=== PATIENT | male | born 1955 | race African-American/Black ===

== ENCOUNTER 2018-08-30 06:27 | Inpatient (IN) ==
--- NOTE | 2018-08-30 11:06 | P.HPIM ---
History of Present Illness Primary Care Physician: UNKNOWN Chief Complaint: Chest pain History of Present Illness: The patient is a 63-year-old male with past medical history of CAD status post 3 stents who is presenting to the hospital with left-sided chest pain. He said he has always had chest pain ever since his second heart catheterization. He says his chest pain is located on the left side of his chest and it radiates down his left arm. He says it comes and goes. He says at its worst the pain is a 10 out of 10 in severity. It has become more frequent in nature recently. The pain gets worse with exertion but also occurs at rest frequently. 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 The patient said that he did a treadmill stress test about a month ago but he was unable to complete exercise. He then had a chemical stress test which was supposedly negative. The patient denies any history of kidney problems. He says he recently had dental extraction and is currently on antibiotics for that. He says that he has chronic clear sputum production. He denies a smoking history. Discussed with nursing. Inpatient Certification: I certify that the inpatient services were ordered in accordance with Medicare regulations governing the order. This includes certification that hospital inpatient services are reasonable and necessary and in the case of services not specified as inpatient-only under 42 CFR 419.22(n), that they are appropriately provided as inpatient services in accordance to with the 2-midnight benchmark under 43 CFR 412.3(e) Review of Systems All other systems reviewed negative except as stated in HPI PMFSH - History History Provided By: Patient - Medical History Medical History: Medical History (Last Updated 08/30/18 @ 11:10 by Khurram Saul DO) CAD (coronary artery disease) Diabetes Hyperlipidemia Hypertension Prostatitis, chronic - Surgical History Surgical History: Surgical History (Last Updated 08/30/18 @ 11:10 by Khurram Saul DO) H/O heart artery stent H/O vasectomy Hx of cholecystectomy - Family History Family History: Family History (Last Updated 08/30/18 @ 11:10 by Khurram Saul DO) Other CAD (coronary artery disease) Diabetes - Social History I have reviewed the patient's Social History: Yes - Tobacco History Second Hand Smoke Exposure: No Tobacco Use In Past 30 Days: No Smoking Status: Never smoker - Alcohol History How Often Do You Have a Drink Containing Alcohol: Monthly or less - Substance Use History Substance History: No History of Abuse - Immunization History Tetanus Immunization: Never Vaccinated Hx Influenza Vaccine This Season: Yes Medications and Allergies Allergies Allergy/AdvReac Type Severity Reaction Status Date / Time No Allergy Information Allergy Unverified 08/30/18 11:12 Available Home Medications Medication Instructions Recorded Confirmed Type amoxicillin 500 mg PO TID 08/30/18 08/30/18 History aspirin 325 mg PO DAILY 08/30/18 08/30/18 History carvedilol 3.125 mg PO BID 08/30/18 08/30/18 History glipizide 10 mg PO DAILY 08/30/18 08/30/18 History ibuprofen 800 mg PO TID PRN 08/30/18 08/30/18 History isosorbide mononitrate 60 mg PO QAM 08/30/18 08/30/18 History olmesartan 20 mg PO DAILY 08/30/18 08/30/18 History prasugrel 10 mg PO DAILY 08/30/18 08/30/18 History pravastatin 20 mg PO DAILY 08/30/18 08/30/18 History sitagliptin-metformin [Janumet XR] 1 tab PO QPM 08/30/18 08/30/18 History Exam Narrative: General: NAD HEENT: NC, AT Lungs: CTAB. No W/R/R Heart: RRR. No M/G/R Abdomen: Soft, nontender, nondistended Extremities: No edema Neuro: No gross deficits Caprini VTE Risk Assessment Caprini VTE Risk Assessment: Moderate/High Risk (score >= 2) Caprini Risk Assessment Model: Point Value = 1 Point Value = 2 Point Value = 3 Point Value = 5 Age 41-60 Minor surgery BMI > 25 kg/m2 Swollen legs Varicose veins or History of unexplained or recurrent spontaneous Oral contraceptives or hormone replacement Sepsis (< 1 month) Serious lung disease, including pneumonia (< 1 month) Abnormal pulmonary function Acute myocardial infarction Congestive heart failure (< 1 month) History of inflammatory bowel disease Medical patient at bed rest Age 61-74 Arthroscopic surgery Major open surgery (> 45 min) Laparoscopic surgery (> 45 min) Malignancy Confined to bed (> 72 hours) Immobilizing plaster cast Central venous access Age >= 75 History of VTE Family history of VTE Factor V Leiden Prothrombin [id number] Lupus anticoagulant Anticardiolipin antibodies Elevated serum homocysteine Heparin-induced thrombocytopenia Other congenital or acquired thrombophilia Stroke (< 1 month) Elective arthroplasty Hip, pelvis, or leg fracture Acute spinal cord injury (< 1 month) Prophylaxis Regimen: Total Risk Factor Score Risk Level Prophylaxis Regimen 0-1 Low Early ambulation 2 Moderate Order ONE of the following: *Sequential Compression Device (SCD) *Heparin 5000 units SQ BID 3-4 Higher Order ONE of the following medications: *Heparin 5000 units SQ TID *Enoxaparin/Lovenox 40 mg SQ daily (WT < 150 kg, CrCl > 30 mL/min) *Enoxaparin/Lovenox 30 mg SQ daily (WT < 150 kg, CrCl > 10-29 mL/min) *Enoxaparin/Lovenox 30 mg SQ BID (WT < 150 kg, CrCl > 30 mL/min) AND/OR *Sequential Compression Device (SCD) 5 or more Highest Order ONE of the following medications: *Heparin 5000 units SQ TID (Preferred with Epidurals) *Enoxaparin/Lovenox 40 mg SQ daily (WT < 150 kg, CrCl > 30 mL/min) *Enoxaparin/Lovenox 30 mg SQ daily (WT < 150 kg, CrCl > 10-29 mL/min) *Enoxaparin/Lovenox 30 mg SQ BID (WT < 150 kg, CrCl > 30 mL/min) AND *Sequential Compression Device (SCD) Assessment and Plan - Plan Chest pain/ CAD The pt is s/p three cardiac stents. He continues to have left sided chest pain. He was transferred from [place] for further cardiac work-up. -trend trops and EKGs. -telemetry. -cardiology consult requested. -pain control as needed with a bowel regimen. -continue home cardiac regimen including ASA, prasugrel, Coreg, Imdur and statin. Acute renal failure Pt denies prior history of renal disease. He does have a history of HTN and DM. -IVFs. -hold ARB and ibuprofen. -avoid nephrotoxins. -check UA, calculate FENa. -nephrology consult requested. DM On PO meds as an outpt. -hold home meds. -insulin sliding scale. Recent dental extraction Was supposed to have dental follow-up 08/30. -continue amoxicillin. -outpt follow-up with dentist. Leukocytosis Likely reactive. -check a UA and CXR. PPx: Heparin Code Status: Full H&P: Quality - VTE Deep Vein Thrombosis/Pulmonary Embolism Present on Admission: No
[2018-08-30] MEDS ORDERED: Acetaminophen 325 MG Tablet PO PRN (11:14)
[2018-08-30] MEDS ORDERED: Dextrose 50% in Water 50 ML Vial IV.PUSH PRN (11:17)
--- NOTE | 2018-08-30 12:07 | XR ---
EXAM DATE: 08/30/2018 12:04 PM EST AGE/SEX: 63 years / Male INDICATIONS: Chest pain and shortness of breath. CLINICAL DATA: This is the patient's initial encounter. Patient reports that signs and symptoms have been present for 1 day and indicates a pain score of 9/10. MEDICAL/SURGICAL HISTORY: Chronic obstructive pulmonary disease. Hypertension. Coronary artery disease. Prostatitis, chronic. Coronary artery stent. COMPARISON: No prior exams available for comparison. FINDINGS: A single AP view of the chest demonstrates the lungs to be symmetrically aerated without evidence of mass, infiltrate or effusion. The cardiomediastinal contours are unremarkable. Osseous structures a re intact. CONCLUSION: Negative examination. Electronically signed by: Narciso Marks MD 08/30/2018 12:06 PM EST
[2018-08-30 13:36] LABS: Calcium 8.6 mg/dL (8.5-10.1); Potassium 4.6 meq/L (3.5-5.1)
[2018-08-30] MEDS: Aspirin 325 MG Tablet PO SCH (13:36)
[2018-08-30] MEDS: Isosorbide Mononitrate 60 MG ER 24HR Tablet (Imdur) PO SCH (13:36)
[2018-08-30] MEDS: Sod Chloride 0.9% Inj 1,000 ML IV.CONT SCH (13:37)
[2018-08-30] MEDS: Insulin NovoLOG Aspart Correctional Sugar Inj SQ SCH ×2 (13:42→17:57)
[2018-08-30] MEDS ORDERED: Heparin - SQ 10,000 UNITS/ML Vial SQ SCH (14:00)
--- NOTE | 2018-08-30 15:55 | P.CONNP ---
<Pa Engel - Last Filed: 08/30/18 16:36> History of Present Illness Primary Care Provider: UNKNOWN Chief Complaint: Chest pain History of Present Illness: Patient is a 63 year old male who is a transfer from [place]. Patient had chest pain which is what brought him to the hospital in [place]. Patient was transferred here due to ARF. Creatinine is 2.03, GFR 40. Patient denies any chest pain, SOB, nausea/vomiting/diarrhea. Patient has a medical history of Type 2 DM, CAD s/p 3 stents, prostatitis, hypertension, and hyperlipidemia. Patient denies any prior kidney disease or any family history of kidney disease. Patient stated he has taken 325mg of Aspirin for a year but denied any other NSAID use. Ibuprofen was listed on his home meds. Patient denies alcohol, tobacco, and drug use. Patient's and daughter at bedside. Patient stated he is on antibiotic due to recent dental extraction. Review of Systems All other systems reviewed negative except as stated in HPI PMFSH - History History Provided By: Patient - Medical History Medical History: Medical History (Last Updated 08/30/18 @ 11:10 by Khurram Saul DO) CAD (coronary artery disease) Diabetes Hyperlipidemia Hypertension Prostatitis, chronic - Surgical History Surgical History: Surgical History (Last Updated 08/30/18 @ 11:10 by Khurram Saul DO) H/O heart artery stent H/O vasectomy Hx of cholecystectomy - Family History Family History: Family History (Last Updated 08/30/18 @ 11:10 by Khurram Saul DO) Other CAD (coronary artery disease) Diabetes - Tobacco History Second Hand Smoke Exposure: No Tobacco Use In Past 30 Days: No Smoking Status: Never smoker - Alcohol History How Often Do You Have a Drink Containing Alcohol: Monthly or less - Substance Use History Substance History: No History of Abuse - Immunization History Tetanus Immunization: Never Vaccinated Hx Influenza Vaccine This Season: Yes Medications and Allergies Allergies Allergy/AdvReac Type Severity Reaction Status Date / Time No Allergy Information Allergy Verified 08/30/18 11:50 Available Home Medications Medication Instructions Recorded Confirmed Type amoxicillin 500 mg PO TID 08/30/18 08/30/18 History aspirin 325 mg PO DAILY 08/30/18 08/30/18 History carvedilol 3.125 mg PO BID 08/30/18 08/30/18 History glipizide 10 mg PO DAILY 08/30/18 08/30/18 History ibuprofen 800 mg PO TID PRN 08/30/18 08/30/18 History isosorbide mononitrate 60 mg PO QAM 08/30/18 08/30/18 History olmesartan 20 mg PO DAILY 08/30/18 08/30/18 History prasugrel 10 mg PO DAILY 08/30/18 08/30/18 History pravastatin 20 mg PO DAILY 08/30/18 08/30/18 History sitagliptin-metformin [Janumet XR] 1 tab PO QPM 08/30/18 08/30/18 History Active Medications: Active Medications Acetaminophen (Tylenol) 650 mg PO Q4H PRN PRN Reason: Temp > 100.4 Amoxicillin (Amoxil) 500 mg PO TID [facility] Last Admin: 08/30/18 14:10 Dose: 500 mg Aspirin (Aspirin) 325 mg PO DAILY [facility] Last Admin: 08/30/18 13:36 Dose: 325 mg Carvedilol (Coreg) 3.125 mg PO BID [facility] Last Admin: 08/30/18 13:36 Dose: 3.125 mg Dextrose (D50w Vial) 50 ml IV.PUSH UNSCH PRN PRN Reason: PER HYPOGLYCEMIA PROTOCOL Glucagon (Glucagon Inj) 1 mg OTHER PRN PRN PRN Reason: for Hypoglycemia Protocol Heparin Sodium (Porcine) (Heparin Inj) 5,000 units SQ Q8H [facility] Last Admin: 08/30/18 13:36 Dose: 5,000 units Sodium Chloride (Ns Inj) 1,000 mls @ 100 mls/hr IV.CONT .Q10H [facility] Stop: 08/31/18 07:14 Last Admin: 08/30/18 13:37 Dose: 100 mls/hr Insulin Aspart (Novolog Insulin Correctional Sugar Inj) 0 unit SQ Q6HR [facility]; Protocol Last Admin: 08/30/18 13:42 Dose: 2 unit Isosorbide Mononitrate (Imdur) 60 mg PO DAILY@0700 [facility] Last Admin: 08/30/18 13:36 Dose: 60 mg Morphine Sulfate (Morphine Inj) 4 mg IV.PUSH Q4H PRN PRN Reason: BREAKTHROUGH PAIN Ondansetron HCl (Zofran Inj) 4 mg IV.PUSH Q6H PRN PRN Reason: NAUSEA OR VOMITING Oxycodone HCl (Roxicodone) 5 mg PO Q4H PRN PRN Reason: pain 3-10 Prasugrel (Effient) 10 mg PO DAILY [facility] Last Admin: 08/30/18 14:10 Dose: 10 mg Pravastatin Sodium (Pravachol) 20 mg PO DAILY [facility] Last Admin: 08/30/18 13:36 Dose: 20 mg Senna/Docusate Sodium (Letty-Colace) 1 tab PO BID [facility] Sodium Chloride (Ns Flush) 2 ml IV.FLUSH BID [place] Sodium Chloride (Ns Flush) 2 ml IV.FLUSH PRN PRN PRN Reason: FLUSH AFTER USING IV ACCESS Exam Vital signs: Vital Signs 08/30/18 12:00 Temperature 97.8 F Pulse Rate 58 L Respiratory Rate 17 Blood Pressure 126/71 Pulse Oximetry 100 Intake & Output 08/29/18 08/30/18 08/30/18 18:59 06:59 18:59 Weight 81.3 kg Other: Weight On Admission 81.3 kg - Constitutional no acute distress - Routine HEENT Exam Eye: Present: EOMI, PERRL ENT: Present: mucous membranes moist - Routine Neck Exam Present: trachea midline. Absent: JVD, tracheal deviation - Routine Respiratory Exam Present: CTA bilaterally. Absent: accessory muscle use, respiratory distress - Routine Cardiovascular Exam Present: RRR. Absent: murmur - Routine Abdominal Exam Present: soft, normoactive bowel sounds. Absent: tenderness - Routine Extremities Exam Present: pulses intact, normal capillary refill. Absent: edema - Routine Skin Exam Present: intact - Routine Neurological Exam Present: alert, oriented X3 Results - Lab Results 08/30/18 12:20 Most recent lab results Calcium 8.6 mg/dL (8.5-10.1) 08/30/18 12:20 Assessment and Plan - Assessment (1) ARF (acute renal failure) Code(s): N17.9 - Acute kidney failure, unspecified Status: Acute Plan: ARF etiology is unclear at this point. Etiology could be due to Diabetic nephropathy, Hypertensive nephrosclerosis, NSAID use. Ordered renal ultrasound and additional lab tests. Baseline renal function is not known and no previous labs from hospital where patient was transferred from are available. Monitor urine output. Avoid nephrotoxic agents. Monitor fluid and electrolytes. (2) Hypertension Code(s): I10 - Essential (primary) hypertension Status: Acute Plan: Monitor BP. Continue current medications. (3) Hyperlipidemia Code(s): E78.5 - Hyperlipidemia, unspecified Status: Acute Plan: Patient on pravastatin. (4) CAD (coronary artery disease) Code(s): I25.10 - Atherosclerotic heart disease of zuni coronary artery without angina pectoris Status: Acute Plan: s/p stent placement. Patient on Prasugrel. (5) Diabetes type 2, controlled Code(s): E11.9 - Type 2 diabetes mellitus without complications Status: Acute Plan: Insulin coverage to maintain blood glucose levels between 140 and 180. <Fransisco Hernandez - Last Filed: 08/30/18 22:05> History of Present Illness Primary Care Provider: UNKNOWN [facility] - Medical History Medical History: Medical History (Last Updated 08/30/18 @ 11:10 by Khurram Saul DO) CAD (coronary artery disease) Diabetes Hyperlipidemia Hypertension Prostatitis, chronic - Surgical History Surgical History: Surgical History (Last Updated 08/30/18 @ 11:10 by Khurram Saul DO) H/O heart artery stent H/O vasectomy Hx of cholecystectomy - Family History Family History: Family History (Last Updated 08/30/18 @ 11:10 by Khurram Saul DO) Other CAD (coronary artery disease) Diabetes Medications and Allergies Active Medications: Active Medications Acetaminophen (Tylenol) 650 mg PO Q4H PRN PRN Reason: Temp > 100.4 Amoxicillin (Amoxil) 500 mg PO TID [facility] Last Admin: 08/30/18 17:57 Dose: 500 mg Aspirin (Aspirin) 325 mg PO DAILY [facility] Last Admin: 08/30/18 13:36 Dose: 325 mg Carvedilol (Coreg) 3.125 mg PO BID [facility] Last Admin: 08/30/18 21:57 Dose: 3.125 mg Dextrose (D50w Vial) 50 ml IV.PUSH UNSCH PRN PRN Reason: PER HYPOGLYCEMIA PROTOCOL Glucagon (Glucagon Inj) 1 mg OTHER PRN PRN PRN Reason: for Hypoglycemia Protocol Sodium Chloride (Ns Inj) 1,000 mls @ 100 mls/hr IV.CONT .Q10H [facility] Stop: 08/31/18 07:14 Last Admin: 08/30/18 13:37 Dose: 100 mls/hr Heparin Sodium/Dextrose (Heparin/D5w 25,000 U/250 Ml) 25,000 unit in 250 mls @ 10 mls/hr IV.CONT TITRATE PRN; Protocol PRN Reason: Per Protocol Last Admin: 08/30/18 19:24 Dose: 1,000 units/hr, 10 mls/hr Insulin Aspart (Novolog Insulin Correctional Sugar Inj) 0 unit SQ Q6HR [facility]; Protocol Last Admin: 08/30/18 17:57 Dose: 2 unit Isosorbide Mononitrate (Imdur) 60 mg PO DAILY@0700 [facility] Last Admin: 08/30/18 13:36 Dose: 60 mg Morphine Sulfate (Morphine Inj) 4 mg IV.PUSH Q4H PRN PRN Reason: BREAKTHROUGH PAIN Last Admin: 08/30/18 19:19 Dose: 4 mg Nitroglycerin (Nitrostat Sl) 0.4 mg SL Q5M PRN PRN Reason: CHEST PAIN Ondansetron HCl (Zofran Inj) 4 mg IV.PUSH Q6H PRN PRN Reason: NAUSEA OR VOMITING Oxycodone HCl (Roxicodone) 5 mg PO Q4H PRN PRN Reason: pain 3-10 Prasugrel (Effient) 10 mg PO DAILY [facility] Last Admin: 08/30/18 14:10 Dose: 10 mg Pravastatin Sodium (Pravachol) 20 mg PO DAILY [facility] Last Admin: 08/30/18 13:36 Dose: 20 mg Senna/Docusate Sodium (Letty-Colace) 1 tab PO BID [facility] Last Admin: 08/30/18 21:57 Dose: Not Given Sodium Chloride (Ns Flush) 2 ml IV.FLUSH BID [facility] Last Admin: 08/30/18 21:56 Dose: 2 ml Sodium Chloride (Ns Flush) 2 ml IV.FLUSH PRN PRN PRN Reason: FLUSH AFTER USING IV ACCESS Exam Vital signs: Vital Signs 08/30/18 08:00 08/30/18 12:00 08/30/18 16:00 Temperature 97.8 F 97.8 F Pulse Rate 70 58 L 70 Respiratory Rate 17 13 Blood Pressure 126/71 138/61 Pulse Oximetry 100 100 08/30/18 19:15 08/30/18 19:22 08/30/18 19:30 Temperature 96.8 F L Pulse Rate 70 72 Respiratory Rate 18 17 Blood Pressure 111/78 185/78 H 138/65 Pulse Oximetry 100 100 08/30/18 20:00 Temperature 96.8 F L Pulse Rate 68 Respiratory Rate 20 Blood Pressure 125/86 Pulse Oximetry 100 Intake & Output 08/30/18 08/30/18 08/31/18 06:59 18:59 06:59 Intake Total 480 / 480 Output Total 500 / 500 Balance - Weight 81.3 kg Intake: Oral 480 / 480 Output: Urine 500 / 500 Other: Weight On Admission 81.3 kg Results - Lab Results 08/30/18 12:20 Most recent lab results Calcium 8.6 mg/dL (8.5-10.1) 08/30/18 12:20 Assessment and Plan - Assessment (1) ARF (acute renal failure) Code(s): N17.9 - Acute kidney failure, unspecified Status: Acute (2) Hypertension Code(s): I10 - Essential (primary) hypertension Status: Acute (3) Hyperlipidemia Code(s): E78.5 - Hyperlipidemia, unspecified Status: Acute (4) CAD (coronary artery disease) Code(s): I25.10 - Atherosclerotic heart disease of zuni coronary artery without angina pectoris Status: Acute (5) Diabetes type 2, controlled Code(s): E11.9 - Type 2 diabetes mellitus without complications Status: Acute - Attending Attestation patient was seen and examined. Baseline renal function is not known. He apparently took one Ibuprofen yesterday. May have underlying hypertensive nephrosclerosis or diabetic nephropathy. Order renal US and UA. Cardiology evaluation in progress. Await stabilization of renal function before cardiac catheterization if it is deemed necessary.
--- NOTE | 2018-08-30 16:05 | US ---
EXAM DATE: 08/30/2018 4:02 PM EST AGE/SEX: 63 years / Male INDICATIONS: Increased BUN/Creatnine. CLINICAL DATA: This is the patient's initial encounter. Patient reports that signs and symptoms have been present for 1 day and indicates a pain score of 0/10. MEDICAL/SURGICAL HISTORY: Hypertension. Coronary artery disease. Diabetes. Hyperlipidemia. Pros tatitis. Cholecystectomy. Cardiac stent. Vasectomy. COMPARISON: No prior exams available for comparison. MEASUREMENTS: Right Kidney:__10.9 x 4.5 x 4.9 cm Left Kidney:__10.5 x 4.3 x 5.1 cm FINDINGS: Right Kidney: Normal echotexture and cortical thickness. No mass or hydronephrosis. Left Kidney: Normal echotexture and cortical thickness. No hydronephrosis. There is a 2.6 cm cyst at the lower pole. Bladder: Within normal limits given the degree of distension. Other: None. CONCLUSION: Negative renal ultrasound examination. Incidental note is made of a left renal cyst. Electronically signed by: Narciso Mancuso MD 08/30/2018 4:04 PM EST
--- NOTE | 2018-08-30 18:44 | MB ---
cc: Vladimir Mann MD DATE: 08/30/2018 HISTORY OF PRESENT ILLNESS: Omar is a very pleasant 63-year-old gentleman with history of PCI x 2. He has been having severe chest pain at rest, which is new, associated with shortness of breath. He is currently resting in bed, in no acute distress. He is accompanied by his and daughter. Otherwise, denies any fevers, chills, cough, GI or bleeding, PND, orthopnea, syncope or dizziness. PAST MEDICAL HISTORY: Per history of present illness, he has a history of coronary artery disease, diabetes, hyperlipidemia, hypertension, chronic prostatitis, vasectomy, cholecystectomy. ALLERGIES: NONE. SOCIAL HISTORY: Denies tobacco use. Rarely drinks alcohol. MEDICATIONS IN THE HOSPITAL: 1. Aspirin 325 daily. 2. Carvedilol 3.125 b.i.d. 3. Insulin. 4. Isosorbide mononitrate 60 mg daily. 5. Effient 10 mg daily. 6. Pravastatin 20 mg daily. 7. Docusate 1 tab b.i.d. PHYSICAL EXAMINATION: VITAL SIGNS: Temperature 97.8, pulse 70, respiratory rate 17, blood pressure 126/71. GENERAL: He is alert and oriented x 3, in no acute distress. NECK: Supple. No JVD. No bruit. CARDIOVASCULAR: S1, S2. No murmurs, rubs or gallops. LUNGS: Clear to auscultation bilaterally. ABDOMEN: Soft, nontender and nondistended with positive bowel sounds. EXTREMITIES: No lower extremity edema. LABORATORY AND DIAGNOSTIC DATA: Negative renal ultrasound examination. Incidental note is made of a left renal cyst. Chest x-ray, negative examination. EKG, sinus bradycardia at 50 beats per minute, anteroseptal Q waves, asymmetric T-wave inversion in V4, V5, V6. Sodium 135, potassium 4.6, chloride 104, bicarbonate 26.0, BUN 24, creatinine 2.03, calcium 8.6. Troponin is 0.63. CBC is not available. DIAGNOSES: 1. [id number] myocardial infarction. 2. Coronary artery disease. 3. Acute renal failure. 4. Diabetes. 5. Hypertension. DISCUSSION: At this point in time, the patient is being appropriately treated with dual antiplatelet therapy given his non-STEMI. He is currently asymptomatic and has acute renal failure; therefore, we will follow trends in creatinine. The patient definitely needs a left heart catheterization. We will just try to optimize his renal function prior to the catheterization. The patient will obviously have to consent as well. Recommend to continue aspirin, Effient, Coreg, Imdur, pravastatin. BALBINA inhibitor is obviously being held due to acute renal failure. We will also get a CBC, INR, magnesium and BNP. MD JOSSELINE London/ghazala , 05:00 PM , 05:08 PM
[2018-08-30 19:07] LABS: Activated Partial Thrombo Time 26.3 sec (23.4-31.7); Prothrombin Time 10.4 sec (9.8-11.6)
[2018-08-30] MEDS: Morphine Inj 4 MG/ML Vial IV.PUSH PRN (19:19)
[2018-08-30] MEDS: Heparin Drip 25,000 UNIT/250 ML BAG IV.CONT PRN (19:24)
[2018-08-30] MEDS: Senna/Docusate Sodium 8.6/50 MG Tablet PO SCH (21:57)
[2018-08-31] MEDS: Sod Chloride 0.9% Inj 1,000 ML IV.CONT SCH (00:15)
[2018-08-31 01:56] LABS: Bilirubin,Urine Negative (Negative); Clarity,Urine Clear (Clear); Color,Urine Yellow (Yellw/Straw); Glucose,Urine (UA) Negative (Negative); Leukocyte Esterase,Urine Trace (Negative); Nitrite,Urine Negative (Negative); Specific Gravity,Urine 1.011 (1.002-1.035); Squamous Epithelial Cell,Urine <1 /hpf (0-5)
[2018-08-31] MEDS: Insulin NovoLOG Aspart Correctional Sugar Inj SQ SCH ×5 (01:57→23:45)
[2018-08-31 02:10] LABS: Creatinine,Urine Random 112 mg/dL (27-300); Sodium,Urine Random 78 meq/L
[2018-08-31 04:39] LABS: Baso % (Auto) 0.4 % (0.0-2.0); Eos # (Auto) 0.2 th/mm3 (0.0-0.4); Hematocrit 31.3 % (39.0-51.0); Hemoglobin 10.5 gm/dL (13.0-17.0); Lymph # (Auto) 2.8 th/mm3 (1.0-4.8); Lymph % (Auto) 25.4 % (9.0-44.0); Mean Corpuscular HGB Conc 33.6 % (32.0-36.0); Mean Corpuscular Hemoglobin 30.2 pg (27.0-34.0); Mean Corpuscular Volume 89.8 fL (80.0-100.0); Mono # (Auto) 0.4 th/mm3 (0.0-0.9); Neut # (Auto) 7.6 th/mm3 (1.8-7.7); Neut % (Auto) 68.2 % (16.0-70.0); Platelet Count 199 th/mm3 (150-450); Red Blood Count 3.48 mil/mm3 (4.50-5.90); Red Cell Distribution Width 13.6 % (11.6-17.2); White Blood Count 11.1 th/mm3 (4.0-11.0)
[2018-08-31 04:58] LABS: Prothrombin Time 10.3 sec (9.8-11.6)
[2018-08-31 05:11] LABS: Alkaline Phosphatase 78 U/L (45-117); Total Protein 6.3 g/dL (6.4-8.2)
[2018-08-31 05:15] LABS: Alanine Aminotransferase 16 U/L (12-78); Albumin 3.4 g/dL (3.4-5.0); Anion Gap 9 meq/L (5-15); Aspartate Aminotransferase 20 U/L (15-37); Blood Urea Nitrogen 24 mg/dL (7-18); Calcium 8.5 mg/dL (8.5-10.1); Carbon Dioxide 23.5 meq/L (21.0-32.0); Chloride 107 meq/L (98-107); Glomerular Filtration Rate 42 mL/min (>89); Glucose,Random 134 mg/dL (74-106); Potassium 4.6 meq/L (3.5-5.1); Sodium 139 meq/L (136-145)
[2018-08-31] MEDS: Isosorbide Mononitrate 60 MG ER 24HR Tablet (Imdur) PO SCH (06:58)
[2018-08-31] MEDS: Senna/Docusate Sodium 8.6/50 MG Tablet PO SCH ×2 (08:27→20:45)
[2018-08-31] MEDS: Aspirin 325 MG Tablet PO SCH (08:28)
--- NOTE | 2018-08-31 10:42 | P.PNCA ---
Subjective Interval history: alert in nad, some chest pain last night Medications and Allergies Active Medications: Active Medications Acetaminophen (Tylenol) 650 mg PO Q4H PRN PRN Reason: Temp > 100.4 Amoxicillin (Amoxil) 500 mg PO TID [facility] Last Admin: 08/31/18 08:27 Dose: 500 mg Aspirin (Aspirin) 325 mg PO DAILY [facility] Last Admin: 08/31/18 08:28 Dose: 325 mg Carvedilol (Coreg) 3.125 mg PO BID [facility] Last Admin: 08/31/18 08:27 Dose: 3.125 mg Dextrose (D50w Vial) 50 ml IV.PUSH UNSCH PRN PRN Reason: PER HYPOGLYCEMIA PROTOCOL Glucagon (Glucagon Inj) 1 mg OTHER PRN PRN PRN Reason: for Hypoglycemia Protocol Heparin Sodium/Dextrose (Heparin/D5w 25,000 U/250 Ml) 25,000 unit in 250 mls @ 10 mls/hr IV.CONT TITRATE PRN; Protocol PRN Reason: Per Protocol Last Admin: 08/30/18 19:24 Dose: 1,000 units/hr, 10 mls/hr Insulin Aspart (Novolog Insulin [place] Sugar Inj) 0 unit SQ Q6HR [facility]; Protocol Last Admin: 08/31/18 06:53 Dose: 2 unit Isosorbide Mononitrate (Imdur) 60 mg PO DAILY@0700 [facility] Last Admin: 08/31/18 06:58 Dose: 60 mg Morphine Sulfate (Morphine Inj) 4 mg IV.PUSH Q4H PRN PRN Reason: BREAKTHROUGH PAIN Last Admin: 08/30/18 19:19 Dose: 4 mg Nitroglycerin (Nitrostat Sl) 0.4 mg SL Q5M PRN PRN Reason: CHEST PAIN Ondansetron HCl (Zofran Inj) 4 mg IV.PUSH Q6H PRN PRN Reason: NAUSEA OR VOMITING Oxycodone HCl (Roxicodone) 5 mg PO Q4H PRN PRN Reason: pain 3-10 Prasugrel (Effient) 10 mg PO DAILY [facility] Last Admin: 08/31/18 08:27 Dose: 10 mg Pravastatin Sodium (Pravachol) 20 mg PO DAILY [facility] Last Admin: 08/31/18 08:27 Dose: 20 mg Senna/Docusate Sodium (Letty-Colace) 1 tab PO BID [facility] Last Admin: 08/31/18 08:27 Dose: 1 tab Sodium Chloride (Ns Flush) 2 ml IV.FLUSH BID [facility] Last Admin: 08/31/18 08:28 Dose: 2 ml Sodium Chloride (Ns Flush) 2 ml IV.FLUSH PRN PRN PRN Reason: FLUSH AFTER USING IV ACCESS Allergies Allergy/AdvReac Type Severity Reaction Status Date / Time No Allergy Information Allergy Verified 08/30/18 11:50 Available Home Medications Medication Instructions Recorded Confirmed Type amoxicillin 500 mg PO TID 08/30/18 08/30/18 History aspirin 325 mg PO DAILY 08/30/18 08/30/18 History carvedilol 3.125 mg PO BID 08/30/18 08/30/18 History glipizide 10 mg PO DAILY 08/30/18 08/30/18 History ibuprofen 800 mg PO TID PRN 08/30/18 08/30/18 History isosorbide mononitrate 60 mg PO QAM 08/30/18 08/30/18 History olmesartan 20 mg PO DAILY 08/30/18 08/30/18 History prasugrel 10 mg PO DAILY 08/30/18 08/30/18 History pravastatin 20 mg PO DAILY 08/30/18 08/30/18 History sitagliptin-metformin [Janumet XR] 1 tab PO QPM 08/30/18 08/30/18 History Physical Exam Vital signs: Vital Signs 08/30/18 12:00 08/30/18 16:00 08/30/18 19:15 Temperature 97.8 F 97.8 F 96.8 F L Pulse Rate 58 L 70 70 Respiratory Rate 17 13 18 Blood Pressure 126/71 138/61 111/78 Pulse Oximetry 100 100 100 08/30/18 19:22 08/30/18 19:30 08/30/18 20:00 Temperature 96.8 F L Pulse Rate 72 73 Respiratory Rate 17 20 Blood Pressure 185/78 H 138/65 125/86 Pulse Oximetry 100 100 08/31/18 00:00 08/31/18 04:00 08/31/18 08:00 Temperature 97.7 F 97.5 F L 97.6 F Pulse Rate 76 68 70 Respiratory Rate 16 16 20 Blood Pressure 133/75 135/71 123/74 Pulse Oximetry 100 98 99 Intake & Output 08/30/18 08/31/18 08/31/18 18:59 06:59 18:59 Intake Total 480 / 480 2280 / 2280 Output Total 500 / 500 750 / 750 Balance -20 / -20 1530 / 1530 Weight 81.3 kg 83.2 kg Intake: IV 1800 / 1800 NS Inj 1,000 ML @ 100 mls/hr IV 1800 / 1800 .CONT .Q10H [facility] Rx#:[id number] Oral 480 / 480 480 / 480 Output: Urine 500 / 500 750 / 750 Other: Date of Last Bowel Movement 08/28/18 # Bowel Movements 0 Weight On Admission 81.3 kg - Constitutional no acute distress - Routine HEENT Exam Head: Present: normocephalic - Routine Neck Exam Present: supple - Routine Respiratory Exam Present: CTA bilaterally - Routine Cardiovascular Exam Present: S1, S2 - Routine Abdominal Exam Present: soft - Routine Extremities Exam Comments: no rito Results 08/31/18 03:40 08/31/18 03:40 Cardiac Enzymes 08/30/18 08/30/18 08/31/18 Range/Units 12:20 18:40 03:40 AST 20 (15-37) U/L Troponin I 0.63 H* 0.69 H* (0.02-0.05) ng/mL B-Natriuretic Peptide (0-100) pg/mL 08/31/18 08/31/18 Range/Units 03:40 09:38 AST (15-37) U/L Troponin I 0.42 H (0.02-0.05) ng/mL B-Natriuretic Peptide 419 H (0-100) pg/mL Coagulation 08/30/18 08/30/18 08/31/18 Range/Units 18:40 23:01 03:40 PT 10.4 10.3 (9.8-11.6) sec APTT 26.3 38.1 H D (23.4-31.7) sec B-Natriuretic Peptide (0-100) pg/mL 08/31/18 08/31/18 08/31/18 Range/Units 03:40 03:40 09:38 PT (9.8-11.6) sec APTT 45.0 H 47.3 H (23.4-31.7) sec B-Natriuretic Peptide 419 H (0-100) pg/mL CBC 08/31/18 Range/Units 03:40 WBC 11.1 H (4.0-11.0) th/mm3 RBC 3.48 L (4.50-5.90) mil/mm3 Hgb 10.5 L (13.0-17.0) gm/dL Hct 31.3 L (39.0-51.0) % Plt Count 199 (150-450) th/mm3 Neut # (Auto) 7.6 (1.8-7.7) th/mm3 Lymph # (Auto) 2.8 (1.0-4.8) th/mm3 [place] # (Auto) 0.4 (0.0-0.9) th/mm3 Eos # (Auto) 0.2 (0.0-0.4) th/mm3 Baso # (Auto) 0.0 (0.0-0.2) th/mm3 Comprehensive Metabolic Panel 08/30/18 08/31/18 Range/Units 12:20 03:40 Sodium 135 L 139 (136-145) meq/L Potassium 4.6 4.6 (3.5-5.1) meq/L Chloride 104 107 (98-107) meq/L Carbon Dioxide 26.0 23.5 (21.0-32.0) meq/L BUN 24 H 24 H (7-18) mg/dL Creatinine 2.03 H 1.96 H (0.60-1.30) mg/dL Calcium 8.6 8.5 (8.5-10.1) mg/dL AST 20 (15-37) U/L ALT 16 (12-78) U/L Alkaline Phosphatase 78 (45-117) U/L Total Protein 6.3 L (6.4-8.2) g/dL Albumin 3.4 (3.4-5.0) g/dL Intake and Output 08/30/18 08/31/18 08/31/18 22:59 06:59 14:59 Intake Total 1280 / 1280 1480 / 1480 Output Total 500 / 500 750 / 750 Balance 780 / 780 730 / 730 Intake: IV 800 / 800 1000 / 1000 NS Inj 1,000 ML @ 100 mls/hr IV 800 / 800 1000 / 1000 .CONT .Q10H [facility] Rx#:[id number] Oral 480 / 480 480 / 480 Output: Urine 500 / 500 750 / 750 Other: Date of Last Bowel Movement 08/28/18 # Bowel Movements 0 Weight 83.2 kg - Imaging and Cardiology Imaging: Impressions Abdomen/Bladder Ultrasound 08/30/18 00:00 CONCLUSION: Negative renal ultrasound examination. Incidental note is made of a left renal cyst. Chest X-Ray 08/30/18 11:26 CONCLUSION: Negative examination. Assessment and Plan - Assessment (1) NSTEMI (non-ST elevated myocardial infarction) Code(s): I21.4 - Non-ST elevation (NSTEMI) myocardial infarction Status: Acute (2) ARF (acute renal failure) Code(s): N17.9 - Acute kidney failure, unspecified Status: Acute (3) Hypertension Code(s): I10 - Essential (primary) hypertension Status: Acute (4) Hyperlipidemia Code(s): E78.5 - Hyperlipidemia, unspecified Status: Acute (5) CAD (coronary artery disease) Code(s): I25.10 - Atherosclerotic heart disease of [place] coronary artery without angina pectoris Status: Acute (6) Diabetes type 2, controlled Code(s): E11.9 - Type 2 diabetes mellitus without complications Status: Acute - Plan 1.) CAD - nstemi, continue aspirin, [facility] sunday if patient consents, i explained that risk of temporary or permanent dialysis is increased due to arf, will f/u renal recs and creatinine trends
--- NOTE | 2018-08-31 12:45 | ECG ---
Date Performed: 08/30/2018 Time Performed: 16:09:01 PTAGE: 63 years EKG: Sinus rhythm SEPTAL MYOCARDIAL INFARCTION , OF INDETERMINATE AGE MODERATE T-WAVE ABNORMALITY, CONSIDER LATERAL IS CHEMIA ABNORMAL ECG Since the PREVIOUS TRACING , no significant change noted PREVIOUS TRACIN08/30/2018 11.49 DOCTOR: Jose Denton Interpretating Date/Time 08/31/2018 12:44:17
--- NOTE | 2018-08-31 12:57 | ECG ---
Date Performed: 08/30/2018 Time Performed: 11:49:44 PTAGE: 63 years EKG: SINUS BRADYCARDIA SEPTAL MYOCARDIAL INFARCTION , OF INDETERMINATE AGE MODERATE T-WAVE ABNOR MALITY, CONSIDER LATERAL ISCHEMIA ABNORMAL ECG Possible mild elevation of ST segment Clinical correla tion is recommended NO PREVIOUS TRACING DOCTOR: Jose Denton Interpretating Date/Time 08/31/2018 13:04:10
--- NOTE | 2018-08-31 12:59 | ECG ---
Date Performed: 08/30/2018 Time Performed: 19:18:42 PTAGE: 63 years EKG: Sinus rhythm . Possible septal infarct - age undetermined LVH with secondary repolarization abnormality Inferior/l ateral ST-T changes are probably due to ventricular hypertrophy Abnormal ECG PREVIOUS TRACING :08/30/2018 @16.09 Compared to previous tracing,ST elevation V1 and V2 with re ciprocal ST depression inferolaterally is now noted Possible acute infarct Clinical correlation is re commended DOCTOR: Jose Denton Interpretating Date/Time 08/31/2018 12:58:07
--- NOTE | 2018-08-31 13:17 | P.PNNP ---
Subjective Interval history: Resting comfortably with family at bedside. Denies any shortness of breath, chest pain, nausea, or vomiting. Chest pain reported last night. Physical Exam Vital signs: Vital Signs 08/30/18 16:00 08/30/18 19:15 08/30/18 19:22 Temperature 97.8 F 96.8 F L Pulse Rate 70 70 Respiratory Rate 13 18 Blood Pressure 138/61 111/78 185/78 H Pulse Oximetry 100 100 08/30/18 19:30 08/30/18 20:00 08/31/18 00:00 Temperature 96.8 F L 97.7 F Pulse Rate 72 73 76 Respiratory Rate 17 20 16 Blood Pressure 138/65 125/86 133/75 Pulse Oximetry 100 100 100 08/31/18 04:00 08/31/18 08:00 Temperature 97.5 F L 97.6 F Pulse Rate 68 70 Respiratory Rate 16 20 Blood Pressure 135/71 123/74 Pulse Oximetry 98 99 Intake & Output 08/30/18 08/31/18 08/31/18 18:59 06:59 18:59 Intake Total 480 / 480 2280 / 2280 1000 / 1000 Output Total 500 / 500 750 / 750 Balance -20 / -20 1530 / 1530 1000 / 1000 Weight 81.3 kg 83.2 kg Intake: IV 1800 / 1800 1000 / 1000 NS Inj 1,000 ML @ 100 mls/hr IV 1800 / 1800 1000 / 1000 .CONT .Q10H [facility] Rx#:[id number] Oral 480 / 480 480 / 480 Output: Urine 500 / 500 750 / 750 Other: Date of Last Bowel Movement 08/28/18 # Bowel Movements 0 Weight On Admission 81.3 kg Narrative: GENERAL: Alert and oriented. SKIN: Warm and dry.\ NECK: Supple, trachea midline. No JVD. CARDIOVASCULAR: Regular rate and rhythm without murmurs, gallops, or rubs. RESPIRATORY: Breath sounds equal bilaterally. No accessory muscle use. GASTROINTESTINAL: Abdomen soft, non-tender, nondistended. MUSCULOSKELETAL: No cyanosis, or edema. BACK: Nontender without obvious deformity. No CVA tenderness. Assessment and Plan - Assessment (1) ARF (acute renal failure) Code(s): N17.9 - Acute kidney failure, unspecified Status: Acute Plan: ARF etiology is unclear at this point. Etiology could be due to Diabetic nephropathy, Hypertensive nephrosclerosis, NSAID use. Renal ultrasound negative. UA negative for proteinuria. Baseline renal function is not known and no previous labs from hospital where patient was transferred from are available. Family to have labs faxed to hospital. Creatinine essentially unchanged at 1.96, non oliguric. Continue to monitor urine output. Avoid nephrotoxic agents. Monitor fluid and electrolytes. Fluids encouraged. Await stabilization of renal function before cardiac catheterization if it is deemed necessary. labs in AM (2) Hypertension Code(s): I10 - Essential (primary) hypertension Status: Acute Plan: Monitor BP. Continue current medications. (3) Hyperlipidemia Code(s): E78.5 - Hyperlipidemia, unspecified Status: Acute Plan: Patient on pravastatin. (4) CAD (coronary artery disease) Code(s): I25.10 - Atherosclerotic heart disease of [place] coronary artery without angina pectoris Status: Acute Plan: s/p stent placement. Patient on Prasugrel. (5) Diabetes type 2, controlled Code(s): E11.9 - Type 2 diabetes mellitus without complications Status: Acute Plan: Insulin coverage to maintain blood glucose levels between 140 and 180.
--- NOTE | 2018-08-31 14:51 | P.PNIM ---
Subjective Interval history: Follow-up for chest pain, CAD, history of 3 stents, hypertension, hyperlipidemia , diabetes type 2. Patient seen and examined laying in bed, denies any chest pain or shortness of breath at this time, patient stated he only have chest pain at night when sleeping. Discussed plan for cardiac cath on Sunday patient stated if his renal function is better, will consent. Patient denies any headache or dizziness, denies any abdominal pain, nausea, vomiting, diarrhea or constipation. Patient denies any fever or chills. Nurse denies any acute concern overnight. Physical Exam Vital signs: Vital Signs 08/30/18 16:00 08/30/18 19:15 08/30/18 19:22 Temperature 97.8 F 96.8 F L Pulse Rate 70 70 Respiratory Rate 13 18 Blood Pressure 138/61 111/78 185/78 H Pulse Oximetry 100 100 08/30/18 19:30 08/30/18 20:00 08/31/18 00:00 Temperature 96.8 F L 97.7 F Pulse Rate 72 73 76 Respiratory Rate 17 20 16 Blood Pressure 138/65 125/86 133/75 Pulse Oximetry 100 100 100 08/31/18 04:00 08/31/18 08:00 Temperature 97.5 F L 97.6 F Pulse Rate 68 70 Respiratory Rate 16 20 Blood Pressure 135/71 123/74 Pulse Oximetry 98 99 Intake & Output 08/30/18 08/31/18 08/31/18 18:59 06:59 18:59 Intake Total 480 / 480 2280 / 2280 1000 / 1000 Output Total 500 / 500 750 / 750 Balance -20 / -20 1530 / 1530 1000 / 1000 Weight 81.3 kg 83.2 kg Intake: IV 1800 / 1800 1000 / 1000 NS Inj 1,000 ML @ 100 mls/hr IV 1800 / 1800 1000 / 1000 .CONT .Q10H [facility] Rx#:[id number] Oral 480 / 480 480 / 480 Output: Urine 500 / 500 750 / 750 Other: Date of Last Bowel Movement 08/28/18 # Bowel Movements 0 Weight On Admission 81.3 kg Narrative: GENERAL: Well-developed, well-nourished, -Hungarian male in no apparent distress SKIN: Warm and dry. HEAD: Atraumatic. Normocephalic. EYES: Pupils equal and round. No scleral icterus. No injection or drainage. ENT: No nasal bleeding or discharge. Mucous membranes pink and moist. NECK: Trachea midline. No JVD. CARDIOVASCULAR: Regular rate and rhythm. RESPIRATORY: No accessory muscle use. Clear to auscultation. Breath sounds equal bilaterally. GASTROINTESTINAL: Abdomen soft, non-tender, nondistended. Hepatic and splenic margins not palpable. MUSCULOSKELETAL: Extremities without clubbing, cyanosis, or edema. No obvious deformities. NEUROLOGICAL: Awake and alert. No obvious cranial nerve deficits. Motor grossly within normal limits. Generalized weakness, moving all 4 extremities normal speech. PSYCHIATRIC: Appropriate mood and affect; insight and judgment normal. Results - Labs CBC & Chem 7: 08/31/18 03:40 08/31/18 03:40 Laboratory Results - last 24 hr 08/30/18 08/30/18 08/30/18 16:22 18:40 18:40 WBC RBC Hgb Hct MCV MCH MCHC RDW Plt Count MPV Neut % (Auto) Lymph % (Auto) [place] % (Auto) Eos % (Auto) Baso % (Auto) Neut # (Auto) Lymph # (Auto) [place] # (Auto) Eos # (Auto) Baso # (Auto) WBC Differential Differential Comment PT 10.4 INR 1.0 APTT 26.3 Sodium Potassium Chloride Carbon Dioxide Anion Gap BUN Creatinine Estimated GFR POC Glucose 157 H Random Glucose Calcium Magnesium Total Bilirubin AST ALT Alkaline Phosphatase Troponin I 0.69 H* B-Natriuretic Peptide Total Protein Albumin Urine Color Urine Clarity Urine pH Ur Specific [place] Urine Protein Urine Glucose (UA) Urine Ketones Urine Occult Blood Urine Nitrate Urine Bilirubin Urine Urobilinogen Ur Leukocyte Esterase Urine WBC Ur Squamous Epith Cells Micro UA Comment Ur Microscopic Review Urine Culture Comments Ur Random Creatinine Ur Random Sodium 08/30/18 08/30/18 08/31/18 20:32 23:01 01:30 WBC RBC Hgb Hct MCV MCH MCHC RDW Plt Count MPV Neut % (Auto) Lymph % (Auto) [place] % (Auto) Eos % (Auto) Baso % (Auto) Neut # (Auto) Lymph # (Auto) [place] # (Auto) Eos # (Auto) Baso # (Auto) WBC Differential Differential Comment PT INR APTT 38.1 H D Sodium Potassium Chloride Carbon Dioxide Anion Gap BUN Creatinine Estimated GFR POC Glucose 136 H Random Glucose Calcium Magnesium Total Bilirubin AST ALT Alkaline Phosphatase Troponin I B-Natriuretic Peptide Total Protein Albumin Urine Color Yellow Urine Clarity Clear Urine pH 6.0 Ur Specific [place] 1.011 Urine Protein Negative Urine Glucose (UA) Negative Urine Ketones Negative Urine Occult Blood Negative Urine Nitrate Negative Urine Bilirubin Negative Urine Urobilinogen Less than 2 Ur Leukocyte Esterase Trace H Urine WBC 1 Ur Squamous Epith Cells <1 Micro UA Comment Culture not ind Ur Microscopic Review Not Reportable Urine Culture Comments Culture not ind Ur Random Creatinine Ur Random Sodium 08/31/18 08/31/18 08/31/18 01:30 01:30 01:56 WBC RBC Hgb Hct MCV MCH MCHC RDW Plt Count MPV Neut % (Auto) Lymph % (Auto) [place] % (Auto) Eos % (Auto) Baso % (Auto) Neut # (Auto) Lymph # (Auto) [place] # (Auto) Eos # (Auto) Baso # (Auto) WBC Differential Differential Comment PT INR APTT Sodium Potassium Chloride Carbon Dioxide Anion Gap BUN Creatinine Estimated GFR POC Glucose 117 H Random Glucose Calcium Magnesium Total Bilirubin AST ALT Alkaline Phosphatase Troponin I B-Natriuretic Peptide Total Protein Albumin Urine Color Urine Clarity Urine pH Ur Specific [place] Urine Protein Urine Glucose (UA) Urine Ketones Urine Occult Blood Urine Nitrate Urine Bilirubin Urine Urobilinogen Ur Leukocyte Esterase Urine WBC Ur Squamous Epith Cells Micro UA Comment Ur Microscopic Review Urine Culture Comments Ur Random Creatinine 112 Ur Random Sodium 78 78 08/31/18 08/31/18 08/31/18 03:40 03:40 03:40 WBC 11.1 H RBC 3.48 L Hgb 10.5 L Hct 31.3 L MCV 89.8 MCH 30.2 MCHC 33.6 RDW 13.6 Plt Count 199 MPV 9.0 Neut % (Auto) 68.2 Lymph % (Auto) 25.4 [place] % (Auto) 4.0 Eos % (Auto) 2.0 Baso % (Auto) 0.4 Neut # (Auto) 7.6 Lymph # (Auto) 2.8 [place] # (Auto) 0.4 Eos # (Auto) 0.2 Baso # (Auto) 0.0 WBC Differential . Differential Comment Auto diff final PT 10.3 INR 1.0 APTT Sodium 139 Potassium 4.6 Chloride 107 Carbon Dioxide 23.5 Anion Gap 9 BUN 24 H Creatinine 1.96 H Estimated GFR 42 L POC Glucose Random Glucose 134 H Calcium 8.5 Magnesium 2.0 Total Bilirubin 0.2 AST 20 ALT 16 Alkaline Phosphatase 78 Troponin I B-Natriuretic Peptide Total Protein 6.3 L Albumin 3.4 Urine Color Urine Clarity Urine pH Ur Specific [place] Urine Protein Urine Glucose (UA) Urine Ketones Urine Occult Blood Urine Nitrate Urine Bilirubin Urine Urobilinogen Ur Leukocyte Esterase Urine WBC Ur Squamous Epith Cells Micro UA Comment Ur Microscopic Review Urine Culture Comments Ur Random Creatinine Ur Random Sodium 08/31/18 08/31/18 08/31/18 03:40 03:40 06:48 WBC RBC Hgb Hct MCV MCH MCHC RDW Plt Count MPV Neut % (Auto) Lymph % (Auto) [place] % (Auto) Eos % (Auto) Baso % (Auto) Neut # (Auto) Lymph # (Auto) [place] # (Auto) Eos # (Auto) Baso # (Auto) WBC Differential Differential Comment PT INR APTT 45.0 H Sodium Potassium Chloride Carbon Dioxide Anion Gap BUN Creatinine Estimated GFR POC Glucose 163 H Random Glucose Calcium Magnesium Total Bilirubin AST ALT Alkaline Phosphatase Troponin I B-Natriuretic Peptide 419 H Total Protein Albumin Urine Color Urine Clarity Urine pH Ur Specific [place] Urine Protein Urine Glucose (UA) Urine Ketones Urine Occult Blood Urine Nitrate Urine Bilirubin Urine Urobilinogen Ur Leukocyte Esterase Urine WBC Ur Squamous Epith Cells Micro UA Comment Ur Microscopic Review Urine Culture Comments Ur Random Creatinine Ur Random Sodium 08/31/18 08/31/18 08/31/18 09:38 09:38 12:28 WBC RBC Hgb Hct MCV MCH MCHC RDW Plt Count MPV Neut % (Auto) Lymph % (Auto) [place] % (Auto) Eos % (Auto) Baso % (Auto) Neut # (Auto) Lymph # (Auto) [place] # (Auto) Eos # (Auto) Baso # (Auto) WBC Differential Differential Comment PT INR APTT 47.3 H Sodium Potassium Chloride Carbon Dioxide Anion Gap BUN Creatinine Estimated GFR POC Glucose 152 H Random Glucose Calcium Magnesium Total Bilirubin AST ALT Alkaline Phosphatase Troponin I 0.42 H B-Natriuretic Peptide Total Protein Albumin Urine Color Urine Clarity Urine pH Ur Specific [place] Urine Protein Urine Glucose (UA) Urine Ketones Urine Occult Blood Urine Nitrate Urine Bilirubin Urine Urobilinogen Ur Leukocyte Esterase Urine WBC Ur Squamous Epith Cells Micro UA Comment Ur Microscopic Review Urine Culture Comments Ur Random Creatinine Ur Random Sodium - Imaging Impressions Abdomen/Bladder Ultrasound 08/30/18 00:00 CONCLUSION: Negative renal ultrasound examination. Incidental note is made of a left renal cyst. Assessment and Plan - Assessment (1) ARF (acute renal failure) Code(s): N17.9 - Acute kidney failure, unspecified Status: Acute (2) Hypertension Code(s): I10 - Essential (primary) hypertension Status: Acute (3) Hyperlipidemia Code(s): E78.5 - Hyperlipidemia, unspecified Status: Acute (4) CAD (coronary artery disease) Code(s): I25.10 - Atherosclerotic heart disease of [place] coronary artery without angina pectoris Status: Acute (5) Diabetes type 2, controlled Code(s): E11.9 - Type 2 diabetes mellitus without complications Status: Acute (6) NSTEMI (non-ST elevated myocardial infarction) Code(s): I21.4 - Non-ST elevation (NSTEMI) myocardial infarction Status: Acute - Plan This patient is a 63-year-old -Hungarian male with past medical history of CAD status post 3 stents who is presenting to the hospital with left-sided chest pain. He said he has always had chest pain ever since his second heart catheterization NSTEMI CAD Chest pain The pt is s/p three cardiac stents. He continues to have left sided chest pain. He was transferred from [place] for further cardiac work-up. -trend troponin : 0.63, 0.69, 0.42 -EKG: ST elevation V1 and V2 with reciprocal ST depression inferolaterally is now noted Possible acute infarct Clinical correlation is recommended -BNP 419 -telemetry -Cardiology Consult: Recommend left heart cath on Sunday if patient consents, continue aspirin -pain control as needed with a bowel regimen. -continue home cardiac regimen including ASA, prasugrel, Coreg, Imdur and statin. -No chest pain or shortness of breath at this time -Continue heparin drip -Plan for left heart cath on Sunday if cleared with nephrology, and if patient consents. N.p.o. after midnight on Sunday night Acute renal failure -Etiology likely r/t diabetic nephropathy, hypertensive nephrosclerosis and NSAID use -Renal ultrasound negative - UA negative for proteinuria -Pt denies prior history of renal disease -continue IVF 1/2 NS -hold ARB and ibuprofen. -avoid nephrotoxins. -nephrology consult: Monitor fluid and electrolytes, encourage fluid intake await stabilization of renal function before cardiac cath if deemed necessary -Monitor BMP Hypertension Blood pressure controlled -Continue home medications, Coreg and Imdur -Monitor blood pressure, adjust medication as necessary DM, type 2 -Controlled -hold home meds due to acute renal failure -Monitor fasting sugar with insulin sliding scale Recent dental extraction Was supposed to have dental follow-up 08/30. -continue amoxicillin. -outpt follow-up with dentist. Leukocytosis Likely reactive -UA negative -Chest x-ray negative -No fever or chills -Monitor CBC DVT prophylaxis: Heparin Code Status: full code Discussed Condition With: patient and nurse, MDR
[2018-08-31] MEDS: Sodium Chloride 0.45 % Inj 1,000 ML IV.CONT SCH (15:46)
--- NOTE | 2018-08-31 18:25 | ECHRPT ---
Indication: CHEST PAIN CONCLUSIONS The left ventricular systolic function is normal with an estimated ejection fraction in the range of 60-65%. There is trace tricuspid valve regurgitation. BP: / HR: Rhythm: Sinus MEASUREMENTS (Male / Female) Normal Values Technical Quality:Good 2D ECHO LV Diastolic Diameter PLAX 4.2 cm 4.2 - 5.9 / 3.9 - 5.3 cm LV Systolic Diameter PLAX 3.0 cm IVS Diastolic Thickness 0.9 cm 0.6 - 1.0 / 0.6 - 0.9 cm LVPW Diastolic Thickness 0.9 cm 0.6 - 1.0 / 0.6 - 0.9 cm LV Relative Wall Thickness 0.4 LVOT Diameter 1.9 cm LA Systolic Diameter LX 3.3 cm 3.0 - 4.0 / 2.7 - 3.8 cm LV Ejection Fraction MOD 4C 61.8 % LV Ejection Fraction 4C AL 65.6 % M-MODE Aortic Root Diameter MM 3.4 cm AV Cusp Separation MM 2.2 cm DOPPLER AV Peak Velocity 90.9 cm/s AV Peak Gradient 3.3 mmHg LVOT Peak Velocity 79.5 cm/s LVOT Peak Gradient 2.5 mmHg AV Area Cont Eq pk 2.5 cm MV Area PHT 4.0 cm Mitral E Point Velocity 86.9 cm/s Mitral A Point Velocity 64.7 cm/s Mitral E to A Ratio 1.3 LV E' Lateral Velocity 6.9 cm/s Mitral E to LV E' Lateral Ratio 12.6 LV E' Septal Velocity 4.6 cm/s Mitral E to LV E' Septal Ratio 19.0 PV Peak Velocity 93.7 cm/s PV Peak Gradient 3.5 mmHg FINDINGS LEFT VENTRICLE The left ventricular systolic function is normal with an estimated ejection fraction in the range of 60-65%. Normal left ventricular size. Wall thickness is normal. No regional wall motion abnormalities are present. RIGHT VENTRICLE Normal right ventricular size and systolic function. LEFT ATRIUM The left atrial size is normal. RIGHT ATRIUM The right atrial size is normal. ATRIAL SEPTUM Normal atrial septal thickness without atrial level shunting by limited color doppler interrogation. AORTA The aortic root and proximal ascending aorta are normal in size on limited imaging. MITRAL VALVE Structurally normal mitral valve. No mitral valve stenosis or regurgitation. AORTIC VALVE Trileaflet aortic valve. No aortic valve stenosis or regurgitation. TRICUSPID VALVE Structurally normal tricuspid valve. There is trace tricuspid valve regurgitation. No tricuspid valve stenosis. PULMONARY VALVE The pulmonary valve is not well visualized. VESSELS The inferior vena cava is normal in size. PERICARDIUM No pericardial effusion. Maximiliano Reed DO (Electronically Signed) Final Date:31 August 2018 18:23
[2018-08-31] MEDS: Heparin Drip 25,000 UNIT/250 ML BAG IV.CONT PRN (19:38)
[2018-09-01] MEDS: Sodium Chloride 0.45 % Inj 1,000 ML IV.CONT SCH ×2 (00:02→11:23)
[2018-09-01] MEDS: Insulin NovoLOG Aspart Correctional Sugar Inj SQ SCH ×4 (05:03→23:49)
[2018-09-01] MEDS: Isosorbide Mononitrate 60 MG ER 24HR Tablet (Imdur) PO SCH (06:12)
[2018-09-01] MEDS: Senna/Docusate Sodium 8.6/50 MG Tablet PO SCH ×2 (08:08→20:47)
[2018-09-01 09:08] LABS: Baso % (Auto) 0.5 % (0.0-2.0); Eos # (Auto) 0.5 th/mm3 (0.0-0.4); Eos % (Auto) 5.9 % (0.0-4.0); Hematocrit 32.4 % (39.0-51.0); Hemoglobin 11.1 gm/dL (13.0-17.0); Lymph % (Auto) 24.3 % (9.0-44.0); Mean Corpuscular HGB Conc 34.4 % (32.0-36.0); Mean Corpuscular Hemoglobin 30.8 pg (27.0-34.0); Mean Corpuscular Volume 89.6 fL (80.0-100.0); Mono # (Auto) 0.5 th/mm3 (0.0-0.9); Mono % (Auto) 6.7 % (0.0-8.0); Neut % (Auto) 62.6 % (16.0-70.0); Platelet Count 201 th/mm3 (150-450); Red Blood Count 3.61 mil/mm3 (4.50-5.90); Red Cell Distribution Width 13.7 % (11.6-17.2); White Blood Count 8.1 th/mm3 (4.0-11.0)
[2018-09-01 09:29] LABS: Albumin 3.3 g/dL (3.4-5.0); Calcium 8.6 mg/dL (8.5-10.1); Carbon Dioxide 22.7 meq/L (21.0-32.0); Potassium 4.2 meq/L (3.5-5.1)
[2018-09-01 09:31] LABS: Phosphorus 3.3 mg/dL (2.5-4.9)
[2018-09-01 09:33] LABS: Troponin I 0.28 ng/mL (0.02-0.05)
--- NOTE | 2018-09-01 11:00 | P.PNCA ---
Subjective Interval history: alert in nad, assymptomatic Medications and Allergies Active Medications: Active Medications Acetaminophen (Tylenol) 650 mg PO Q4H PRN PRN Reason: Temp > 100.4 Amoxicillin (Amoxil) 500 mg PO TID [facility] Last Admin: 09/01/18 08:08 Dose: 500 mg Aspirin (Ecotrin) 162 mg PO DAILY [facility] Last Admin: 09/01/18 08:08 Dose: 162 mg Carvedilol (Coreg) 3.125 mg PO BID [facility] Last Admin: 09/01/18 08:09 Dose: 3.125 mg Dextrose (D50w Vial) 50 ml IV.PUSH UNSCH PRN PRN Reason: PER HYPOGLYCEMIA PROTOCOL Glucagon (Glucagon Inj) 1 mg OTHER PRN PRN PRN Reason: for Hypoglycemia Protocol Heparin Sodium/Dextrose (Heparin/D5w 25,000 U/250 Ml) 25,000 unit in 250 mls @ 10 mls/hr IV.CONT TITRATE PRN; Protocol PRN Reason: Per Protocol Last Titration: 09/01/18 06:12 Dose: 1,000 units/hr, 10 mls/hr Sodium Chloride (1/2 Normal Saline Inj) 1,000 mls @ 100 mls/hr IV.CONT .Q10H [facility] Stop: 09/01/18 16:00 Last Infusion: 09/01/18 06:12 Dose: 100 mls/hr Insulin Aspart (Novolog Insulin [place] Sugar Inj) 0 unit SQ Q6HR [facility]; Protocol Last Admin: 09/01/18 05:03 Dose: Not Given Isosorbide Mononitrate (Imdur) 60 mg PO DAILY@0700 [facility] Last Admin: 09/01/18 06:12 Dose: 60 mg Morphine Sulfate (Morphine Inj) 4 mg IV.PUSH Q4H PRN PRN Reason: BREAKTHROUGH PAIN Last Admin: 08/30/18 19:19 Dose: 4 mg Nitroglycerin (Nitrostat Sl) 0.4 mg SL Q5M PRN PRN Reason: CHEST PAIN Ondansetron HCl (Zofran Inj) 4 mg IV.PUSH Q6H PRN PRN Reason: NAUSEA OR VOMITING Oxycodone HCl (Roxicodone) 5 mg PO Q4H PRN PRN Reason: pain 3-10 Prasugrel (Effient) 10 mg PO DAILY [facility] Last Admin: 12/02/18 08:08 Dose: 10 mg Pravastatin Sodium (Pravachol) 20 mg PO DAILY [facility] Last Admin: 09/01/18 08:09 Dose: 20 mg Senna/Docusate Sodium (Letty-Colace) 1 tab PO BID [facility] Last Admin: 09/01/18 08:08 Dose: 1 tab Sodium Chloride (Ns Flush) 2 ml IV.FLUSH BID [facility] Last Admin: 09/01/18 08:09 Dose: Not Given Sodium Chloride (Ns Flush) 2 ml IV.FLUSH PRN PRN PRN Reason: FLUSH AFTER USING IV ACCESS Allergies Allergy/AdvReac Type Severity Reaction Status Date / Time No Allergy Information Allergy Verified 08/30/18 11:50 Available Home Medications Medication Instructions Recorded Confirmed Type amoxicillin 500 mg PO TID 08/30/18 08/30/18 History aspirin 325 mg PO DAILY 08/30/18 08/30/18 History carvedilol 3.125 mg PO BID 08/30/18 08/30/18 History glipizide 10 mg PO DAILY 08/30/18 08/30/18 History ibuprofen 800 mg PO TID PRN 08/30/18 08/30/18 History isosorbide mononitrate 60 mg PO QAM 08/30/18 08/30/18 History olmesartan 20 mg PO DAILY 08/30/18 08/30/18 History prasugrel 10 mg PO DAILY 08/30/18 08/30/18 History pravastatin 20 mg PO DAILY 08/30/18 08/30/18 History sitagliptin-metformin [Janumet XR] 1 tab PO QPM 08/30/18 08/30/18 History Physical Exam Vital signs: Vital Signs 08/31/18 12:00 08/31/18 16:00 08/31/18 20:00 Temperature 98.0 F 97.4 F L 98.4 F Pulse Rate 66 71 76 Respiratory Rate 20 20 17 Blood Pressure 142/89 H 159/89 H 169/85 H Pulse Oximetry 97 100 97 09/01/18 00:00 09/01/18 04:00 09/01/18 08:00 Temperature 98.2 F 97.7 F 97.7 F Pulse Rate 80 82 77 Respiratory Rate 17 18 20 Blood Pressure 133/68 158/79 H 141/73 H Pulse Oximetry 95 96 100 Intake & Output 12/10/1809/01/18 09/01/18 18:59 06:59 18:59 Intake Total 1480 / 1480 2401 / 2401 Output Total 675 / 675 600 / 600 Balance 805 / 805 1801 / 1801 Weight 82.4 kg Intake: IV 1000 / 1000 1950 Heparin/D5W 25,000 U/250 mL 25, 353 / 353 000 unit In 250 ml @ 1,000 UNITS/HR 10 mls/hr IV.CONT TITRATE PRN Rx#:[id number] NS Inj 1,000 ML @ 100 mls/hr IV 1000 / 1000 .CONT .Q10H [facility] Rx#:[id number] 1/2 Normal Saline Inj 1,000 ML 1598 / 1598 @ 100 mls/hr IV.CONT .Q10H [facility] Rx#:[id number] Oral 480 / 480 450 / 450 Output: Urine 675 / 675 600 / 600 Other: Date of Last Bowel Movement 08/31/18 08/31/18 # Bowel Movements 0 - Constitutional no acute distress - Routine HEENT Exam Head: Present: normocephalic - Routine Neck Exam Present: supple - Routine Respiratory Exam Present: CTA bilaterally - Routine Cardiovascular Exam Present: S1, S2 - Routine Abdominal Exam Present: soft - Routine Extremities Exam Comments: no rito Results 09/01/18 07:35 09/01/18 07:35 Cardiac Enzymes 08/30/18 08/30/18 08/31/18 Range/Units 12:20 18:40 03:40 AST 20 (15-37) U/L Troponin I 0.63 H* 0.69 H* (0.02-0.05) ng/mL B-Natriuretic Peptide (0-100) pg/mL 08/31/18 08/31/18 09/01/18 Range/Units 03:40 09:38 07:35 AST (15-37) U/L Troponin I 0.42 H 0.28 H (0.02-0.05) ng/mL B-Natriuretic Peptide 419 H (0-100) pg/mL Coagulation 08/30/18 08/30/18 08/31/18 Range/Units 18:40 23:01 03:40 PT 10.4 10.3 (9.8-11.6) sec APTT 26.3 38.1 H D (23.4-31.7) sec B-Natriuretic Peptide (0-100) pg/mL 08/31/18 08/31/18 08/31/18 Range/Units 03:40 03:40 09:38 PT (9.8-11.6) sec APTT 45.0 H 47.3 H (23.4-31.7) sec B-Natriuretic Peptide 419 H (0-100) pg/mL 08/31/18 09/01/18 Range/Units 16:27 07:35 PT (9.8-11.6) sec APTT 41.1 H 43.5 H (23.4-31.7) sec B-Natriuretic Peptide (0-100) pg/mL CBC 08/31/18 09/01/18 Range/Units 03:40 07:35 WBC 11.1 H 8.1 (4.0-11.0) th/mm3 RBC 3.48 L 3.61 L (4.50-5.90) mil/mm3 Hgb 10.5 L 11.1 L (13.0-17.0) gm/dL Hct 31.3 L 32.4 L (39.0-51.0) % Plt Count 199 201 (150-450) th/mm3 Neut # (Auto) 7.6 5.0 (1.8-7.7) th/mm3 Lymph # (Auto) 2.8 2.0 (1.0-4.8) th/mm3 [place] # (Auto) 0.4 0.5 (0.0-0.9) th/mm3 Eos # (Auto) 0.2 0.5 H (0.0-0.4) th/mm3 Baso # (Auto) 0.0 0.0 (0.0-0.2) th/mm3 Comprehensive Metabolic Panel 08/30/18 08/31/18 09/01/18 Range/Units 12:20 03:40 07:35 Sodium 135 L 139 137 (136-145) meq/L Potassium 4.6 4.6 4.2 (3.5-5.1) meq/L Chloride 104 107 107 (98-107) meq/L Carbon Dioxide 26.0 23.5 22.7 (21.0-32.0) meq/L BUN 24 H 24 H 18 (7-18) mg/dL Creatinine 2.03 H 1.96 H 1.94 H (0.60-1.30) mg/dL Calcium 8.6 8.5 8.6 (8.5-10.1) mg/dL AST 20 (15-37) U/L ALT 16 (12-78) U/L Alkaline Phosphatase 78 (45-117) U/L Total Protein 6.3 L (6.4-8.2) g/dL Albumin 3.4 3.3 L (3.4-5.0) g/dL Intake and Output 08/31/18 09/01/18 09/01/18 22:59 06:59 14:59 Intake Total 730 / 730 2151 / 2151 Output Total 675 / 675 600 / 600 Balance 55 / 55 1551 / 1551 Intake: IV 250 / 250 1701 / 1701 Heparin/D5W 25,000 U/250 mL 25, 250 / 250 103 / 103 000 unit In 250 ml @ 1,000 UNITS/HR 10 mls/hr IV.CONT TITRATE PRN Rx#:[id number] 1/2 Normal Saline Inj 1,000 ML 1598 / 1598 @ 100 mls/hr IV.CONT .Q10H [facility] Rx#:[id number] Oral 480 / 480 450 / 450 Output: Urine 675 / 675 600 / 600 Other: Date of Last Bowel Movement 08/31/18 08/31/18 # Bowel Movements 0 Weight 82.4 kg - Imaging and Cardiology Imaging: Impressions Abdomen/Bladder Ultrasound 08/30/18 00:00 CONCLUSION: Negative renal ultrasound examination. Incidental note is made of a left renal cyst. Chest X-Ray 08/30/18 11:26 CONCLUSION: Negative examination. Assessment and Plan - Assessment (1) NSTEMI (non-ST elevated myocardial infarction) Code(s): I21.4 - Non-ST elevation (NSTEMI) myocardial infarction Status: Acute (2) ARF (acute renal failure) Code(s): N17.9 - Acute kidney failure, unspecified Status: Acute (3) Hypertension Code(s): I10 - Essential (primary) hypertension Status: Acute (4) Hyperlipidemia Code(s): E78.5 - Hyperlipidemia, unspecified Status: Acute (5) CAD (coronary artery disease) Code(s): I25.10 - Atherosclerotic heart disease of [place] coronary artery without angina pectoris Status: Acute (6) Diabetes type 2, controlled Code(s): E11.9 - Type 2 diabetes mellitus without complications Status: Acute - Plan 1.) CAD - nstemi, continue aspirin, effeint, coreg, imdur, elmer held due to arf, c if/when renal function stablizes and patient consents, i explained that risk of temporary or permanent dialysis is increased due to arf, will f/u renal recs and creatinine trends
--- NOTE | 2018-09-01 11:12 | P.PNNP ---
Subjective Interval history: No acute events overnight. Denies any shortness of breath, nausea, or vomiting. No chest pain overnight, on heparin gtt. <Nancy Desai - Last Filed: 09/01/18 11:03> Physical Exam Vital signs: Vital Signs 08/31/18 12:00 08/31/18 16:00 08/31/18 20:00 Temperature 98.0 F 97.4 F L 98.4 F Pulse Rate 66 71 76 Respiratory Rate 20 20 17 Blood Pressure 142/89 H 159/89 H 169/85 H Pulse Oximetry 97 100 97 09/01/18 00:00 09/01/18 04:00 09/01/18 08:00 Temperature 98.2 F 97.7 F 97.7 F Pulse Rate 80 82 77 Respiratory Rate 17 18 20 Blood Pressure 133/68 158/79 H 141/73 H Pulse Oximetry 95 96 100 Intake & Output 08/31/18 09/01/18 09/01/18 18:59 06:59 18:59 Intake Total 1480 / 1480 2401 / 2401 Output Total 675 / 675 600 / 600 Balance 805 / 805 1801 / 1801 Weight 82.4 kg Intake: IV 1000 / 1000 1950 / 195 Heparin/D5W 25,000 U/250 mL 25, 353 / 353 000 unit In 250 ml @ 1,000 UNITS/HR 10 mls/hr IV.CONT TITRATE PRN Rx#:[id number] NS Inj 1,000 ML @ 100 mls/hr IV 1000 / 1000 .CONT .Q10H [facility] Rx#:[id number] 1/2 Normal Saline Inj 1,000 ML 1598 / 1598 @ 100 mls/hr IV.CONT .Q10H [facility] Rx#:[id number] Oral 480 / 480 450 / 450 Output: Urine 675 / 675 600 / 600 Other: Date of Last Bowel Movement 08/31/18 08/31/18 # Bowel Movements 0 Narrative: GENERAL: Alert and oriented. SKIN: Warm and dry.\ NECK: Supple, trachea midline. No JVD. CARDIOVASCULAR: Regular rate and rhythm without murmurs, gallops, or rubs. RESPIRATORY: Breath sounds equal bilaterally. No accessory muscle use. GASTROINTESTINAL: Abdomen soft, non-tender, nondistended. MUSCULOSKELETAL: No cyanosis, or edema. BACK: Nontender without obvious deformity. No CVA tenderness. <Nancy Desai - Last Filed: 09/01/18 11:03> Vital signs: Vital Signs 09/02/18 00:00 09/02/18 04:00 09/02/18 08:00 Temperature 97.7 F 97.2 F L 97.8 F Pulse Rate 66 71 68 Respiratory Rate 20 18 20 Blood Pressure 156/89 H 152/89 H 151/85 H Pulse Oximetry 100 99 99 09/02/18 12:00 09/02/18 16:00 09/02/18 20:00 Temperature 97.5 F L 97.8 F 98.4 F Pulse Rate 68 68 78 Respiratory Rate 20 20 17 Blood Pressure 160/82 H 176/94 H 150/92 H Pulse Oximetry 98 100 98 Intake & Output 09/02/18 09/02/18 09/03/18 06:59 18:59 06:59 Intake Total 1627 / 1627 360 / 360 147 / 147 Output Total 200 / 200 Balance 1627 / 1627 160 / 160 147 / 147 Weight 82.4 kg Intake: IV 1147 / 1147 147 / 147 Heparin/D5W 25,000 U/250 mL 25, 147 / 147 147 / 147 000 unit In 250 ml @ 1,000 UNITS/HR 10 mls/hr IV.CONT TITRATE PRN Rx#:[id number] 1/2 Normal Saline Inj 1,000 ML 1000 / 1000 @ 100 mls/hr IV.CONT .Q10H [facility] Rx#:[id number] Oral 480 / 480 360 / 360 Output: Urine 200 / 200 Other: # Voids 2 Date of Last Bowel Movement 08/31/18 # Bowel Movements 1 <Colton Castaneda - Last Filed: 09/02/18 21:49> Assessment and Plan - Assessment (1) ARF (acute renal failure) Code(s): N17.9 - Acute kidney failure, unspecified Status: Acute Plan: ARF etiology is unclear at this point. Etiology could be due to Diabetic nephropathy, Hypertensive nephrosclerosis, NSAID use. Renal ultrasound negative. UA negative for proteinuria. Baseline renal function is not known and no previous labs from hospital where patient was transferred from are available. Creatinine essentially unchanged at 1.9, non oliguric. Continue to monitor urine output. Avoid nephrotoxic agents. Monitor fluid and electrolytes. Fluids encouraged. Patient has decided to not have heart cath tomorrow as he is concerned by his kidney function. will be obtaining labs tomorrow to determine patients baseline creatinine. Discussed the possibility of contrast nephropathy with heart cath. Will be followed by Dr. Hernandez in AM. Labs in AM (2) Hypertension Code(s): I10 - Essential (primary) hypertension Status: Acute Plan: Monitor BP. Continue current medications. (3) Hyperlipidemia Code(s): E78.5 - Hyperlipidemia, unspecified Status: Acute Plan: Patient on pravastatin. (4) CAD (coronary artery disease) Code(s): I25.10 - Atherosclerotic heart disease of [place] coronary artery without angina pectoris Status: Acute Plan: s/p stent placement. Patient on Prasugrel. (5) Diabetes type 2, controlled Code(s): E11.9 - Type 2 diabetes mellitus without complications Status: Acute Plan: Insulin coverage to maintain blood glucose levels between 140 and 180. <Nancy Desai - Last Filed: 09/01/18 11:03> - Assessment (1) ARF (acute renal failure) Code(s): N17.9 - Acute kidney failure, unspecified Status: Acute Plan: Patient seen and examined, agree with above. Creatinine remain same, Patient refused to get Cardiac cath for now. Dr. Hernandez to follow in AM. (2) Hypertension Code(s): I10 - Essential (primary) hypertension Status: Acute (3) Hyperlipidemia Code(s): E78.5 - Hyperlipidemia, unspecified Status: Acute (4) CAD (coronary artery disease) Code(s): I25.10 - Atherosclerotic heart disease of [place] coronary artery without angina pectoris Status: Acute (5) Diabetes type 2, controlled Code(s): E11.9 - Type 2 diabetes mellitus without complications Status: Acute <Colton Castaneda - Last Filed: 09/02/18 21:49>
--- NOTE | 2018-09-01 13:20 | P.PN ---
Subjective Interval history: Follow-up for chest pain, CAD, history of 3 stents, hypertension, hyperlipidemia , diabetes type 2. Patient is currently resting in bed. is at bedside. No fever or chills. No chest pain, shortness of breath. There is still very concerned about his kidney function and thus have not made a decision about cardiac catheterization. Physical Exam Vital signs: Vital Signs 08/31/18 16:00 08/31/18 20:00 09/01/18 00:00 Temperature 97.4 F L 98.4 F 98.2 F Pulse Rate 71 76 80 Respiratory Rate 20 17 17 Blood Pressure 159/89 H 169/85 H 133/68 Pulse Oximetry 100 97 95 09/01/18 04:00 09/01/18 08:00 Temperature 97.7 F 97.7 F Pulse Rate 82 77 Respiratory Rate 18 20 Blood Pressure 158/79 H 141/73 H Pulse Oximetry 96 100 Intake & Output 08/31/18 09/01/18 09/01/18 18:59 06:59 18:59 Intake Total 1480 / 1480 2401 / 2401 402 / 402 Output Total 675 / 675 600 / 600 Balance 805 / 805 1801 / 1801 402 / 402 Weight 82.4 kg Intake: IV 1000 / 1000 1950 / 1950 402 / 402 Heparin/D5W 25,000 U/250 mL 25, 353 / 353 000 unit In 250 ml @ 1,000 UNITS/HR 10 mls/hr IV.CONT TITRATE PRN Rx#:[id number] NS Inj 1,000 ML @ 100 mls/hr IV 1000 / 1000 .CONT .Q10H [facility] Rx#:[id number] 1/2 Normal Saline Inj 1,000 ML 1598 / 1598 402 / 402 @ 100 mls/hr IV.CONT .Q10H [facility] Rx#:[id number] Oral 480 / 480 450 / 450 Output: Urine 675 / 675 600 / 600 Other: Date of Last Bowel Movement 08/31/18 08/31/18 # Bowel Movements 0 Narrative: GENERAL: Alert and oriented. SKIN: Warm and dry. NECK: Supple, trachea midline. No JVD. CARDIOVASCULAR: Regular rate and rhythm without murmurs, gallops, or rubs. RESPIRATORY: Breath sounds equal bilaterally. No accessory muscle use. GASTROINTESTINAL: Abdomen soft, non-tender, nondistended. MUSCULOSKELETAL: No cyanosis, or edema. BACK: Nontender without obvious deformity. No CVA tenderness. Results - Labs CBC & Chem 7: 09/01/18 07:35 09/01/18 07:35 Laboratory Results - last 24 hr 08/31/18 08/31/18 08/31/18 16:27 17:43 23:38 WBC RBC Hgb Hct MCV MCH MCHC RDW Plt Count MPV Neut % (Auto) Lymph % (Auto) [place] % (Auto) Eos % (Auto) Baso % (Auto) Neut # (Auto) Lymph # (Auto) [place] # (Auto) Eos # (Auto) Baso # (Auto) WBC Differential Differential Comment APTT 41.1 H Sodium Potassium Chloride Carbon Dioxide Anion Gap BUN Creatinine Estimated GFR POC Glucose 116 H 135 H Random Glucose Calcium Phosphorus Troponin I Albumin 09/01/18 09/01/18 09/01/18 04:46 07:35 07:35 WBC RBC Hgb Hct MCV MCH MCHC RDW Plt Count MPV Neut % (Auto) Lymph % (Auto) [place] % (Auto) Eos % (Auto) Baso % (Auto) Neut # (Auto) Lymph # (Auto) [place] # (Auto) Eos # (Auto) Baso # (Auto) WBC Differential Differential Comment APTT 43.5 H Sodium 137 Potassium 4.2 Chloride 107 Carbon Dioxide 22.7 Anion Gap 7 BUN 18 Creatinine 1.94 H Estimated GFR 42 L POC Glucose 140 H Random Glucose 142 H Calcium 8.6 Phosphorus 3.3 Troponin I 0.28 H Albumin 3.3 L 09/01/18 09/01/18 07:35 11:26 WBC 8.1 RBC 3.61 L Hgb 11.1 L Hct 32.4 L MCV 89.6 MCH 30.8 MCHC 34.4 RDW 13.7 Plt Count 201 MPV 9.0 Neut % (Auto) 62.6 Lymph % (Auto) 24.3 [place] % (Auto) 6.7 Eos % (Auto) 5.9 H Baso % (Auto) 0.5 Neut # (Auto) 5.0 Lymph # (Auto) 2.0 [place] # (Auto) 0.5 Eos # (Auto) 0.5 H Baso # (Auto) 0.0 WBC Differential . Differential Comment Auto diff final APTT Sodium Potassium Chloride Carbon Dioxide Anion Gap BUN Creatinine Estimated GFR POC Glucose 252 H Random Glucose Calcium Phosphorus Troponin I Albumin - Imaging Abdomen/Bladder Ultrasound 08/30/18 00:00 CONCLUSION: Negative renal ultrasound examination. Incidental note is made of a left renal cyst. Chest X-Ray 08/30/18 11:26 CONCLUSION: Negative examination. - Procedures Echocardiogram 08/31/2018 The left ventricular systolic function is normal with an estimated ejection fraction in the range of 60-65%. There is trace tricuspid valve regurgitation. Assessment and Plan - Assessment (1) ARF (acute renal failure) Code(s): N17.9 - Acute kidney failure, unspecified Status: Acute (2) Hypertension Code(s): I10 - Essential (primary) hypertension Status: Acute (3) Hyperlipidemia Code(s): E78.5 - Hyperlipidemia, unspecified Status: Acute (4) CAD (coronary artery disease) Code(s): I25.10 - Atherosclerotic heart disease of [place] coronary artery without angina pectoris Status: Acute (5) Diabetes type 2, controlled Code(s): E11.9 - Type 2 diabetes mellitus without complications Status: Acute (6) NSTEMI (non-ST elevated myocardial infarction) Code(s): I21.4 - Non-ST elevation (NSTEMI) myocardial infarction Status: Acute - Plan This patient is a 63-year-old -[place] male with past medical history of CAD status post 3 stents who is presenting to the hospital with left-sided chest pain. He said he has always had chest pain ever since his second heart catheterization NSTEMI CAD with previous stents placed. -The pt is s/p three cardiac stents. He continues to have left sided chest pain. He was transferred from [place] for further cardiac work-up. -trend troponin : 0.63, 0.69, 0.42 -Cardiology recommends left heart cath on Sunday if patient consents, continue aspirin -pain control as needed with a bowel regimen. -continue home cardiac regimen including ASA, prasugrel, Coreg, Imdur and statin. -No chest pain or shortness of breath at this time -Continue heparin drip -Plan for left heart cath on Sunday if cleared with nephrology, and if patient consents. N.p.o. after midnight on Sunday night -Had a long conversation today 08/31/2018. I believe benefits of cath outweighs the risk of further decline in kidney function -Patient/ will think about it. Will keep patient NPO midnight. Acute renal failure -Etiology likely r/t diabetic nephropathy, hypertensive nephrosclerosis and NSAID use -Renal ultrasound negative -UA negative for proteinuria -Pt denies prior history of renal disease -continue IVF 1/2 NS -hold ARB and ibuprofen. -avoid nephrotoxins. -nephrology consult: Monitor fluid and electrolytes, encourage fluid intake await stabilization of renal function before cardiac cath if deemed necessary -Monitor BMP Hypertension Blood pressure controlled -Continue home medications, Coreg and Imdur -Monitor blood pressure, adjust medication as necessary DM, type 2 -Continue sliding scale insulin. Will start low dose Levemir as well. Last BG 252. Goal BG 140-180. Recent dental extraction Was supposed to have dental follow-up 08/30. -continue amoxicillin. -outpt follow-up with dentist. Leukocytosis Likely reactive -UA, CXR negative. WBC improved to 8.1. Full code. Heparin drip.
[2018-09-01] MEDS: Heparin Drip 25,000 UNIT/250 ML BAG IV.CONT PRN (20:43)
[2018-09-01] MEDS: Insulin Detemir Inj 1,000 UNIT/10 ML Vial SQ SCH (20:47)
[2018-09-02] MEDS: Insulin NovoLOG Aspart Correctional Sugar Inj SQ SCH ×3 (05:46→17:48)
[2018-09-02] MEDS: Isosorbide Mononitrate 60 MG ER 24HR Tablet (Imdur) PO SCH (07:13)
[2018-09-02 07:35] LABS: Hematocrit 33.1 % (39.0-51.0); Hemoglobin 11.4 gm/dL (13.0-17.0); Mean Corpuscular HGB Conc 34.5 % (32.0-36.0); Mean Corpuscular Hemoglobin 30.7 pg (27.0-34.0); Mean Corpuscular Volume 89.2 fL (80.0-100.0); Mean Platelet Volume 8.5 fL (7.0-11.0); Platelet Count 197 th/mm3 (150-450); Red Blood Count 3.71 mil/mm3 (4.50-5.90); Red Cell Distribution Width 13.3 % (11.6-17.2); White Blood Count 7.7 th/mm3 (4.0-11.0)
[2018-09-02] MEDS: Senna/Docusate Sodium 8.6/50 MG Tablet PO SCH ×2 (08:23→20:50)
[2018-09-02 09:37] LABS: Calcium 8.8 mg/dL (8.5-10.1); Carbon Dioxide 21.2 meq/L (21.0-32.0); Potassium 4.3 meq/L (3.5-5.1)
--- NOTE | 2018-09-02 12:22 | P.PNNP ---
Subjective Interval history: Patient was seen, no distress, no complaints. Reviewed labs faxed in from 06/2018. Creatinine was 2.26. Current Creatinine of 1.94 could be patient's baseline. Patient stated he is getting cardiac cath tomorrow. <Pa Engel - Last Filed: 09/02/18 12:15> Physical Exam Vital signs: Vital Signs 09/01/18 16:00 09/01/18 19:38 09/01/18 20:00 Temperature 97.9 F 98.3 F Pulse Rate 65 69 69 Respiratory Rate 20 20 Blood Pressure 150/87 H 158/72 H Pulse Oximetry 100 96 09/02/18 00:00 09/02/18 04:00 Temperature 97.7 F 97.2 F L Pulse Rate 66 71 Respiratory Rate 20 18 Blood Pressure 156/89 H 152/89 H Pulse Oximetry 100 99 Intake & Output 09/01/18 09/02/18 09/02/18 18:59 06:59 18:59 Intake Total 642 / 642 1627 / 1627 Output Total 800 / 800 Balance -158 / -158 1627 / 1627 Weight 82.4 kg Intake: IV 402 / 402 1147 / 1147 Heparin/D5W 25,000 U/250 mL 25, 147 / 147 000 unit In 250 ml @ 1,000 UNITS/HR 10 mls/hr IV.CONT TITRATE PRN Rx#:[id number] 1/2 Normal Saline Inj 1,000 ML 402 / 402 1000 / 1000 @ 100 mls/hr IV.CONT .Q10H [facility] Rx#:[id number] Oral 240 / 240 480 / 480 Output: Urine 800 / 800 Other: # Voids 4 2 Date of Last Bowel Movement 08/31/18 08/31/18 # Bowel Movements 0 - Constitutional no acute distress - Routine HEENT Exam Head: Present: normocephalic Eye: Present: EOMI, PERRL ENT: Present: mucous membranes moist - Routine Neck Exam Present: supple, trachea midline - Routine Respiratory Exam Present: CTA bilaterally. Absent: accessory muscle use - Routine Cardiovascular Exam Present: RRR - Routine Abdominal Exam Present: soft - Routine Extremities Exam Absent: edema - Routine Neurological Exam Present: alert, oriented X3 - Routine Psychiatric Exam Present: normal affect <Pa Engel - Last Filed: 12/03/18 12:15> Vital signs: Vital Signs 09/02/18 00:00 09/02/18 04:00 09/02/18 08:00 Temperature 97.7 F 97.2 F L 97.8 F Pulse Rate 66 71 68 Respiratory Rate 20 18 20 Blood Pressure 156/89 H 152/89 H 151/85 H Pulse Oximetry 100 99 99 09/02/18 12:00 09/02/18 16:00 09/02/18 20:00 Temperature 97.5 F L 97.8 F 98.4 F Pulse Rate 68 68 78 Respiratory Rate 20 20 17 Blood Pressure 160/82 H 176/94 H 150/92 H Pulse Oximetry 98 100 98 Intake & Output 09/02/18 09/02/18 09/03/18 06:59 18:59 06:59 Intake Total 1627 / 1627 360 / 360 147 / 147 Output Total 200 / 200 Balance 1627 / 1627 160 / 160 147 / 147 Weight 82.4 kg Intake: IV 1147 / 1147 147 / 147 Heparin/D5W 25,000 U/250 mL 25, 147 / 147 147 / 147 000 unit In 250 ml @ 1,000 UNITS/HR 10 mls/hr IV.CONT TITRATE PRN Rx#:[id number] 1/2 Normal Saline Inj 1,000 ML 1000 / 1000 @ 100 mls/hr IV.CONT .Q10H [facility] Rx#:[id number] Oral 480 / 480 360 / 360 Output: Urine 200 / 200 Other: # Voids 2 Date of Last Bowel Movement 08/31/18 # Bowel Movements 1 <Fransisco Hernandez - Last Filed: 09/02/18 21:37> Assessment and Plan - Assessment (1) ARF (acute renal failure) Code(s): N17.9 - Acute kidney failure, unspecified Status: Acute Plan: ARF etiology is unclear at this point. Etiology could be due to Diabetic nephropathy, Hypertensive nephrosclerosis, NSAID use. Renal ultrasound negative. UA negative for proteinuria. Reviewed labs faxed in from 06/2018. Creatinine was 2.26. Current Creatinine of 1.94 could be patient's baseline. Continue to monitor urine output. Avoid nephrotoxic agents. Monitor fluid and electrolytes. (2) Hypertension Code(s): I10 - Essential (primary) hypertension Status: Acute Plan: Monitor BP. Continue current medications. (3) Hyperlipidemia Code(s): E78.5 - Hyperlipidemia, unspecified Status: Acute Plan: Patient on pravastatin. (4) CAD (coronary artery disease) Code(s): I25.10 - Atherosclerotic heart disease of [place] coronary artery without angina pectoris Status: Acute Plan: s/p stent placement. Patient on Prasugrel. (5) Diabetes type 2, controlled Code(s): E11.9 - Type 2 diabetes mellitus without complications Status: Acute Plan: Insulin coverage to maintain blood glucose levels between 140 and 180. <Pa Engel - Last Filed: 09/02/18 12:15> - Assessment (1) ARF (acute renal failure) Code(s): N17.9 - Acute kidney failure, unspecified Status: Acute (2) Hypertension Code(s): I10 - Essential (primary) hypertension Status: Acute (3) Hyperlipidemia Code(s): E78.5 - Hyperlipidemia, unspecified Status: Acute (4) CAD (coronary artery disease) Code(s): I25.10 - Atherosclerotic heart disease of [place] coronary artery without angina pectoris Status: Acute (5) Diabetes type 2, controlled Code(s): E11.9 - Type 2 diabetes mellitus without complications Status: Acute - Attending Attestation patient was seen and examined. Patient may have acute on chronic kidney disease. Renal function is better. Start 0.9%NS in anticipation of cardiac catheterization. <Fransisco Hernandez - Last Filed: 09/02/18 21:37>
--- NOTE | 2018-09-02 12:50 | P.PN ---
Subjective Interval history: Follow-up for chest pain, CAD, history of 3 stents, hypertension, hyperlipidemia , diabetes type 2. Doing well. Denies any chest pain, shortness of breath, fever or chills. Physical Exam Vital signs: Vital Signs 09/01/18 16:00 09/01/18 19:38 09/01/18 20:00 Temperature 97.9 F 98.3 F Pulse Rate 65 69 69 Respiratory Rate 20 20 Blood Pressure 150/87 H 158/72 H Pulse Oximetry 100 96 09/02/18 00:00 09/02/18 04:00 09/02/18 12:00 Temperature 97.7 F 97.2 F L Pulse Rate 66 71 Respiratory Rate 20 18 Blood Pressure 156/89 H 152/89 H Pulse Oximetry 100 99 99 Intake & Output 09/01/18 09/02/18 09/02/18 18:59 06:59 18:59 Intake Total 642 / 642 1627 / 1627 Output Total 800 / 800 Balance -158 / -158 1627 / 1627 Weight 82.4 kg Intake: IV 402 / 402 1147 / 1147 Heparin/D5W 25,000 U/250 mL 25, 147 / 147 000 unit In 250 ml @ 1,000 UNITS/HR 10 mls/hr IV.CONT TITRATE PRN Rx#:[id number] 1/2 Normal Saline Inj 1,000 ML 402 / 402 1000 / 1000 @ 100 mls/hr IV.CONT .Q10H [facility] Rx#:[id number] Oral 240 / 240 480 / 480 Output: Urine 800 / 800 Other: # Voids 4 2 Date of Last Bowel Movement 08/31/18 08/31/18 # Bowel Movements 0 Narrative: GENERAL: Alert and oriented. SKIN: Warm and dry. NECK: Supple, trachea midline. No JVD. CARDIOVASCULAR: Regular rate and rhythm without murmurs, gallops, or rubs. RESPIRATORY: Breath sounds equal bilaterally. No accessory muscle use. GASTROINTESTINAL: Abdomen soft, non-tender, nondistended. MUSCULOSKELETAL: No cyanosis, or edema. BACK: Nontender without obvious deformity. No CVA tenderness. Results - Labs CBC & Chem 7: 09/02/18 05:00 09/02/18 05:00 Laboratory Results - last 24 hr 09/01/18 09/01/18 09/01/18 11:50 17:50 23:47 WBC RBC Hgb Hct MCV MCH MCHC RDW Plt Count MPV APTT Sodium Potassium Chloride Carbon Dioxide Anion Gap BUN Creatinine Estimated GFR POC Glucose 129 H 172 H Random Glucose Calcium Troponin I 0.28 H 09/02/18 09/02/18 09/02/18 05:00 05:00 05:00 WBC 7.7 RBC 3.71 L Hgb 11.4 L Hct 33.1 L MCV 89.2 MCH 30.7 MCHC 34.5 RDW 13.3 Plt Count 197 MPV 8.5 APTT 46.0 H Sodium Potassium Chloride Carbon Dioxide Anion Gap BUN Creatinine Estimated GFR POC Glucose Random Glucose Calcium Troponin I 0.21 H 09/02/18 09/02/18 09/02/18 05:00 05:44 11:47 WBC RBC Hgb Hct MCV MCH MCHC RDW Plt Count MPV APTT Sodium 138 Potassium 4.3 Chloride 108 H Carbon Dioxide 21.2 Anion Gap 9 BUN 15 Creatinine 1.61 H Estimated GFR 52 L POC Glucose 141 H 159 H Random Glucose 126 H Calcium 8.8 Troponin I - Procedures Echocardiogram 08/31/2018 The left ventricular systolic function is normal with an estimated ejection fraction in the range of 60-65%. There is trace tricuspid valve regurgitation. Assessment and Plan - Assessment (1) ARF (acute renal failure) Code(s): N17.9 - Acute kidney failure, unspecified Status: Acute (2) Hypertension Code(s): I10 - Essential (primary) hypertension Status: Acute (3) Hyperlipidemia Code(s): E78.5 - Hyperlipidemia, unspecified Status: Acute (4) CAD (coronary artery disease) Code(s): I25.10 - Atherosclerotic heart disease of [place] coronary artery without angina pectoris Status: Acute (5) Diabetes type 2, controlled Code(s): E11.9 - Type 2 diabetes mellitus without complications Status: Acute (6) NSTEMI (non-ST elevated myocardial infarction) Code(s): I21.4 - Non-ST elevation (NSTEMI) myocardial infarction Status: Acute - Plan This patient is a 63-year-old -Russian male with past medical history of CAD status post 3 stents who is presenting to the hospital with left-sided chest pain. He said he has always had chest pain ever since his second heart catheterization NSTEMI CAD with previous stents placed. -The pt is s/p three cardiac stents. He continues to have left sided chest pain. He was transferred from [facility] for further cardiac work-up. -trend troponin : 0.63, 0.69, 0.42 -Cardiology recommends left heart cath on Sunday if patient consents, continue aspirin -pain control as needed with a bowel regimen. -continue home cardiac regimen including ASA, prasugrel, Coreg, Imdur and statin. -No chest pain or shortness of breath at this time -Continue heparin drip -Plan for left heart cath on Sunday if cleared with nephrology, and if patient consents. N.p.o. after midnight on Sunday night -Had a long conversation today 08/31/2018. I believe benefits of cath outweighs the risk of further decline in kidney function -Patient/ will think about it. Will keep patient NPO midnight. Acute renal failure -Etiology likely r/t diabetic nephropathy, hypertensive nephrosclerosis and NSAID use -Renal ultrasound negative -UA negative for proteinuria -Pt denies prior history of renal disease -continue IVF 1/2 NS -avoid nephrotoxins. Nephrology following -Creatinine is down to 1.94 --> 1.61 today. Will repeat BMP in the AM. -Patient would prefer to wait until tomorrow to improve kidney function further and then to undergo cardiac catheterization. I discussed with cardiology who agrees with this plan. Hypertension Blood pressure controlled -Continue home medications, Coreg and Imdur -Monitor blood pressure, adjust medication as necessary DM, type 2 -Continue sliding scale insulin. Continue Levemir as well. Last BG 159. Goal BG 140-180. Recent dental extraction Was supposed to have dental follow-up 08/30. -continue amoxicillin. -outpt follow-up with dentist. Leukocytosis Likely reactive -UA, CXR negative. WBC improved to 8.1. Full code. Heparin drip.
--- NOTE | 2018-09-02 14:20 | P.PNCA ---
Subjective Interval history: alert in nad Medications and Allergies Active Medications: Active Medications Acetaminophen (Tylenol) 650 mg PO Q4H PRN PRN Reason: Temp > 100.4 Amoxicillin (Amoxil) 500 mg PO TID [facility] Last Admin: 09/02/18 12:18 Dose: 500 mg Aspirin (Ecotrin) 162 mg PO DAILY [facility] Last Admin: 09/02/18 08:22 Dose: 162 mg Carvedilol (Coreg) 3.125 mg PO BID [facility] Last Admin: 09/02/18 08:23 Dose: 3.125 mg Dextrose (D50w Vial) 50 ml IV.PUSH UNSCH PRN PRN Reason: PER HYPOGLYCEMIA PROTOCOL Glucagon (Glucagon Inj) 1 mg OTHER PRN PRN PRN Reason: for Hypoglycemia Protocol Heparin Sodium/Dextrose (Heparin/D5w 25,000 U/250 Ml) 25,000 unit in 250 mls @ 10 mls/hr IV.CONT TITRATE PRN; Protocol PRN Reason: Per Protocol Last Admin: 09/01/18 20:43 Dose: 1,000 units/hr, 10 mls/hr Insulin Aspart (Novolog Insulin [place] Sugar Inj) 0 unit SQ Q6HR [facility]; Protocol Last Admin: 09/02/18 13:00 Dose: 2 unit Insulin Detemir (Levemir Inj) 7 unit SQ HS [facility] Last Admin: 09/01/18 20:47 Dose: 7 unit Isosorbide Mononitrate (Imdur) 60 mg PO DAILY@0700 [facility] Last Admin: 09/02/18 07:13 Dose: 60 mg Morphine Sulfate (Morphine Inj) 4 mg IV.PUSH Q4H PRN PRN Reason: BREAKTHROUGH PAIN Last Admin: 08/30/18 19:19 Dose: 4 mg Nitroglycerin (Nitrostat Sl) 0.4 mg SL Q5M PRN PRN Reason: CHEST PAIN Ondansetron HCl (Zofran Inj) 4 mg IV.PUSH Q6H PRN PRN Reason: NAUSEA OR VOMITING Oxycodone HCl (Roxicodone) 5 mg PO Q4H PRN PRN Reason: pain 3-10 Prasugrel (Effient) 10 mg PO DAILY [facility] Last Admin: 09/02/18 08:22 Dose: 10 mg Pravastatin Sodium (Pravachol) 20 mg PO DAILY [facility] Last Admin: 09/02/18 08:22 Dose: 20 mg Senna/Docusate Sodium (Letty-Colace) 1 tab PO BID [facility] Last Admin: 09/02/18 08:23 Dose: 1 tab Sodium Chloride (Ns Flush) 2 ml IV.FLUSH BID [facility] Last Admin: 09/02/18 08:23 Dose: 2 ml Sodium Chloride (Ns Flush) 2 ml IV.FLUSH PRN PRN PRN Reason: FLUSH AFTER USING IV ACCESS Allergies Allergy/AdvReac Type Severity Reaction Status Date / Time No Allergy Information Allergy Verified 08/30/18 11:50 Available Home Medications Medication Instructions Recorded Confirmed Type amoxicillin 500 mg PO TID 08/30/18 08/30/18 History aspirin 325 mg PO DAILY 08/30/18 08/30/18 History carvedilol 3.125 mg PO BID 08/30/18 08/30/18 History glipizide 10 mg PO DAILY 08/30/18 08/30/18 History ibuprofen 800 mg PO TID PRN 08/30/18 08/30/18 History isosorbide mononitrate 60 mg PO QAM 08/30/18 08/30/18 History olmesartan 20 mg PO DAILY 08/30/18 08/30/18 History prasugrel 10 mg PO DAILY 08/30/18 08/30/18 History pravastatin 20 mg PO DAILY 08/30/18 08/30/18 History sitagliptin-metformin [Janumet XR] 1 tab PO QPM 08/30/18 08/30/18 History Physical Exam Vital signs: Vital Signs 09/01/18 16:00 09/01/18 19:38 09/01/18 20:00 Temperature 97.9 F 98.3 F Pulse Rate 65 69 69 Respiratory Rate 20 20 Blood Pressure 150/87 H 158/72 H Pulse Oximetry 100 96 09/02/18 00:00 09/02/18 04:00 09/02/18 08:00 Temperature 97.7 F 97.2 F L Pulse Rate 66 71 57 L Respiratory Rate 20 18 Blood Pressure 156/89 H 152/89 H Pulse Oximetry 100 99 09/02/18 12:00 Temperature Pulse Rate 62 Respiratory Rate Blood Pressure Pulse Oximetry 99 Intake & Output 09/01/18 09/02/18 09/02/18 18:59 06:59 18:59 Intake Total 642 / 642 1627 / 1627 Output Total 800 / 800 Balance -158 / -158 1627 / 1627 Weight 82.4 kg Intake: IV 402 / 402 1147 / 1147 Heparin/D5W 25,000 U/250 mL 25, 147 / 147 000 unit In 250 ml @ 1,000 UNITS/HR 10 mls/hr IV.CONT TITRATE PRN Rx#:[id number] 1/2 Normal Saline Inj 1,000 ML 402 / 402 1000 / 1000 @ 100 mls/hr IV.CONT .Q10H [facility] Rx#:[id number] Oral 240 / 240 480 / 480 Output: Urine 800 / 800 Other: # Voids 4 2 Date of Last Bowel Movement 08/31/18 08/31/18 # Bowel Movements 0 - Constitutional no acute distress - Routine HEENT Exam Head: Present: normocephalic - Routine Neck Exam Present: supple - Routine Respiratory Exam Present: CTA bilaterally - Routine Cardiovascular Exam Present: S1, S2 - Routine Abdominal Exam Present: soft - Routine Extremities Exam Comments: no rito Results 09/02/18 05:00 09/02/18 05:00 Cardiac Enzymes 09/01/18 09/01/18 09/02/18 Range/Units 07:35 11:50 05:00 Troponin I 0.28 H 0.28 H 0.21 H (0.02-0.05) ng/mL Coagulation 08/31/18 09/01/18 09/02/18 Range/Units 16:27 07:35 05:00 APTT 41.1 H 43.5 H 46.0 H (23.4-31.7) sec CBC 09/01/18 09/02/18 Range/Units 07:35 05:00 WBC 8.1 7.7 (4.0-11.0) th/mm3 RBC 3.61 L 3.71 L (4.50-5.90) mil/mm3 Hgb 11.1 L 11.4 L (13.0-17.0) gm/dL Hct 32.4 L 33.1 L (39.0-51.0) % Plt Count 201 197 (150-450) th/mm3 Neut # (Auto) 5.0 (1.8-7.7) th/mm3 Lymph # (Auto) 2.0 (1.0-4.8) th/mm3 [place] # (Auto) 0.5 (0.0-0.9) th/mm3 Eos # (Auto) 0.5 H (0.0-0.4) th/mm3 Baso # (Auto) 0.0 (0.0-0.2) th/mm3 Comprehensive Metabolic Panel 09/01/18 09/02/18 Range/Units 07:35 05:00 Sodium 137 138 (136-145) meq/L Potassium 4.2 4.3 (3.5-5.1) meq/L Chloride 107 108 H (98-107) meq/L Carbon Dioxide 22.7 21.2 (21.0-32.0) meq/L BUN 18 15 (7-18) mg/dL Creatinine 1.94 H 1.61 H (0.60-1.30) mg/dL Calcium 8.6 8.8 (8.5-10.1) mg/dL Albumin 3.3 L (3.4-5.0) g/dL Intake and Output 09/01/18 09/02/18 09/02/18 22:59 06:59 14:59 Intake Total 1387 / 1387 480 / 480 Output Total 800 / 800 Balance 587 / 587 480 / 480 Intake: IV 1147 / 1147 Heparin/D5W 25,000 U/250 mL 25, 147 / 147 000 unit In 250 ml @ 1,000 UNITS/HR 10 mls/hr IV.CONT TITRATE PRN Rx#:[id number] 1/2 Normal Saline Inj 1,000 ML 1000 / 1000 @ 100 mls/hr IV.CONT .Q10H [facility] Rx#:[id number] Oral 240 / 240 480 / 480 Output: Urine 800 / 800 Other: # Voids 4 2 Date of Last Bowel Movement 08/31/18 # Bowel Movements 0 Weight 82.4 kg Assessment and Plan - Assessment (1) NSTEMI (non-ST elevated myocardial infarction) Code(s): I21.4 - Non-ST elevation (NSTEMI) myocardial infarction Status: Acute (2) ARF (acute renal failure) Code(s): N17.9 - Acute kidney failure, unspecified Status: Acute (3) Hypertension Code(s): I10 - Essential (primary) hypertension Status: Acute (4) Hyperlipidemia Code(s): E78.5 - Hyperlipidemia, unspecified Status: Acute (5) CAD (coronary artery disease) Code(s): I25.10 - Atherosclerotic heart disease of [place] coronary artery without angina pectoris Status: Acute (6) Diabetes type 2, controlled Code(s): E11.9 - Type 2 diabetes mellitus without complications Status: Acute - Plan 1.) CAD - nstemi, continue aspirin, effeint, coreg, imdur, elmer held due to arf, c if/when renal function stablizes and patient consents, i explained that risk of temporary or permanent dialysis is increased due to arf, will f/u renal recs and creatinine trends; possible cath 09/03/18 if scr improved, d/w patient and Dr Villegas
[2018-09-02] MEDS: Insulin Detemir Inj 1,000 UNIT/10 ML Vial SQ SCH (20:49)
[2018-09-02] MEDS: Heparin Drip 25,000 UNIT/250 ML BAG IV.CONT PRN (20:59)
[2018-09-02] MEDS: Sod Chloride 0.9% Inj 1,000 ML IV.CONT SCH (22:00)
[2018-09-03] MEDS: Insulin NovoLOG Aspart Correctional Sugar Inj SQ SCH ×4 (00:46→18:39)
[2018-09-03 06:08] LABS: Baso # (Auto) 0.1 th/mm3 (0.0-0.2); Baso % (Auto) 0.6 % (0.0-2.0); Eos # (Auto) 0.7 th/mm3 (0.0-0.4); Eos % (Auto) 8.5 % (0.0-4.0); Hematocrit 35.9 % (39.0-51.0); Hemoglobin 12.4 gm/dL (13.0-17.0); Lymph # (Auto) 2.3 th/mm3 (1.0-4.8); Lymph % (Auto) 27.4 % (9.0-44.0); Mean Corpuscular HGB Conc 34.7 % (32.0-36.0); Mean Corpuscular Hemoglobin 30.6 pg (27.0-34.0); Mean Corpuscular Volume 88.1 fL (80.0-100.0); Mean Platelet Volume 8.5 fL (7.0-11.0); Mono # (Auto) 0.5 th/mm3 (0.0-0.9); Mono % (Auto) 5.8 % (0.0-8.0); Neut # (Auto) 4.9 th/mm3 (1.8-7.7); Neut % (Auto) 57.7 % (16.0-70.0); Platelet Count 236 th/mm3 (150-450); Red Blood Count 4.07 mil/mm3 (4.50-5.90); Red Cell Distribution Width 13.6 % (11.6-17.2); White Blood Count 8.5 th/mm3 (4.0-11.0)
[2018-09-03] MEDS: Isosorbide Mononitrate 60 MG ER 24HR Tablet (Imdur) PO SCH (06:09)
[2018-09-03 06:34] LABS: Carbon Dioxide 23.4 meq/L (21.0-32.0); Potassium 4.4 meq/L (3.5-5.1)
--- NOTE | 2018-09-03 09:47 | P.PNNP ---
Subjective Interval history: patient may have cardiac catheterization today. He is stable. GFR appears to be at baseline. Physical Exam Vital signs: Vital Signs 09/02/18 12:00 09/02/18 16:00 09/02/18 20:00 Temperature 97.5 F L 97.8 F 98.4 F Pulse Rate 68 68 77 Respiratory Rate 20 20 17 Blood Pressure 160/82 H 176/94 H 150/92 H Pulse Oximetry 98 100 98 09/02/18 23:37 09/03/18 00:00 09/03/18 04:00 Temperature 97.9 F 97.8 F Pulse Rate 72 71 70 Respiratory Rate 15 15 Blood Pressure 161/94 H 160/92 H Pulse Oximetry 99 96 09/03/18 08:00 Temperature 97.8 F Pulse Rate 63 Respiratory Rate 18 Blood Pressure 167/90 H Pulse Oximetry 98 Intake & Output 09/02/18 09/03/18 09/03/18 18:59 06:59 18:59 Intake Total 360 / 360 224.8 / 224.8 Output Total 200 / 200 950 / 950 Balance 160 / 160 -725.2 / -725.2 Weight 80.2 kg Intake: IV 224.8 / 224.8 Heparin/D5W 25,000 U/250 mL 25, 224.8 / 224.8 000 unit In 250 ml @ 1,000 UNITS/HR 10 mls/hr IV.CONT TITRATE PRN Rx#:[id number] Oral 360 / 360 Output: Urine 200 / 200 950 / 950 Other: Date of Last Bowel Movement 08/31/18 # Bowel Movements 1 Narrative: GENERAL: Alert and oriented. SKIN: Warm and dry. NECK: Supple, trachea midline. No JVD. CARDIOVASCULAR: Regular rate and rhythm without murmurs, gallops, or rubs. RESPIRATORY: Breath sounds equal bilaterally. No accessory muscle use. GASTROINTESTINAL: Abdomen soft, non-tender, nondistended. MUSCULOSKELETAL: No cyanosis, or edema. BACK: Nontender without obvious deformity. No CVA tenderness. Assessment and Plan - Assessment (1) Chronic kidney disease, stage 3 (moderate) Code(s): N18.3 - Chronic kidney disease, stage 3 (moderate) Status: Acute Plan: patient may have hypertensive nephrosclerosis, appears to have stable stage III CKD. He was informed of increased risk for contrast nephropathy due to preexisting renal disease. I did start him on IVF to reduce the risk. (2) Hypertension Code(s): I10 - Essential (primary) hypertension Status: Acute Plan: Monitor BP. Continue current medications. (3) Hyperlipidemia Code(s): E78.5 - Hyperlipidemia, unspecified Status: Acute Plan: Patient on pravastatin. (4) CAD (coronary artery disease) Code(s): I25.10 - Atherosclerotic heart disease of [place] coronary artery without angina pectoris Status: Acute Plan: s/p stent placement. Patient on Prasugrel. Cardiology following, catheterization is planned. (5) Diabetes type 2, controlled Code(s): E11.9 - Type 2 diabetes mellitus without complications Status: Acute Plan: Insulin coverage to maintain blood glucose levels between 140 and 180.
[2018-09-03] MEDS: Senna/Docusate Sodium 8.6/50 MG Tablet PO SCH ×2 (10:02→20:55)
[2018-09-03] MEDS ORDERED: Heparin/NS PF Inj 1,000 ML ONE (12:45)
[2018-09-03] MEDS ORDERED: fentaNYL Citrate Inj 100 MCG/2 ML Ampul ONE (12:56)
[2018-09-03] MEDS ORDERED: fentaNYL Citrate Inj 100 MCG/2 ML Ampul IV.PUSH ONE (13:12)
--- NOTE | 2018-09-03 13:26 | P.PN ---
Subjective Interval history: Follow-up for chest pain, CAD, history of 3 stents, hypertension, hyperlipidemia , diabetes type 2. Patient is currently doing well. Denies any chest pain, shortness of breath, fever or chills. He is likely to undergo cardiac catheterization today. Physical Exam Vital signs: Vital Signs 09/02/18 16:00 09/02/18 20:00 09/02/18 23:37 Temperature 97.8 F 98.4 F 97.9 F Pulse Rate 68 77 72 Respiratory Rate 20 17 15 Blood Pressure 176/94 H 150/92 H 161/94 H Pulse Oximetry 100 98 99 09/03/18 00:00 09/03/18 04:00 09/03/18 08:00 Temperature 97.8 F 97.8 F Pulse Rate 71 70 63 Respiratory Rate 15 18 Blood Pressure 160/92 H 167/90 H Pulse Oximetry 96 98 Intake & Output 09/02/18 09/03/18 09/03/18 18:59 06:59 18:59 Intake Total 360 / 360 224.8 / 224.8 Output Total 200 / 200 950 / 950 Balance 160 / 160 -725.2 / -725.2 Weight 80.2 kg Intake: IV 224.8 / 224.8 Heparin/D5W 25,000 U/250 mL 25, 224.8 / 224.8 000 unit In 250 ml @ 1,000 UNITS/HR 10 mls/hr IV.CONT TITRATE PRN Rx#:[id number] Oral 360 / 360 Output: Urine 200 / 200 950 / 950 Other: Date of Last Bowel Movement 08/31/18 08/31/18 # Bowel Movements 1 Narrative: GENERAL: Alert, oriented x3, NAD. SKIN: Warm and dry. HEAD: Normocephalic. EYES: No scleral icterus. No injection or drainage. NECK: Supple, trachea midline. No JVD or lymphadenopathy. CARDIOVASCULAR: Regular rate and rhythm without murmurs, gallops, or rubs. RESPIRATORY: Breath sounds equal bilaterally. No accessory muscle use. GASTROINTESTINAL: Abdomen soft, non-tender, nondistended. MUSCULOSKELETAL: No cyanosis, or edema. BACK: Nontender without obvious deformity. No CVA tenderness. Results - Labs CBC & Chem 7: 09/03/18 05:00 09/03/18 05:00 Laboratory Results - last 24 hr 08/31/18 09/02/1809/02/18 01:30 17:44 20:47 WBC RBC Hgb Hct MCV MCH MCHC RDW Plt Count MPV Neut % (Auto) Lymph % (Auto) [place] % (Auto) Eos % (Auto) Baso % (Auto) Neut # (Auto) Lymph # (Auto) [place] # (Auto) Eos # (Auto) Baso # (Auto) WBC Differential Differential Comment APTT Sodium Potassium Chloride Carbon Dioxide Anion Gap BUN Creatinine Estimated GFR POC Glucose 115 H 162 H Random Glucose Calcium Ur Microalbumin mg/L Less than 5 U Creat (Microalbumin) 111.0 Microalb/Creat Ratio Less than 5 09/03/18 09/03/18 09/03/18 00:39 05:00 05:00 WBC RBC Hgb Hct MCV MCH MCHC RDW Plt Count MPV Neut % (Auto) Lymph % (Auto) [place] % (Auto) Eos % (Auto) Baso % (Auto) Neut # (Auto) Lymph # (Auto) [place] # (Auto) Eos # (Auto) Baso # (Auto) WBC Differential Differential Comment APTT 41.3 H Sodium 137 Potassium 4.4 Chloride 106 Carbon Dioxide 23.4 Anion Gap 8 BUN 21 H Creatinine 1.76 H Estimated GFR 47 L POC Glucose 126 H Random Glucose 145 H Calcium 9.0 Ur Microalbumin mg/L U Creat (Microalbumin) Microalb/Creat Ratio 09/03/18 09/03/18 09/03/18 05:00 06:11 12:24 WBC 8.5 RBC 4.07 L Hgb 12.4 L Hct 35.9 L MCV 88.1 MCH 30.6 MCHC 34.7 RDW 13.6 Plt Count 236 MPV 8.5 Neut % (Auto) 57.7 Lymph % (Auto) 27.4 [place] % (Auto) 5.8 Eos % (Auto) 8.5 H Baso % (Auto) 0.6 Neut # (Auto) 4.9 Lymph # (Auto) 2.3 [place] # (Auto) 0.5 Eos # (Auto) 0.7 H Baso # (Auto) 0.1 WBC Differential . Differential Comment Auto diff final APTT Sodium Potassium Chloride Carbon Dioxide Anion Gap BUN Creatinine Estimated GFR POC Glucose 176 H 134 H Random Glucose Calcium Ur Microalbumin mg/L U Creat (Microalbumin) Microalb/Creat Ratio - Procedures Echocardiogram 08/31/2018 The left ventricular systolic function is normal with an estimated ejection fraction in the range of 60-65%. There is trace tricuspid valve regurgitation. Assessment and Plan - Assessment (1) ARF (acute renal failure) Code(s): N17.9 - Acute kidney failure, unspecified Status: Acute (2) Hypertension Code(s): I10 - Essential (primary) hypertension Status: Acute (3) Hyperlipidemia Code(s): E78.5 - Hyperlipidemia, unspecified Status: Acute (4) CAD (coronary artery disease) Code(s): I25.10 - Atherosclerotic heart disease of [place] coronary artery without angina pectoris Status: Acute (5) Diabetes type 2, controlled Code(s): E11.9 - Type 2 diabetes mellitus without complications Status: Acute (6) NSTEMI (non-ST elevated myocardial infarction) Code(s): I21.4 - Non-ST elevation (NSTEMI) myocardial infarction Status: Acute - Plan This patient is a 63-year-old -[place] male with past medical history of CAD status post 3 stents who is presenting to the hospital with left-sided chest pain. He said he has always had chest pain ever since his second heart catheterization NSTEMI CAD with previous stents placed. -The pt is s/p three cardiac stents. He continues to have left sided chest pain. He was transferred from [place] for further cardiac work-up. -trend troponin : 0.63, 0.69, 0.42 -Cardiology recommends left heart cath on Sunday if patient consents, continue aspirin -pain control as needed with a bowel regimen. -continue home cardiac regimen including ASA, prasugrel, Coreg, Imdur and statin. -Continue heparin drip -Cardiac catheterization 09/03/2018. Acute renal failure -Etiology likely r/t diabetic nephropathy, hypertensive nephrosclerosis and NSAID use -Renal ultrasound negative -UA negative for proteinuria -Pt denies prior history of renal disease -continue IVF 1/2 NS -avoid nephrotoxins. Nephrology following -Creatinine is down to 1.94 --> 1.76 today. Hypertension Blood pressure controlled -Continue home medications, Coreg and Imdur -Monitor blood pressure, adjust medication as necessary DM, type 2 -Continue sliding scale insulin. Continue Levemir as well. Last BG 134. Goal BG 140-180. Recent dental extraction Was supposed to have dental follow-up 08/30. -continue amoxicillin. -outpt follow-up with dentist. Leukocytosis Likely reactive -UA, CXR negative. WBC improved to 8.1. Full code. Heparin drip.
--- NOTE | 2018-09-03 14:04 | CATHPROC ---
[facility] HIS Report Study Information Study Number Admission Scheduled Start Study Start [id number] Aug 30 2018 9:20AM 09/03/2018 Sep 03 2018 12:51PM [place] Service Cardiac Pacer/ICD Admit Source Facility Department Other [facility] - Representative Phlebotomy Services Physician and Clinical Staff Initial MD Mann, Vladimir Inspector Air Carrier Demar Whitman RN Other cathlab, cathlab Recorder Rosi Harrell,RT(R) Scrub Student, GRAIN MERCHANDISER/RT(R) Procedures Performed Procedure Location (Site) Vessel Name Coronary Angiograms LCA Left Coronary Coronary Angiograms RCA Right Coronary L Heart Cath LV Gram-hand inj. LV LV Ventricle Wire insertion Fem Art (right) Femoral Art Equipment Time Stitching Machine Feeder Or Offbearer Description Size Mfg Part Number Used/Scraped [id number] 13:31 [employer] WIRE, ASAHI PROWATER 180CM 180CM Used *[id number] TRANSDUCER, TRUWAVE [id number] 13:15 GODINEZ DRIVER * Used W/STOCKCOCK *[id number] 538-476 *[id number] 538-445 *[id number] 538-448 *[id number] [phone] *[id number] [phone] *[id number] [phone] *[id number] 13:15 [employer] BLANKET,WARM AIR CCL * Used *[id number] 13:15 [employer] PACK, CCL CUSTOM * Used *[id number] 13:15 [employer] PACER PEN, SKIN DUAL W/ RULER * Used *[id number] 13:15 [employer] WIRE, 3MMJ .035 180CM 180CM Used *[id number] 13:15 NAMIC MANIFOLD, 4 PORT * Used *[id number] 13:15 NYCOMED OMNIPAQUE, 350 MG, 150ML 150ML [id number] Used [id number] 13:15 TERUMO MEDICAL SHEATH, FR4 TERUMO (10CM) FR 4 Used *[id number] History: Current Medications Medication Dosage/Unit Route Frequency Last Date/Time Taken ASA Statins (any) CARVEDILOL Imdur EFFIENT History: Allergies Allergy Reaction No Allergy Information Available History: Risk Factors Family History of Hypertension Dyslipidemia Previous NV Previous Heart Failure Premature CAD Yes Yes No No No Prior Valve Prior PCI Prior PCIDate Prior CABG Surgery No Yes 10/01/2016 No Cerebrovascular Peripheral Artery Chronic Lung On Dialysis Diabetes Diabetes Therapy Disease Disease Disease No No No No Yes Oral History: Symptoms/Diagnosis Selection Items Chest pain History: CV Disease Selection Items Known CAD NV History: Stress Tests Stress or Imaging Studies Performed No History: Other Disease Selection Items Renal Failure/Insufficiency History: Other Current Smoker Method Quit Packs a Day Years Used Pack Years No Cigarettes 30 Years Ago 3 15 45 Labs Hgb (g/dl) Hct (%) WBC (l/cumm) Platelets (thousands) 11.60-17.00 35.00-51.00 4.00-11.00 150.00-450.00 12.4 35.9 8.5 236 Glucose (mg/dl) BUN (mg/dl) Creatinine (mg/dl) BUN:Creatinine (1:x) 74.00-106.00 7.00-18.00 0.50-1.30 10.00-20.00 134 21 1.7 12.4 Na (meq/l) K (meq/l) 136.00-145.00 3.50-5.10 137 4.4 Troponin I (ng/ml) CPK-MB (ng/ML) 0.02-0.05 0.50-3.60 0.21 Not Drawn Medication Medication Total Dose (Bolus/Oral) Medication Total Dosage/Unit 1% XYLOCAINE 20 mL FENTANYL 25 mcg VERSED 1 mg Medications (Bolus/Oral) Medication Time Given Dosage/Unit Administered By Reason VERSED 09/03/2018 1:11:46 PM 1 mg J Carlos, Demar 1 mg VERSED given in lab by Demar Whitman RN in Right Antecubital via Peripheral IV. Ordered by Vladimir Medellin. FENTANYL 09/03/2018 1:12:04 PM 25 mcg J Carlos, Demar 25 mcg FENTANYL given in lab by Demar Whitman RN via Peripheral IV. Ordered by Vladimir Mann. 1% XYLOCAINE 09/03/2018 1:13:23 PM 20 mL Vladimir Mann 20 mL 1% XYLOCAINE given in lab by Vladimir Mann in Right Groin via Subcutaneous. Medication (Drip) Medication Time Given Dosage/Unit Concentration/Unit Diluent (ml) Solution IV Solutions 09/03/2018 12:51:24 PM 50 mL (IV) NaCl .9 Patient arrived on IV Solutions given by Demar Whitman RN in Right Antecubital via Peripheral IV. Pum p/Drip Flow using NaCl .9. Ordered by Vladimir Mann. Initial Case Assessment Cardiovascular HR Rhythm NIBP Chest Pain 58 reg 152/90 0 Edema Present Skin color Skin None Normal Warm Dry Circulatory - Right Pulses Dorsalis Pedis Femoral 1 3 Scale (0,1,2,3,4,d) Circulatory - Left Pulses Dorsalis Pedis Femoral 1 3 Scale (0,1,2,3,4,d) Neurological State Oriented to time-place- Alert Moves all extremities person Respiration - General Respiration Rate SpO2 (%) (B/min) 14 100 Final Case Assessment Cardiovascular HR Rhythm NIBP Chest Pain 65 REG 144/74 0 Edema Present Skin color Skin None Normal Warm Circulatory - Right Pulses Dorsalis Pedis Femoral 1 3 Scale (0,1,2,3,4,d) Circulatory - Left Pulses Dorsalis Pedis Femoral 1 3 Scale (0,1,2,3,4,d) Neurological State Oriented to time-place- Alert Moves all extremities person Respiration - General Respiration Rate SpO2 (%) (B/min) 12 100 Chronological Log Time Study Chronological Log 12:33:11 Patient arrived via Bed. 12:51:12 Patient Name, D.O.B, / Armband Verified By R.N. 12:51:13 Consent signed by the physician and the patient and verified by the Representative Phlebotomy Services staff. 12:51:14 Pre-op and post- op instructions given; patient acknowledges understanding of instructions. 12:51:18 Patient has been NPO for More than 6Hrs. 12:51:19 NO Skin Breakdown-NONE 12:51:21 Tate Prominences Protected 12:51:23 A # 20 IV was noted in the Antecubital (right). Grade = 0 Patient arrived on IV Solutions given by Demar Whitman RN in Right Antecubital via Peripheral I V. Pump/Drip Flow using 12:51:24 NaCl .9. Ordered by Vladimir Mann. 12:51:25 History and physical on the chart or being dictated. Vitals capture started with the following parameters, Patient=Adult, Interval=5 min, Initial Pr yozjrv=905 mmHg, 12:51:27 Deflation Rate=5 mmHg, Cuff placed on Left Arm 12:52:01 HR=58 bpm, ITIK=710/90 mmhg, HlA3=814.0 %, Resp=14 B/min, Pain=0, Susy=10, Estes=2 12:52:11 pt arrived with right forearm iv but not working Assessment: Initial Case, HR=58 BPM, Rhythm=reg, JUHJ=066/90 mmhg, Chest Pain=0, Edema=None, Co shaunna=Normal, Skin = Warm, Dry Right Pulses: [place] Ped=1, Femoral=3 12:53:28 Left Pulses: [place] Ped=1, Femoral=3 Neurological: State=Alert, Ox3, BERNAL Respiration: Resp=14 B/min, RqB5=660 % 12:53:33 Reference ECG taken 12:57:04 HR=64 bpm, SPIS=804/84 mmhg, SpO2=98.0 %, Resp=11 B/min, Pain=0, Susy=10, Estes=2 12:59:13 Pressure channel 1 zeroed. 13:02:03 HR=67 bpm, ELHZ=452/92 mmhg, MtN7=575.0 %, Resp=15 B/min, Pain=0, Susy=10, Estes=2 13:03:22 MD texted 13:07:49 HR=59 bpm, ISSL=959/87 mmhg, SpO2=99.0 %, Resp=10 B/min, Pain=0, Susy=10, Estes=2 13:10:31 MD arrived. 13:10:54 Bilateral groins prepped with 2% chlorhexidine, and draped after a 3 minute waiting time. 13:11:46 1 mg VERSED given in lab by Demar Whitman RN in Right Antecubital via Peripheral IV. Ordere d by Vladimir Mann. 13:12:04 25 mcg FENTANYL given in lab by Demar Whitman RN via Peripheral IV. Ordered by Babak Mann. 13:12:07 HR=59 bpm, ATMP=880/86 mmhg, FvX5=315.0 %, Resp=10 B/min, Pain=0, Susy=10, Estes=2 Time Out. Correct patient, correct procedure, correct physician, labs, allergies, and equipment verified with sanitation laborer 13:13:01 team present. Fire risk assesment completed (see hard stop sheet for coding). Time Out Conc urred by MD and individual staff in procedure. 13:13:03 Case Start 13:13:06 Verbal Stimulation=2 Physical Stimulation=2 Airway=2 Respiration=2 TOTAL=8. (0=absent, 1=li mited, 2=present) 13:13:23 20 mL 1% XYLOCAINE given in lab by Vladimir Mann in Right Groin via Subcutaneous. 13:14:47 Access site was Right Femoral Artery. 13:14:52 A wire was inserted via Fem Art (right). 13:14:55 A SHEATH, FR4 TERUMO (10CM) FR 4 was advanced into the Fem Art (right) using the Percutaneo us technique. A JR 4.0 INFINITI CATHETER FR 4 was advanced over a wire. OMNIPAQUE, 350 MG, 150ML 150ML was us ed for 13:16:26 injections. Recorded Pressure: LV, HR=62, Condition=Condition 1 13:16:53 (Left Ventricle) LV 148/6/12 13:17:06 VW=263 bpm, ZVLP=057/84 mmhg, SpO2=98.0 %, Resp=16 B/min, Pain=0, Susy=10, Estes=2 Recorded Pressure: LV, Ao, HR=72, Condition=Condition 1 13:17:14 (Left Ventricle) LV 152/-13/18, (Aorta) Ao 157/84/114 13:17:35 The LV was manually injected with 8 cc's and visualized. OMNIPAQUE, 350 MG, 150ML 150ML use d. Recorded Pressure: Ao, HR=64, Condition=Condition 1 13:17:42 (Aorta) Ao 138/69/98 13:18:40 ACT (Normal Range 90-180) = 149 After removing the current catheter a MPA-2 INFINITI CATHETER FR 4 was advanced over a WIRE, 3M MJ .035 180CM 13:19:11 180CM. 13:22:07 HR=63 bpm, QBED=971/78 mmhg, SpO2=99.0 %, Resp=6 B/min, Pain=0, Susy=10, Estes=2 After removing the current catheter a AR MOD INFINITI CATHETER FR 4 was advanced over a WIRE, 3 MMJ .035 180CM 13:22:16 180CM. After removing the current catheter a AL 1 INFINITI CATHETER FR 4 was advanced over a WIRE, 3MM J .035 180CM 13:23:35 180CM. After removing the current catheter a 3DRC INFINITI CATHETER FR 4 was advanced over a WIRE, 3MM J .035 180CM 13:25:28 180CM. 13:27:04 HR=61 bpm, UMGA=466/73 mmhg, SpO2=95.0 %, Resp=12 B/min, Pain=0, Susy=10, Estes=2 13:27:57 The RCA was injected and visualized at various angles. OMNIPAQUE, 350 MG, 150ML 150ML used . 13:28:12 Catheter was removed A JL 4.0 INFINITI CATHETER FR 4 was advanced over a wire. OMNIPAQUE, 350 MG, 150ML 150ML was us ed for 13:28:20 injections. 13:29:26 The LCA was injected and visualized at various angles. OMNIPAQUE, 350 MG, 150ML 150ML used . 13:32:08 HR=65 bpm, NQHM=370/72 mmhg, SpO2=97.0 %, Resp=12 B/min, Pain=0, Susy=10, Estes=2 13:34:06 Catheter was removed 13:37:07 HR=66 bpm, NPWS=524/74 mmhg, SpO2=99.0 %, Resp=15 B/min, Pain=0, Susy=10, Estes=2 13:37:54 Case End (Physician broke scrub) Assessment: Final Case, HR=65 BPM, Rhythm=REG, FCSR=257/74 mmhg, Chest Pain=0, Edema=None, Col or=Normal, Skin = Warm Right Pulses: [place] Ped=1, Femoral=3 13:38:00 Left Pulses: [place] Ped=1, Femoral=3 Neurological: State=Alert, Ox3, BERNAL Respiration: Resp=12 B/min, SoV2=677 % 13:38:27 Catheter(s) removed without difficulty 13:41:23 Sheath removed; pressure applied to access site. Bandar 13:42:08 HR=58 bpm, JVOS=121/82 mmhg, SpO2=99.0 %, Resp=10 B/min, Pain=0, Susy=10, Estes=2 13:47:09 HR=63 bpm, WCZD=848/89 mmhg, JbF7=642.0 %, Resp=9 B/min, Pain=0, Susy=10, Estes=2 13:50:01 dr varela arrived to view films 13:52:08 HR=65 bpm, IWGR=400/86 mmhg, SpO2=96.0 %, Resp=8 B/min, Pain=0, Susy=10, Estes=2 13:56:54 No case complications noted. 13:57:07 Cine recording checked. 13:57:09 Bedside Report will be given. 13:57:11 HR=64 bpm, EJLO=892/87 mmhg, GwO3=649.0 %, Resp=23 B/min, Pain=0, Susy=10, Estes=2 13:58:05 Verbal Stimulation=2 Physical Stimulation=2 Airway=2 Respiration=2 TOTAL=8. (0=absent, 1=l imited, 2=present) 13:58:18 A Left Heart Cath was performed. 13:58:23 Clinical correlaton risk stratification. 14:00:29 elaine COPPOLA discussing case with pt 14:02:12 HR=65 bpm, PJLU=796/90 mmhg, SpO2=99.0 %, Resp=15 B/min, Pain=0, Susy=10, Estes=2 14:02:25 Vitals capture stopped. 14:03:02 hematasis achieved End Study - Contrast Media Used In Study Contrast Total Opened (mL) Total Used (mL) Total Wasted (mL) Omnipaque 350 60 60 0 End Study - Maximum Contrast Load Max Contrast Load (mL) 235.3 End Study - Radiation Exposure Fluoro Time (minutes) 7.8 End Study - Sheaths Sheaths Pulled By Sheath Hold Time (min) Student, GRAIN MERCHANDISER/RT(R) End Study - Patient Disposition Complications Transferred To No Regular Bed
--- NOTE | 2018-09-03 14:12 | MR ---
cc: Vladimir Mann MD DATE: 09/02/2018 PROCEDURE: 1. Left heart catheterization. 2. Left ventriculography. 3. Coronary angiography. INDICATIONS: Non-STEMI, coronary artery disease, chronic renal insufficiency. PROCEDURE IN DETAIL: The patient was seen by nephrology; cleared by nephrology for elective catheterization. He was pre-hydrated with normal saline. Left heart catheterization was performed with a 4-Khmer JR4, 3DRC JL4 catheter with the following findings: The LV pressure is 145/4-5, EF 65%. Right coronary was nondominant with no significant disease angiographically. Left main coronary artery has a distal 60%-70% stenosis. Left circumflex vessel was a dominant vessel, has a very complex ostial proximal stenosis with a large high obtuse marginal/ramus intermedius vessel, which has a proximal bifurcation. The more lateral branch of the bifurcation has probably at least a 2.75 reference vessel diameter. The ostial proximal segment has relative stenosis of at least 80%-90%. The ostial proximal segment of this vessel proximal to the bifurcation has an 80%-90% stenosis. The ostial proximal segment of the left third has at least 80% stenosis. First obtuse marginal vessel was a medium sized vessel, reference vessel diameter 2.5 mm. The remainder of the AV groove left circumflex vessel has no significant disease angiographically. Left PDA has no significant disease angiographically. The LAD has a long stent train in the proximal segment with a 75% mid in-stent stenosis at a bifurcation with a small diagonal vessel. CONCLUSION: 1. Severe complex ostial dominant left circumflex vessel involving a bifurcation with a large obtuse marginal vessel, which itself has ostial 80% stenosis. 2. Preserved left ventricular systolic function, ejection fraction 65%. 3. Recommend CABG with JOSE to LAD, vein graft to ramus/high obtuse marginal vessel and vein graft to left circumflex. CT surgery consult will be placed by myself. A total of 60 mL of contrast was used. The patient was pre-hydrated with a liter of normal saline. Vladimir Mann MD AWRavinder/el , 01:47 PM , 01:54 PM
[2018-09-03] MEDS ORDERED: Iohexol 350 MG/ML 100 ML Vial (for Cath Lab) IVCONTRAST ONE (14:32)
--- NOTE | 2018-09-03 16:07 | P.PNCV ---
- Note Subjective/Hospital Course: pt seen and evaluated , full consult to follow sts data discussed with pt RISK SCORES Procedure: Isolated CAB CALCULATE Risk of Mortality: 1.268% Renal Failure: 3.373% Permanent Stroke: 1.239% Prolonged Ventilation: 4.841% DSW Infection: 0.155% Reoperation: 1.966% Morbidity or Mortality: 10.447% Short Length of Stay: 51.300% Long Length of Stay: 3.265% Objective: Vital Signs - 24 hr 09/02/18 20:00 09/02/18 23:37 09/03/18 00:00 Temperature 98.4 F 97.9 F Pulse Rate 77 72 71 Respiratory Rate 17 15 Blood Pressure 150/92 H 161/94 H Pulse Oximetry 98 99 09/03/18 04:00 09/03/18 08:00 09/03/18 12:00 Temperature 97.8 F 97.8 F 97.8 F Pulse Rate 70 63 64 Respiratory Rate 15 18 18 Blood Pressure 160/92 H 167/90 H 166/84 H Pulse Oximetry 96 98 100 09/03/18 14:20 Temperature Pulse Rate Respiratory Rate Blood Pressure Pulse Oximetry 100 Labs: Laboratory Results - last 12 hr 09/03/18 09/03/18 09/03/18 05:00 05:00 05:00 WBC 8.5 RBC 4.07 L Hgb 12.4 L Hct 35.9 L MCV 88.1 MCH 30.6 MCHC 34.7 RDW 13.6 Plt Count 236 MPV 8.5 Neut % (Auto) 57.7 Lymph % (Auto) 27.4 [place] % (Auto) 5.8 Eos % (Auto) 8.5 H Baso % (Auto) 0.6 Neut # (Auto) 4.9 Lymph # (Auto) 2.3 [place] # (Auto) 0.5 Eos # (Auto) 0.7 H Baso # (Auto) 0.1 WBC Differential . Differential Comment Auto diff final APTT 41.3 H Sodium 137 Potassium 4.4 Chloride 106 Carbon Dioxide 23.4 Anion Gap 8 BUN 21 H Creatinine 1.76 H Estimated GFR 47 L POC Glucose Random Glucose 145 H Calcium 9.0 09/03/18 09/03/18 06:11 12:24 WBC RBC Hgb Hct MCV MCH MCHC RDW Plt Count MPV Neut % (Auto) Lymph % (Auto) [place] % (Auto) Eos % (Auto) Baso % (Auto) Neut # (Auto) Lymph # (Auto) [place] # (Auto) Eos # (Auto) Baso # (Auto) WBC Differential Differential Comment APTT Sodium Potassium Chloride Carbon Dioxide Anion Gap BUN Creatinine Estimated GFR POC Glucose 176 H 134 H Random Glucose Calcium Result Diagrams: 09/03/18 05:00 09/03/18 05:00
[2018-09-03] MEDS: Sod Chloride 0.9% Inj 1,000 ML IV.CONT SCH (16:44)
[2018-09-03] MEDS: Insulin Detemir Inj 1,000 UNIT/10 ML Vial SQ SCH (20:55)
[2018-09-04] MEDS: Sod Chloride 0.9% Inj 1,000 ML IV.CONT SCH ×2 (00:05→05:53)
[2018-09-04] MEDS: Insulin NovoLOG Aspart Correctional Sugar Inj SQ SCH ×4 (00:19→17:14)
[2018-09-04] MEDS: Heparin Drip 25,000 UNIT/250 ML BAG IV.CONT PRN (00:19)
[2018-09-04] MEDS ORDERED: Metoprolol Tartrate 25 MG Tablet PO SCH (05:00)
[2018-09-04] MEDS: Isosorbide Mononitrate 60 MG ER 24HR Tablet (Imdur) PO SCH (06:23)
[2018-09-04 06:58] LABS: Albumin 3.4 g/dL (3.4-5.0); Calcium 8.7 mg/dL (8.5-10.1); Carbon Dioxide 21.8 meq/L (21.0-32.0)
[2018-09-04 06:59] LABS: Phosphorus 3.1 mg/dL (2.5-4.9)
--- NOTE | 2018-09-04 07:24 | MB ---
cc: Chelly Cabrales MD DATE: 09/03/2018 HISTORY OF PRESENT ILLNESS: A 63-year-old male transferred from [facility]. Apparently was admitted there with chest pain on 08/30/2018. Chest pain located on the left side of his chest, 07/10. Said he had a recent treadmill stress test a month ago, but was unable to complete the test. Apparently, per the patient, it was negative. The patient also had elevated creatinine at 2.02. He was transferred to our facility. He underwent cardiac catheterization by Dr. Mann which showed a left main disease of 60%, mid distal LAD 75%, the circuit was 90%, the OM 90%, EF of 65%. We were consulted to evaluate for coronary artery bypass grafting. The patient has also had some dental extraction and has sutures in place. He had a new bottom denture plate placed. We did, however, get in touch with the [facility] physician, Dr. Pacheco, who stated to leave the sutures in place and we were okay to remove the bottom denture plate prior to any surgery and that he would follow up with the patient after he was released from the hospital for suture removal. PAST MEDICAL HISTORY: Includes coronary artery disease, diabetes mellitus, hyperlipidemia, hypertension, chronic prostatitis. PAST SURGICAL HISTORY: Include cardiac stents of over a year ago. Apparently, he was on Effient at home. Vasectomy, cholecystectomy. ALLERGIES: NO KNOWN ALLERGIES. HOME MEDICATIONS: 1. Glipizide. 2. Ibuprofen. 3. Olmesartan. 4. Janumet. 5. Amoxicillin. 6. Aspirin. 7. Coreg. 8. Imdur. 9. Effient. 10. Pravachol. FAMILY HISTORY: Mother from dementia. Father at 63 from an [place]. SOCIAL HISTORY: Smoked for 10 years, 3 packs a day, quit 30 years ago. Rare alcohol. No illicit drugs. He is , with 3 children. Retired. REVIEW OF SYSTEMS: GENERAL: No night sweats, fever, heat and cold intolerance. SKIN: No psoriasis, itching or hives. HEENT: No blurred vision, hearing loss. RESPIRATORY: Some shortness of breath with exertion. CARDIOVASCULAR: As above in the HPI. GASTROINTESTINAL: No diarrhea or vomiting. GENITOURINARY: No burning, frequency, urgency. CENTRAL NERVOUS SYSTEM: No history of TIA, CVA or seizure disorder. ENDOCRINOLOGY: Positive for diabetes. PHYSICAL EXAMINATION: VITAL SIGNS: Blood pressure 160/80, heart rate of 64, afebrile. The patient is on room air at 100%. GENERAL: Awake, alert, in no acute distress. HEAD: Normocephalic, atraumatic. Oral mucosa pink, moist. He does have a top and bottom denture plate. Per the patient, he has sutures in the lower gum portion. NECK: Supple. No JVD. HEART: Heart sounds S1, S2. Regular rate and rhythm. No audible rubs, murmurs, or gallops. LUNGS: Clear to auscultation. No wheezes, rales or rhonchi. ABDOMEN: Soft, nontender. No masses or organomegaly. EXTREMITIES: No cyanosis, clubbing, or edema. LABORATORY DATA: Shows hemoglobin 12, hematocrit 35, white cell count 8.5, platelet count of 236. Sodium 139, potassium 4.6, BUN of 24, creatinine 1.96, glucose 163. Troponin was 0.42. His creatinine at [facility] was 2.02 with some slight improvement. Chest x-ray was unremarkable. The patient had an ultrasound of the kidney and bladder, which was negative and unremarkable. There is a small incidental left renal cyst. The patient has also been seen by Nephrology. Concern for diabetic neuropathy, hypertensive nephrosclerosis, NSAID use. This is as per Dr. Hernandez's notes. ASSESSMENT AND PLAN: 1. This is a 63-year-old male with multivessel coronary artery disease, prior stent and also on Effient. The Effient will need to be held. He needs to have a platelet inhibition test scheduled prior to surgery. We may have to wait until early next week for surgery. 2. History of acute on chronic renal failure. Again possible he is using nonsteroidal antiinflammatory drugs at home. Will need to avoid all nephrotoxic medications. Follow up his labs. 3. Diabetes mellitus, on oral medication. 4. History of hypertension. 5. Recent dental surgery. PLAN: The cardiac films have been evaluated by Dr. Chelly Cabrales. Planning will be for surgery once his platelet inhibition testing is improved and stable. Continue to hold the Effient. He will have complete workup done. Dictated by Juliette Hoover APRN Patient seen and examined, chart and angiograms reviewed on 09/03/2018 and the findings discussed in detail with the patient and his family. Agree with above. Therapeutic options available including CABG was offered. I agree with Dr. Mann that he will maximally benefit from bypass to his LAD, OM, ramus and diagonal distributions. The risks, complications including but not limited to bleeding, infection, stroke, myocardial injury and , and benefits of the surgical procedure were discussed in details and all questions answered. He understands the provided information and agrees to proceed with the planned operation. We will plan on proceeding with the surgical procedure as describe above following normalization of his platelet function. In the meantime, we will obtain carotid duplex imaging and lower extremity vein mapping. Thank you for allowing me to participate in the care of this patient. MD CARLOTA Quiros/taylor , 04:02 PM , 04:16 PM KATHY
[2018-09-04] MEDS: Senna/Docusate Sodium 8.6/50 MG Tablet PO SCH ×2 (08:46→20:32)
[2018-09-04] MEDS ORDERED: Insulin Regular (For Infusion) 100 UNIT in Sodium Chlor 0.9% Inj 99 ML IV.CONT PRN (11:10)
[2018-09-04] MEDS ORDERED: Dextrose 50% in Water 50 ML Vial IV.PUSH PRN (11:10)
[2018-09-04] MEDS ORDERED: Chlorhexidine 4% Topical 120 APPLIC/120 ML Bottle TOPICAL SCH (11:15)
[2018-09-04] MEDS ORDERED: Sodium Chloride 0.9% Irr Bot 500 ML, ceFAZolin Inj 500 MG IRRIGATION SCH ×2 (11:15)
[2018-09-04] MEDS ORDERED: Sodium Chlor 0.9% Inj 77.5 ML, Papaverine Inj 60 MG, Nitroglycerin Inj 100 MCG, dilTIAZ... IRRIGATION SCH ×3 (11:15)
[2018-09-04] MEDS ORDERED: ceFAZolin Inj 2,000 MG in Sodium Chlor 0.9% Inj 80 ML IV.SIG SCH (12:00)
--- NOTE | 2018-09-04 12:23 | P.PNIM ---
Subjective Interval history: Patient expresses no acute complaints. Plan for CABG. no complaints from the patient. No chest pain. Physical Exam Vital signs: Last Vital Signs Temp 97.8 F 09/04/18 07:30 Pulse 74 09/04/18 07:30 Resp 16 09/04/18 07:30 BP 143/84 H 09/04/18 07:30 Pulse Ox 96 09/04/18 07:30 Intake & Output 09/02/18 09/03/18 09/04/18 09/05/18 06:59 06:59 06:59 06:59 Intake Total 2269 / 2269 584.8 / 584.8 2485 / 2485 Output Total 800 / 800 1150 / 1150 1950 / 1950 Balance 1469 / 1469 -565.2 / -565.2 535 / 535 Weight 82.4 kg 80.2 kg 78.7 kg Narrative: GENERAL: NAD, A&Ox3 HEAD: Normocephalic. NECK: Supple, trachea midline. No lymphadenopathy. EYES: No scleral icterus. No injection or drainage. CARDIOVASCULAR: Regular rate and rhythm without murmurs, gallops, or rubs. RESPIRATORY: Breath sounds equal bilaterally. No accessory muscle use. GASTROINTESTINAL: Abdomen soft, non-tender, nondistended. MUSCULOSKELETAL: No cyanosis, or edema. SKIN: Warm and dry. NEURO: No focal neurological deficits. Results Labs CBC & Chem 7: 09/03/18 05:00 09/04/18 05:37 Procedures Procedures: Echocardiogram 08/31/2018 The left ventricular systolic function is normal with an estimated ejection fraction in the range of 60-65%. There is trace tricuspid valve regurgitation. Assessment and Plan (1) Chronic kidney disease, stage 3 (moderate): Code(s): N18.3 - Chronic kidney disease, stage 3 (moderate) Status: Acute (2) Hypertension: Code(s): I10 - Essential (primary) hypertension Status: Acute (3) Hyperlipidemia: Code(s): E78.5 - Hyperlipidemia, unspecified Status: Acute (4) CAD (coronary artery disease): Code(s): I25.10 - Atherosclerotic heart disease of [place] coronary artery without angina pectoris Status: Acute (5) Diabetes type 2, controlled: Code(s): E11.9 - Type 2 diabetes mellitus without complications Status: Acute Plan 63-year-old -[place] male with past medical history of CAD status post 3 stents who is presenting to the hospital with left-sided chest pain. He said he has always had chest pain ever since his second heart catheterization NSTEMI CAD previous stents placed. Heart catheterization plan Blood thinners on hold Potentially heart cath on 09/09/2018 Cardiology following Continue heparin drip Acute kidney injury Avoid nephrotoxins Follow renal function Hypertension Continue baseline treatment Follow blood pressures Adjust treatments as needed Continue Coreg Continue M Shanell Diabetes mellitus type 2 Follow blood sugars Insulin sliding scale Diabetic diet Status post dental extraction Continue amoxicillin Follow with dentist as an outpatient DVT prophylaxis Heparin Progress Note: Quality VTE Deep Vein Thrombosis/Pulmonary Embolism Present on Admission: No _ (1) Hypertension Qualifiers: Hypertension type: (2) Hyperlipidemia Qualifiers: Hyperlipidemia type: (3) CAD (coronary artery disease) Qualifiers: Coronary Disease-Associated Artery/Lesion type: [place] vs. transplanted heart: Associated angina: (4) Diabetes type 2, controlled Qualifiers: Diabetes mellitus prison insulin use: Diabetes mellitus complication status: Diabetes mellitus complication detail: Diabetic retinopathy severity : Proliferative retinopathy type: Diabetes mellitus macular edema: Laterality: Chronic kidney disease stage:
--- NOTE | 2018-09-04 12:52 | P.PNNP ---
Subjective Interval history: Patient was seen, no distress, no complaints. Patient had cardiac cath today and plan is to get CABG. Patient's renal function has improved. <Sathya Engelfelicia - Last Filed: 09/04/18 12:49> Physical Exam Vital signs: Vital Signs 09/03/18 14:20 09/03/18 16:00 09/03/18 19:00 Temperature 98.3 F Pulse Rate 67 76 Respiratory Rate 16 18 Blood Pressure 151/80 H 167/89 H Pulse Oximetry 100 99 100 09/03/18 20:00 09/03/18 21:00 09/03/18 22:00 Temperature 98.3 F Pulse Rate 76 75 76 Respiratory Rate 18 Blood Pressure 167/89 H Pulse Oximetry 100 09/03/18 23:00 09/04/18 00:00 09/04/18 01:00 Temperature 97.7 F Pulse Rate 65 76 71 Respiratory Rate 18 Blood Pressure 143/98 H Pulse Oximetry 94 L 09/04/18 02:00 09/04/18 03:00 09/04/18 04:00 Temperature 98 F Pulse Rate 76 68 75 Respiratory Rate 18 Blood Pressure 159/99 H Pulse Oximetry 96 09/04/18 05:00 09/04/18 05:25 09/04/18 06:00 Temperature Pulse Rate 70 67 Respiratory Rate 16 Blood Pressure Pulse Oximetry 09/04/18 07:30 Temperature 97.8 F Pulse Rate 74 Respiratory Rate 16 Blood Pressure 143/84 H Pulse Oximetry 96 Intake & Output 09/03/18 09/04/18 09/04/18 18:59 06:59 18:59 Intake Total 2245 / 2245 240 / 240 Output Total 500 / 500 1450 / 1450 Balance 1745 / 1745 -1210 / -1210 Weight 78.7 kg Intake: IV 2004 Heparin/NS PF Inj 1,000 ML @ 0 5 / 5 mls/hr .ROUTE .STK-MED ONE Rx#: [id number] NS Inj 1,000 ML @ 75 mls/hr IV. 1999 CONT .[id number] [facility] Rx#:[id number] Oral 240 / 240 240 / 240 Output: Urine 500 / 500 1450 / 1450 Other: Date of Last Bowel Movement 08/31/18 09/02/18 09/02/18 - Constitutional no acute distress - Routine HEENT Exam Head: Present: normocephalic Eye: Present: EOMI, PERRL ENT: Present: mucous membranes moist - Routine Neck Exam Present: trachea midline. Absent: JVD, tracheal deviation - Routine Respiratory Exam Absent: accessory muscle use, respiratory distress - Routine Cardiovascular Exam Present: RRR - Routine Abdominal Exam Present: soft. Absent: tenderness - Routine Extremities Exam Absent: cyanosis, clubbing, edema - Routine Neurological Exam Present: alert, oriented X3 - Routine Psychiatric Exam Present: normal affect <Pa Engel - Last Filed: 09/04/18 12:49> Vital signs: Vital Signs 09/03/18 21:00 09/03/18 22:00 09/03/18 23:00 Temperature Pulse Rate 75 76 65 Respiratory Rate Blood Pressure Pulse Oximetry 09/04/18 00:00 09/04/18 01:00 09/04/18 02:00 Temperature 97.7 F Pulse Rate 76 71 76 Respiratory Rate 18 Blood Pressure 143/98 H Pulse Oximetry 94 L 09/04/18 03:00 09/04/18 04:00 09/04/18 05:00 Temperature 98 F Pulse Rate 68 75 70 Respiratory Rate 18 Blood Pressure 159/99 H Pulse Oximetry 96 09/04/18 05:25 09/04/18 06:00 09/04/18 07:00 Temperature Pulse Rate 67 66 Respiratory Rate 16 Blood Pressure Pulse Oximetry 09/04/18 07:30 09/04/18 08:00 09/04/18 09:00 Temperature 97.8 F Pulse Rate 74 68 78 Respiratory Rate 16 Blood Pressure 143/84 H Pulse Oximetry 96 96 09/04/18 10:00 09/04/18 11:00 09/04/18 12:00 Temperature 98.3 F Pulse Rate 78 66 68 Respiratory Rate 16 Blood Pressure 145/78 H Pulse Oximetry 100 09/04/18 13:00 09/04/18 14:00 09/04/18 15:00 Temperature Pulse Rate 70 86 71 Respiratory Rate Blood Pressure Pulse Oximetry 09/04/18 16:00 09/04/18 17:00 09/04/18 18:00 Temperature 98.3 F Pulse Rate 72 68 72 Respiratory Rate 16 Blood Pressure 154/87 H Pulse Oximetry 100 09/04/18 19:00 09/04/18 19:19 09/04/18 20:00 Temperature 98.1 F Pulse Rate 73 78 80 Respiratory Rate 18 Blood Pressure 158/86 H Pulse Oximetry 100 100 Intake & Output 09/04/18 09/04/18 09/05/18 06:59 18:59 06:59 Intake Total 240 / 240 1520 / 1520 Output Total 1450 / 1450 1570 / 1570 Balance -1210 / -1210 -50 / -50 Weight 78.7 kg Intake: IV 300 / 300 NS Inj 1,000 ML @ 75 mls/hr IV. 300 / 300 CONT .[id number] [facility] Rx#:[id number] Oral 240 / 240 1220 / 1220 Output: Urine 1450 / 1450 1570 / 1570 Other: Date of Last Bowel Movement 09/02/18 09/04/18 09/04/18 <Fransisco Hernandez - Last Filed: 09/04/18 20:09> Assessment and Plan - Assessment (1) Chronic kidney disease, stage 3 (moderate) Code(s): N18.3 - Chronic kidney disease, stage 3 (moderate) Status: Acute Plan: Patient may have hypertensive nephrosclerosis, appears to have stable stage III CKD. Renal function has improved. IV fluids stopped. (2) Hypertension Code(s): I10 - Essential (primary) hypertension Status: Acute Plan: Monitor BP. Continue current medications. (3) Hyperlipidemia Code(s): E78.5 - Hyperlipidemia, unspecified Status: Acute Plan: Patient on pravastatin. (4) CAD (coronary artery disease) Code(s): I25.10 - Atherosclerotic heart disease of [place] coronary artery without angina pectoris Status: Acute Plan: s/p stent placement. Patient on Prasugrel. Cardiology following, catheterization yesterday. CABG planned. (5) Diabetes type 2, controlled Code(s): E11.9 - Type 2 diabetes mellitus without complications Status: Acute Plan: Insulin coverage to maintain blood glucose levels between 140 and 180. <Pa Engel - Last Filed: 09/04/18 12:49> - Assessment (1) Chronic kidney disease, stage 3 (moderate) Code(s): N18.3 - Chronic kidney disease, stage 3 (moderate) Status: Acute (2) Hypertension Code(s): I10 - Essential (primary) hypertension Status: Acute (3) Hyperlipidemia Code(s): E78.5 - Hyperlipidemia, unspecified Status: Acute (4) CAD (coronary artery disease) Code(s): I25.10 - Atherosclerotic heart disease of [place] coronary artery without angina pectoris Status: Acute (5) Diabetes type 2, controlled Code(s): E11.9 - Type 2 diabetes mellitus without complications Status: Acute - Attending Attestation patient was seen and examined. Agree with above assessment and plan. Cardiology recommended CABG. CT surgery consulted. <Fransisco Hernandez - Last Filed: 09/04/18 20:09>
--- NOTE | 2018-09-04 13:48 | P.PNCA ---
Subjective Interval history: asleep in nad Medications and Allergies Active Medications: Active Medications Acetaminophen (Tylenol) 650 mg PO Q4H PRN PRN Reason: Temp > 100.4 Amoxicillin (Amoxil) 500 mg PO TID [facility] Last Admin: 09/04/18 12:27 Dose: 500 mg Aspirin (Ecotrin) 162 mg PO DAILY [facility] Last Admin: 09/04/18 08:46 Dose: 162 mg Carvedilol (Coreg) 3.125 mg PO BID [facility] Last Admin: 09/04/18 08:46 Dose: 3.125 mg Chlorhexidine Gluconate (Hibiclens 4% Topical) 1 applicatio [employer] [facility] Stop: 09/10/18 11:10 Sodium Chloride 77.5 ml/Papaverine HCl 60 mg/Nitroglycerin 100 mcg/Diltiazem HCl 100 mg 0 ml [employer] [facility] Stop: 09/10/18 11:10 Sodium Chloride 500 ml/ (Cefazolin Sodium 500 mg) 0 ml [employer] [facility] Stop: 09/10/18 11:11 Dextrose (D50w Vial) 50 ml IV.PUSH UNSCH PRN PRN Reason: PER HYPOGLYCEMIA PROTOCOL Dextrose (D50w Vial) 50 ml IV.PUSH UNSCH PRN PRN Reason: PER HYPOGLYCEMIA PROTOCOL Glucagon (Glucagon Inj) 1 mg OTHER PRN PRN PRN Reason: for Hypoglycemia Protocol Heparin Sodium/Dextrose (Heparin/D5w 25,000 U/250 Ml) 25,000 unit in 250 mls @ 10 mls/hr IV.CONT TITRATE PRN; Protocol PRN Reason: Per Protocol Last Admin: 09/04/18 00:19 Dose: 1,000 units/hr, 10 mls/hr Cefazolin Sodium 2,000 mg/ (Sodium Chloride) 100 mls @ 200 mls/hr IV.SIG [employer] [facility] Stop: 09/10/18 11:11 Insulin Human Regular 100 unit (/ Sodium Chloride) 100 mls @ 3 mls/hr IV.CONT TITRATE PRN; Protocol PRN Reason: See Protocol Insulin Aspart (Novolog Insulin Correctional Sugar Inj) 0 unit SQ Q6HR [facility]; Protocol Last Admin: 09/04/18 12:27 Dose: 7 unit Insulin Detemir (Levemir Inj) 7 unit SQ HS [facility] Last Admin: 09/03/18 20:55 Dose: 7 unit Isosorbide Mononitrate (Imdur) 60 mg PO DAILY@0700 [facility] Last Admin: 09/04/18 06:23 Dose: 60 mg Metoprolol Tartrate (Lopressor) 12.5 mg PO [employer] [facility] Stop: 09/10/18 11:11 Morphine Sulfate (Morphine Inj) 4 mg IV.PUSH Q4H PRN PRN Reason: BREAKTHROUGH PAIN Last Admin: 08/30/18 19:19 Dose: 4 mg Nitroglycerin (Nitrostat Sl) 0.4 mg SL Q5M PRN PRN Reason: CHEST PAIN Last Admin: 09/04/18 05:20 Dose: 0.4 mg Ondansetron HCl (Zofran Inj) 4 mg IV.PUSH Q6H PRN PRN Reason: NAUSEA OR VOMITING Oxycodone HCl (Roxicodone) 5 mg PO Q4H PRN PRN Reason: pain 3-10 Pravastatin Sodium (Pravachol) 20 mg PO DAILY [facility] Last Admin: 09/04/18 08:47 Dose: 20 mg Senna/Docusate Sodium (Letty-Colace) 1 tab PO BID [facility] Last Admin: 09/04/18 08:46 Dose: 1 tab Sodium Chloride (Ns Flush) 2 ml IV.FLUSH BID [facility] Last Admin: 09/04/18 08:47 Dose: Not Given Sodium Chloride (Ns Flush) 2 ml IV.FLUSH PRN PRN PRN Reason: FLUSH AFTER USING IV ACCESS Sodium Chloride (Ns Flush) 2 ml IV.FLUSH BID [facility] Sodium Chloride (Ns Flush) 2 ml IV.FLUSH PRN PRN PRN Reason: FLUSH AFTER USING IV ACCESS Allergies Allergy/AdvReac Type Severity Reaction Status Date / Time No Allergy Information Allergy Verified 08/30/18 11:50 Available Home Medications Medication Instructions Recorded Confirmed Type amoxicillin 500 mg PO TID 08/30/18 08/30/18 History aspirin 325 mg PO DAILY 08/30/18 08/30/18 History carvedilol 3.125 mg PO BID 08/30/18 08/30/18 History glipizide 10 mg PO DAILY 08/30/18 08/30/18 History ibuprofen 800 mg PO TID PRN 08/30/18 08/30/18 History isosorbide mononitrate 60 mg PO QAM 08/30/18 08/30/18 History olmesartan 20 mg PO DAILY 08/30/18 08/30/18 History prasugrel 10 mg PO DAILY 08/30/18 08/30/18 History pravastatin 20 mg PO DAILY 08/30/18 08/30/18 History sitagliptin-metformin [Janumet XR] 1 tab PO QPM 08/30/18 08/30/18 History Physical Exam Vital signs: Vital Signs 09/03/18 14:20 09/03/18 16:00 09/03/18 19:00 Temperature 98.3 F Pulse Rate 67 76 Respiratory Rate 16 18 Blood Pressure 151/80 H 167/89 H Pulse Oximetry 100 99 100 09/03/18 20:00 09/03/18 21:00 09/03/18 22:00 Temperature 98.3 F Pulse Rate 76 75 76 Respiratory Rate 18 Blood Pressure 167/89 H Pulse Oximetry 100 09/03/18 23:00 09/04/18 00:00 09/04/18 01:00 Temperature 97.7 F Pulse Rate 65 76 71 Respiratory Rate 18 Blood Pressure 143/98 H Pulse Oximetry 94 L 09/04/18 02:00 09/04/18 03:00 09/04/18 04:00 Temperature 98 F Pulse Rate 76 68 75 Respiratory Rate 18 Blood Pressure 159/99 H Pulse Oximetry 96 09/04/18 05:00 09/04/18 05:25 09/04/18 06:00 Temperature Pulse Rate 70 67 Respiratory Rate 16 Blood Pressure Pulse Oximetry 09/04/18 07:00 09/04/18 07:30 09/04/18 08:00 Temperature 97.8 F Pulse Rate 66 74 68 Respiratory Rate 16 Blood Pressure 143/84 H Pulse Oximetry 96 96 09/04/18 09:00 09/04/18 10:00 09/04/18 11:00 Temperature Pulse Rate 78 78 66 Respiratory Rate Blood Pressure Pulse Oximetry 09/04/18 12:00 Temperature Pulse Rate 72 Respiratory Rate Blood Pressure Pulse Oximetry 100 Intake & Output 09/03/18 09/04/18 09/04/18 18:59 06:59 18:59 Intake Total 2245 / 2245 240 / 240 300 / 300 Output Total 500 / 500 1450 / 1450 Balance 1745 / 1745 -1210 / -1210 300 / 300 Weight 78.7 kg Intake: IV 2004 300 / 300 Heparin/NS PF Inj 1,000 ML @ 0 5 / 5 mls/hr .ROUTE .STK-MED ONE Rx#: [id number] NS Inj 1,000 ML @ 75 mls/hr IV. 1999 300 / 300 CONT .[id number] [facility] Rx#:[id number] Oral 240 / 240 240 / 240 Output: Urine 500 / 500 1450 / 1450 Other: Date of Last Bowel Movement 08/31/18 09/02/18 09/02/18 - Constitutional no acute distress - Routine HEENT Exam Head: Present: normocephalic - Routine Neck Exam Present: supple - Routine Respiratory Exam Present: CTA bilaterally - Routine Cardiovascular Exam Present: S1, S2 - Routine Abdominal Exam Present: soft - Routine Extremities Exam Comments: no rito Results 09/03/18 05:00 09/04/18 05:37 Coagulation 09/03/18 09/03/18 09/04/18 Range/Units 05:00 23:00 05:37 APTT 41.3 H 39.8 H 43.0 H (23.4-31.7) sec CBC 09/03/18 Range/Units 05:00 WBC 8.5 (4.0-11.0) th/mm3 RBC 4.07 L (4.50-5.90) mil/mm3 Hgb 12.4 L (13.0-17.0) gm/dL Hct 35.9 L (39.0-51.0) % Plt Count 236 (150-450) th/mm3 Neut # (Auto) 4.9 (1.8-7.7) th/mm3 Lymph # (Auto) 2.3 (1.0-4.8) th/mm3 [place] # (Auto) 0.5 (0.0-0.9) th/mm3 Eos # (Auto) 0.7 H (0.0-0.4) th/mm3 Baso # (Auto) 0.1 (0.0-0.2) th/mm3 Comprehensive Metabolic Panel 09/03/18 09/04/18 Range/Units 05:00 05:37 Sodium 137 139 (136-145) meq/L Potassium 4.4 4.0 (3.5-5.1) meq/L Chloride 106 109 H (98-107) meq/L Carbon Dioxide 23.4 21.8 (21.0-32.0) meq/L BUN 21 H 16 (7-18) mg/dL Creatinine 1.76 H 1.59 H (0.60-1.30) mg/dL Calcium 9.0 8.7 (8.5-10.1) mg/dL Albumin 3.4 (3.4-5.0) g/dL Intake and Output 09/03/18 09/04/18 09/04/18 22:59 06:59 14:59 Intake Total 1240 / 1240 240 / 240 300 / 300 Output Total 500 / 500 1450 / 1450 Balance 740 / 740 -1210 / -1210 300 / 300 Intake: IV 1000 / 1000 300 / 300 NS Inj 1,000 ML @ 75 mls/hr IV. 1000 / 1000 300 / 300 CONT .[id number] [facility] Rx#:[id number] Oral 240 / 240 240 / 240 Output: Urine 500 / 500 1450 / 1450 Other: Date of Last Bowel Movement 09/02/18 09/02/18 09/02/18 Weight 78.7 kg Assessment and Plan - Assessment (1) NSTEMI (non-ST elevated myocardial infarction) Code(s): I21.4 - Non-ST elevation (NSTEMI) myocardial infarction Status: Acute (2) ARF (acute renal failure) Code(s): N17.9 - Acute kidney failure, unspecified Status: Acute (3) Hypertension Code(s): I10 - Essential (primary) hypertension Status: Acute (4) Hyperlipidemia Code(s): E78.5 - Hyperlipidemia, unspecified Status: Acute (5) CAD (coronary artery disease) Code(s): I25.10 - Atherosclerotic heart disease of [place] coronary artery without angina pectoris Status: Acute (6) Diabetes type 2, controlled Code(s): E11.9 - Type 2 diabetes mellitus without complications Status: Acute - Plan 1.) CAD - nstemi, severe dom lcx and mid lad disease, continue aspirin, coreg, imdur, elmer held due to arf, cabg per Dr Sprague
--- NOTE | 2018-09-04 14:43 | US ---
EXAM DATE: 09/04/2018 2:40 PM EST AGE/SEX: 63 years / Male INDICATIONS: Pre-op cardiac surgery. CLINICAL DATA: This is the patient's initial encounter. Patient reports that signs and symptoms have been present for 1 day and indicates a pain score of 0/10. MEDICAL/SURGICAL HISTORY: Cardiovascular disease. Diabetes. Hypercholesterolemia. Hypertensi on. Chronic prostatitis. Coronary artery stent. Cholecystectomy. Vasectomy. COMPARISON: No prior exams available for comparison. TECHNIQUE: Venous ultrasound of both lower extremities was performed from the inguinal ligament to t he proximal calf. Real-time, color Doppler and spectral tracing, compression and augmentation techni ques were used. FINDINGS: Right Leg: Normal compression of the deep venous system from the inguinal region to the proximal gemma f. No echogenic clot is seen. Normal response of the venous system to augmentation and respiration. Left Leg: Normal compression of the deep venous system from the inguinal region to the proximal calf . No echogenic clot is seen. Normal response of the venous system to augmentation and respiration. Other: None. CONCLUSION: 1. Negative for deep venous thrombosis, limited about the right groin from previous catheterization bandage. Electronically signed by: Les Ty MD 09/04/2018 2:42 PM EST
--- NOTE | 2018-09-04 14:43 | US ---
EXAM DATE: 09/04/2018 2:36 PM EST AGE/SEX: 63 years / Male INDICATIONS: Pre-op CABG. CLINICAL DATA: This is the patient's initial encounter. Patient reports that signs and symptoms have been present for 1 day and indicates a pain score of 0/10. MEDICAL/SURGICAL HISTORY: Cardiovascular disease. Diabetes. Hypercholesterolemia. Hypertensi on. Prostatitis. Coronary artery stent. Cholecystectomy. Vasectomy. COMPARISON: [facility] [place] VENOUS DOPPLER LEG BI, 09/04/2018. . MEASUREMENTS: RIGHT THIGH: Proximal:__3 mm Mid:__ 2 mm Distal:__2 mm LEFT THIGH: Proximal:__5 mm Mid:__3 mm Distal:__2 mm RIGHT CALF: Proximal:__Thrombosed Mid:__Non-visualized Distal:__Non-visualized LEFT CALF: Proximal:__2 mm Mid:__1 mm Distal:__Non-visualized FINDINGS: The venous system of the lower extremities are patent by color Doppler imaging. Measurements of the leg veins (in mm) are listed above. CONCLUSION: 1. Venous mapping as above Electronically signed by: Les Ty MD 09/04/2018 2:41 PM EST
--- NOTE | 2018-09-04 14:52 | P.PNCV ---
- Note Subjective/Hospital Course: A 63-year-old male transferred from [facility]. Apparently was admitted there with chest pain on 08/30/2018. Chest pain located on the left side of his chest, 07/10. Said he had a recent treadmill stress test a month ago, but was unable to complete the test. Apparently, per the patient, it was negative. The patient also had elevated creatinine at 2.02. He was transferred to our facility. He underwent cardiac catheterization by Dr. Mann which showed a left main disease of 60%, mid distal LAD 75%, the circ was 90%, the OM 90%, EF of 65%. We were consulted to evaluate for coronary artery bypass grafting. The patient has also had some dentalextraction and has sutures in place. He had a new bottom denture plate placed. We did, however, get in touch with the [facility] Dental physician, Dr. Pacheco, who stated to leave the sutures in place and we were okay to remove the bottom denture plate prior to any surgery and that he would follow up with the patient after he was released from the hospital for suture removal. PAST MEDICAL HISTORY: Includes coronary artery disease, diabetes mellitus, hyperlipidemia, hypertension, chronic prostatitis. 09/04 PRU 92 discussed with pt , will more than likely eval for surgery on sunday recheck PRU on SUN Objective: Vital Signs - 24 hr 09/03/18 16:00 09/03/18 19:00 09/03/18 20:00 Temperature 98.3 F 98.3 F Pulse Rate 67 76 76 Respiratory Rate 16 18 18 Blood Pressure 151/80 H 167/89 H 167/89 H Pulse Oximetry 99 100 100 09/03/18 21:00 09/03/18 22:00 09/03/18 23:00 Temperature Pulse Rate 75 76 65 Respiratory Rate Blood Pressure Pulse Oximetry 09/04/18 00:00 09/04/18 01:00 09/04/18 02:00 Temperature 97.7 F Pulse Rate 76 71 76 Respiratory Rate 18 Blood Pressure 143/98 H Pulse Oximetry 94 L 09/04/18 03:00 09/04/18 04:00 09/04/18 05:00 Temperature 98 F Pulse Rate 68 75 70 Respiratory Rate 18 Blood Pressure 159/99 H Pulse Oximetry 96 09/04/18 05:25 09/04/18 06:00 09/04/18 07:00 Temperature Pulse Rate 67 66 Respiratory Rate 16 Blood Pressure Pulse Oximetry 09/04/18 07:30 09/04/18 08:00 09/04/18 09:00 Temperature 97.8 F Pulse Rate 74 68 78 Respiratory Rate 16 Blood Pressure 143/84 H Pulse Oximetry 96 96 09/04/18 10:00 09/04/18 11:00 09/04/18 12:00 Temperature 98.3 F Pulse Rate 78 66 68 Respiratory Rate 16 Blood Pressure 145/78 H Pulse Oximetry 100 09/04/18 13:00 09/04/18 14:00 Temperature Pulse Rate 70 86 Respiratory Rate Blood Pressure Pulse Oximetry GENERAL: SKIN: Warm and dry. HEAD: Normocephalic. EYES: No scleral icterus. No injection or drainage. NECK: Supple, trachea midline. No JVD or lymphadenopathy. CARDIOVASCULAR: Regular rate and rhythm without murmurs, gallops, or rubs. RESPIRATORY: Breath sounds equal bilaterally. No accessory muscle use. GASTROINTESTINAL: Abdomen soft, non-tender, nondistended. MUSCULOSKELETAL: No cyanosis, or edema. BACK: Nontender without obvious deformity. No CVA tenderness. Labs: Laboratory Results - last 12 hr 09/04/18 09/04/18 09/04/18 05:35 05:37 05:37 APTT 43.0 H Plt Funct P2Y12 Units Sodium 139 Potassium 4.0 Chloride 109 H Carbon Dioxide 21.8 Anion Gap 8 BUN 16 Creatinine 1.59 H Estimated GFR 53 L POC Glucose 119 H Random Glucose 107 H Calcium 8.7 Phosphorus 3.1 Albumin 3.4 09/04/18 09/04/18 11:29 12:27 APTT Plt Funct P2Y12 Units 92 L Sodium Potassium Chloride Carbon Dioxide Anion Gap BUN Creatinine Estimated GFR POC Glucose 265 H Random Glucose Calcium Phosphorus Albumin Result Diagrams: 09/03/18 05:00 09/04/18 05:37 Telemetry: NSR - Plan (6) NSTEMI (non-ST elevated myocardial infarction) Plan: ASA, BB statin eval for surgery on Sunday
--- NOTE | 2018-09-04 14:56 | US ---
EXAM DATE: 09/04/2018 2:49 PM EST AGE/SEX: 63 years / Male INDICATIONS: Pre-op cardiac surgery. CLINICAL DATA: This is the patient's initial encounter. Patient reports that signs and symptoms have been present for 1 day and indicates a pain score of 0/10. MEDICAL/SURGICAL HISTORY: Cardiovascular disease. Diabetes. Hypercholesterolemia. Hypertensi on. Chronic prostatitis. Coronary artery stent. Cholecystectomy. Vasectomy. COMPARISON: No prior exams available for comparison. VELOCITY PARAMETERS: ICA/CCA Ratio: Right 0.9 , Left 0.6 ICA: Right 93 cm/sec, Left 88 cm/sec CCA: Right 101 cm/sec, Left 146 cm/sec ECA: Right 99 cm/sec, Left 87 cm/sec Vertebral: Right 51 cm/sec antegrade, Left 47 cm/sec antegrade FINDINGS: RIGHT CAROTID: There is no evidence for a hemodynamically significant carotid stenosis. Minimal int imal hyperplasia is present with scattered calcific plaque. LEFT CAROTID: There is no evidence for a hemodynamically significant carotid stenosis. Minimal inti mal hyperplasia is present with scattered calcific plaque. Flow is antegrade in both vertebral arteries. There are no ancillary masses or adenopathy. CONCLUSION: Negative examination for a hemodynamically significant carotid stenosis. Les Ty MD FACR Electronically signed by: Les Ty MD 09/04/2018 2:55 PM EST
[2018-09-04 15:31] LABS: Hemoglobin A1c 8.1 % (4.3-6.0)
--- NOTE | 2018-09-04 16:08 | P.DIET ---
Nutritional Evaluation Type of nutrition evaluation: initial Nutrition screening: MDC (diet education) Assessment Assessment: MDC for diet education received on 09/02. Pt s/p cardiac cath today 09/03. RD provided printed diabetic educational materials for pt. RD explained carb counting, portion control, and meal planning to pt. Pt stated that he had minimal knowledge on the DM diet. Pt was attentive and positive about initiating the diet. Consult RD if any questions arise. Recommendations: Consult RD if any questions arise
[2018-09-04 18:01] LABS: Bilirubin,Urine Negative (Negative); Clarity,Urine Clear (Clear); Color,Urine Colorless (Yellw/Straw); Glucose,Urine (UA) Negative (Negative); Leukocyte Esterase,Urine Negative (Negative); Mucus,Urine Few /lpf (Occasional); Nitrite,Urine Negative (Negative); Specific Gravity,Urine 1.005 (1.002-1.035); Squamous Epithelial Cell,Urine <1 /hpf (0-5)
[2018-09-04] MEDS: Insulin Detemir Inj 1,000 UNIT/10 ML Vial SQ SCH (20:32)
[2018-09-05] MEDS: Insulin NovoLOG Aspart Correctional Sugar Inj SQ SCH ×4 (00:15→17:28)
[2018-09-05] MEDS: Heparin Drip 25,000 UNIT/250 ML BAG IV.CONT PRN (00:45)
[2018-09-05 04:37] LABS: Baso # (Auto) 0.1 th/mm3 (0.0-0.2); Baso % (Auto) 0.7 % (0.0-2.0); Eos # (Auto) 0.6 th/mm3 (0.0-0.4); Eos % (Auto) 7.4 % (0.0-4.0); Hematocrit 33.9 % (39.0-51.0); Hemoglobin 11.4 gm/dL (13.0-17.0); Lymph # (Auto) 2.1 th/mm3 (1.0-4.8); Lymph % (Auto) 24.7 % (9.0-44.0); Mean Corpuscular HGB Conc 33.7 % (32.0-36.0); Mean Corpuscular Hemoglobin 30.4 pg (27.0-34.0); Mean Corpuscular Volume 90.2 fL (80.0-100.0); Mean Platelet Volume 7.9 fL (7.0-11.0); Mono # (Auto) 0.6 th/mm3 (0.0-0.9); Mono % (Auto) 6.5 % (0.0-8.0); Neut # (Auto) 5.3 th/mm3 (1.8-7.7); Neut % (Auto) 60.7 % (16.0-70.0); Platelet Count 188 th/mm3 (150-450); Red Blood Count 3.75 mil/mm3 (4.50-5.90); Red Cell Distribution Width 13.9 % (11.6-17.2); White Blood Count 8.7 th/mm3 (4.0-11.0)
[2018-09-05 05:01] LABS: Alanine Aminotransferase 22 U/L (12-78); Albumin 3.5 g/dL (3.4-5.0); Anion Gap 8 meq/L (5-15); Aspartate Aminotransferase 15 U/L (15-37); Blood Urea Nitrogen 17 mg/dL (7-18); Calcium 8.8 mg/dL (8.5-10.1); Carbon Dioxide 23.9 meq/L (21.0-32.0); Chloride 107 meq/L (98-107); Glomerular Filtration Rate 51 mL/min (>89); Glucose,Random 118 mg/dL (74-106); Sodium 139 meq/L (136-145)
[2018-09-05 05:02] LABS: Alkaline Phosphatase 86 U/L (45-117); Total Protein 7.2 g/dL (6.4-8.2)
[2018-09-05] MEDS: Isosorbide Mononitrate 60 MG ER 24HR Tablet (Imdur) PO SCH (06:09)
[2018-09-05] MEDS: Senna/Docusate Sodium 8.6/50 MG Tablet PO SCH ×2 (08:59→20:43)
--- NOTE | 2018-09-05 09:04 | P.PNNP ---
Subjective Interval history: patient was seen and examined. He is waiting for surgery, apparently scheduled for Sunday. Physical Exam Vital signs: Vital Signs 09/04/18 09:00 09/04/18 10:00 09/04/18 11:00 Temperature Pulse Rate 78 78 66 Respiratory Rate Blood Pressure Pulse Oximetry 09/04/18 12:00 09/04/18 13:00 09/04/18 14:00 Temperature 98.3 F Pulse Rate 68 70 86 Respiratory Rate 16 Blood Pressure 145/78 H Pulse Oximetry 100 09/04/18 15:00 09/04/18 16:00 09/04/18 17:00 Temperature 98.3 F Pulse Rate 71 72 68 Respiratory Rate 16 Blood Pressure 154/87 H Pulse Oximetry 100 09/04/18 18:00 09/04/18 19:00 09/04/18 19:19 Temperature 98.1 F Pulse Rate 72 73 78 Respiratory Rate 18 Blood Pressure 158/86 H Pulse Oximetry 100 09/04/18 20:00 09/04/18 21:00 09/04/18 22:00 Temperature Pulse Rate 80 70 73 Respiratory Rate Blood Pressure Pulse Oximetry 100 09/04/18 23:00 09/05/18 00:00 09/05/18 01:00 Temperature 98.2 F Pulse Rate 69 74 71 Respiratory Rate 19 Blood Pressure 162/90 H Pulse Oximetry 97 09/05/18 02:00 09/05/18 03:00 09/05/18 04:00 Temperature 98 F Pulse Rate 68 73 64 Respiratory Rate 16 Blood Pressure 156/86 H Pulse Oximetry 100 09/05/18 05:00 09/05/18 06:00 09/05/18 08:00 Temperature 98.2 F Pulse Rate 66 69 72 Respiratory Rate 16 Blood Pressure 149/86 H Pulse Oximetry 99 Intake & Output 09/04/18 09/05/18 09/05/18 18:59 06:59 18:59 Intake Total 1520 / 1520 970 / 970 Output Total 1570 / 1570 1974 Balance -50 / -50 -1005 / -1005 Weight 77.1 kg Intake: IV 300 / 300 250 / 250 Heparin/D5W 25,000 U/250 mL 25, 250 / 250 000 unit In 250 ml @ 1,000 UNITS/HR 10 mls/hr IV.CONT TITRATE PRN Rx#:[id number] NS Inj 1,000 ML @ 75 mls/hr IV. 300 / 300 CONT .[id number] KINSEY Rx#:[id number] Oral 1220 / 1220 720 / 720 Output: Urine 1570 / 1570 1974 Other: Date of Last Bowel Movement 09/04/18 09/04/18 09/04/18 Narrative: GENERAL: NAD, A&Ox3 HEAD: Normocephalic. NECK: Supple, trachea midline. No lymphadenopathy. EYES: No scleral icterus. No injection or drainage. CARDIOVASCULAR: Regular rate and rhythm without murmurs, gallops, or rubs. RESPIRATORY: Breath sounds equal bilaterally. No accessory muscle use. GASTROINTESTINAL: Abdomen soft, non-tender, nondistended. MUSCULOSKELETAL: No cyanosis, or edema. SKIN: Warm and dry. NEURO: No focal neurological deficits. Assessment and Plan - Assessment (1) Chronic kidney disease, stage 3 (moderate) Code(s): N18.3 - Chronic kidney disease, stage 3 (moderate) Status: Acute Plan: Patient may have hypertensive nephrosclerosis, appears to have stable stage III CKD. GFR is at baseline. (2) Hypertension Code(s): I10 - Essential (primary) hypertension Status: Acute Plan: Monitor BP. Continue current medications. (3) Hyperlipidemia Code(s): E78.5 - Hyperlipidemia, unspecified Status: Acute Plan: Patient on pravastatin. (4) CAD (coronary artery disease) Code(s): I25.10 - Atherosclerotic heart disease of [place] coronary artery without angina pectoris Status: Acute Plan: CABG is planned. (5) Diabetes type 2, controlled Code(s): E11.9 - Type 2 diabetes mellitus without complications Status: Acute Plan: Insulin coverage to maintain blood glucose levels between 140 and 180.
--- NOTE | 2018-09-05 10:59 | P.PNIM ---
Subjective Interval history: Patient expresses no acute distress today. No chest pain. Blood thinners are on hold. Plan for CABG on 09/09/2018. Physical Exam Vital signs: Last Vital Signs Temp 98.2 F 09/05/18 08:00 Pulse 70 09/05/18 10:00 Resp 16 09/05/18 08:00 BP 149/86 H 09/05/18 08:00 Pulse Ox 99 09/05/18 08:00 Intake & Output 09/03/18 09/04/18 09/05/18 09/06/18 06:59 06:59 06:59 06:59 Intake Total 584.8 / 584.8 2485 / 2485 2490 / 2490 Output Total 1150 / 1150 1950 / 1950 3545 / 3545 Balance -565.2 / -565.2 535 / 535 -1055 / -1055 Weight 80.2 kg 78.7 kg 77.1 kg Narrative: GENERAL: NAD, A&Ox3 HEAD: Normocephalic. NECK: Supple, trachea midline. No lymphadenopathy. EYES: No scleral icterus. No injection or drainage. CARDIOVASCULAR: Regular rate and rhythm without murmurs, gallops, or rubs. RESPIRATORY: Breath sounds equal bilaterally. No accessory muscle use. GASTROINTESTINAL: Abdomen soft, non-tender, nondistended. MUSCULOSKELETAL: No cyanosis, or edema. SKIN: Warm and dry. NEURO: No focal neurological deficits. Results Labs CBC & Chem 7: 09/05/18 04:13 09/05/18 04:13 Labs: Microbiology 09/04/18 16:38 Stool Stool Occult Blood (OZIEL) - Final Hemoccult negative Imaging Imaging: Impressions Carotid Doppler Study 09/04/18 11:10 CONCLUSION: Negative examination for a hemodynamically significant carotid stenosis. Les Ty MD FACR Lower Extremity Ultrasound 09/04/18 11:10 CONCLUSION: 1. Venous mapping as above Venous Doppler Study 09/04/18 11:10 CONCLUSION: 1. Negative for deep venous thrombosis, limited about the right groin from previous catheterization bandage. Procedures Procedures: Echocardiogram 08/31/2018 The left ventricular systolic function is normal with an estimated ejection fraction in the range of 60-65%. There is trace tricuspid valve regurgitation. Assessment and Plan (1) ARF (acute renal failure): Code(s): N17.9 - Acute kidney failure, unspecified Status: Acute (2) Hypertension: Code(s): I10 - Essential (primary) hypertension Status: Acute (3) Hyperlipidemia: Code(s): E78.5 - Hyperlipidemia, unspecified Status: Acute (4) CAD (coronary artery disease): Code(s): I25.10 - Atherosclerotic heart disease of [place] coronary artery without angina pectoris Status: Acute (5) Diabetes type 2, controlled: Code(s): E11.9 - Type 2 diabetes mellitus without complications Status: Acute (6) NSTEMI (non-ST elevated myocardial infarction): Code(s): I21.4 - Non-ST elevation (NSTEMI) myocardial infarction Status: Acute (7) Chronic kidney disease, stage 3 (moderate): Code(s): N18.3 - Chronic kidney disease, stage 3 (moderate) Status: Acute Plan 63-year-old -[place] male with past medical history of CAD status post 3 stents who is presenting to the hospital with left-sided chest pain. He said he has always had chest pain ever since his second heart catheterization No complaints, no chest pain. All blood thinners are on hold except for heparin. Plan for CABG on 09/09/2018. NSTEMI CAD previous stents placed. Heart catheterization plan Blood thinners on hold Potentially heart cath on 09/09/2018 Cardiology following Continue heparin drip Acute kidney injury Avoid nephrotoxins Follow renal function Hypertension Continue baseline treatment Follow blood pressures Adjust treatments as needed Continue Coreg Continue M [place] Diabetes mellitus type 2 Follow blood sugars Insulin sliding scale Diabetic diet Status post dental extraction Continue amoxicillin Follow with dentist as an outpatient DVT prophylaxis Heparin Progress Note: Quality VTE Deep Vein Thrombosis/Pulmonary Embolism Present on Admission: No _ (1) ARF (acute renal failure) Qualifiers: Acute renal failure type: (2) Hypertension Qualifiers: Hypertension type: (3) Hyperlipidemia Qualifiers: Hyperlipidemia type: (4) CAD (coronary artery disease) Qualifiers: Coronary Disease-Associated Artery/Lesion type: [place] vs. transplanted heart: Associated angina: (5) Diabetes type 2, controlled Qualifiers: Diabetes mellitus nursing home insulin use: Diabetes mellitus complication status: Diabetes mellitus complication detail: Diabetic retinopathy severity : Proliferative retinopathy type: Diabetes mellitus macular edema: Laterality: Chronic kidney disease stage:
--- NOTE | 2018-09-05 14:03 | P.PNCV ---
- Note Subjective/Hospital Course: A 63-year-old male transferred from [facility]. Apparently was admitted there with chest pain on 08/30/2018. Chest pain located on the left side of his chest, 07/10. Said he had a recent treadmill stress test a month ago, but was unable to complete the test. Apparently, per the patient, it was negative. The patient also had elevated creatinine at 2.02. He was transferred to our facility. He underwent cardiac catheterization by Dr. Mann which showed a left main disease of 60%, mid distal LAD 75%, the circ was 90%, the OM 90%, EF of 65%. We were consulted to evaluate for coronary artery bypass grafting. The patient has also had some dentalextraction and has sutures in place. He had a new bottom denture plate placed. We did, however, get in touch with the [facility] Dental physician, Dr. Pacheco, who stated to leave the sutures in place and we were okay to remove the bottom denture plate prior to any surgery and that he would follow up with the patient after he was released from the hospital for suture removal. PAST MEDICAL HISTORY: Includes coronary artery disease, diabetes mellitus, hyperlipidemia, hypertension, chronic prostatitis. 09/04 PRU 92 discussed with pt , will more than likely eval for surgery on sunday recheck PRU on 09/05 tentatively scheduled for surgery on sunday repeat PRU in am Objective: Vital Signs - 24 hr 09/04/18 15:00 09/04/18 16:00 09/04/18 17:00 Temperature 98.3 F Pulse Rate 71 72 68 Respiratory Rate 16 Blood Pressure 154/87 H Pulse Oximetry 100 09/04/18 18:00 09/04/18 19:00 09/04/18 19:19 Temperature 98.1 F Pulse Rate 72 73 78 Respiratory Rate 18 Blood Pressure 158/86 H Pulse Oximetry 100 09/04/18 20:00 09/04/18 21:00 09/04/18 22:00 Temperature Pulse Rate 80 70 73 Respiratory Rate Blood Pressure Pulse Oximetry 100 09/04/18 23:00 09/05/18 00:00 09/05/18 01:00 Temperature 98.2 F Pulse Rate 69 74 71 Respiratory Rate 19 Blood Pressure 162/90 H Pulse Oximetry 97 09/05/18 02:00 09/05/18 03:00 09/05/18 04:00 Temperature 98 F Pulse Rate 68 73 64 Respiratory Rate 16 Blood Pressure 156/86 H Pulse Oximetry 100 09/05/18 05:00 09/05/18 06:00 09/05/18 07:00 Temperature Pulse Rate 66 69 71 Respiratory Rate Blood Pressure Pulse Oximetry 09/05/18 08:00 09/05/18 09:00 09/05/18 10:00 Temperature 98.2 F Pulse Rate 90 76 70 Respiratory Rate 16 Blood Pressure 149/86 H Pulse Oximetry 99 09/05/18 11:00 09/05/18 12:00 Temperature 98.1 F Pulse Rate 66 68 Respiratory Rate 16 Blood Pressure 145/85 H Pulse Oximetry 100 GENERAL: SKIN: Warm and dry. HEAD: Normocephalic. EYES: No scleral icterus. No injection or drainage. NECK: Supple, trachea midline. No JVD or lymphadenopathy. CARDIOVASCULAR: Regular rate and rhythm without murmurs, gallops, or rubs. RESPIRATORY: Breath sounds equal bilaterally. No accessory muscle use. GASTROINTESTINAL: Abdomen soft, non-tender, nondistended. MUSCULOSKELETAL: No cyanosis, or edema. BACK: Nontender without obvious deformity. No CVA tenderness. Labs: Laboratory Results - last 12 hr 09/05/18 09/05/18 09/05/18 04:13 04:13 04:13 WBC 8.7 RBC 3.75 L Hgb 11.4 L Hct 33.9 L MCV 90.2 MCH 30.4 MCHC 33.7 RDW 13.9 Plt Count 188 MPV 7.9 Neut % (Auto) 60.7 Lymph % (Auto) 24.7 [place] % (Auto) 6.5 Eos % (Auto) 7.4 H Baso % (Auto) 0.7 Neut # (Auto) 5.3 Lymph # (Auto) 2.1 [place] # (Auto) 0.6 Eos # (Auto) 0.6 H Baso # (Auto) 0.1 WBC Differential . Differential Comment Auto diff final APTT 43.3 H Sodium 139 Potassium 4.0 Chloride 107 Carbon Dioxide 23.9 Anion Gap 8 BUN 17 Creatinine 1.66 H Estimated GFR 51 L POC Glucose Random Glucose 118 H Calcium 8.8 Total Bilirubin 0.4 AST 15 ALT 22 Alkaline Phosphatase 86 Total Protein 7.2 D Albumin 3.5 09/05/18 11:28 WBC RBC Hgb Hct MCV MCH MCHC RDW Plt Count MPV Neut % (Auto) Lymph % (Auto) [place] % (Auto) Eos % (Auto) Baso % (Auto) Neut # (Auto) Lymph # (Auto) [place] # (Auto) Eos # (Auto) Baso # (Auto) WBC Differential Differential Comment APTT Sodium Potassium Chloride Carbon Dioxide Anion Gap BUN Creatinine Estimated GFR POC Glucose 224 H Random Glucose Calcium Total Bilirubin AST ALT Alkaline Phosphatase Total Protein Albumin Result Diagrams: 09/05/18 04:13 09/05/18 04:13 - Plan (1) ARF (acute renal failure) Plan: creatinine 1.66 (4) CAD (coronary artery disease) Plan: f/u PRU in am tentatively scheduled for surgery on Sunday (6) NSTEMI (non-ST elevated myocardial infarction) Plan: ASA, BB statin eval for surgery on Sunday
--- NOTE | 2018-09-05 14:59 | P.PNCA ---
Subjective Interval history: alert in nad Medications and Allergies Active Medications: Active Medications Acetaminophen (Tylenol) 650 mg PO Q4H PRN PRN Reason: Temp > 100.4 Amoxicillin (Amoxil) 500 mg PO TID [facility] Last Admin: 09/05/18 12:38 Dose: 500 mg Aspirin (Ecotrin) 162 mg PO DAILY [facility] Last Admin: 09/05/18 08:59 Dose: 162 mg Carvedilol (Coreg) 3.125 mg PO BID [facility] Last Admin: 09/05/18 08:59 Dose: 3.125 mg Chlorhexidine Gluconate (Hibiclens 4% Topical) 1 applicatio [employer]ICAL CONSTRUCTION DIRECTOR [facility] Stop: 09/10/18 11:10 Sodium Chloride 77.5 ml/Papaverine HCl 60 mg/Nitroglycerin 100 mcg/Diltiazem HCl 100 mg 0 ml IRRIGATION CONSTRUCTION DIRECTOR [facility] Stop: 09/10/18 11:10 Sodium Chloride 500 ml/ (Cefazolin Sodium 500 mg) 0 ml IRRIGATION CONSTRUCTION DIRECTOR [facility] Stop: 09/10/18 11:11 Dextrose (D50w Vial) 50 ml IV.PUSH UNSCH PRN PRN Reason: PER HYPOGLYCEMIA PROTOCOL Dextrose (D50w Vial) 50 ml IV.PUSH UNSCH PRN PRN Reason: PER HYPOGLYCEMIA PROTOCOL Glucagon (Glucagon Inj) 1 mg OTHER PRN PRN PRN Reason: for Hypoglycemia Protocol Heparin Sodium/Dextrose (Heparin/D5w 25,000 U/250 Ml) 25,000 unit in 250 mls @ 10 mls/hr IV.CONT TITRATE PRN; Protocol PRN Reason: Per Protocol Last Admin: 09/05/18 00:45 Dose: 1,000 units/hr, 10 mls/hr Cefazolin Sodium 2,000 mg/ (Sodium Chloride) 100 mls @ 200 mls/hr IV.SIG CONSTRUCTION DIRECTOR [facility] Stop: 09/10/18 11:11 Insulin Human Regular 100 unit (/ Sodium Chloride) 100 mls @ 3 mls/hr IV.CONT TITRATE PRN; Protocol PRN Reason: See Protocol Insulin Aspart (Novolog Insulin Correctional Sugar Inj) 0 unit SQ Q6HR [facility]; Protocol Last Admin: 09/05/18 12:38 Dose: 4 unit Insulin Detemir (Levemir Inj) 7 unit SQ HS [facility] Last Admin: 09/04/18 20:32 Dose: 7 unit Isosorbide Mononitrate (Imdur) 60 mg PO DAILY@0700 [facility] Last Admin: 09/05/18 06:09 Dose: 60 mg Metoprolol Tartrate (Lopressor) 12.5 mg PO CONSTRUCTION DIRECTOR [facility] Stop: 09/10/18 11:11 Morphine Sulfate (Morphine Inj) 4 mg IV.PUSH Q4H PRN PRN Reason: BREAKTHROUGH PAIN Last Admin: 08/30/18 19:19 Dose: 4 mg Nitroglycerin (Nitrostat Sl) 0.4 mg SL Q5M PRN PRN Reason: CHEST PAIN Last Admin: 09/04/18 05:20 Dose: 0.4 mg Ondansetron HCl (Zofran Inj) 4 mg IV.PUSH Q6H PRN PRN Reason: NAUSEA OR VOMITING Oxycodone HCl (Roxicodone) 5 mg PO Q4H PRN PRN Reason: pain 3-10 Pravastatin Sodium (Pravachol) 20 mg PO DAILY [facility] Last Admin: 09/05/18 08:59 Dose: 20 mg Senna/Docusate Sodium (Letty-Colace) 1 tab PO BID [facility] Last Admin: 09/05/18 08:59 Dose: 1 tab Sodium Chloride (Ns Flush) 2 ml IV.FLUSH BID [facility] Last Admin: 09/05/18 09:00 Dose: Not Given Sodium Chloride (Ns Flush) 2 ml IV.FLUSH PRN PRN PRN Reason: FLUSH AFTER USING IV ACCESS Sodium Chloride (Ns Flush) 2 ml IV.FLUSH BID [facility] Last Admin: 09/05/18 09:00 Dose: Not Given Sodium Chloride (Ns Flush) 2 ml IV.FLUSH PRN PRN PRN Reason: FLUSH AFTER USING IV ACCESS Allergies Allergy/AdvReac Type Severity Reaction Status Date / Time No Allergy Information Allergy Verified 08/30/18 11:50 Available Home Medications Medication Instructions Recorded Confirmed Type amoxicillin 500 mg PO TID 08/30/18 08/30/18 History aspirin 325 mg PO DAILY 08/30/18 08/30/18 History carvedilol 3.125 mg PO BID 08/30/18 08/30/18 History glipizide 10 mg PO DAILY 08/30/18 08/30/18 History ibuprofen 800 mg PO TID PRN 08/30/18 08/30/18 History isosorbide mononitrate 60 mg PO QAM 08/30/18 08/30/18 History olmesartan 20 mg PO DAILY 08/30/18 08/30/18 History prasugrel 10 mg PO DAILY 08/30/18 08/30/18 History pravastatin 20 mg PO DAILY 08/30/18 08/30/18 History sitagliptin-metformin [Janumet XR] 1 tab PO QPM 08/30/18 08/30/18 History Physical Exam Vital signs: Vital Signs 09/04/18 15:00 09/04/18 16:00 09/04/18 17:00 Temperature 98.3 F Pulse Rate 71 72 68 Respiratory Rate 16 Blood Pressure 154/87 H Pulse Oximetry 100 09/04/18 18:00 09/04/18 19:00 09/04/18 19:19 Temperature 98.1 F Pulse Rate 72 73 78 Respiratory Rate 18 Blood Pressure 158/86 H Pulse Oximetry 100 09/04/18 20:00 09/04/18 21:00 09/04/18 22:00 Temperature Pulse Rate 80 70 73 Respiratory Rate Blood Pressure Pulse Oximetry 100 09/04/18 23:00 09/05/18 00:00 09/05/18 01:00 Temperature 98.2 F Pulse Rate 69 74 71 Respiratory Rate 19 Blood Pressure 162/90 H Pulse Oximetry 97 09/05/18 02:00 09/05/18 03:00 09/05/18 04:00 Temperature 98 F Pulse Rate 68 73 64 Respiratory Rate 16 Blood Pressure 156/86 H Pulse Oximetry 100 09/05/18 05:00 09/05/18 06:00 09/05/18 07:00 Temperature Pulse Rate 66 69 71 Respiratory Rate Blood Pressure Pulse Oximetry 09/05/18 08:00 09/05/18 09:00 09/05/18 10:00 Temperature 98.2 F Pulse Rate 90 76 70 Respiratory Rate 16 Blood Pressure 149/86 H Pulse Oximetry 99 09/05/18 11:00 09/05/18 12:00 09/05/18 13:00 Temperature 98.1 F Pulse Rate 66 68 70 Respiratory Rate 16 Blood Pressure 145/85 H Pulse Oximetry 100 09/05/18 14:00 Temperature Pulse Rate 72 Respiratory Rate Blood Pressure Pulse Oximetry Intake & Output 09/04/18 09/05/18 09/05/18 18:59 06:59 18:59 Intake Total 1520 / 1520 970 / 970 Output Total 1570 / 1570 1974 Balance -50 / -50 -1005 / -1005 Weight 77.1 kg Intake: IV 300 / 300 250 / 250 Heparin/D5W 25,000 U/250 mL 25, 250 / 250 000 unit In 250 ml @ 1,000 UNITS/HR 10 mls/hr IV.CONT TITRATE PRN Rx#:[id number] NS Inj 1,000 ML @ 75 mls/hr IV. 300 / 300 CONT .[id number] [facility] Rx#:[id number] Oral 1220 / 1220 720 / 720 Output: Urine 1570 / 1570 1974 Other: Date of Last Bowel Movement 09/04/18 09/04/18 09/04/18 - Constitutional no acute distress - Routine HEENT Exam Head: Present: normocephalic - Routine Neck Exam Present: supple - Routine Respiratory Exam Present: CTA bilaterally - Routine Cardiovascular Exam Present: S1, S2 - Routine Abdominal Exam Present: soft - Routine Extremities Exam Comments: no rito Results 09/05/18 04:13 09/05/18 04:13 Cardiac Enzymes 09/05/18 Range/Units 04:13 AST 15 (15-37) U/L Coagulation 09/03/18 09/04/18 09/05/18 Range/Units 23:00 05:37 04:13 APTT 39.8 H 43.0 H 43.3 H (23.4-31.7) sec CBC 09/05/18 Range/Units 04:13 WBC 8.7 (4.0-11.0) th/mm3 RBC 3.75 L (4.50-5.90) mil/mm3 Hgb 11.4 L (13.0-17.0) gm/dL Hct 33.9 L (39.0-51.0) % Plt Count 188 (150-450) th/mm3 Neut # (Auto) 5.3 (1.8-7.7) th/mm3 Lymph # (Auto) 2.1 (1.0-4.8) th/mm3 [place] # (Auto) 0.6 (0.0-0.9) th/mm3 Eos # (Auto) 0.6 H (0.0-0.4) th/mm3 Baso # (Auto) 0.1 (0.0-0.2) th/mm3 Comprehensive Metabolic Panel 09/04/18 09/05/18 Range/Units 05:37 04:13 Sodium 139 139 (136-145) meq/L Potassium 4.0 4.0 (3.5-5.1) meq/L Chloride 109 H 107 (98-107) meq/L Carbon Dioxide 21.8 23.9 (21.0-32.0) meq/L BUN 16 17 (7-18) mg/dL Creatinine 1.59 H 1.66 H (0.60-1.30) mg/dL Calcium 8.7 8.8 (8.5-10.1) mg/dL AST 15 (15-37) U/L ALT 22 (12-78) U/L Alkaline Phosphatase 86 (45-117) U/L Total Protein 7.2 D (6.4-8.2) g/dL Albumin 3.4 3.5 (3.4-5.0) g/dL Intake and Output 09/04/18 09/05/18 09/05/18 22:59 06:59 14:59 Intake Total 1220 / 1220 970 / 970 Output Total 1570 / 1570 1974 Balance -350 / -350 -1005 / -1005 Intake: IV 250 / 250 Heparin/D5W 25,000 U/250 mL 25, 250 / 250 000 unit In 250 ml @ 1,000 UNITS/HR 10 mls/hr IV.CONT TITRATE PRN Rx#:[id number] Oral 1220 / 1220 720 / 720 Output: Urine 1570 / 1570 1974 Other: Date of Last Bowel Movement 09/04/18 09/04/18 09/04/18 Weight 77.1 kg - Imaging and Cardiology Imaging: Impressions Carotid Doppler Study 09/04/18 11:10 CONCLUSION: Negative examination for a hemodynamically significant carotid stenosis. Les Ty MD FACR Lower Extremity Ultrasound 09/04/18 11:10 CONCLUSION: 1. Venous mapping as above Venous Doppler Study 09/04/18 11:10 CONCLUSION: 1. Negative for deep venous thrombosis, limited about the right groin from previous catheterization bandage. Assessment and Plan - Assessment (1) NSTEMI (non-ST elevated myocardial infarction) Code(s): I21.4 - Non-ST elevation (NSTEMI) myocardial infarction Status: Acute (2) ARF (acute renal failure) Code(s): N17.9 - Acute kidney failure, unspecified Status: Acute (3) Hypertension Code(s): I10 - Essential (primary) hypertension Status: Acute (4) Hyperlipidemia Code(s): E78.5 - Hyperlipidemia, unspecified Status: Acute (5) CAD (coronary artery disease) Code(s): I25.10 - Atherosclerotic heart disease of [place] coronary artery without angina pectoris Status: Acute (6) Diabetes type 2, controlled Code(s): E11.9 - Type 2 diabetes mellitus without complications Status: Acute - Plan 1.) CAD - nstemi, severe dom lcx and mid lad disease, continue aspirin, coreg, imdur, iv heparin, elmer held due to arf, cabg per Dr Sprague
[2018-09-05] MEDS: Insulin Detemir Inj 1,000 UNIT/10 ML Vial SQ SCH (20:43)
[2018-09-06] MEDS: Insulin NovoLOG Aspart Correctional Sugar Inj SQ SCH ×4 (00:18→17:48)
[2018-09-06] MEDS: Heparin Drip 25,000 UNIT/250 ML BAG IV.CONT PRN (01:31)
[2018-09-06] MEDS: Isosorbide Mononitrate 60 MG ER 24HR Tablet (Imdur) PO SCH (06:17)
[2018-09-06] MEDS: Senna/Docusate Sodium 8.6/50 MG Tablet PO SCH ×2 (09:02→20:47)
--- NOTE | 2018-09-06 09:16 | P.PNNP ---
Subjective Interval history: Patient was seen, no distress, no complaints. Patient scheduled for CABG on Sunday. Patient is stable from a renal standpoint. Labs for today are pending. <Pa Egnel - Last Filed: 09/06/18 09:11> Physical Exam Vital signs: Vital Signs 09/05/18 10:00 09/05/18 11:00 09/05/18 12:00 Temperature 98.1 F Pulse Rate 70 66 68 Respiratory Rate 16 Blood Pressure 145/85 H Pulse Oximetry 100 09/05/18 13:00 09/05/18 14:00 09/05/18 15:00 Temperature Pulse Rate 70 72 69 Respiratory Rate Blood Pressure Pulse Oximetry 09/05/18 15:53 09/05/18 16:00 09/05/18 17:00 Temperature 98.4 F Pulse Rate 66 66 66 Respiratory Rate 16 Blood Pressure 160/90 H Pulse Oximetry 97 09/05/18 17:14 09/05/18 18:00 09/05/18 18:35 Temperature Pulse Rate 92 H Respiratory Rate Blood Pressure 161/89 H 153/91 H Pulse Oximetry 09/05/18 19:00 09/05/18 20:00 09/05/18 21:00 Temperature 98.4 F Pulse Rate 70 78 73 Respiratory Rate 19 Blood Pressure 148/86 H Pulse Oximetry 99 09/05/18 22:00 09/05/18 23:00 09/06/18 00:00 Temperature 98.2 F Pulse Rate 70 69 70 Respiratory Rate 16 Blood Pressure 144/78 H Pulse Oximetry 100 09/06/18 01:00 09/06/18 02:00 09/06/18 03:00 Temperature Pulse Rate 70 63 68 Respiratory Rate Blood Pressure Pulse Oximetry 09/06/18 04:00 09/06/18 05:00 09/06/18 06:00 Temperature 98 F Pulse Rate 62 76 62 Respiratory Rate 17 Blood Pressure 147/88 H Pulse Oximetry 100 09/06/18 07:00 Temperature Pulse Rate 61 Respiratory Rate Blood Pressure Pulse Oximetry Intake & Output 09/05/18 09/06/18 09/06/18 18:59 06:59 18:59 Intake Total 1240 / 1240 490 / 490 Output Total 1560 / 1560 1100 / 1100 Balance -320 / -320 -610 / -610 Weight 76.7 kg Intake: IV 250 / 250 Heparin/D5W 25,000 U/250 mL 25, 250 / 250 000 unit In 250 ml @ 1,000 UNITS/HR 10 mls/hr IV.CONT TITRATE PRN Rx#:[id number] Oral 1240 / 1240 240 / 240 Output: Urine 1560 / 1560 1100 / 1100 Other: Date of Last Bowel Movement 09/04/18 09/04/18 - Constitutional no acute distress - Routine HEENT Exam Head: Present: normocephalic Eye: Present: EOMI, PERRL ENT: Present: mucous membranes moist - Routine Neck Exam Present: trachea midline. Absent: tracheal deviation - Routine Respiratory Exam Present: CTA bilaterally. Absent: accessory muscle use, respiratory distress - Routine Cardiovascular Exam Present: S1, S2 - Routine Abdominal Exam Present: soft, normoactive bowel sounds - Routine Extremities Exam Absent: edema - Routine Neurological Exam Present: alert, oriented X3 - Routine Psychiatric Exam Present: normal affect <Pa Engel - Last Filed: 09/06/18 09:11> Vital signs: Vital Signs 09/05/18 15:00 09/05/18 15:53 09/05/18 16:00 Temperature 98.4 F Pulse Rate 69 66 66 Respiratory Rate 16 Blood Pressure 160/90 H Pulse Oximetry 97 09/05/18 17:00 09/05/18 17:14 09/05/18 18:00 Temperature Pulse Rate 66 92 H Respiratory Rate Blood Pressure 161/89 H Pulse Oximetry 09/05/18 18:35 09/05/18 19:00 09/05/18 20:00 Temperature 98.4 F Pulse Rate 70 78 Respiratory Rate 19 Blood Pressure 153/91 H 148/86 H Pulse Oximetry 99 09/05/18 21:00 09/05/18 22:00 09/05/18 23:00 Temperature Pulse Rate 73 70 69 Respiratory Rate Blood Pressure Pulse Oximetry 09/06/18 00:00 09/06/18 01:00 09/06/18 02:00 Temperature 98.2 F Pulse Rate 70 70 63 Respiratory Rate 16 Blood Pressure 144/78 H Pulse Oximetry 100 09/06/18 03:00 09/06/18 04:00 09/06/18 05:00 Temperature 98 F Pulse Rate 68 62 76 Respiratory Rate 17 Blood Pressure 147/88 H Pulse Oximetry 100 09/06/18 06:00 09/06/18 07:00 09/06/18 08:00 Temperature 98.2 F Pulse Rate 62 61 65 Respiratory Rate 16 Blood Pressure 139/93 H Pulse Oximetry 100 09/06/18 09:00 09/06/18 10:00 Temperature Pulse Rate 74 76 Respiratory Rate Blood Pressure Pulse Oximetry Intake & Output 09/05/18 09/06/18 09/06/18 18:59 06:59 18:59 Intake Total 1240 / 1240 490 / 490 Output Total 1560 / 1560 1100 / 1100 Balance -320 / -320 -610 / -610 Weight 76.7 kg Intake: IV 250 / 250 Heparin/D5W 25,000 U/250 mL 25, 250 / 250 000 unit In 250 ml @ 1,000 UNITS/HR 10 mls/hr IV.CONT TITRATE PRN Rx#:[id number] Oral 1240 / 1240 240 / 240 Output: Urine 1560 / 1560 1100 / 1100 Other: Date of Last Bowel Movement 09/04/18 09/04/18 09/04/18 <Fransisco Hernandez - Last Filed: 09/06/18 14:16> Assessment and Plan - Assessment (1) Chronic kidney disease, stage 3 (moderate) Code(s): N18.3 - Chronic kidney disease, stage 3 (moderate) Status: Acute Plan: Patient may have hypertensive nephrosclerosis, appears to have stable stage III CKD. GFR is at baseline. Labs for today are pending. (2) Hypertension Code(s): I10 - Essential (primary) hypertension Status: Acute Plan: Monitor BP. Patient has been hypertensive, Clonidine PRN was added to medication regime. (3) Hyperlipidemia Code(s): E78.5 - Hyperlipidemia, unspecified Status: Acute Plan: Patient on pravastatin. (4) CAD (coronary artery disease) Code(s): I25.10 - Atherosclerotic heart disease of [place] coronary artery without angina pectoris Status: Acute Plan: CABG is planned. (5) Diabetes type 2, controlled Code(s): E11.9 - Type 2 diabetes mellitus without complications Status: Acute Plan: Insulin coverage to maintain blood glucose levels between 140 and 180. <Pa Engel - Last Filed: 09/06/18 09:11> - Assessment (1) Chronic kidney disease, stage 3 (moderate) Code(s): N18.3 - Chronic kidney disease, stage 3 (moderate) Status: Acute (2) Hypertension Code(s): I10 - Essential (primary) hypertension Status: Acute (3) Hyperlipidemia Code(s): E78.5 - Hyperlipidemia, unspecified Status: Acute (4) CAD (coronary artery disease) Code(s): I25.10 - Atherosclerotic heart disease of [place] coronary artery without angina pectoris Status: Acute (5) Diabetes type 2, controlled Code(s): E11.9 - Type 2 diabetes mellitus without complications Status: Acute - Attending Attestation patient was seen and examined. GFR is at baseline I believe. CABG is planned. Avoid nephrotoxic agents. <Fransisco Hernandez - Last Filed: 09/06/18 14:16>
[2018-09-06 10:04] LABS: Baso # (Auto) 0.1 th/mm3 (0.0-0.2); Baso % (Auto) 0.9 % (0.0-2.0); Eos # (Auto) 0.5 th/mm3 (0.0-0.4); Eos % (Auto) 6.6 % (0.0-4.0); Hematocrit 35.6 % (39.0-51.0); Hemoglobin 12.2 gm/dL (13.0-17.0); Mean Corpuscular HGB Conc 34.1 % (32.0-36.0); Mean Corpuscular Hemoglobin 30.9 pg (27.0-34.0); Mean Corpuscular Volume 90.7 fL (80.0-100.0); Mean Platelet Volume 7.9 fL (7.0-11.0); Mono # (Auto) 0.6 th/mm3 (0.0-0.9); Mono % (Auto) 7.9 % (0.0-8.0); Neut % (Auto) 60.6 % (16.0-70.0); Platelet Count 193 th/mm3 (150-450); Red Blood Count 3.93 mil/mm3 (4.50-5.90); Red Cell Distribution Width 13.7 % (11.6-17.2); White Blood Count 8.3 th/mm3 (4.0-11.0)
[2018-09-06 10:28] LABS: Calcium 9.4 mg/dL (8.5-10.1); Carbon Dioxide 26.3 meq/L (21.0-32.0); Potassium 4.2 meq/L (3.5-5.1)
--- NOTE | 2018-09-06 10:45 | P.PNCA ---
Subjective Interval history: assymptomatic in nad Medications and Allergies Active Medications: Active Medications Acetaminophen (Tylenol) 650 mg PO Q4H PRN PRN Reason: Temp > 100.4 Amoxicillin (Amoxil) 500 mg PO TID [facility] Last Admin: 09/06/18 09:02 Dose: 500 mg Aspirin (Ecotrin) 162 mg PO DAILY [facility] Last Admin: 09/05/18 08:59 Dose: 162 mg Carvedilol (Coreg) 3.125 mg PO BID [facility] Last Admin: 09/06/18 09:02 Dose: 3.125 mg Chlorhexidine Gluconate (Hibiclens 4% Topical) 1 applicatio TOPICAL POCKET OPERATOR [facility] Stop: 09/10/18 11:10 Clonidine HCl (Catapres) 0.1 mg PO Q6H PRN PRN Reason: SYS BP GREATER THAN 160 MMHG Sodium Chloride 77.5 ml/Papaverine HCl 60 mg/Nitroglycerin 100 mcg/Diltiazem HCl 100 mg 0 ml IRRIGATION POCKET OPERATOR [facility] Stop: 09/10/18 11:10 Sodium Chloride 500 ml/ (Cefazolin Sodium 500 mg) 0 ml IRRIGATION POCKET OPERATOR [facility] Stop: 09/10/18 11:11 Dextrose (D50w Vial) 50 ml IV.PUSH UNSCH PRN PRN Reason: PER HYPOGLYCEMIA PROTOCOL Dextrose (D50w Vial) 50 ml IV.PUSH UNSCH PRN PRN Reason: PER HYPOGLYCEMIA PROTOCOL Glucagon (Glucagon Inj) 1 mg OTHER PRN PRN PRN Reason: for Hypoglycemia Protocol Heparin Sodium/Dextrose (Heparin/D5w 25,000 U/250 Ml) 25,000 unit in 250 mls @ 10 mls/hr IV.CONT TITRATE PRN; Protocol PRN Reason: Per Protocol Last Admin: 09/06/18 01:31 Dose: 1,000 units/hr, 10 mls/hr Cefazolin Sodium 2,000 mg/ (Sodium Chloride) 100 mls @ 200 mls/hr IV.SIG POCKET OPERATOR [facility] Stop: 09/10/18 11:11 Insulin Human Regular 100 unit (/ Sodium Chloride) 100 mls @ 3 mls/hr IV.CONT TITRATE PRN; Protocol PRN Reason: See Protocol Insulin Aspart (Novolog Insulin Correctional Sugar Inj) 0 unit SQ Q6HR [facility]; Protocol Last Admin: 09/06/18 05:01 Dose: Not Given Insulin Detemir (Levemir Inj) 7 unit SQ HS [facility] Last Admin: 09/05/18 20:43 Dose: 7 unit Isosorbide Mononitrate (Imdur) 60 mg PO DAILY@0700 [facility] Last Admin: 09/06/18 06:17 Dose: 60 mg Metoprolol Tartrate (Lopressor) 12.5 mg PO POCKET OPERATOR [facility] Stop: 09/10/18 11:11 Morphine Sulfate (Morphine Inj) 4 mg IV.PUSH Q4H PRN PRN Reason: BREAKTHROUGH PAIN Last Admin: 08/30/18 19:19 Dose: 4 mg Nitroglycerin (Nitrostat Sl) 0.4 mg SL Q5M PRN PRN Reason: CHEST PAIN Last Admin: 09/04/18 05:20 Dose: 0.4 mg Ondansetron HCl (Zofran Inj) 4 mg IV.PUSH Q6H PRN PRN Reason: NAUSEA OR VOMITING Oxycodone HCl (Roxicodone) 5 mg PO Q4H PRN PRN Reason: pain 3-10 Pravastatin Sodium (Pravachol) 20 mg PO DAILY [facility] Last Admin: 09/06/18 09:02 Dose: 20 mg Senna/Docusate Sodium (Letty-Colace) 1 tab PO BID [facility] Last Admin: 09/06/18 09:02 Dose: 1 tab Sodium Chloride (Ns Flush) 2 ml IV.FLUSH BID [facility] Last Admin: 09/06/18 09:03 Dose: 2 ml Sodium Chloride (Ns Flush) 2 ml IV.FLUSH PRN PRN PRN Reason: FLUSH AFTER USING IV ACCESS Sodium Chloride (Ns Flush) 2 ml IV.FLUSH BID [facility] Last Admin: 09/06/18 09:11 Dose: 2 ml Sodium Chloride (Ns Flush) 2 ml IV.FLUSH PRN PRN PRN Reason: FLUSH AFTER USING IV ACCESS Allergies Allergy/AdvReac Type Severity Reaction Status Date / Time No Allergy Information Allergy Verified 08/30/18 11:50 Available Home Medications Medication Instructions Recorded Confirmed Type amoxicillin 500 mg PO TID 08/30/18 08/30/18 History aspirin 325 mg PO DAILY 08/30/18 08/30/18 History carvedilol 3.125 mg PO BID 08/30/18 08/30/18 History glipizide 10 mg PO DAILY 08/30/18 08/30/18 History ibuprofen 800 mg PO TID PRN 08/30/18 08/30/18 History isosorbide mononitrate 60 mg PO QAM 08/30/18 08/30/18 History olmesartan 20 mg PO DAILY 08/30/18 08/30/18 History prasugrel 10 mg PO DAILY 08/30/18 08/30/18 History pravastatin 20 mg PO DAILY 08/30/18 08/30/18 History sitagliptin-metformin [Janumet XR] 1 tab PO QPM 08/30/18 08/30/18 History Physical Exam Vital signs: Vital Signs 09/05/18 11:00 09/05/18 12:00 09/05/18 13:00 Temperature 98.1 F Pulse Rate 66 68 70 Respiratory Rate 16 Blood Pressure 145/85 H Pulse Oximetry 100 09/05/18 14:00 09/05/18 15:00 09/05/18 15:53 Temperature 98.4 F Pulse Rate 72 69 66 Respiratory Rate 16 Blood Pressure 160/90 H Pulse Oximetry 97 09/05/18 16:00 09/05/18 17:00 09/05/18 17:14 Temperature Pulse Rate 66 66 Respiratory Rate Blood Pressure 161/89 H Pulse Oximetry 09/05/18 18:00 09/05/18 18:35 09/05/18 19:00 Temperature Pulse Rate 92 H 70 Respiratory Rate Blood Pressure 153/91 H Pulse Oximetry 09/05/18 20:00 09/05/18 21:00 09/05/18 22:00 Temperature 98.4 F Pulse Rate 78 73 70 Respiratory Rate 19 Blood Pressure 148/86 H Pulse Oximetry 99 09/05/18 23:00 09/06/18 00:00 09/06/18 01:00 Temperature 98.2 F Pulse Rate 69 70 70 Respiratory Rate 16 Blood Pressure 144/78 H Pulse Oximetry 100 09/06/18 02:00 09/06/18 03:00 09/06/18 04:00 Temperature 98 F Pulse Rate 63 68 62 Respiratory Rate 17 Blood Pressure 147/88 H Pulse Oximetry 100 09/06/18 05:00 09/06/18 06:00 09/06/18 07:00 Temperature Pulse Rate 76 62 61 Respiratory Rate Blood Pressure Pulse Oximetry Intake & Output 12/06/18 12/07/18 12/07/18 18:59 06:59 18:59 Intake Total 1240 / 1240 490 / 490 Output Total 1560 / 1560 1100 / 1100 Balance -320 / -320 -610 / -610 Weight 76.7 kg Intake: IV 250 / 250 Heparin/D5W 25,000 U/250 mL 25, 250 / 250 000 unit In 250 ml @ 1,000 UNITS/HR 10 mls/hr IV.CONT TITRATE PRN Rx#:[id number] Oral 1240 / 1240 240 / 240 Output: Urine 1560 / 1560 1100 / 1100 Other: Date of Last Bowel Movement 09/04/18 09/04/18 09/04/18 - Constitutional no acute distress - Routine HEENT Exam Head: Present: normocephalic - Routine Neck Exam Present: supple - Routine Respiratory Exam Present: CTA bilaterally - Routine Cardiovascular Exam Present: S1, S2 - Routine Abdominal Exam Present: soft - Routine Extremities Exam Comments: no rito Results 09/06/18 08:18 09/06/18 08:18 Cardiac Enzymes 09/05/18 Range/Units 04:13 AST 15 (15-37) U/L Coagulation 09/05/18 09/06/18 Range/Units 04:13 05:00 APTT 43.3 H 46.4 H (23.4-31.7) sec CBC 09/05/18 09/06/18 Range/Units 04:13 08:18 WBC 8.7 8.3 (4.0-11.0) th/mm3 RBC 3.75 L 3.93 L (4.50-5.90) mil/mm3 Hgb 11.4 L 12.2 L (13.0-17.0) gm/dL Hct 33.9 L 35.6 L (39.0-51.0) % Plt Count 188 193 (150-450) th/mm3 Neut # (Auto) 5.3 5.0 (1.8-7.7) th/mm3 Lymph # (Auto) 2.1 2.0 (1.0-4.8) th/mm3 [place] # (Auto) 0.6 0.6 (0.0-0.9) th/mm3 Eos # (Auto) 0.6 H 0.5 H (0.0-0.4) th/mm3 Baso # (Auto) 0.1 0.1 (0.0-0.2) th/mm3 Comprehensive Metabolic Panel 09/05/18 09/06/18 Range/Units 04:13 08:18 Sodium 139 137 (136-145) meq/L Potassium 4.0 4.2 (3.5-5.1) meq/L Chloride 107 104 (98-107) meq/L Carbon Dioxide 23.9 26.3 (21.0-32.0) meq/L BUN 17 18 (7-18) mg/dL Creatinine 1.66 H 2.00 H (0.60-1.30) mg/dL Calcium 8.8 9.4 (8.5-10.1) mg/dL AST 15 (15-37) U/L ALT 22 (12-78) U/L Alkaline Phosphatase 86 (45-117) U/L Total Protein 7.2 D (6.4-8.2) g/dL Albumin 3.5 (3.4-5.0) g/dL Intake and Output 09/05/18 09/06/18 09/06/18 22:59 06:59 14:59 Intake Total 1240 / 1240 490 / 490 Output Total 1560 / 1560 1100 / 1100 Balance -320 / -320 -610 / -610 Intake: IV 250 / 250 Heparin/D5W 25,000 U/250 mL 25, 250 / 250 000 unit In 250 ml @ 1,000 UNITS/HR 10 mls/hr IV.CONT TITRATE PRN Rx#:[id number] Oral 1240 / 1240 240 / 240 Output: Urine 1560 / 1560 1100 / 1100 Other: Date of Last Bowel Movement 09/04/18 09/04/18 09/04/18 Weight 76.7 kg - Imaging and Cardiology Imaging: Impressions Carotid Doppler Study 09/04/18 11:10 CONCLUSION: Negative examination for a hemodynamically significant carotid stenosis. Les Ty MD FACR Lower Extremity Ultrasound 09/04/18 11:10 CONCLUSION: 1. Venous mapping as above Venous Doppler Study 09/04/18 11:10 CONCLUSION: 1. Negative for deep venous thrombosis, limited about the right groin from previous catheterization bandage. Assessment and Plan - Assessment (1) NSTEMI (non-ST elevated myocardial infarction) Code(s): I21.4 - Non-ST elevation (NSTEMI) myocardial infarction Status: Acute (2) ARF (acute renal failure) Code(s): N17.9 - Acute kidney failure, unspecified Status: Acute (3) Hypertension Code(s): I10 - Essential (primary) hypertension Status: Acute (4) Hyperlipidemia Code(s): E78.5 - Hyperlipidemia, unspecified Status: Acute (5) CAD (coronary artery disease) Code(s): I25.10 - Atherosclerotic heart disease of [place] coronary artery without angina pectoris Status: Acute (6) Diabetes type 2, controlled Code(s): E11.9 - Type 2 diabetes mellitus without complications Status: Acute - Plan 1.) CAD - nstemi, severe dom lcx and mid lad disease, continue aspirin, coreg, imdur, iv heparin, elmer held due to arf, cabg per Dr Sprague
--- NOTE | 2018-09-06 13:04 | P.PNIM ---
Subjective Interval history: No acute complaints from the patient today. He is feeling well. No reports of chest pain. Physical Exam Vital signs: Last Vital Signs Temp 98.2 F 09/06/18 08:00 Pulse 76 09/06/18 10:00 Resp 16 09/06/18 08:00 BP 139/93 H 09/06/18 08:00 Pulse Ox 100 09/06/18 08:00 Intake & Output 09/04/18 09/05/18 09/06/18 09/07/18 06:59 06:59 06:59 06:59 Intake Total 2485 / 2485 2490 / 2490 1730 / 1730 Output Total 1950 / 1950 3545 / 3545 2660 / 2660 Balance 535 / 535 -1055 / -1055 -930 / -930 Weight 78.7 kg 77.1 kg 76.7 kg Narrative: GENERAL: NAD, A&Ox3 HEAD: Normocephalic. NECK: Supple, trachea midline. No lymphadenopathy. EYES: No scleral icterus. No injection or drainage. CARDIOVASCULAR: Regular rate and rhythm without murmurs, gallops, or rubs. RESPIRATORY: Breath sounds equal bilaterally. No accessory muscle use. GASTROINTESTINAL: Abdomen soft, non-tender, nondistended. MUSCULOSKELETAL: No cyanosis, or edema. SKIN: Warm and dry. NEURO: No focal neurological deficits. Results Labs CBC & Chem 7: 09/06/18 08:18 09/06/18 08:18 Procedures Procedures: Echocardiogram 08/31/2018 The left ventricular systolic function is normal with an estimated ejection fraction in the range of 60-65%. There is trace tricuspid valve regurgitation. Assessment and Plan (1) ARF (acute renal failure): Code(s): N17.9 - Acute kidney failure, unspecified Status: Acute (2) Hypertension: Code(s): I10 - Essential (primary) hypertension Status: Acute (3) Hyperlipidemia: Code(s): E78.5 - Hyperlipidemia, unspecified Status: Acute (4) CAD (coronary artery disease): Code(s): I25.10 - Atherosclerotic heart disease of [place] coronary artery without angina pectoris Status: Acute (5) Diabetes type 2, controlled: Code(s): E11.9 - Type 2 diabetes mellitus without complications Status: Acute (6) NSTEMI (non-ST elevated myocardial infarction): Code(s): I21.4 - Non-ST elevation (NSTEMI) myocardial infarction Status: Acute (7) Chronic kidney disease, stage 3 (moderate): Code(s): N18.3 - Chronic kidney disease, stage 3 (moderate) Status: Acute Plan 63-year-old -[place] male with past medical history of CAD status post 3 stents who is presenting to the hospital with left-sided chest pain. He said he has always had chest pain ever since his second heart catheterization CABG planned on 09/09/2018. No complaints, no chest pain. All blood thinners are on hold except for heparin. NSTEMI CAD previous stents placed. Heart catheterization plan Blood thinners on hold Potentially heart cath on 09/09/2018 Cardiology following Continue heparin drip Acute kidney injury Avoid nephrotoxins Follow renal function Hypertension Continue baseline treatment Follow blood pressures Adjust treatments as needed Continue Coreg Continue M Shanell Diabetes mellitus type 2 Follow blood sugars Insulin sliding scale Diabetic diet Status post dental extraction Continue amoxicillin Follow with dentist as an outpatient DVT prophylaxis Heparin Progress Note: Quality VTE Deep Vein Thrombosis/Pulmonary Embolism Present on Admission: No _ (1) ARF (acute renal failure) Qualifiers: Acute renal failure type: (2) Hypertension Qualifiers: Hypertension type: (3) Hyperlipidemia Qualifiers: Hyperlipidemia type: (4) CAD (coronary artery disease) Qualifiers: Coronary Disease-Associated Artery/Lesion type: [place] vs. transplanted heart: Associated angina: (5) Diabetes type 2, controlled Qualifiers: Diabetes mellitus alf insulin use: Diabetes mellitus complication status: Diabetes mellitus complication detail: Diabetic retinopathy severity : Proliferative retinopathy type: Diabetes mellitus macular edema: Laterality: Chronic kidney disease stage:
--- NOTE | 2018-09-06 14:44 | P.PNCV ---
- Note Subjective/Hospital Course: A 63-year-old male transferred from [facility]. Apparently was admitted there with chest pain on 08/30/2018. Chest pain located on the left side of his chest, 10. Said he had a recent treadmill stress test a month ago, but was unable to complete the test. Apparently, per the patient, it was negative. The patient also had elevated creatinine at 2.02. He was transferred to our facility. He underwent cardiac catheterization by Dr. Mann which showed a left main disease of 60%, mid distal LAD 75%, the circ was 90%, the OM 90%, EF of 65%. We were consulted to evaluate for coronary artery bypass grafting. The patient has also had some dentalextraction and has sutures in place. He had a new bottom denture plate placed. We did, however, get in touch with the [facility] physician, Dr. Pacheco, who stated to leave the sutures in place and we were okay to remove the bottom denture plate prior to any surgery and that he would follow up with the patient after he was released from the hospital for suture removal. PAST MEDICAL HISTORY: Includes coronary artery disease, diabetes mellitus, hyperlipidemia, hypertension, chronic prostatitis. 09/04 PRU 92 discussed with pt , will more than likely eval for surgery on sunday recheck PRU on 09/05 tentatively scheduled for surgery on sunday repeat PRU in am 09/06 pru 148/ repeat on Sunday no chest pain creatinine continues to climb which is a concern Objective: Vital Signs - 24 hr 09/05/18 15:00 09/05/18 15:53 09/05/18 16:00 Temperature 98.4 F Pulse Rate 69 66 66 Respiratory Rate 16 Blood Pressure 160/90 H Pulse Oximetry 97 09/05/18 17:00 09/05/18 17:14 09/05/18 18:00 Temperature Pulse Rate 66 92 H Respiratory Rate Blood Pressure 161/89 H Pulse Oximetry 09/05/18 18:35 09/05/18 19:00 09/05/18 20:00 Temperature 98.4 F Pulse Rate 70 78 Respiratory Rate 19 Blood Pressure 153/91 H 148/86 H Pulse Oximetry 99 09/05/18 21:00 09/05/18 22:00 09/05/18 23:00 Temperature Pulse Rate 73 70 69 Respiratory Rate Blood Pressure Pulse Oximetry 09/06/18 00:00 09/06/18 01:00 09/06/18 02:00 Temperature 98.2 F Pulse Rate 70 70 63 Respiratory Rate 16 Blood Pressure 144/78 H Pulse Oximetry 100 09/06/18 03:00 09/06/18 04:00 09/06/18 05:00 Temperature 98 F Pulse Rate 68 62 76 Respiratory Rate 17 Blood Pressure 147/88 H Pulse Oximetry 100 09/06/18 06:00 09/06/18 07:00 09/06/18 08:00 Temperature 98.2 F Pulse Rate 62 61 65 Respiratory Rate 16 Blood Pressure 139/93 H Pulse Oximetry 100 09/06/18 09:00 09/06/18 10:00 Temperature Pulse Rate 74 76 Respiratory Rate Blood Pressure Pulse Oximetry GENERAL: SKIN: Warm and dry. HEAD: Normocephalic. EYES: No scleral icterus. No injection or drainage. NECK: Supple, trachea midline. No JVD or lymphadenopathy. CARDIOVASCULAR: Regular rate and rhythm without murmurs, gallops, or rubs. RESPIRATORY: Breath sounds equal bilaterally. No accessory muscle use. GASTROINTESTINAL: Abdomen soft, non-tender, nondistended. MUSCULOSKELETAL: No cyanosis, or edema. BACK: Nontender without obvious deformity. No CVA tenderness. Labs: Laboratory Results - last 12 hr 09/06/18 09/06/18 09/06/18 04:59 05:00 05:00 WBC RBC Hgb Hct MCV MCH MCHC RDW Plt Count MPV Neut % (Auto) Lymph % (Auto) [place] % (Auto) Eos % (Auto) Baso % (Auto) Neut # (Auto) Lymph # (Auto) [place] # (Auto) Eos # (Auto) Baso # (Auto) WBC Differential Differential Comment APTT 46.4 H Plt Funct P2Y12 Units 148 L Sodium Potassium Chloride Carbon Dioxide Anion Gap BUN Creatinine Estimated GFR POC Glucose 123 H Random Glucose Calcium 09/06/18 09/06/18 09/06/18 08:18 08:18 12:10 WBC 8.3 RBC 3.93 L Hgb 12.2 L Hct 35.6 L MCV 90.7 MCH 30.9 MCHC 34.1 RDW 13.7 Plt Count 193 MPV 7.9 Neut % (Auto) 60.6 Lymph % (Auto) 24.0 [place] % (Auto) 7.9 Eos % (Auto) 6.6 H Baso % (Auto) 0.9 Neut # (Auto) 5.0 Lymph # (Auto) 2.0 [place] # (Auto) 0.6 Eos # (Auto) 0.5 H Baso # (Auto) 0.1 WBC Differential . Differential Comment Auto diff final APTT Plt Funct P2Y12 Units Sodium 137 Potassium 4.2 Chloride 104 Carbon Dioxide 26.3 Anion Gap 7 BUN 18 Creatinine 2.00 H Estimated GFR 41 L POC Glucose 216 H Random Glucose 173 H Calcium 9.4 Result Diagrams: 09/06/18 08:18 09/06/18 08:18 - Plan (1) ARF (acute renal failure) Plan: creatinine 1.66> 2.0 worsening indices Nephro following (4) CAD (coronary artery disease) Plan: f/u PRU in am tentatively scheduled for surgery on Sunday (6) NSTEMI (non-ST elevated myocardial infarction) Plan: ASA, BB statin eval for surgery on Sunday recheck labs on sunday
[2018-09-06] MEDS: Insulin Detemir Inj 1,000 UNIT/10 ML Vial SQ SCH (20:49)
[2018-09-07] MEDS: Insulin NovoLOG Aspart Correctional Sugar Inj SQ SCH ×4 (00:23→17:06)
[2018-09-07] MEDS: Isosorbide Mononitrate 60 MG ER 24HR Tablet (Imdur) PO SCH (06:05)
--- NOTE | 2018-09-07 08:52 | P.PNCA ---
Subjective Interval history: assymptomatic in nad Medications and Allergies Active Medications: Active Medications Acetaminophen (Tylenol) 650 mg PO Q4H PRN PRN Reason: Temp > 100.4 Amoxicillin (Amoxil) 500 mg PO TID [facility] Last Admin: 09/06/18 17:47 Dose: 500 mg Aspirin (Ecotrin) 162 mg PO DAILY [facility] Last Admin: 09/05/18 08:59 Dose: 162 mg Carvedilol (Coreg) 3.125 mg PO BID [facility] Last Admin: 09/06/18 20:47 Dose: 3.125 mg Chlorhexidine Gluconate (Hibiclens 4% Topical) 1 applicatio TOPICAL [employer] [facility] Stop: 09/10/18 11:10 Clonidine HCl (Catapres) 0.1 mg PO Q6H PRN PRN Reason: SYS BP GREATER THAN 160 MMHG Sodium Chloride 77.5 ml/Papaverine HCl 60 mg/Nitroglycerin 100 mcg/Diltiazem HCl 100 mg 0 ml IRRIGATION [employer] [facility] Stop: 09/10/18 11:10 Sodium Chloride 500 ml/ (Cefazolin Sodium 500 mg) 0 ml [employer]ATION [employer] [facility] Stop: 09/10/18 11:11 Dextrose (D50w Vial) 50 ml IV.PUSH UNSCH PRN PRN Reason: PER HYPOGLYCEMIA PROTOCOL Dextrose (D50w Vial) 50 ml IV.PUSH UNSCH PRN PRN Reason: PER HYPOGLYCEMIA PROTOCOL Glucagon (Glucagon Inj) 1 mg OTHER PRN PRN PRN Reason: for Hypoglycemia Protocol Heparin Sodium/Dextrose (Heparin/D5w 25,000 U/250 Ml) 25,000 unit in 250 mls @ 10 mls/hr IV.CONT TITRATE PRN; Protocol PRN Reason: Per Protocol Last Titration: 09/07/18 06:18 Dose: 1,000 units/hr, 10 mls/hr Cefazolin Sodium 2,000 mg/ (Sodium Chloride) 100 mls @ 200 mls/hr IV.SIG [employer] [facility] Stop: 09/10/18 11:11 Insulin Human Regular 100 unit (/ Sodium Chloride) 100 mls @ 3 mls/hr IV.CONT TITRATE PRN; Protocol PRN Reason: See Protocol Insulin Aspart (Novolog Insulin [place]al Sugar Inj) 0 unit SQ Q6HR [facility]; Protocol Last Admin: 09/07/18 06:08 Dose: 2 unit Insulin Detemir (Levemir Inj) 7 unit SQ HS [facility] Last Admin: 09/06/18 20:49 Dose: 7 unit Isosorbide Mononitrate (Imdur) 60 mg PO DAILY@0700 [facility] Last Admin: 09/07/18 06:05 Dose: 60 mg Metoprolol Tartrate (Lopressor) 12.5 mg PO [employer] [facility] Stop: 09/10/18 11:11 Morphine Sulfate (Morphine Inj) 4 mg IV.PUSH Q4H PRN PRN Reason: BREAKTHROUGH PAIN Last Admin: 08/30/18 19:19 Dose: 4 mg Nitroglycerin (Nitrostat Sl) 0.4 mg SL Q5M PRN PRN Reason: CHEST PAIN Last Admin: 09/04/18 05:20 Dose: 0.4 mg Ondansetron HCl (Zofran Inj) 4 mg IV.PUSH Q6H PRN PRN Reason: NAUSEA OR VOMITING Oxycodone HCl (Roxicodone) 5 mg PO Q4H PRN PRN Reason: pain 3-10 Pravastatin Sodium (Pravachol) 20 mg PO DAILY [facility] Last Admin: 09/06/18 09:02 Dose: 20 mg Senna/Docusate Sodium (Letty-Colace) 1 tab PO BID [facility] Last Admin: 09/06/18 20:47 Dose: 1 tab Sodium Chloride (Ns Flush) 2 ml IV.FLUSH BID [facility] Last Admin: 09/06/18 20:49 Dose: 2 ml Sodium Chloride (Ns Flush) 2 ml IV.FLUSH PRN PRN PRN Reason: FLUSH AFTER USING IV ACCESS Sodium Chloride (Ns Flush) 2 ml IV.FLUSH BID [facility] Last Admin: 09/06/18 20:50 Dose: Not Given Sodium Chloride (Ns Flush) 2 ml IV.FLUSH PRN PRN PRN Reason: FLUSH AFTER USING IV ACCESS Allergies Allergy/AdvReac Type Severity Reaction Status Date / Time No Allergy Information Allergy Verified 08/30/18 11:50 Available Home Medications Medication Instructions Recorded Confirmed Type amoxicillin 500 mg PO TID 08/30/18 08/30/18 History aspirin 325 mg PO DAILY 08/30/18 08/30/18 History carvedilol 3.125 mg PO BID 08/30/18 08/30/18 History glipizide 10 mg PO DAILY 08/30/18 08/30/18 History ibuprofen 800 mg PO TID PRN 08/30/18 08/30/18 History isosorbide mononitrate 60 mg PO QAM 08/30/18 08/30/18 History olmesartan 20 mg PO DAILY 08/30/18 08/30/18 History prasugrel 10 mg PO DAILY 08/30/18 08/30/18 History pravastatin 20 mg PO DAILY 08/30/18 08/30/18 History sitagliptin-metformin [Janumet XR] 1 tab PO QPM 08/30/18 08/30/18 History Physical Exam Vital signs: Vital Signs 09/06/18 09:00 09/06/18 10:00 09/06/18 11:00 Temperature Pulse Rate 74 76 68 Respiratory Rate Blood Pressure Pulse Oximetry 09/06/18 12:00 09/06/18 13:00 09/06/18 14:00 Temperature 98.3 F Pulse Rate 95 H 76 14 L Respiratory Rate Blood Pressure 159/86 H Pulse Oximetry 100 09/06/18 15:00 09/06/18 16:00 09/06/18 17:00 Temperature 98.1 F Pulse Rate 89 60 70 Respiratory Rate Blood Pressure 140/91 H Pulse Oximetry 100 09/06/18 18:00 09/06/18 19:00 09/06/18 20:00 Temperature 98.2 F Pulse Rate 62 65 73 Respiratory Rate 20 Blood Pressure 158/92 H Pulse Oximetry 100 09/06/18 21:00 09/06/18 22:00 09/06/18 23:00 Temperature Pulse Rate 69 65 73 Respiratory Rate Blood Pressure Pulse Oximetry 09/07/18 00:00 09/07/18 01:00 09/07/18 02:00 Temperature 98.4 F Pulse Rate 63 69 67 Respiratory Rate 20 Blood Pressure 150/85 H Pulse Oximetry 98 09/07/18 03:00 09/07/18 04:00 09/07/18 05:00 Temperature 98.1 F Pulse Rate 66 65 68 Respiratory Rate 18 Blood Pressure 134/66 Pulse Oximetry 97 09/07/18 05:43 09/07/18 07:00 Temperature Pulse Rate 64 59 L Respiratory Rate Blood Pressure Pulse Oximetry Intake & Output 09/06/18 09/07/18 09/07/18 18:59 06:59 18:59 Intake Total 720 / 720 960 / 960 Output Total 1050 / 1050 1100 / 1100 Balance -330 / -330 -140 / -140 Weight 76.6 kg Intake: Oral 720 / 720 960 / 960 Output: Urine 1050 / 1050 1100 / 1100 Other: Date of Last Bowel Movement 09/04/18 09/04/18 # Bowel Movements 0 - Constitutional no acute distress - Routine HEENT Exam Head: Present: normocephalic - Routine Neck Exam Present: supple - Routine Respiratory Exam Present: CTA bilaterally - Routine Cardiovascular Exam Present: S1, S2 - Routine Abdominal Exam Present: soft - Routine Extremities Exam Comments: no rito Results 09/06/18 08:18 09/06/18 08:18 Coagulation 09/06/18 09/07/18 Range/Units 05:00 05:24 APTT 46.4 H 43.1 H (23.4-31.7) sec CBC 09/06/18 Range/Units 08:18 WBC 8.3 (4.0-11.0) th/mm3 RBC 3.93 L (4.50-5.90) mil/mm3 Hgb 12.2 L (13.0-17.0) gm/dL Hct 35.6 L (39.0-51.0) % Plt Count 193 (150-450) th/mm3 Neut # (Auto) 5.0 (1.8-7.7) th/mm3 Lymph # (Auto) 2.0 (1.0-4.8) th/mm3 [place] # (Auto) 0.6 (0.0-0.9) th/mm3 Eos # (Auto) 0.5 H (0.0-0.4) th/mm3 Baso # (Auto) 0.1 (0.0-0.2) th/mm3 Comprehensive Metabolic Panel 09/06/18 Range/Units 08:18 Sodium 137 (136-145) meq/L Potassium 4.2 (3.5-5.1) meq/L Chloride 104 (98-107) meq/L Carbon Dioxide 26.3 (21.0-32.0) meq/L BUN 18 (7-18) mg/dL Creatinine 2.00 H (0.60-1.30) mg/dL Calcium 9.4 (8.5-10.1) mg/dL Intake and Output 09/06/18 09/07/18 09/07/18 22:59 06:59 14:59 Intake Total 720 / 720 960 / 960 Output Total 1050 / 1050 1100 / 1100 Balance -330 / -330 -140 / -140 Intake: Oral 720 / 720 960 / 960 Output: Urine 1050 / 1050 1100 / 1100 Other: Date of Last Bowel Movement 09/04/18 # Bowel Movements 0 Weight 76.6 kg Assessment and Plan - Assessment (1) NSTEMI (non-ST elevated myocardial infarction) Code(s): I21.4 - Non-ST elevation (NSTEMI) myocardial infarction Status: Acute (2) ARF (acute renal failure) Code(s): N17.9 - Acute kidney failure, unspecified Status: Acute (3) Hypertension Code(s): I10 - Essential (primary) hypertension Status: Acute (4) Hyperlipidemia Code(s): E78.5 - Hyperlipidemia, unspecified Status: Acute (5) CAD (coronary artery disease) Code(s): I25.10 - Atherosclerotic heart disease of [place] coronary artery without angina pectoris Status: Acute (6) Diabetes type 2, controlled Code(s): E11.9 - Type 2 diabetes mellitus without complications Status: Acute - Plan 1.) CAD - nstemi, severe dom lcx and mid lad disease, continue aspirin, coreg, imdur, iv heparin, elmer held due to arf, cabg per Dr Sprague
[2018-09-07] MEDS: Senna/Docusate Sodium 8.6/50 MG Tablet PO SCH ×2 (09:16→20:24)
--- NOTE | 2018-09-07 13:23 | P.PNIM ---
Subjective Interval history: No acute changes overnight. Patient says he has had no significant chest pain episodes in the last 24 hours. Coronary artery bypass surgery planned on 09/09/2018. Physical Exam Vital signs: Last Vital Signs Temp 97.5 F L 09/07/18 11:25 Pulse 69 09/07/18 11:25 Resp 16 09/07/18 11:25 BP 118/72 09/07/18 11:25 Pulse Ox 98 09/07/18 11:25 Intake & Output 09/05/18 09/06/18 09/07/18 09/08/18 06:59 06:59 06:59 06:59 Intake Total 2490 / 2490 1730 / 1730 1680 / 1680 Output Total 3545 / 3545 2660 / 2660 2150 / 2150 Balance -1055 / -1055 -930 / -930 -470 / -470 Weight 77.1 kg 76.7 kg 76.6 kg Narrative: GENERAL: NAD, A&Ox3 HEAD: Normocephalic. NECK: Supple, trachea midline. No lymphadenopathy. EYES: No scleral icterus. No injection or drainage. CARDIOVASCULAR: Regular rate and rhythm without murmurs, gallops, or rubs. RESPIRATORY: Breath sounds equal bilaterally. No accessory muscle use. GASTROINTESTINAL: Abdomen soft, non-tender, nondistended. MUSCULOSKELETAL: No cyanosis, or edema. SKIN: Warm and dry. NEURO: No focal neurological deficits. Results Labs CBC & Chem 7: 09/06/18 08:18 09/06/18 08:18 Procedures Procedures: Echocardiogram 08/31/2018 The left ventricular systolic function is normal with an estimated ejection fraction in the range of 60-65%. There is trace tricuspid valve regurgitation. Assessment and Plan (1) ARF (acute renal failure): Code(s): N17.9 - Acute kidney failure, unspecified Status: Acute (2) Hypertension: Code(s): I10 - Essential (primary) hypertension Status: Acute (3) Hyperlipidemia: Code(s): E78.5 - Hyperlipidemia, unspecified Status: Acute (4) CAD (coronary artery disease): Code(s): I25.10 - Atherosclerotic heart disease of [place] coronary artery without angina pectoris Status: Acute (5) Diabetes type 2, controlled: Code(s): E11.9 - Type 2 diabetes mellitus without complications Status: Acute (6) NSTEMI (non-ST elevated myocardial infarction): Code(s): I21.4 - Non-ST elevation (NSTEMI) myocardial infarction Status: Acute (7) Chronic kidney disease, stage 3 (moderate): Code(s): N18.3 - Chronic kidney disease, stage 3 (moderate) Status: Acute Plan 63-year-old -[place] male with past medical history of CAD status post 3 stents who is presenting to the hospital with left-sided chest pain. He said he has always had chest pain ever since his second heart catheterization No acute changes overnight. Patient denies any chest pain. CABG planned on 07/2018. All blood thinners are on hold except for heparin. NSTEMI CAD previous stents placed. Heart catheterization plan Blood thinners on hold Potentially heart cath on 09/09/2018 Cardiology following Continue heparin drip Acute kidney injury Avoid nephrotoxins Follow renal function Hypertension Continue baseline treatment Follow blood pressures Adjust treatments as needed Continue Coreg Continue M Shanell Diabetes mellitus type 2 Follow blood sugars Insulin sliding scale Diabetic diet Status post dental extraction Continue amoxicillin Follow with dentist as an outpatient DVT prophylaxis Heparin Progress Note: Quality VTE Deep Vein Thrombosis/Pulmonary Embolism Present on Admission: No _ (1) ARF (acute renal failure) Qualifiers: Acute renal failure type: (2) Hypertension Qualifiers: Hypertension type: (3) Hyperlipidemia Qualifiers: Hyperlipidemia type: (4) CAD (coronary artery disease) Qualifiers: Coronary Disease-Associated Artery/Lesion type: [place] vs. transplanted heart: Associated angina: (5) Diabetes type 2, controlled Qualifiers: Diabetes mellitus [facility] insulin use: Diabetes mellitus complication status: Diabetes mellitus complication detail: Diabetic retinopathy severity : Proliferative retinopathy type: Diabetes mellitus macular edema: Laterality: Chronic kidney disease stage:
[2018-09-07] MEDS: Insulin Detemir Inj 1,000 UNIT/10 ML Vial SQ SCH (20:29)
[2018-09-07] MEDS: Heparin Drip 25,000 UNIT/250 ML BAG IV.CONT PRN (21:18)
[2018-09-08] MEDS: Insulin NovoLOG Aspart Correctional Sugar Inj SQ SCH ×4 (00:05→18:36)
[2018-09-08 05:01] LABS: Baso % (Auto) 0.4 % (0.0-2.0); Eos # (Auto) 0.5 th/mm3 (0.0-0.4); Eos % (Auto) 7.1 % (0.0-4.0); Hematocrit 35.1 % (39.0-51.0); Hemoglobin 12.4 gm/dL (13.0-17.0); Lymph # (Auto) 2.5 th/mm3 (1.0-4.8); Lymph % (Auto) 32.8 % (9.0-44.0); Mean Corpuscular HGB Conc 35.4 % (32.0-36.0); Mean Corpuscular Hemoglobin 31.1 pg (27.0-34.0); Mean Platelet Volume 8.2 fL (7.0-11.0); Mono # (Auto) 0.4 th/mm3 (0.0-0.9); Mono % (Auto) 5.7 % (0.0-8.0); Neut # (Auto) 4.1 th/mm3 (1.8-7.7); Platelet Count 194 th/mm3 (150-450); Red Blood Count 3.99 mil/mm3 (4.50-5.90); Red Cell Distribution Width 13.6 % (11.6-17.2); White Blood Count 7.6 th/mm3 (4.0-11.0)
[2018-09-08 05:35] LABS: Albumin 3.7 g/dL (3.4-5.0); Anion Gap 8 meq/L (5-15); Aspartate Aminotransferase 17 U/L (15-37); Blood Urea Nitrogen 24 mg/dL (7-18); Calcium 9.1 mg/dL (8.5-10.1); Carbon Dioxide 24.6 meq/L (21.0-32.0); Chloride 104 meq/L (98-107); Glomerular Filtration Rate 46 mL/min (>89); Glucose,Random 148 mg/dL (74-106); Potassium 4.1 meq/L (3.5-5.1); Sodium 137 meq/L (136-145)
[2018-09-08 05:39] LABS: Alanine Aminotransferase 21 U/L (12-78); Alkaline Phosphatase 86 U/L (45-117); Phosphorus 3.9 mg/dL (2.5-4.9); Total Protein 7.6 g/dL (6.4-8.2)
[2018-09-08] MEDS: Isosorbide Mononitrate 60 MG ER 24HR Tablet (Imdur) PO SCH (06:11)
[2018-09-08] MEDS: Senna/Docusate Sodium 8.6/50 MG Tablet PO SCH ×2 (09:18→20:18)
--- NOTE | 2018-09-08 10:28 | P.PNCA ---
Subjective Interval history: alert in nad, assymptomatic Medications and Allergies Active Medications: Active Medications Acetaminophen (Tylenol) 650 mg PO Q4H PRN PRN Reason: Temp > 100.4 Amoxicillin (Amoxil) 500 mg PO TID [facility] Last Admin: 09/08/18 09:18 Dose: 500 mg Aspirin (Ecotrin) 162 mg PO DAILY [facility] Last Admin: 09/05/18 08:59 Dose: 162 mg Carvedilol (Coreg) 3.125 mg PO BID [facility] Last Admin: 09/08/18 09:18 Dose: 3.125 mg Chlorhexidine Gluconate (Hibiclens 4% Topical) 1 applicatio TOPICAL [employer]IFICIAL CHERRY [employer] [facility] Stop: 09/10/18 11:10 Clonidine HCl (Catapres) 0.1 mg PO Q6H PRN PRN Reason: SYS BP GREATER THAN 160 MMHG Sodium Chloride 77.5 ml/Papaverine HCl 60 mg/Nitroglycerin 100 mcg/Diltiazem HCl 100 mg 0 ml IRRIGATION [employer]IFICIAL [employer]ERRY [employer] [facility] Stop: 09/10/18 11:10 Sodium Chloride 500 ml/ (Cefazolin Sodium 500 mg) 0 ml IRRIGATION [employer]ERRY [employer] [facility] Stop: 09/10/18 11:11 Dextrose (D50w Vial) 50 ml IV.PUSH UNSCH PRN PRN Reason: PER HYPOGLYCEMIA PROTOCOL Dextrose (D50w Vial) 50 ml IV.PUSH UNSCH PRN PRN Reason: PER HYPOGLYCEMIA PROTOCOL Glucagon (Glucagon Inj) 1 mg OTHER PRN PRN PRN Reason: for Hypoglycemia Protocol Heparin Sodium/Dextrose (Heparin/D5w 25,000 U/250 Ml) 25,000 unit in 250 mls @ 10 mls/hr IV.CONT TITRATE PRN; Protocol PRN Reason: Per Protocol Last Titration: 09/08/18 06:22 Dose: 1,000 units/hr, 10 mls/hr Cefazolin Sodium 2,000 mg/ (Sodium Chloride) 100 mls @ 200 mls/hr IV.SIG [employer]IFICIAL CHERRY [employer] [facility] Stop: 09/10/18 11:11 Insulin Human Regular 100 unit (/ Sodium Chloride) 100 mls @ 3 mls/hr IV.CONT TITRATE PRN; Protocol PRN Reason: See Protocol Insulin Aspart (Novolog Insulin Correctional Sugar Inj) 0 unit SQ Q6HR [facility]; Protocol Last Admin: 09/08/18 06:11 Dose: Not Given Insulin Detemir (Levemir Inj) 7 unit SQ HS [facility] Last Admin: 09/07/18 20:29 Dose: 7 unit Isosorbide Mononitrate (Imdur) 60 mg PO DAILY@0700 [facility] Last Admin: 09/08/18 06:11 Dose: 60 mg Metoprolol Tartrate (Lopressor) 12.5 mg PO [employer]ERRY [employer] [facility] Stop: 09/10/18 11:11 Morphine Sulfate (Morphine Inj) 4 mg IV.PUSH Q4H PRN PRN Reason: BREAKTHROUGH PAIN Last Admin: 08/30/18 19:19 Dose: 4 mg Nitroglycerin (Nitrostat Sl) 0.4 mg SL Q5M PRN PRN Reason: CHEST PAIN Last Admin: 09/04/18 05:20 Dose: 0.4 mg Ondansetron HCl (Zofran Inj) 4 mg IV.PUSH Q6H PRN PRN Reason: NAUSEA OR VOMITING Oxycodone HCl (Roxicodone) 5 mg PO Q4H PRN PRN Reason: pain 3-10 Pravastatin Sodium (Pravachol) 20 mg PO DAILY [facility] Last Admin: 09/08/18 09:18 Dose: 20 mg Senna/Docusate Sodium (Letty-Colace) 1 tab PO BID [facility] Last Admin: 09/08/18 09:18 Dose: 1 tab Sodium Chloride (Ns Flush) 2 ml IV.FLUSH BID [facility] Last Admin: 09/08/18 09:18 Dose: Not Given Sodium Chloride (Ns Flush) 2 ml IV.FLUSH PRN PRN PRN Reason: FLUSH AFTER USING IV ACCESS Sodium Chloride (Ns Flush) 2 ml IV.FLUSH BID [facility] Last Admin: 09/08/18 09:18 Dose: Not Given Sodium Chloride (Ns Flush) 2 ml IV.FLUSH PRN PRN PRN Reason: FLUSH AFTER USING IV ACCESS Allergies Allergy/AdvReac Type Severity Reaction Status Date / Time No Allergy Information Allergy Verified 08/30/18 11:50 Available Home Medications Medication Instructions Recorded Confirmed Type amoxicillin 500 mg PO TID 08/30/18 08/30/18 History aspirin 325 mg PO DAILY 08/30/18 08/30/18 History carvedilol 3.125 mg PO BID 08/30/18 08/30/18 History glipizide 10 mg PO DAILY 08/30/18 08/30/18 History ibuprofen 800 mg PO TID PRN 08/30/18 08/30/18 History isosorbide mononitrate 60 mg PO QAM 08/30/18 08/30/18 History olmesartan 20 mg PO DAILY 08/30/18 08/30/18 History prasugrel 10 mg PO DAILY 08/30/18 08/30/18 History pravastatin 20 mg PO DAILY 08/30/18 08/30/18 History sitagliptin-metformin [Janumet XR] 1 tab PO QPM 08/30/18 08/30/18 History Physical Exam Vital signs: Vital Signs 09/07/18 11:25 09/07/18 12:00 09/07/18 13:00 Temperature 97.5 F L Pulse Rate 69 65 62 Respiratory Rate 16 Blood Pressure 118/72 Pulse Oximetry 98 09/07/18 14:00 09/07/18 15:00 09/07/18 15:18 Temperature 98 F Pulse Rate 66 66 66 Respiratory Rate 16 Blood Pressure 146/75 H Pulse Oximetry 99 09/07/18 16:00 09/07/18 17:00 09/07/18 18:00 Temperature Pulse Rate 62 66 62 Respiratory Rate Blood Pressure Pulse Oximetry 09/07/18 19:00 09/07/18 20:00 09/07/18 21:00 Temperature 98.3 F Pulse Rate 68 66 75 Respiratory Rate 20 Blood Pressure 131/85 Pulse Oximetry 97 09/07/18 22:00 09/07/18 23:00 09/08/18 00:00 Temperature 98.4 F Pulse Rate 62 69 64 Respiratory Rate 20 Blood Pressure 155/84 H Pulse Oximetry 97 09/08/18 01:00 09/08/18 02:00 09/08/18 03:00 Temperature Pulse Rate 70 69 72 Respiratory Rate Blood Pressure Pulse Oximetry 09/08/18 04:00 09/08/18 05:00 09/08/18 05:57 Temperature 98.2 F Pulse Rate 71 73 72 Respiratory Rate 18 Blood Pressure 150/91 H Pulse Oximetry 96 09/08/18 07:00 09/08/18 09:07 Temperature 97.9 F Pulse Rate 67 65 Respiratory Rate 16 Blood Pressure 150/90 H Pulse Oximetry 100 Intake & Output 09/07/18 09/08/18 09/08/18 18:59 06:59 18:59 Intake Total 960 / 960 960 / 960 Output Total 1500 / 1500 1200 / 1200 Balance -540 / -540 -240 / -240 Weight 76.1 kg Intake: Oral 960 / 960 960 / 960 Output: Urine 1500 / 1500 1200 / 1200 Other: Date of Last Bowel Movement 09/07/18 09/07/18 # Bowel Movements 1 0 - Constitutional no acute distress - Routine HEENT Exam Head: Present: normocephalic - Routine Neck Exam Present: supple - Routine Respiratory Exam Present: CTA bilaterally - Routine Cardiovascular Exam Present: S1, S2 - Routine Abdominal Exam Present: soft - Routine Extremities Exam Comments: no rito Results 09/08/18 04:40 09/08/18 04:40 Cardiac Enzymes 09/08/18 Range/Units 04:40 AST 17 (15-37) U/L Coagulation 09/07/18 09/08/18 Range/Units 05:24 04:40 APTT 43.1 H 44.5 H (23.4-31.7) sec CBC 09/08/18 Range/Units 04:40 WBC 7.6 (4.0-11.0) th/mm3 RBC 3.99 L (4.50-5.90) mil/mm3 Hgb 12.4 L (13.0-17.0) gm/dL Hct 35.1 L (39.0-51.0) % Plt Count 194 (150-450) th/mm3 Neut # (Auto) 4.1 (1.8-7.7) th/mm3 Lymph # (Auto) 2.5 (1.0-4.8) th/mm3 [place] # (Auto) 0.4 (0.0-0.9) th/mm3 Eos # (Auto) 0.5 H (0.0-0.4) th/mm3 Baso # (Auto) 0.0 (0.0-0.2) th/mm3 Comprehensive Metabolic Panel 09/06/18 09/08/18 Range/Units 08:18 04:40 Sodium 137 137 (136-145) meq/L Potassium 4.2 4.1 (3.5-5.1) meq/L Chloride 104 104 (98-107) meq/L Carbon Dioxide 26.3 24.6 (21.0-32.0) meq/L BUN 18 24 H (7-18) mg/dL Creatinine 2.00 H 1.82 H (0.60-1.30) mg/dL Calcium 9.4 9.1 (8.5-10.1) mg/dL AST 17 (15-37) U/L ALT 21 (12-78) U/L Alkaline Phosphatase 86 (45-117) U/L Total Protein 7.6 (6.4-8.2) g/dL Albumin 3.7 (3.4-5.0) g/dL Intake and Output 09/07/18 09/08/18 09/08/18 22:59 06:59 14:59 Intake Total 960 / 960 960 / 960 Output Total 1500 / 1500 1200 / 1200 Balance -540 / -540 -240 / -240 Intake: Oral 960 / 960 960 / 960 Output: Urine 1500 / 1500 1200 / 1200 Other: Date of Last Bowel Movement 09/07/18 09/07/18 # Bowel Movements 1 0 Weight 76.1 kg Assessment and Plan - Assessment (1) NSTEMI (non-ST elevated myocardial infarction) Code(s): I21.4 - Non-ST elevation (NSTEMI) myocardial infarction Status: Acute (2) ARF (acute renal failure) Code(s): N17.9 - Acute kidney failure, unspecified Status: Acute (3) Hypertension Code(s): I10 - Essential (primary) hypertension Status: Acute (4) Hyperlipidemia Code(s): E78.5 - Hyperlipidemia, unspecified Status: Acute (5) CAD (coronary artery disease) Code(s): I25.10 - Atherosclerotic heart disease of [place] coronary artery without angina pectoris Status: Acute (6) Diabetes type 2, controlled Code(s): E11.9 - Type 2 diabetes mellitus without complications Status: Acute - Plan 1.) CAD - nstemi, severe dom lcx and mid lad disease, continue aspirin, coreg, imdur, iv heparin, elmer held due to arf, cabg per Dr Sprague
--- NOTE | 2018-09-08 13:02 | P.PNNP ---
Subjective Interval history: Patient has coronary artery disease waiting to undergo coronary artery bypass surgery Physical Exam Vital signs: Vital Signs 09/07/18 14:00 09/07/18 15:00 09/07/18 15:18 Temperature 98 F Pulse Rate 66 66 66 Respiratory Rate 16 Blood Pressure 146/75 H Pulse Oximetry 99 09/07/18 16:00 09/07/18 17:00 09/07/18 18:00 Temperature Pulse Rate 62 66 62 Respiratory Rate Blood Pressure Pulse Oximetry 09/07/18 19:00 09/07/18 20:00 09/07/18 21:00 Temperature 98.3 F Pulse Rate 68 66 75 Respiratory Rate 20 Blood Pressure 131/85 Pulse Oximetry 97 09/07/18 22:00 09/07/18 23:00 09/08/18 00:00 Temperature 98.4 F Pulse Rate 62 69 64 Respiratory Rate 20 Blood Pressure 155/84 H Pulse Oximetry 97 09/08/18 01:00 09/08/18 02:00 09/08/18 03:00 Temperature Pulse Rate 70 69 72 Respiratory Rate Blood Pressure Pulse Oximetry 09/08/18 04:00 09/08/18 05:00 09/08/18 05:57 Temperature 98.2 F Pulse Rate 71 73 72 Respiratory Rate 18 Blood Pressure 150/91 H Pulse Oximetry 96 09/08/18 07:00 09/08/18 09:07 09/08/18 12:14 Temperature 97.9 F 97.7 F Pulse Rate 67 65 58 L Respiratory Rate 16 16 Blood Pressure 150/90 H 145/81 H Pulse Oximetry 100 100 Intake & Output 09/07/18 09/08/18 09/08/18 18:59 06:59 18:59 Intake Total 960 / 960 960 / 960 Output Total 1500 / 1500 1200 / 1200 Balance -540 / -540 -240 / -240 Weight 76.1 kg Intake: Oral 960 / 960 960 / 960 Output: Urine 1500 / 1500 1200 / 1200 Other: Date of Last Bowel Movement 09/07/18 09/07/18 # Bowel Movements 1 0 Narrative: GENERAL: NAD, A&Ox3 HEAD: Normocephalic. NECK: Supple, trachea midline. No lymphadenopathy. EYES: No scleral icterus. No injection or drainage. CARDIOVASCULAR: Regular rate and rhythm without murmurs, gallops, or rubs. RESPIRATORY: Breath sounds equal bilaterally. No accessory muscle use. GASTROINTESTINAL: Abdomen soft, non-tender, nondistended. MUSCULOSKELETAL: No cyanosis, or edema. SKIN: Warm and dry. NEURO: No focal neurological deficits. Assessment and Plan - Assessment (1) Chronic kidney disease, stage 3 (moderate) Code(s): N18.3 - Chronic kidney disease, stage 3 (moderate) Status: Acute Plan: Patient may have hypertensive nephrosclerosis, appears to have stable stage III CKD. GFR is at baseline. Labs creatinine 1.8. (2) Hypertension Code(s): I10 - Essential (primary) hypertension Status: Acute Plan: Monitor BP. Patient has been hypertensive, Clonidine PRN was added to medication regime. (3) Hyperlipidemia Code(s): E78.5 - Hyperlipidemia, unspecified Status: Acute Plan: Patient on pravastatin. (4) CAD (coronary artery disease) Code(s): I25.10 - Atherosclerotic heart disease of [place] coronary artery without angina pectoris Status: Acute Plan: CABG is planned. (5) Diabetes type 2, controlled Code(s): E11.9 - Type 2 diabetes mellitus without complications Status: Acute Plan: Insulin coverage to maintain blood glucose levels between 140 and 180.
--- NOTE | 2018-09-08 14:38 | P.PNIM ---
Subjective Interval history: No acute distress. Slight downward trend in creatinine. Plan for surgery tomorrow. Medical clear for surgery tomorrow. Physical Exam Vital signs: Last Vital Signs Temp 97.7 F 09/08/18 12:14 Pulse 68 09/08/18 13:00 Resp 16 09/08/18 12:14 BP 145/81 H 09/08/18 12:14 Pulse Ox 100 09/08/18 12:14 Intake & Output 09/06/18 09/07/18 09/08/18 09/09/18 06:59 06:59 06:59 06:59 Intake Total 1730 / 1730 1930 / 1930 1920 / 1920 Output Total 2660 / 2660 2150 / 2150 2700 / 2700 Balance -930 / -930 -220 / -220 -780 / -780 Weight 76.7 kg 76.6 kg 76.1 kg Narrative: GENERAL: NAD, A&Ox3 HEAD: Normocephalic. NECK: Supple, trachea midline. No lymphadenopathy. EYES: No scleral icterus. No injection or drainage. CARDIOVASCULAR: Regular rate and rhythm without murmurs, gallops, or rubs. RESPIRATORY: Breath sounds equal bilaterally. No accessory muscle use. GASTROINTESTINAL: Abdomen soft, non-tender, nondistended. MUSCULOSKELETAL: No cyanosis, or edema. SKIN: Warm and dry. NEURO: No focal neurological deficits. Results Labs CBC & Chem 7: 09/08/18 04:40 09/08/18 04:40 Procedures Procedures: Echocardiogram 08/31/2018 The left ventricular systolic function is normal with an estimated ejection fraction in the range of 60-65%. There is trace tricuspid valve regurgitation. Assessment and Plan (1) ARF (acute renal failure): Code(s): N17.9 - Acute kidney failure, unspecified Status: Acute (2) Hypertension: Code(s): I10 - Essential (primary) hypertension Status: Acute (3) Hyperlipidemia: Code(s): E78.5 - Hyperlipidemia, unspecified Status: Acute (4) CAD (coronary artery disease): Code(s): I25.10 - Atherosclerotic heart disease of [place] coronary artery without angina pectoris Status: Acute (5) Diabetes type 2, controlled: Code(s): E11.9 - Type 2 diabetes mellitus without complications Status: Acute (6) NSTEMI (non-ST elevated myocardial infarction): Code(s): I21.4 - Non-ST elevation (NSTEMI) myocardial infarction Status: Acute (7) Chronic kidney disease, stage 3 (moderate): Code(s): N18.3 - Chronic kidney disease, stage 3 (moderate) Status: Acute Plan 63-year-old -[place] male with past medical history of CAD status post 3 stents who is presenting to the hospital with left-sided chest pain. He said he has always had chest pain ever since his second heart catheterization Doing well, no distress or reports of chest pain. CABG planned on 09/09/2018. All blood thinners are on hold except for heparin. Labs in AM. Continue to monitor renal function post op. NSTEMI CAD previous stents placed. Heart catheterization plan Blood thinners on hold Potentially heart cath on 09/09/2018 Cardiology following Continue heparin drip Acute kidney injury Avoid nephrotoxins Follow renal function Hypertension Continue baseline treatment Follow blood pressures Adjust treatments as needed Continue Coreg Continue M Shanell Diabetes mellitus type 2 Follow blood sugars Insulin sliding scale Diabetic diet Status post dental extraction Continue amoxicillin Follow with dentist as an outpatient DVT prophylaxis Heparin Progress Note: Quality VTE Deep Vein Thrombosis/Pulmonary Embolism Present on Admission: No _ (1) ARF (acute renal failure) Qualifiers: Acute renal failure type: (2) Hypertension Qualifiers: Hypertension type: (3) Hyperlipidemia Qualifiers: Hyperlipidemia type: (4) CAD (coronary artery disease) Qualifiers: Coronary Disease-Associated Artery/Lesion type: [place] vs. transplanted heart: Associated angina: (5) Diabetes type 2, controlled Qualifiers: Diabetes mellitus chcf insulin use: Diabetes mellitus complication status: Diabetes mellitus complication detail: Diabetic retinopathy severity : Proliferative retinopathy type: Diabetes mellitus macular edema: Laterality: Chronic kidney disease stage:
[2018-09-08] MEDS: Insulin Detemir Inj 1,000 UNIT/10 ML Vial SQ SCH (20:20)
[2018-09-08] MEDS: Heparin Drip 25,000 UNIT/250 ML BAG IV.CONT PRN (22:42)
[2018-09-09] MEDS: Insulin NovoLOG Aspart Correctional Sugar Inj SQ SCH ×4 (00:13→18:36)
[2018-09-09] MEDS: Isosorbide Mononitrate 60 MG ER 24HR Tablet (Imdur) PO SCH (06:04)
[2018-09-09 06:45] LABS: Baso # (Auto) 0.1 th/mm3 (0.0-0.2); Baso % (Auto) 0.8 % (0.0-2.0); Eos # (Auto) 0.5 th/mm3 (0.0-0.4); Eos % (Auto) 7.2 % (0.0-4.0); Hematocrit 35.2 % (39.0-51.0); Hemoglobin 11.8 gm/dL (13.0-17.0); Lymph # (Auto) 2.1 th/mm3 (1.0-4.8); Lymph % (Auto) 30.7 % (9.0-44.0); Mean Corpuscular HGB Conc 33.7 % (32.0-36.0); Mean Corpuscular Hemoglobin 30.9 pg (27.0-34.0); Mean Corpuscular Volume 91.8 fL (80.0-100.0); Mean Platelet Volume 8.3 fL (7.0-11.0); Mono # (Auto) 0.4 th/mm3 (0.0-0.9); Neut # (Auto) 3.8 th/mm3 (1.8-7.7); Neut % (Auto) 55.3 % (16.0-70.0); Platelet Count 187 th/mm3 (150-450); Red Blood Count 3.83 mil/mm3 (4.50-5.90); White Blood Count 6.8 th/mm3 (4.0-11.0)
[2018-09-09 07:05] LABS: Albumin 3.8 g/dL (3.4-5.0); Anion Gap 5 meq/L (5-15); Aspartate Aminotransferase 12 U/L (15-37); Blood Urea Nitrogen 24 mg/dL (7-18); Calcium 9.4 mg/dL (8.5-10.1); Carbon Dioxide 28.1 meq/L (21.0-32.0); Chloride 103 meq/L (98-107); Glomerular Filtration Rate 40 mL/min (>89); Glucose,Random 161 mg/dL (74-106); Potassium 4.1 meq/L (3.5-5.1); Sodium 136 meq/L (136-145)
[2018-09-09 07:07] LABS: Alanine Aminotransferase 22 U/L (12-78)
[2018-09-09 07:10] LABS: Alkaline Phosphatase 82 U/L (45-117); Total Protein 7.4 g/dL (6.4-8.2)
--- NOTE | 2018-09-09 09:35 | P.PNCV ---
- Note Subjective/Hospital Course: A 63-year-old male transferred from [facility]. Apparently was admitted there with chest pain on 08/30/2018. Chest pain located on the left side of his chest, 07/10. Said he had a recent treadmill stress test a month ago, but was unable to complete the test. Apparently, per the patient, it was negative. The patient also had elevated creatinine at 2.02. He was transferred to our facility. He underwent cardiac catheterization by Dr. Mann which showed a left main disease of 60%, mid distal LAD 75%, the circ was 90%, the OM 90%, EF of 65%. We were consulted to evaluate for coronary artery bypass grafting. The patient has also had some dentalextraction and has sutures in place. He had a new bottom denture plate placed. We did, however, get in touch with the [facility] Dental physician, Dr. Pacheco, who stated to leave the sutures in place and we were okay to remove the bottom denture plate prior to any surgery and that he would follow up with the patient after he was released from the hospital for suture removal. PAST MEDICAL HISTORY: Includes coronary artery disease, diabetes mellitus, hyperlipidemia, hypertension, chronic prostatitis. 09/04 PRU 92 discussed with pt , will more than likely eval for surgery on sunday recheck PRU on 09/05 tentatively scheduled for surgery on sunday repeat PRU in am 09/06 pru 148/ repeat on Sunday no chest pain creatinine continues to climb which is a concern 09/09 PRU 183 need to be > 200 prefer 250 recheck in am will need to reschedule this week Objective: Vital Signs - 24 hr 09/08/18 10:00 09/08/18 11:00 09/08/18 12:00 Temperature Pulse Rate 70 68 62 Respiratory Rate Blood Pressure Pulse Oximetry 09/08/18 12:14 09/08/18 13:00 09/08/18 14:00 Temperature 97.7 F Pulse Rate 58 L 68 66 Respiratory Rate 16 Blood Pressure 145/81 H Pulse Oximetry 100 09/08/18 15:00 09/08/18 16:00 09/08/18 16:10 Temperature 97.8 F Pulse Rate 64 62 59 L Respiratory Rate 16 Blood Pressure 141/87 H Pulse Oximetry 100 09/08/18 17:00 09/08/18 18:00 09/08/18 19:00 Temperature Pulse Rate 72 68 72 Respiratory Rate Blood Pressure Pulse Oximetry 09/08/18 20:00 09/08/18 21:00 09/08/18 22:00 Temperature 97.8 F Pulse Rate 76 74 70 Respiratory Rate 20 Blood Pressure 153/82 H Pulse Oximetry 100 09/08/18 23:00 09/08/18 23:51 09/08/18 23:53 Temperature 98.2 F Pulse Rate 73 70 70 Respiratory Rate 18 Blood Pressure 144/81 H Pulse Oximetry 97 09/09/18 01:00 09/09/18 02:00 09/09/18 03:00 Temperature Pulse Rate 61 62 65 Respiratory Rate Blood Pressure Pulse Oximetry 09/09/18 04:00 09/09/18 05:00 09/09/18 05:51 Temperature 98 F Pulse Rate 67 71 70 Respiratory Rate 18 Blood Pressure 127/69 Pulse Oximetry 98 09/09/18 07:00 Temperature Pulse Rate 57 L Respiratory Rate Blood Pressure Pulse Oximetry GENERAL: SKIN: Warm and dry. HEAD: Normocephalic. EYES: No scleral icterus. No injection or drainage. NECK: Supple, trachea midline. No JVD or lymphadenopathy. CARDIOVASCULAR: Regular rate and rhythm without murmurs, gallops, or rubs. RESPIRATORY: Breath sounds equal bilaterally. No accessory muscle use. GASTROINTESTINAL: Abdomen soft, non-tender, nondistended. MUSCULOSKELETAL: No cyanosis, or edema. BACK: Nontender without obvious deformity. No CVA tenderness. Labs: Laboratory Results - last 12 hr 09/09/18 09/09/18 09/09/18 05:19 05:33 05:33 WBC 6.8 RBC 3.83 L Hgb 11.8 L Hct 35.2 L MCV 91.8 D MCH 30.9 MCHC 33.7 RDW 14.0 Plt Count 187 MPV 8.3 Neut % (Auto) 55.3 Lymph % (Auto) 30.7 Clinch % (Auto) 6.0 Eos % (Auto) 7.2 H Baso % (Auto) 0.8 Neut # (Auto) 3.8 Lymph # (Auto) 2.1 Clinch # (Auto) 0.4 Eos # (Auto) 0.5 H Baso # (Auto) 0.1 WBC Differential . Differential Comment Auto diff final APTT 45.1 H Sodium Potassium Chloride Carbon Dioxide Anion Gap BUN Creatinine Estimated GFR POC Glucose 163 H Random Glucose Calcium Total Bilirubin AST ALT Alkaline Phosphatase Total Protein Albumin 09/09/18 05:33 WBC RBC Hgb Hct MCV MCH MCHC RDW Plt Count MPV Neut % (Auto) Lymph % (Auto) Clinch % (Auto) Eos % (Auto) Baso % (Auto) Neut # (Auto) Lymph # (Auto) Clinch # (Auto) Eos # (Auto) Baso # (Auto) WBC Differential Differential Comment APTT Sodium 136 Potassium 4.1 Chloride 103 Carbon Dioxide 28.1 Anion Gap 5 BUN 24 H Creatinine 2.04 H Estimated GFR 40 L POC Glucose Random Glucose 161 H Calcium 9.4 Total Bilirubin 0.3 AST 12 L ALT 22 Alkaline Phosphatase 82 Total Protein 7.4 Albumin 3.8 Result Diagrams: 09/09/18 05:33 09/09/18 05:33 - Plan (1) ARF (acute renal failure) Plan: creatinine 1.66> 2.0> 2.04 worsening indices Nephro following (4) CAD (coronary artery disease) Plan: f/u PRU in am reschedule this week, await PRU in am (6) NSTEMI (non-ST elevated myocardial infarction) Plan: ASA, BB statin eval for surgery on Sunday recheck labs on sunday
[2018-09-09] MEDS: Senna/Docusate Sodium 8.6/50 MG Tablet PO SCH ×2 (09:42→20:47)
--- NOTE | 2018-09-09 10:05 | P.PNNP ---
Subjective Interval history: patient is awaiting surgery. He continues to have effect of Effient, so surgery was postponed. Physical Exam Vital signs: Vital Signs 09/08/18 11:00 09/08/18 12:00 09/08/18 12:14 Temperature 97.7 F Pulse Rate 68 62 58 L Respiratory Rate 16 Blood Pressure 145/81 H Pulse Oximetry 100 09/08/18 13:00 09/08/18 14:00 09/08/18 15:00 Temperature Pulse Rate 68 66 64 Respiratory Rate Blood Pressure Pulse Oximetry 09/08/18 16:00 09/08/18 16:10 09/08/18 17:00 Temperature 97.8 F Pulse Rate 62 59 L 72 Respiratory Rate 16 Blood Pressure 141/87 H Pulse Oximetry 100 09/08/18 18:00 09/08/18 19:00 09/08/18 20:00 Temperature 97.8 F Pulse Rate 68 72 76 Respiratory Rate 20 Blood Pressure 153/82 H Pulse Oximetry 100 09/08/18 21:00 09/08/18 22:00 09/08/18 23:00 Temperature Pulse Rate 74 70 73 Respiratory Rate Blood Pressure Pulse Oximetry 09/08/18 23:51 09/08/18 23:53 09/09/18 01:00 Temperature 98.2 F Pulse Rate 70 70 61 Respiratory Rate 18 Blood Pressure 144/81 H Pulse Oximetry 97 09/09/18 02:00 09/09/18 03:00 09/09/18 04:00 Temperature 98 F Pulse Rate 62 65 67 Respiratory Rate 18 Blood Pressure 127/69 Pulse Oximetry 98 09/09/18 05:00 09/09/18 05:51 09/09/18 07:00 Temperature Pulse Rate 71 70 57 L Respiratory Rate Blood Pressure Pulse Oximetry Intake & Output 09/08/18 09/09/18 09/09/18 18:59 06:59 18:59 Intake Total 980 / 980 730 / 730 Output Total 850 / 850 1200 / 1200 Balance 130 / 130 -470 / -470 Weight 75.8 kg Intake: IV 250 / 250 Heparin/D5W 25,000 U/250 mL 25, 250 / 250 000 unit In 250 ml @ 1,000 UNITS/HR 10 mls/hr IV.CONT TITRATE PRN Rx#:[id number] Oral 980 / 980 480 / 480 Output: Urine 850 / 850 1200 / 1200 Other: Date of Last Bowel Movement 09/07/18 # Bowel Movements 0 Narrative: GENERAL: NAD, A&Ox3 HEAD: Normocephalic. NECK: Supple, trachea midline. No lymphadenopathy. EYES: No scleral icterus. No injection or drainage. CARDIOVASCULAR: Regular rate and rhythm without murmurs, gallops, or rubs. RESPIRATORY: Breath sounds equal bilaterally. No accessory muscle use. GASTROINTESTINAL: Abdomen soft, non-tender, nondistended. MUSCULOSKELETAL: No cyanosis, or edema. SKIN: Warm and dry. NEURO: No focal neurological deficits. Assessment and Plan - Assessment (1) Chronic kidney disease, stage 3 (moderate) Code(s): N18.3 - Chronic kidney disease, stage 3 (moderate) Status: Acute Plan: Patient may have hypertensive nephrosclerosis, appears to have stable stage III CKD. GFR is at baseline. Cleared for surgery from renal standpoint. (2) Hypertension Code(s): I10 - Essential (primary) hypertension Status: Acute Plan: Monitor BP. Patient has been hypertensive, Clonidine PRN was added to medication regime. (3) Hyperlipidemia Code(s): E78.5 - Hyperlipidemia, unspecified Status: Acute Plan: Patient on pravastatin. should be on high intensity statin. (4) CAD (coronary artery disease) Code(s): I25.10 - Atherosclerotic heart disease of [place] coronary artery without angina pectoris Status: Acute Plan: CABG is planned. (5) Diabetes type 2, controlled Code(s): E11.9 - Type 2 diabetes mellitus without complications Status: Acute Plan: Insulin coverage to maintain blood glucose levels between 140 and 180.
--- NOTE | 2018-09-09 10:59 | P.PNIM ---
Subjective Interval history: Not yet ready for surgery based on most recent clotting studies. Surgery has been deferred. Patient has no complaints today. Physical Exam Vital signs: Last Vital Signs Temp 98 F 09/09/18 04:00 Pulse 57 L 09/09/18 07:00 Resp 18 09/09/18 04:00 BP 127/69 09/09/18 04:00 Pulse Ox 98 09/09/18 04:00 Intake & Output 09/07/18 09/08/18 09/09/18 09/10/18 06:59 06:59 06:59 06:59 Intake Total 1930 / 1930 1920 / 1920 1710 / 1710 Output Total 2150 / 2150 2700 / 2700 2049 / 2049 Balance -220 / -220 -780 / -780 -340 / -340 Weight 76.6 kg 76.1 kg 75.8 kg Narrative: GENERAL: NAD, A&Ox3 HEAD: Normocephalic. NECK: Supple, trachea midline. No lymphadenopathy. EYES: No scleral icterus. No injection or drainage. CARDIOVASCULAR: Regular rate and rhythm without murmurs, gallops, or rubs. RESPIRATORY: Breath sounds equal bilaterally. No accessory muscle use. GASTROINTESTINAL: Abdomen soft, non-tender, nondistended. MUSCULOSKELETAL: No cyanosis, or edema. SKIN: Warm and dry. NEURO: No focal neurological deficits. Results Labs CBC & Chem 7: 09/09/18 05:33 09/09/18 05:33 Procedures Procedures: Echocardiogram 08/31/2018 The left ventricular systolic function is normal with an estimated ejection fraction in the range of 60-65%. There is trace tricuspid valve regurgitation. Assessment and Plan (1) ARF (acute renal failure): Code(s): N17.9 - Acute kidney failure, unspecified Status: Acute (2) Hypertension: Code(s): I10 - Essential (primary) hypertension Status: Acute (3) Hyperlipidemia: Code(s): E78.5 - Hyperlipidemia, unspecified Status: Acute (4) CAD (coronary artery disease): Code(s): I25.10 - Atherosclerotic heart disease of [place] coronary artery without angina pectoris Status: Acute (5) Diabetes type 2, controlled: Code(s): E11.9 - Type 2 diabetes mellitus without complications Status: Acute (6) NSTEMI (non-ST elevated myocardial infarction): Code(s): I21.4 - Non-ST elevation (NSTEMI) myocardial infarction Status: Acute (7) Chronic kidney disease, stage 3 (moderate): Code(s): N18.3 - Chronic kidney disease, stage 3 (moderate) Status: Acute Plan 63-year-old -[place] male with past medical history of CAD status post 3 stents who is presenting to the hospital with left-sided chest pain. He said he has always had chest pain ever since his second heart catheterization Awaiting improvement in patient's platelet/clotting studies. CABG planned. All blood thinners are on hold except for heparin. Labs in AM. Continue to monitor renal function post op. NSTEMI CAD previous stents placed. Heart catheterization plan Blood thinners on hold CABG planned Cardiology following Continue heparin drip Acute kidney injury Avoid nephrotoxins Follow renal function Hypertension Continue baseline treatment Follow blood pressures Adjust treatments as needed Continue Coreg Continue M Shanell Diabetes mellitus type 2 Follow blood sugars Insulin sliding scale Diabetic diet Status post dental extraction Continue amoxicillin Follow with dentist as an outpatient DVT prophylaxis Heparin Progress Note: Quality VTE Deep Vein Thrombosis/Pulmonary Embolism Present on Admission: No _ (1) ARF (acute renal failure) Qualifiers: Acute renal failure type: (2) Hypertension Qualifiers: Hypertension type: (3) Hyperlipidemia Qualifiers: Hyperlipidemia type: (4) CAD (coronary artery disease) Qualifiers: Coronary Disease-Associated Artery/Lesion type: [place] vs. transplanted heart: Associated angina: (5) Diabetes type 2, controlled Qualifiers: Diabetes mellitus manager long term care insulin use: Diabetes mellitus complication status: Diabetes mellitus complication detail: Diabetic retinopathy severity : Proliferative retinopathy type: Diabetes mellitus macular edema: Laterality: Chronic kidney disease stage:
--- NOTE | 2018-09-09 16:45 | P.PNCA ---
Subjective Interval history: assymptomatic in nad Medications and Allergies Active Medications: Active Medications Acetaminophen (Tylenol) 650 mg PO Q4H PRN PRN Reason: Temp > 100.4 Amoxicillin (Amoxil) 500 mg PO TID [facility] Last Admin: 09/09/18 13:43 Dose: 500 mg Aspirin (Ecotrin) 162 mg PO DAILY [facility] Last Admin: 09/05/18 08:59 Dose: 162 mg Carvedilol (Coreg) 3.125 mg PO BID [facility] Last Admin: 09/09/18 09:42 Dose: 3.125 mg Chlorhexidine Gluconate (Hibiclens 4% Topical) 1 applicatio TOPICAL [employer] [facility] Stop: 09/10/18 11:10 Clonidine HCl (Catapres) 0.1 mg PO Q6H PRN PRN Reason: SYS BP GREATER THAN 160 MMHG Sodium Chloride 77.5 ml/Papaverine HCl 60 mg/Nitroglycerin 100 mcg/Diltiazem HCl 100 mg 0 ml IRRIGATION [employer] [facility] Stop: 09/10/18 11:10 Sodium Chloride 500 ml/ (Cefazolin Sodium 500 mg) 0 ml [employer]ATION [employer] [facility] Stop: 09/10/18 11:11 Dextrose (D50w Vial) 50 ml IV.PUSH UNSCH PRN PRN Reason: PER HYPOGLYCEMIA PROTOCOL Dextrose (D50w Vial) 50 ml IV.PUSH UNSCH PRN PRN Reason: PER HYPOGLYCEMIA PROTOCOL Glucagon (Glucagon Inj) 1 mg OTHER PRN PRN PRN Reason: for Hypoglycemia Protocol Heparin Sodium/Dextrose (Heparin/D5w 25,000 U/250 Ml) 25,000 unit in 250 mls @ 10 mls/hr IV.CONT TITRATE PRN; Protocol PRN Reason: Per Protocol Last Admin: 09/08/18 22:42 Dose: 1,000 units/hr, 10 mls/hr Cefazolin Sodium 2,000 mg/ (Sodium Chloride) 100 mls @ 200 mls/hr IV.SIG [employer] [facility] Stop: 09/10/18 11:11 Insulin Human Regular 100 unit (/ Sodium Chloride) 100 mls @ 3 mls/hr IV.CONT TITRATE PRN; Protocol PRN Reason: See Protocol Insulin Aspart (Novolog Insulin Correctional Sugar Inj) 0 unit SQ Q6HR [facility]; Protocol Last Admin: 09/09/18 13:42 Dose: 4 unit Insulin Detemir (Levemir Inj) 7 unit SQ HS [facility] Last Admin: 09/08/18 20:20 Dose: 7 unit Isosorbide Mononitrate (Imdur) 60 mg PO DAILY@0700 [facility] Last Admin: 09/09/18 06:04 Dose: 60 mg Metoprolol Tartrate (Lopressor) 12.5 mg PO [employer] [facility] Stop: 09/10/18 11:11 Morphine Sulfate (Morphine Inj) 4 mg IV.PUSH Q4H PRN PRN Reason: BREAKTHROUGH PAIN Last Admin: 08/30/18 19:19 Dose: 4 mg Nitroglycerin (Nitrostat Sl) 0.4 mg SL Q5M PRN PRN Reason: CHEST PAIN Last Admin: 09/04/18 05:20 Dose: 0.4 mg Ondansetron HCl (Zofran Inj) 4 mg IV.PUSH Q6H PRN PRN Reason: NAUSEA OR VOMITING Oxycodone HCl (Roxicodone) 5 mg PO Q4H PRN PRN Reason: pain 3-10 Pravastatin Sodium (Pravachol) 20 mg PO DAILY [facility] Last Admin: 09/09/18 09:42 Dose: 20 mg Senna/Docusate Sodium (Letty-Colace) 1 tab PO BID [facility] Last Admin: 09/09/18 09:42 Dose: 1 tab Sodium Chloride (Ns Flush) 2 ml IV.FLUSH BID [facility] Last Admin: 09/09/18 09:43 Dose: Not Given Sodium Chloride (Ns Flush) 2 ml IV.FLUSH PRN PRN PRN Reason: FLUSH AFTER USING IV ACCESS Sodium Chloride (Ns Flush) 2 ml IV.FLUSH BID [facility] Last Admin: 09/09/18 09:42 Dose: Not Given Sodium Chloride (Ns Flush) 2 ml IV.FLUSH PRN PRN PRN Reason: FLUSH AFTER USING IV ACCESS Allergies Allergy/AdvReac Type Severity Reaction Status Date / Time No Allergy Information Allergy Verified 08/30/18 11:50 Available Home Medications Medication Instructions Recorded Confirmed Type amoxicillin 500 mg PO TID 08/30/18 08/30/18 History aspirin 325 mg PO DAILY 08/30/18 08/30/18 History carvedilol 3.125 mg PO BID 08/30/18 08/30/18 History glipizide 10 mg PO DAILY 08/30/18 08/30/18 History ibuprofen 800 mg PO TID PRN 08/30/18 08/30/18 History isosorbide mononitrate 60 mg PO QAM 08/30/18 08/30/18 History olmesartan 20 mg PO DAILY 08/30/18 08/30/18 History prasugrel 10 mg PO DAILY 08/30/18 08/30/18 History pravastatin 20 mg PO DAILY 08/30/18 08/30/18 History sitagliptin-metformin [Janumet XR] 1 tab PO QPM 08/30/18 08/30/18 History Physical Exam Vital signs: Vital Signs 09/08/18 17:00 09/08/18 18:00 09/08/18 19:00 Temperature Pulse Rate 72 68 72 Respiratory Rate Blood Pressure Pulse Oximetry 09/08/18 20:00 09/08/18 21:00 09/08/18 22:00 Temperature 97.8 F Pulse Rate 76 74 70 Respiratory Rate 20 Blood Pressure 153/82 H Pulse Oximetry 100 09/08/18 23:00 09/08/18 23:51 09/08/18 23:53 Temperature 98.2 F Pulse Rate 73 70 70 Respiratory Rate 18 Blood Pressure 144/81 H Pulse Oximetry 97 09/09/18 01:00 09/09/18 02:00 09/09/18 03:00 Temperature Pulse Rate 61 62 65 Respiratory Rate Blood Pressure Pulse Oximetry 09/09/18 04:00 09/09/18 05:00 09/09/18 05:51 Temperature 98 F Pulse Rate 67 71 70 Respiratory Rate 18 Blood Pressure 127/69 Pulse Oximetry 98 09/09/18 07:00 09/09/18 08:00 09/09/18 09:00 Temperature 98.2 F Pulse Rate 57 L 54 L 66 Respiratory Rate 18 Blood Pressure 128/65 Pulse Oximetry 100 09/09/18 10:00 09/09/18 11:00 09/09/18 12:00 Temperature 98.2 F Pulse Rate 58 L 59 L 54 L Respiratory Rate 18 18 Blood Pressure 144/81 H Pulse Oximetry 100 09/09/18 13:00 09/09/18 14:00 Temperature Pulse Rate 56 L 62 Respiratory Rate Blood Pressure Pulse Oximetry Intake & Output 09/08/18 09/09/18 09/09/18 18:59 06:59 18:59 Intake Total 980 / 980 730 / 730 Output Total 850 / 850 1200 / 1200 Balance 130 / 130 -470 / -470 Weight 75.8 kg Intake: IV 250 / 250 Heparin/D5W 25,000 U/250 mL 25, 250 / 250 000 unit In 250 ml @ 1,000 UNITS/HR 10 mls/hr IV.CONT TITRATE PRN Rx#:[id number] Oral 980 / 980 480 / 480 Output: Urine 850 / 850 1200 / 1200 Other: Date of Last Bowel Movement 09/07/18 09/07/18 # Bowel Movements 0 - Constitutional no acute distress - Routine HEENT Exam Head: Present: normocephalic - Routine Neck Exam Present: supple - Routine Respiratory Exam Present: CTA bilaterally - Routine Cardiovascular Exam Present: S1, S2 - Routine Abdominal Exam Present: soft - Routine Extremities Exam Comments: no rito Results 09/09/18 05:33 09/09/18 05:33 Cardiac Enzymes 09/08/18 09/09/18 Range/Units 04:40 05:33 AST 17 12 L (15-37) U/L Coagulation 09/08/18 09/09/18 Range/Units 04:40 05:33 APTT 44.5 H 45.1 H (23.4-31.7) sec CBC 09/08/18 09/09/18 Range/Units 04:40 05:33 WBC 7.6 6.8 (4.0-11.0) th/mm3 RBC 3.99 L 3.83 L (4.50-5.90) mil/mm3 Hgb 12.4 L 11.8 L (13.0-17.0) gm/dL Hct 35.1 L 35.2 L (39.0-51.0) % Plt Count 194 187 (150-450) th/mm3 Neut # (Auto) 4.1 3.8 (1.8-7.7) th/mm3 Lymph # (Auto) 2.5 2.1 (1.0-4.8) th/mm3 [place] # (Auto) 0.4 0.4 (0.0-0.9) th/mm3 Eos # (Auto) 0.5 H 0.5 H (0.0-0.4) th/mm3 Baso # (Auto) 0.0 0.1 (0.0-0.2) th/mm3 Comprehensive Metabolic Panel 09/08/18 09/09/18 Range/Units 04:40 05:33 Sodium 137 136 (136-145) meq/L Potassium 4.1 4.1 (3.5-5.1) meq/L Chloride 104 103 (98-107) meq/L Carbon Dioxide 24.6 28.1 (21.0-32.0) meq/L BUN 24 H 24 H (7-18) mg/dL Creatinine 1.82 H 2.04 H (0.60-1.30) mg/dL Calcium 9.1 9.4 (8.5-10.1) mg/dL AST 17 12 L (15-37) U/L ALT 21 22 (12-78) U/L Alkaline Phosphatase 86 82 (45-117) U/L Total Protein 7.6 7.4 (6.4-8.2) g/dL Albumin 3.7 3.8 (3.4-5.0) g/dL Intake and Output 09/09/18 09/09/18 09/09/18 06:59 14:59 22:59 Intake Total 480 / 480 Output Total 1200 / 1200 Balance -720 / -720 Intake: Oral 480 / 480 Output: Urine 1200 / 1200 Other: Date of Last Bowel Movement 09/07/18 09/07/18 # Bowel Movements 0 Weight 75.8 kg Assessment and Plan - Assessment (1) NSTEMI (non-ST elevated myocardial infarction) Code(s): I21.4 - Non-ST elevation (NSTEMI) myocardial infarction Status: Acute (2) ARF (acute renal failure) Code(s): N17.9 - Acute kidney failure, unspecified Status: Acute (3) Hypertension Code(s): I10 - Essential (primary) hypertension Status: Acute (4) Hyperlipidemia Code(s): E78.5 - Hyperlipidemia, unspecified Status: Acute (5) CAD (coronary artery disease) Code(s): I25.10 - Atherosclerotic heart disease of [place] coronary artery without angina pectoris Status: Acute (6) Diabetes type 2, controlled Code(s): E11.9 - Type 2 diabetes mellitus without complications Status: Acute - Plan 1.) CAD - nstemi, severe dom lcx and mid lad disease, continue aspirin, coreg, imdur, iv heparin, elmer held due to arf, cabg per Dr Sprague
[2018-09-09] MEDS: Insulin Detemir Inj 1,000 UNIT/10 ML Vial SQ SCH (20:47)
[2018-09-10] MEDS: Insulin NovoLOG Aspart Correctional Sugar Inj SQ SCH ×5 (00:17→23:42)
[2018-09-10] MEDS: Heparin Drip 25,000 UNIT/250 ML BAG IV.CONT PRN ×2 (00:17→23:43)
[2018-09-10] MEDS: Isosorbide Mononitrate 60 MG ER 24HR Tablet (Imdur) PO SCH (06:00)
[2018-09-10 06:39] LABS: Baso # (Auto) 0.1 th/mm3 (0.0-0.2); Baso % (Auto) 0.8 % (0.0-2.0); Eos # (Auto) 0.6 th/mm3 (0.0-0.4); Eos % (Auto) 7.5 % (0.0-4.0); Hematocrit 33.8 % (39.0-51.0); Hemoglobin 11.8 gm/dL (13.0-17.0); Lymph # (Auto) 2.6 th/mm3 (1.0-4.8); Lymph % (Auto) 32.7 % (9.0-44.0); Mean Corpuscular HGB Conc 34.8 % (32.0-36.0); Mean Platelet Volume 8.3 fL (7.0-11.0); Mono # (Auto) 0.5 th/mm3 (0.0-0.9); Mono % (Auto) 5.9 % (0.0-8.0); Neut # (Auto) 4.2 th/mm3 (1.8-7.7); Neut % (Auto) 53.1 % (16.0-70.0); Platelet Count 215 th/mm3 (150-450); Red Cell Distribution Width 13.9 % (11.6-17.2)
[2018-09-10 06:51] LABS: Alanine Aminotransferase 19 U/L (12-78); Albumin 3.6 g/dL (3.4-5.0); Anion Gap 10 meq/L (5-15); Aspartate Aminotransferase 10 U/L (15-37); Blood Urea Nitrogen 25 mg/dL (7-18); Calcium 9.2 mg/dL (8.5-10.1); Carbon Dioxide 24.1 meq/L (21.0-32.0); Chloride 103 meq/L (98-107); Glomerular Filtration Rate 43 mL/min (>89); Glucose,Random 153 mg/dL (74-106); Potassium 4.1 meq/L (3.5-5.1); Sodium 137 meq/L (136-145)
[2018-09-10 06:53] LABS: Alkaline Phosphatase 82 U/L (45-117); Total Protein 7.2 g/dL (6.4-8.2)
[2018-09-10] MEDS: Senna/Docusate Sodium 8.6/50 MG Tablet PO SCH ×2 (09:41→20:21)
--- NOTE | 2018-09-10 09:44 | P.PN ---
Subjective Interval history: telemetry- in SR up and ambulating no complains of chest discomfort or shortnesss of breath voiding well Physical Exam Vital signs: Vital Signs 09/09/18 10:00 09/09/18 11:00 09/09/18 12:00 Temperature 98.2 F Pulse Rate 58 L 59 L 54 L Respiratory Rate 18 18 Blood Pressure 144/81 H Pulse Oximetry 100 09/09/18 13:00 09/09/18 14:00 09/09/18 15:00 Temperature Pulse Rate 56 L 62 70 Respiratory Rate Blood Pressure Pulse Oximetry 09/09/18 16:00 09/09/18 17:00 09/09/18 18:00 Temperature 98.0 F Pulse Rate 58 L 64 80 Respiratory Rate 18 Blood Pressure 140/76 Pulse Oximetry 100 09/09/18 19:00 09/09/18 20:00 09/09/18 21:00 Temperature 98.1 F Pulse Rate 67 66 68 Respiratory Rate 18 Blood Pressure 145/94 H Pulse Oximetry 100 09/09/18 22:00 09/09/18 23:00 09/10/18 00:00 Temperature 98.0 F Pulse Rate 66 70 63 Respiratory Rate 16 Blood Pressure 140/86 Pulse Oximetry 98 09/10/18 01:00 09/10/18 02:00 09/10/18 03:00 Temperature 98.0 F Pulse Rate 67 70 63 Respiratory Rate 18 Blood Pressure 157/82 H Pulse Oximetry 100 09/10/18 04:00 09/10/18 05:00 09/10/18 06:00 Temperature Pulse Rate 64 65 74 Respiratory Rate Blood Pressure Pulse Oximetry Intake & Output 09/09/18 09/10/18 09/10/18 18:59 06:59 18:59 Intake Total 940 / 940 470 / 470 Output Total 1050 / 1050 1400 / 1400 Balance -110 / -110 -930 / -930 Weight 75.9 kg Intake: IV 230 / 230 Heparin/D5W 25,000 U/250 mL 25, 230 / 230 000 unit In 250 ml @ 1,000 UNITS/HR 10 mls/hr IV.CONT TITRATE PRN Rx#:[id number] Oral 940 / 940 240 / 240 Output: Urine 1050 / 1050 1400 / 1400 Other: Date of Last Bowel Movement 09/07/18 Narrative: GENERAL: NAD, A&Ox3 HEAD: Normocephalic. NECK: Supple, trachea midline. No lymphadenopathy. EYES: No scleral icterus. No injection or drainage. CARDIOVASCULAR: Regular rate and rhythm RESPIRATORY: Breath sounds equal bilaterally. No accessory muscle use. GASTROINTESTINAL: Abdomen soft, non-tender, nondistended. MUSCULOSKELETAL: No cyanosis, or edema. right gron- no hematoma SKIN: Warm and dry. NEURO: No focal neurological deficits. Results - Labs CBC & Chem 7: 09/10/18 05:09 09/10/18 05:09 Laboratory Results - last 24 hr 09/09/18 09/09/18 09/09/18 13:01 18:03 23:14 WBC RBC Hgb Hct MCV MCH MCHC RDW Plt Count MPV Neut % (Auto) Lymph % (Auto) [place] % (Auto) Eos % (Auto) Baso % (Auto) Neut # (Auto) Lymph # (Auto) [place] # (Auto) Eos # (Auto) Baso # (Auto) WBC Differential Differential Comment APTT Plt Funct P2Y12 Units Sodium Potassium Chloride Carbon Dioxide Anion Gap BUN Creatinine Estimated GFR POC Glucose 227 H 123 H 157 H Random Glucose Calcium Total Bilirubin AST ALT Alkaline Phosphatase Total Protein Albumin 09/10/18 09/10/18 09/10/18 05:09 05:09 05:09 WBC 8.0 RBC 3.80 L Hgb 11.8 L Hct 33.8 L MCV 89.0 MCH 31.0 MCHC 34.8 RDW 13.9 Plt Count 215 MPV 8.3 Neut % (Auto) 53.1 Lymph % (Auto) 32.7 [place] % (Auto) 5.9 Eos % (Auto) 7.5 H Baso % (Auto) 0.8 Neut # (Auto) 4.2 Lymph # (Auto) 2.6 [place] # (Auto) 0.5 Eos # (Auto) 0.6 H Baso # (Auto) 0.1 WBC Differential . Differential Comment Auto diff final APTT Plt Funct P2Y12 Units 246 Sodium 137 Potassium 4.1 Chloride 103 Carbon Dioxide 24.1 Anion Gap 10 BUN 25 H Creatinine 1.90 H Estimated GFR 43 L POC Glucose Random Glucose 153 H Calcium 9.2 Total Bilirubin 0.2 AST 10 L ALT 19 Alkaline Phosphatase 82 Total Protein 7.2 Albumin 3.6 09/10/18 09/10/18 05:41 05:46 WBC RBC Hgb Hct MCV MCH MCHC RDW Plt Count MPV Neut % (Auto) Lymph % (Auto) [place] % (Auto) Eos % (Auto) Baso % (Auto) Neut # (Auto) Lymph # (Auto) [place] # (Auto) Eos # (Auto) Baso # (Auto) WBC Differential Differential Comment APTT 45.9 H Plt Funct P2Y12 Units Sodium Potassium Chloride Carbon Dioxide Anion Gap BUN Creatinine Estimated GFR POC Glucose 157 H Random Glucose Calcium Total Bilirubin AST ALT Alkaline Phosphatase Total Protein Albumin - Procedures Echocardiogram 08/31/2018 The left ventricular systolic function is normal with an estimated ejection fraction in the range of 60-65%. There is trace tricuspid valve regurgitation. Assessment and Plan - Assessment (1) ARF (acute renal failure) Code(s): N17.9 - Acute kidney failure, unspecified Status: Acute (2) Hypertension Code(s): I10 - Essential (primary) hypertension Status: Acute (3) Hyperlipidemia Code(s): E78.5 - Hyperlipidemia, unspecified Status: Acute (4) CAD (coronary artery disease) Code(s): I25.10 - Atherosclerotic heart disease of [place] coronary artery without angina pectoris Status: Acute (5) Diabetes type 2, controlled Code(s): E11.9 - Type 2 diabetes mellitus without complications Status: Acute (6) NSTEMI (non-ST elevated myocardial infarction) Code(s): I21.4 - Non-ST elevation (NSTEMI) myocardial infarction Status: Acute (7) Chronic kidney disease, stage 3 (moderate) Code(s): N18.3 - Chronic kidney disease, stage 3 (moderate) Status: Acute - Plan 63-year-old -[place] male with past medical history of CAD status post 3 stents who is presenting to the hospital with left-sided chest pain. He said he has always had chest pain ever since his second heart catheterization Awaiting improvement in patient's platelet/clotting studies. CABG planned. All blood thinners are on hold except for heparin. Labs in AM. Continue to monitor renal function post op. NSTEMI CAD S/P cath previous stents placed. Plavix on hold CABG planned- hopefully Cardiology following Continue heparin drip Acute kidney injury Avoid nephrotoxins Follow renal function- stabilizing- non oliguric Hypertension Continue baseline treatment Follow blood pressures Adjust treatments as needed Continue Coreg- increase to 6.25 mg bid Diabetes mellitus type 2 Follow blood sugars HS levemer Insulin sliding scale Diabetic diet Status post dental extraction Continue amoxicillin Follow with dentist as an outpatient DVT prophylaxis Heparin
--- NOTE | 2018-09-10 10:27 | P.PNCV ---
- Note Subjective/Hospital Course: A 63-year-old male transferred from [facility]. Apparently was admitted there with chest pain on 08/30/2018. Chest pain located on the left side of his chest, 07/10. Said he had a recent treadmill stress test a month ago, but was unable to complete the test. Apparently, per the patient, it was negative. The patient also had elevated creatinine at 2.02. He was transferred to our facility. He underwent cardiac catheterization by Dr. Mann which showed a left main disease of 60%, mid distal LAD 75%, the circ was 90%, the OM 90%, EF of 65%. We were consulted to evaluate for coronary artery bypass grafting. The patient has also had some dentalextraction and has sutures in place. He had a new bottom denture plate placed. We did, however, get in touch with the [facility] Dental physician, Dr. Pacheco, who stated to leave the sutures in place and we were okay to remove the bottom denture plate prior to any surgery and that he would follow up with the patient after he was released from the hospital for suture removal. PAST MEDICAL HISTORY: Includes coronary artery disease, diabetes mellitus, hyperlipidemia, hypertension, chronic prostatitis. 09/04 PRU 92 discussed with pt , will more than likely eval for surgery on sunday recheck PRU on 09/05 tentatively scheduled for surgery on sunday repeat PRU in am 09/06 pru 148/ repeat on Sunday no chest pain creatinine continues to climb which is a concern 09/09 PRU 183 need to be > 200 prefer 250 recheck in am will need to reschedule this week 09/10 pt stable no chest pain PRU 246 stable for surgery / rescheduled for Thur Objective: Vital Signs - 24 hr 09/09/18 11:00 09/09/18 12:00 09/09/18 13:00 Temperature 98.2 F Pulse Rate 59 L 54 L 56 L Respiratory Rate 18 18 Blood Pressure 144/81 H Pulse Oximetry 100 09/09/18 14:00 09/09/18 15:00 09/09/18 16:00 Temperature 98.0 F Pulse Rate 62 70 58 L Respiratory Rate 18 Blood Pressure 140/76 Pulse Oximetry 100 09/09/18 17:00 09/09/18 18:00 09/09/18 19:00 Temperature Pulse Rate 64 80 67 Respiratory Rate Blood Pressure Pulse Oximetry 09/09/18 20:00 09/09/18 21:00 09/09/18 22:00 Temperature 98.1 F Pulse Rate 66 68 66 Respiratory Rate 18 Blood Pressure 145/94 H Pulse Oximetry 100 09/09/18 23:00 09/10/18 00:00 09/10/18 01:00 Temperature 98.0 F Pulse Rate 70 63 67 Respiratory Rate 16 Blood Pressure 140/86 Pulse Oximetry 98 09/10/18 02:00 09/10/18 03:00 09/10/18 04:00 Temperature 98.0 F Pulse Rate 70 63 64 Respiratory Rate 18 Blood Pressure 157/82 H Pulse Oximetry 100 09/10/18 05:00 09/10/18 06:00 Temperature Pulse Rate 65 74 Respiratory Rate Blood Pressure Pulse Oximetry GENERAL: SKIN: Warm and dry. HEAD: Normocephalic. EYES: No scleral icterus. No injection or drainage. NECK: Supple, trachea midline. No JVD or lymphadenopathy. CARDIOVASCULAR: Regular rate and rhythm without murmurs, gallops, or rubs. RESPIRATORY: Breath sounds equal bilaterally. No accessory muscle use. GASTROINTESTINAL: Abdomen soft, non-tender, nondistended. MUSCULOSKELETAL: No cyanosis, or edema. BACK: Nontender without obvious deformity. No CVA tenderness. Labs: Laboratory Results - last 12 hr 09/09/18 09/10/18 09/10/18 23:14 05:09 05:09 WBC 8.0 RBC 3.80 L Hgb 11.8 L Hct 33.8 L MCV 89.0 MCH 31.0 MCHC 34.8 RDW 13.9 Plt Count 215 MPV 8.3 Neut % (Auto) 53.1 Lymph % (Auto) 32.7 [place] % (Auto) 5.9 Eos % (Auto) 7.5 H Baso % (Auto) 0.8 Neut # (Auto) 4.2 Lymph # (Auto) 2.6 [place] # (Auto) 0.5 Eos # (Auto) 0.6 H Baso # (Auto) 0.1 WBC Differential . Differential Comment Auto diff final APTT Plt Funct P2Y12 Units Sodium 137 Potassium 4.1 Chloride 103 Carbon Dioxide 24.1 Anion Gap 10 BUN 25 H Creatinine 1.90 H Estimated GFR 43 L POC Glucose 157 H Random Glucose 153 H Calcium 9.2 Total Bilirubin 0.2 AST 10 L ALT 19 Alkaline Phosphatase 82 Total Protein 7.2 Albumin 3.6 09/10/18 09/10/18 09/10/18 05:09 05:41 05:46 WBC RBC Hgb Hct MCV MCH MCHC RDW Plt Count MPV Neut % (Auto) Lymph % (Auto) [place] % (Auto) Eos % (Auto) Baso % (Auto) Neut # (Auto) Lymph # (Auto) [place] # (Auto) Eos # (Auto) Baso # (Auto) WBC Differential Differential Comment APTT 45.9 H Plt Funct P2Y12 Units 246 Sodium Potassium Chloride Carbon Dioxide Anion Gap BUN Creatinine Estimated GFR POC Glucose 157 H Random Glucose Calcium Total Bilirubin AST ALT Alkaline Phosphatase Total Protein Albumin Result Diagrams: 09/10/18 05:09 09/10/18 05:09 - Plan (1) ARF (acute renal failure) Plan: creatinine 1.66> 2.0> 2.04>1.90 worsening indices Nephro following (4) CAD (coronary artery disease) Plan: f/u PRU in am reschedule this for (6) NSTEMI (non-ST elevated myocardial infarction) Plan: ASA, BB statin eval for surgery on Sunday recheck labs on sunday
--- NOTE | 2018-09-10 11:59 | P.PNNP ---
Subjective Interval history: Renal function is stable. He is awaiting surgery. No complaints today. Physical Exam Vital signs: Vital Signs 09/09/18 12:00 09/09/18 13:00 09/09/18 14:00 Temperature 98.2 F Pulse Rate 54 L 56 L 62 Respiratory Rate 18 Blood Pressure 144/81 H Pulse Oximetry 100 09/09/18 15:00 09/09/18 16:00 09/09/18 17:00 Temperature 98.0 F Pulse Rate 70 58 L 64 Respiratory Rate 18 Blood Pressure 140/76 Pulse Oximetry 100 09/09/18 18:00 09/09/18 19:00 09/09/18 20:00 Temperature 98.1 F Pulse Rate 80 67 66 Respiratory Rate 18 Blood Pressure 145/94 H Pulse Oximetry 100 09/09/18 21:00 09/09/18 22:00 09/09/18 23:00 Temperature 98.0 F Pulse Rate 68 66 70 Respiratory Rate 16 Blood Pressure 140/86 Pulse Oximetry 98 09/10/18 00:00 09/10/18 01:00 09/10/18 02:00 Temperature Pulse Rate 63 67 70 Respiratory Rate Blood Pressure Pulse Oximetry 09/10/18 03:00 09/10/18 04:00 09/10/18 05:00 Temperature 98.0 F Pulse Rate 63 64 65 Respiratory Rate 18 Blood Pressure 157/82 H Pulse Oximetry 100 09/10/18 06:00 09/10/18 07:00 Temperature 97.1 F L Pulse Rate 74 67 Respiratory Rate 18 Blood Pressure 144/83 H Pulse Oximetry 100 Intake & Output 09/09/18 09/10/18 09/10/18 18:59 06:59 18:59 Intake Total 940 / 940 470 / 470 Output Total 1050 / 1050 1400 / 1400 Balance -110 / -110 -930 / -930 Weight 75.9 kg Intake: IV 230 / 230 Heparin/D5W 25,000 U/250 mL 25, 230 / 230 000 unit In 250 ml @ 1,000 UNITS/HR 10 mls/hr IV.CONT TITRATE PRN Rx#:[id number] Oral 940 / 940 240 / 240 Output: Urine 1050 / 1050 1400 / 1400 Other: Date of Last Bowel Movement 09/07/18 Narrative: GENERAL: NAD, A&Ox3 HEAD: Normocephalic. NECK: Supple, trachea midline. No lymphadenopathy. EYES: No scleral icterus. No injection or drainage. CARDIOVASCULAR: Regular rate and rhythm RESPIRATORY: Breath sounds equal bilaterally. No accessory muscle use. GASTROINTESTINAL: Abdomen soft, non-tender, nondistended. MUSCULOSKELETAL: No cyanosis, or edema. right gron- no hematoma SKIN: Warm and dry. NEURO: No focal neurological deficits. Assessment and Plan - Assessment (1) Chronic kidney disease, stage 3 (moderate) Code(s): N18.3 - Chronic kidney disease, stage 3 (moderate) Status: Acute Plan: Patient may have hypertensive nephrosclerosis, appears to have stable stage III CKD. GFR is at baseline. Cleared for surgery from renal standpoint. (2) Hypertension Code(s): I10 - Essential (primary) hypertension Status: Acute Plan: Monitor BP. Patient has been hypertensive, Clonidine PRN was added to medication regime. (3) Hyperlipidemia Code(s): E78.5 - Hyperlipidemia, unspecified Status: Acute Plan: Patient on pravastatin. should be on high intensity statin. (4) CAD (coronary artery disease) Code(s): I25.10 - Atherosclerotic heart disease of [place] coronary artery without angina pectoris Status: Acute Plan: CABG is planned. (5) Diabetes type 2, controlled Code(s): E11.9 - Type 2 diabetes mellitus without complications Status: Acute Plan: Insulin coverage to maintain blood glucose levels between 140 and 180.
--- NOTE | 2018-09-10 14:31 | P.PNCA ---
Subjective Interval history: assymptomatic in nad Medications and Allergies Active Medications: Active Medications Acetaminophen (Tylenol) 650 mg PO Q4H PRN PRN Reason: Temp > 100.4 Amoxicillin (Amoxil) 500 mg PO TID [facility] Last Admin: 09/10/18 12:17 Dose: 500 mg Aspirin (Ecotrin) 162 mg PO DAILY [facility] Last Admin: 09/05/18 08:59 Dose: 162 mg Carvedilol (Coreg) 6.25 mg PO BID [facility] Last Admin: 09/10/18 12:17 Dose: 6.25 mg Clonidine HCl (Catapres) 0.1 mg PO Q6H PRN PRN Reason: SYS BP GREATER THAN 160 MMHG Dextrose (D50w Vial) 50 ml IV.PUSH UNSCH PRN PRN Reason: PER HYPOGLYCEMIA PROTOCOL Dextrose (D50w Vial) 50 ml IV.PUSH UNSCH PRN PRN Reason: PER HYPOGLYCEMIA PROTOCOL Glucagon (Glucagon Inj) 1 mg OTHER PRN PRN PRN Reason: for Hypoglycemia Protocol Heparin Sodium/Dextrose (Heparin/D5w 25,000 U/250 Ml) 25,000 unit in 250 mls @ 10 mls/hr IV.CONT TITRATE PRN; Protocol PRN Reason: Per Protocol Last Admin: 09/10/18 00:17 Dose: 1,000 units/hr, 10 mls/hr Insulin Human Regular 100 unit (/ Sodium Chloride) 100 mls @ 3 mls/hr IV.CONT TITRATE PRN; Protocol PRN Reason: See Protocol Insulin Aspart (Novolog Insulin Correctional Sugar Inj) 0 unit SQ Q6HR [facility]; Protocol Last Admin: 09/10/18 12:17 Dose: Not Given Insulin Detemir (Levemir Inj) 7 unit SQ HS [facility] Last Admin: 09/09/18 20:47 Dose: 7 unit Isosorbide Mononitrate (Imdur) 60 mg PO DAILY@0700 [facility] Last Admin: 09/10/18 06:00 Dose: 60 mg Morphine Sulfate (Morphine Inj) 4 mg IV.PUSH Q4H PRN PRN Reason: BREAKTHROUGH PAIN Last Admin: 08/30/18 19:19 Dose: 4 mg Nitroglycerin (Nitrostat Sl) 0.4 mg SL Q5M PRN PRN Reason: CHEST PAIN Last Admin: 09/04/18 05:20 Dose: 0.4 mg Ondansetron HCl (Zofran Inj) 4 mg IV.PUSH Q6H PRN PRN Reason: NAUSEA OR VOMITING Oxycodone HCl (Roxicodone) 5 mg PO Q4H PRN PRN Reason: pain 3-10 Pravastatin Sodium (Pravachol) 20 mg PO DAILY [facility] Last Admin: 09/10/18 09:41 Dose: 20 mg Senna/Docusate Sodium (Letty-Colace) 1 tab PO BID [facility] Last Admin: 09/10/18 09:41 Dose: 1 tab Sodium Chloride (Ns Flush) 2 ml IV.FLUSH BID [facility] Last Admin: 09/10/18 09:41 Dose: 2 ml Sodium Chloride (Ns Flush) 2 ml IV.FLUSH PRN PRN PRN Reason: FLUSH AFTER USING IV ACCESS Sodium Chloride (Ns Flush) 2 ml IV.FLUSH BID [facility] Last Admin: 09/10/18 09:41 Dose: Not Given Sodium Chloride (Ns Flush) 2 ml IV.FLUSH PRN PRN PRN Reason: FLUSH AFTER USING IV ACCESS Allergies Allergy/AdvReac Type Severity Reaction Status Date / Time No Allergy Information Allergy Verified 08/30/18 11:50 Available Home Medications Medication Instructions Recorded Confirmed Type amoxicillin 500 mg PO TID 08/30/18 08/30/18 History aspirin 325 mg PO DAILY 08/30/18 08/30/18 History carvedilol 3.125 mg PO BID 08/30/18 08/30/18 History glipizide 10 mg PO DAILY 08/30/18 08/30/18 History ibuprofen 800 mg PO TID PRN 08/30/18 08/30/18 History isosorbide mononitrate 60 mg PO QAM 08/30/18 08/30/18 History olmesartan 20 mg PO DAILY 08/30/18 08/30/18 History prasugrel 10 mg PO DAILY 08/30/18 08/30/18 History pravastatin 20 mg PO DAILY 08/30/18 08/30/18 History sitagliptin-metformin [Janumet XR] 1 tab PO QPM 08/30/18 08/30/18 History Physical Exam Vital signs: Vital Signs 09/09/18 15:00 09/09/18 16:00 09/09/18 17:00 Temperature 98.0 F Pulse Rate 70 58 L 64 Respiratory Rate 18 Blood Pressure 140/76 Pulse Oximetry 100 09/09/18 18:00 09/09/18 19:00 09/09/18 20:00 Temperature 98.1 F Pulse Rate 80 67 66 Respiratory Rate 18 Blood Pressure 145/94 H Pulse Oximetry 100 09/09/18 21:00 09/09/18 22:00 09/09/18 23:00 Temperature 98.0 F Pulse Rate 68 66 70 Respiratory Rate 16 Blood Pressure 140/86 Pulse Oximetry 98 09/10/18 00:00 09/10/18 01:00 09/10/18 02:00 Temperature Pulse Rate 63 67 70 Respiratory Rate Blood Pressure Pulse Oximetry 09/10/18 03:00 09/10/18 04:00 09/10/18 05:00 Temperature 98.0 F Pulse Rate 63 64 65 Respiratory Rate 18 Blood Pressure 157/82 H Pulse Oximetry 100 09/10/18 06:00 09/10/18 07:00 09/10/18 08:00 Temperature 97.1 F L Pulse Rate 74 65 64 Respiratory Rate 18 Blood Pressure 144/83 H Pulse Oximetry 100 09/10/18 09:00 09/10/18 10:00 09/10/18 11:00 Temperature 97.6 F Pulse Rate 70 72 65 Respiratory Rate 18 Blood Pressure 133/83 Pulse Oximetry 100 09/10/18 12:00 09/10/18 13:00 Temperature Pulse Rate 76 76 Respiratory Rate Blood Pressure Pulse Oximetry Intake & Output 09/09/18 09/10/18 09/10/18 18:59 06:59 18:59 Intake Total 940 / 940 470 / 470 Output Total 1050 / 1050 1400 / 1400 Balance -110 / -110 -930 / -930 Weight 75.9 kg Intake: IV 230 / 230 Heparin/D5W 25,000 U/250 mL 25, 230 / 230 000 unit In 250 ml @ 1,000 UNITS/HR 10 mls/hr IV.CONT TITRATE PRN Rx#:[id number] Oral 940 / 940 240 / 240 Output: Urine 1050 / 1050 1400 / 1400 Other: Date of Last Bowel Movement 09/07/18 - Constitutional no acute distress - Routine HEENT Exam Head: Present: normocephalic - Routine Neck Exam Present: supple - Routine Respiratory Exam Present: CTA bilaterally - Routine Cardiovascular Exam Present: S1, S2 - Routine Abdominal Exam Present: soft - Routine Extremities Exam Comments: no rito Results 09/10/18 05:09 09/10/18 05:09 Cardiac Enzymes 09/09/18 09/10/18 Range/Units 05:33 05:09 AST 12 L 10 L (15-37) U/L Coagulation 09/09/18 09/10/18 Range/Units 05:33 05:46 APTT 45.1 H 45.9 H (23.4-31.7) sec CBC 09/09/18 09/10/18 Range/Units 05:33 05:09 WBC 6.8 8.0 (4.0-11.0) th/mm3 RBC 3.83 L 3.80 L (4.50-5.90) mil/mm3 Hgb 11.8 L 11.8 L (13.0-17.0) gm/dL Hct 35.2 L 33.8 L (39.0-51.0) % Plt Count 187 215 (150-450) th/mm3 Neut # (Auto) 3.8 4.2 (1.8-7.7) th/mm3 Lymph # (Auto) 2.1 2.6 (1.0-4.8) th/mm3 [place] # (Auto) 0.4 0.5 (0.0-0.9) th/mm3 Eos # (Auto) 0.5 H 0.6 H (0.0-0.4) th/mm3 Baso # (Auto) 0.1 0.1 (0.0-0.2) th/mm3 Comprehensive Metabolic Panel 09/09/18 09/10/18 Range/Units 05:33 05:09 Sodium 136 137 (136-145) meq/L Potassium 4.1 4.1 (3.5-5.1) meq/L Chloride 103 103 (98-107) meq/L Carbon Dioxide 28.1 24.1 (21.0-32.0) meq/L BUN 24 H 25 H (7-18) mg/dL Creatinine 2.04 H 1.90 H (0.60-1.30) mg/dL Calcium 9.4 9.2 (8.5-10.1) mg/dL AST 12 L 10 L (15-37) U/L ALT 22 19 (12-78) U/L Alkaline Phosphatase 82 82 (45-117) U/L Total Protein 7.4 7.2 (6.4-8.2) g/dL Albumin 3.8 3.6 (3.4-5.0) g/dL Intake and Output 09/09/18 09/10/18 09/10/18 22:59 06:59 14:59 Intake Total 940 / 940 470 / 470 Output Total 1050 / 1050 1400 / 1400 Balance -110 / -110 -930 / -930 Intake: IV 230 / 230 Heparin/D5W 25,000 U/250 mL 25, 230 / 230 000 unit In 250 ml @ 1,000 UNITS/HR 10 mls/hr IV.CONT TITRATE PRN Rx#:[id number] Oral 940 / 940 240 / 240 Output: Urine 1050 / 1050 1400 / 1400 Other: Date of Last Bowel Movement 09/07/18 Weight 75.9 kg Assessment and Plan - Assessment (1) NSTEMI (non-ST elevated myocardial infarction) Code(s): I21.4 - Non-ST elevation (NSTEMI) myocardial infarction Status: Acute (2) ARF (acute renal failure) Code(s): N17.9 - Acute kidney failure, unspecified Status: Acute (3) Hypertension Code(s): I10 - Essential (primary) hypertension Status: Acute (4) Hyperlipidemia Code(s): E78.5 - Hyperlipidemia, unspecified Status: Acute (5) CAD (coronary artery disease) Code(s): I25.10 - Atherosclerotic heart disease of [place] coronary artery without angina pectoris Status: Acute (6) Diabetes type 2, controlled Code(s): E11.9 - Type 2 diabetes mellitus without complications Status: Acute - Plan 1.) CAD - nstemi, severe dom lcx and mid lad disease, continue aspirin, coreg, imdur, iv heparin, elmer held due to arf, cabg per Dr Sprague 09/12/18
[2018-09-10] MEDS: Insulin Detemir Inj 1,000 UNIT/10 ML Vial SQ SCH (20:22)
[2018-09-11] MEDS: Isosorbide Mononitrate 60 MG ER 24HR Tablet (Imdur) PO SCH (06:42)
[2018-09-11] MEDS: Insulin NovoLOG Aspart Correctional Sugar Inj SQ SCH ×4 (06:42→23:44)
--- NOTE | 2018-09-11 07:11 | P.PN ---
Subjective Interval history: no complains up and ambulating voiding well no chest pain or shortnes of breath telemetry- sinus Physical Exam Vital signs: Vital Signs 09/10/18 08:00 09/10/18 09:00 09/10/18 10:00 Temperature Pulse Rate 64 70 72 Respiratory Rate Blood Pressure Pulse Oximetry 09/10/18 11:00 09/10/18 12:00 09/10/18 13:00 Temperature 97.6 F Pulse Rate 65 76 76 Respiratory Rate 18 Blood Pressure 133/83 Pulse Oximetry 100 09/10/18 14:00 09/10/18 15:00 09/10/18 16:00 Temperature 97.4 F L Pulse Rate 66 63 66 Respiratory Rate 18 Blood Pressure 140/84 Pulse Oximetry 100 09/10/18 17:00 09/10/18 18:00 09/10/18 19:00 Temperature 98.0 F Pulse Rate 70 70 73 Respiratory Rate 16 Blood Pressure 154/89 H Pulse Oximetry 100 09/10/18 20:00 09/10/18 21:00 09/10/18 22:00 Temperature Pulse Rate 63 65 64 Respiratory Rate Blood Pressure Pulse Oximetry 09/10/18 23:00 09/11/18 00:00 09/11/18 01:00 Temperature 98.0 F Pulse Rate 63 64 58 L Respiratory Rate 18 Blood Pressure 157/92 H Pulse Oximetry 100 09/11/18 02:00 09/11/18 03:00 09/11/18 04:00 Temperature 98.2 F Pulse Rate 58 L 57 L 60 Respiratory Rate 16 Blood Pressure 128/72 Pulse Oximetry 100 09/11/18 05:00 09/11/18 06:00 Temperature Pulse Rate 52 L 54 L Respiratory Rate Blood Pressure Pulse Oximetry Intake & Output 09/10/18 09/11/18 09/11/18 18:59 06:59 18:59 Intake Total 840 / 840 945 / 945 Output Total 1025 / 1025 1525 / 1525 Balance -185 / -185 -580 / -580 Weight 77 kg Intake: IV 225 / 225 Heparin/D5W 25,000 U/250 mL 25, 225 / 225 000 unit In 250 ml @ 1,000 UNITS/HR 10 mls/hr IV.CONT TITRATE PRN Rx#:[id number] Oral 840 / 840 720 / 720 Output: Urine 1025 / 1025 1525 / 1525 Other: # Voids 5 Narrative: GENERAL: NAD, A&Ox3 HEAD: Normocephalic. NECK: Supple, trachea midline. No lymphadenopathy. EYES: No scleral icterus. No injection or drainage. CARDIOVASCULAR: Regular rhythm RESPIRATORY: Breath sounds equal bilaterally. no rales GASTROINTESTINAL: Abdomen soft, non-tender, MUSCULOSKELETAL: No cyanosis, or edema. right gron- no hematoma SKIN: Warm and dry. NEURO: No focal neurological deficits. Results - Labs CBC & Chem 7: 09/10/18 05:09 09/10/18 05:09 Laboratory Results - last 24 hr 09/08/18 09/10/18 09/10/18 04:30 12:12 17:45 POC Glucose 147 H 150 H MTS Gel Crossmatch See Detail 09/10/18 09/11/18 23:06 06:23 POC Glucose 155 H 140 H MTS Gel Crossmatch - Procedures Echocardiogram 08/31/2018 The left ventricular systolic function is normal with an estimated ejection fraction in the range of 60-65%. There is trace tricuspid valve regurgitation. Assessment and Plan - Assessment (1) ARF (acute renal failure) Code(s): N17.9 - Acute kidney failure, unspecified Status: Acute (2) Hypertension Code(s): I10 - Essential (primary) hypertension Status: Acute (3) Hyperlipidemia Code(s): E78.5 - Hyperlipidemia, unspecified Status: Acute (4) CAD (coronary artery disease) Code(s): I25.10 - Atherosclerotic heart disease of [place] coronary artery without angina pectoris Status: Acute (5) Diabetes type 2, controlled Code(s): E11.9 - Type 2 diabetes mellitus without complications Status: Acute (6) NSTEMI (non-ST elevated myocardial infarction) Code(s): I21.4 - Non-ST elevation (NSTEMI) myocardial infarction Status: Acute (7) Chronic kidney disease, stage 3 (moderate) Code(s): N18.3 - Chronic kidney disease, stage 3 (moderate) Status: Acute - Plan 63-year-old -[place] male with past medical history of CAD status post 3 stents who is presenting to the hospital with left-sided chest pain. He said he has always had chest pain ever since his second heart catheterization Awaiting improvement in patient's platelet/clotting studies. CABG planned. All blood thinners are on hold except for heparin. Labs in AM. Continue to monitor renal function post op. NSTEMI CAD S/P cath previous stents placed. Plavix on hold CABG planned- hopefully Cardiology following Continue heparin drip Acute kidney injury Avoid nephrotoxins Follow renal function- stabilizing- non oliguric Hypertension- improved readings Continue baseline treatment Follow blood pressures Adjust treatments as needed Continue Coreg- increased to 6.25 mg bid Diabetes mellitus type 2 Follow blood sugars HS levemer Insulin sliding scale Diabetic diet Status post dental extraction Continue amoxicillin- got 10 days course- DC today Follow up with dentist as an outpatient DVT prophylaxis Heparin
[2018-09-11] MEDS: Senna/Docusate Sodium 8.6/50 MG Tablet PO SCH ×2 (08:29→21:12)
--- NOTE | 2018-09-11 14:54 | P.PNNP ---
Subjective Interval history: Patient was seen, no distress, no complaints. Possible CABG . Patient's renal function is stable. <Pa Engel - Last Filed: 09/11/18 14:52> Physical Exam Vital signs: Vital Signs 09/10/18 15:00 09/10/18 16:00 09/10/18 17:00 Temperature 97.4 F L Pulse Rate 63 66 70 Respiratory Rate 18 Blood Pressure 140/84 Pulse Oximetry 100 09/10/18 18:00 09/10/18 19:00 09/10/18 20:00 Temperature 98.0 F Pulse Rate 70 73 63 Respiratory Rate 16 Blood Pressure 154/89 H Pulse Oximetry 100 09/10/18 21:00 09/10/18 22:00 09/10/18 23:00 Temperature 98.0 F Pulse Rate 65 64 63 Respiratory Rate 18 Blood Pressure 157/92 H Pulse Oximetry 100 09/11/18 00:00 09/11/18 01:00 09/11/18 02:00 Temperature Pulse Rate 64 58 L 58 L Respiratory Rate Blood Pressure Pulse Oximetry 09/11/18 03:00 09/11/18 04:00 09/11/18 05:00 Temperature 98.2 F Pulse Rate 57 L 60 52 L Respiratory Rate 16 Blood Pressure 128/72 Pulse Oximetry 100 09/11/18 06:00 09/11/18 07:00 09/11/18 08:00 Temperature 97.5 F L Pulse Rate 54 L 56 L 58 L Respiratory Rate 20 Blood Pressure 144/78 H Pulse Oximetry 100 09/11/18 09:00 09/11/18 09:56 09/11/18 11:00 Temperature Pulse Rate 58 L 72 60 Respiratory Rate Blood Pressure Pulse Oximetry 09/11/18 11:55 09/11/18 12:15 Temperature 97.6 F Pulse Rate 63 60 Respiratory Rate 18 Blood Pressure 127/74 Pulse Oximetry 100 Intake & Output 09/10/18 09/11/18 09/11/18 18:59 06:59 18:59 Intake Total 840 / 840 945 / 945 Output Total 1025 / 1025 1525 / 1525 Balance -185 / -185 -580 / -580 Weight 77 kg Intake: IV 225 / 225 Heparin/D5W 25,000 U/250 mL 25, 225 / 225 000 unit In 250 ml @ 1,000 UNITS/HR 10 mls/hr IV.CONT TITRATE PRN Rx#:[id number] Oral 840 / 840 720 / 720 Output: Urine 1025 / 1025 1525 / 1525 Other: # Voids 5 - Constitutional no acute distress - Routine HEENT Exam Head: Present: normocephalic Eye: Present: EOMI, PERRL ENT: Present: mucous membranes moist - Routine Neck Exam Present: trachea midline. Absent: JVD, tracheal deviation - Routine Respiratory Exam Present: CTA bilaterally. Absent: accessory muscle use - Routine Cardiovascular Exam Present: RRR. Absent: murmur - Routine Abdominal Exam Present: soft, normoactive bowel sounds - Routine Extremities Exam Absent: edema - Routine Neurological Exam Present: alert, oriented X3 <Pa Engel - Last Filed: 09/11/18 14:52> Vital signs: Vital Signs 09/10/18 20:00 09/10/18 21:00 09/10/18 22:00 Temperature Pulse Rate 63 65 64 Respiratory Rate Blood Pressure Pulse Oximetry 09/10/18 23:00 09/11/18 00:00 09/11/18 01:00 Temperature 98.0 F Pulse Rate 63 64 58 L Respiratory Rate 18 Blood Pressure 157/92 H Pulse Oximetry 100 09/11/18 02:00 09/11/18 03:00 09/11/18 04:00 Temperature 98.2 F Pulse Rate 58 L 57 L 60 Respiratory Rate 16 Blood Pressure 128/72 Pulse Oximetry 100 09/11/18 05:00 09/11/18 06:00 09/11/18 07:00 Temperature Pulse Rate 52 L 54 L 56 L Respiratory Rate Blood Pressure Pulse Oximetry 09/11/18 08:00 09/11/18 09:00 09/11/18 09:56 Temperature 97.5 F L Pulse Rate 58 L 58 L 72 Respiratory Rate 20 Blood Pressure 144/78 H Pulse Oximetry 100 09/11/18 11:00 09/11/18 11:55 09/11/18 12:15 Temperature 97.6 F Pulse Rate 60 63 60 Respiratory Rate 18 Blood Pressure 127/74 Pulse Oximetry 100 09/11/18 13:00 09/11/18 14:00 09/11/18 15:00 Temperature Pulse Rate 64 66 60 Respiratory Rate Blood Pressure Pulse Oximetry 09/11/18 15:59 09/11/18 16:00 09/11/18 17:00 Temperature 97.4 F L Pulse Rate 65 64 60 Respiratory Rate 18 Blood Pressure 136/74 Pulse Oximetry 100 09/11/18 18:09 Temperature Pulse Rate 75 Respiratory Rate Blood Pressure Pulse Oximetry Intake & Output 09/11/18 09/11/18 09/12/18 06:59 18:59 06:59 Intake Total 945 / 945 960 / 960 Output Total 1525 / 1525 1250 / 1250 Balance -580 / -580 -290 / -290 Weight 77 kg Intake: IV 225 / 225 Heparin/D5W 25,000 U/250 mL 25, 225 / 225 000 unit In 250 ml @ 1,000 UNITS/HR 10 mls/hr IV.CONT TITRATE PRN Rx#:[id number] Oral 720 / 720 960 / 960 Output: Urine 1525 / 1525 1250 / 1250 Other: # Bowel Movements 0 <Fransisco Hernandez - Last Filed: 09/11/18 19:11> Assessment and Plan - Assessment (1) Chronic kidney disease, stage 3 (moderate) Code(s): N18.3 - Chronic kidney disease, stage 3 (moderate) Status: Acute Plan: Patient may have hypertensive nephrosclerosis, appears to have stable stage III CKD. GFR is at baseline. Cleared for surgery from renal standpoint. (2) Hypertension Code(s): I10 - Essential (primary) hypertension Status: Acute Plan: Monitor BP. Continue medications. (3) Hyperlipidemia Code(s): E78.5 - Hyperlipidemia, unspecified Status: Acute Plan: Patient on pravastatin. should be on high intensity statin. (4) CAD (coronary artery disease) Code(s): I25.10 - Atherosclerotic heart disease of [place] coronary artery without angina pectoris Status: Acute Plan: CABG is planned. (5) Diabetes type 2, controlled Code(s): E11.9 - Type 2 diabetes mellitus without complications Status: Acute Plan: Insulin coverage to maintain blood glucose levels between 140 and 180. <Pa Engel - Last Filed: 09/11/18 14:52> - Assessment (1) Chronic kidney disease, stage 3 (moderate) Code(s): N18.3 - Chronic kidney disease, stage 3 (moderate) Status: Acute (2) Hypertension Code(s): I10 - Essential (primary) hypertension Status: Acute (3) Hyperlipidemia Code(s): E78.5 - Hyperlipidemia, unspecified Status: Acute (4) CAD (coronary artery disease) Code(s): I25.10 - Atherosclerotic heart disease of [place] coronary artery without angina pectoris Status: Acute (5) Diabetes type 2, controlled Code(s): E11.9 - Type 2 diabetes mellitus without complications Status: Acute - Attending Attestation patient was seen and examined. I agree with above assessment and plan. Surgery is awaited. <Fransisco Hernandez - Last Filed: 09/11/18 19:11>
[2018-09-11] MEDS: Insulin Detemir Inj 1,000 UNIT/10 ML Vial SQ SCH (21:09)
[2018-09-11] MEDS: Heparin Drip 25,000 UNIT/250 ML BAG IV.CONT PRN (21:22)
[2018-09-12] MEDS ORDERED: Chlorhexidine Gluconate 2% 1 Pack (2 Cloths) TOPICAL ONE (00:45)
[2018-09-12] MEDS ORDERED: Sodium Chlor 0.9% Inj 500 ML IV.CONT ONE (00:45)
[2018-09-12] MEDS: Insulin NovoLOG Aspart Correctional Sugar Inj SQ SCH (05:44)
[2018-09-12] MEDS ORDERED: ceFAZolin 1 GM Premix Inj 2 GM/100 ML PIGGYBACK IV.SIG ONE (07:14)
[2018-09-12] MEDS ORDERED: Heparin - SQ 10,000 UNITS/ML Vial ONE ×2 (07:15)
[2018-09-12] MEDS ORDERED: fentaNYL Citrate Inj 250 MCG/5 ML Ampul ONE (08:00)
[2018-09-12] MEDS ORDERED: Midazolam Inj 5 MG/ML 1 ML Vial ONE (08:00)
--- NOTE | 2018-09-12 08:07 | P.PN ---
Subjective Interval history: telemetry- in SR awake and alert, no complains had a good night sleep looking forward to surgery this am good family support Physical Exam Vital signs: Vital Signs 09/11/18 09:00 09/11/18 09:56 09/11/18 11:00 Temperature Pulse Rate 58 L 72 60 Respiratory Rate Blood Pressure Pulse Oximetry 09/11/18 11:55 09/11/18 12:15 09/11/18 13:00 Temperature 97.6 F Pulse Rate 63 60 64 Respiratory Rate 18 Blood Pressure 127/74 Pulse Oximetry 100 09/11/18 14:00 09/11/18 15:00 09/11/18 15:59 Temperature 97.4 F L Pulse Rate 66 60 65 Respiratory Rate 18 Blood Pressure 136/74 Pulse Oximetry 100 09/11/18 16:00 09/11/18 17:00 09/11/18 18:09 Temperature Pulse Rate 64 60 75 Respiratory Rate Blood Pressure Pulse Oximetry 09/11/18 19:00 09/11/18 20:00 09/11/18 21:00 Temperature 98.1 F Pulse Rate 68 74 70 Respiratory Rate 18 Blood Pressure 120/71 Pulse Oximetry 100 09/11/18 22:00 09/11/18 23:00 09/12/18 00:00 Temperature 97.7 F Pulse Rate 64 67 60 Respiratory Rate 16 Blood Pressure 138/83 Pulse Oximetry 100 09/12/18 01:00 09/12/18 02:00 09/12/18 03:00 Temperature Pulse Rate 62 58 L 55 L Respiratory Rate Blood Pressure Pulse Oximetry 09/12/18 04:00 09/12/18 05:00 09/12/18 06:00 Temperature 97.6 F Pulse Rate 58 L 60 66 Respiratory Rate 16 Blood Pressure 131/85 Pulse Oximetry 100 09/12/18 07:32 Temperature 98 F Pulse Rate 61 Respiratory Rate 17 Blood Pressure 121/76 Pulse Oximetry 100 Intake & Output 09/11/18 09/12/18 09/12/18 18:59 06:59 18:59 Intake Total 960 / 960 490 / 490 Output Total 1250 / 1250 500 / 500 Balance -290 / -290 -10 / -10 Weight 76.9 kg Intake: IV 250 / 250 Heparin/D5W 25,000 U/250 mL 25, 250 / 250 000 unit In 250 ml @ 1,000 UNITS/HR 10 mls/hr IV.CONT TITRATE PRN Rx#:[id number] Oral 960 / 960 240 / 240 Output: Urine 1250 / 1250 500 / 500 Other: Date of Last Bowel Movement 09/09/18 # Bowel Movements 0 Narrative: GENERAL: NAD, A&Ox3 HEAD: Normocephalic. NECK: Supple, EYES: No scleral icterus. No injection or drainage. CARDIOVASCULAR: Regular rhythm RESPIRATORY: Breath sounds equal bilaterally. no rales GASTROINTESTINAL: Abdomen soft, non-tender, MUSCULOSKELETAL: No cyanosis, or edema. right groin- no hematoma SKIN: Warm and dry. NEURO: Nonfocal Results - Labs CBC & Chem 7: 09/10/18 05:09 09/10/18 05:09 Laboratory Results - last 24 hr 09/11/18 09/11/18 09/11/18 11:22 16:49 23:39 APTT POC Glucose 167 H 109 154 H Blood Type MTS Gel Crossmatch 09/12/18 09/12/18 09/12/18 05:37 07:08 07:28 APTT 29.0 D POC Glucose 107 Blood Type O Positive MTS Gel Crossmatch See Detail - Procedures Echocardiogram 08/31/2018 The left ventricular systolic function is normal with an estimated ejection fraction in the range of 60-65%. There is trace tricuspid valve regurgitation. Assessment and Plan - Assessment (1) ARF (acute renal failure) Code(s): N17.9 - Acute kidney failure, unspecified Status: Acute (2) Hypertension Code(s): I10 - Essential (primary) hypertension Status: Acute (3) Hyperlipidemia Code(s): E78.5 - Hyperlipidemia, unspecified Status: Acute (4) CAD (coronary artery disease) Code(s): I25.10 - Atherosclerotic heart disease of [place] coronary artery without angina pectoris Status: Acute (5) Diabetes type 2, controlled Code(s): E11.9 - Type 2 diabetes mellitus without complications Status: Acute (6) NSTEMI (non-ST elevated myocardial infarction) Code(s): I21.4 - Non-ST elevation (NSTEMI) myocardial infarction Status: Acute (7) Chronic kidney disease, stage 3 (moderate) Code(s): N18.3 - Chronic kidney disease, stage 3 (moderate) Status: Acute - Plan 63-year-old -[place] male with past medical history of CAD status post 3 stents who is presenting to the hospital with left-sided chest pain. He said he has always had chest pain ever since his second heart catheterization NSTEMI CAD S/P cath previous stents placed. Plavix on hold CABG planned- hopefully Cardiology following- ASA, Imdur, COreg for CABG today on heparin drip Acute kidney injury- Avoid nephrotoxins Follow renal function- stabilizing- non oliguric Hypertension- improved readings Continue baseline treatment Follow blood pressures Adjust treatments as needed Continue Coreg- 6.25 mg bid Diabetes mellitus type 2 Follow blood sugars HS levemer Insulin sliding scale Diabetic diet Status post dental extraction S/P amoxicillin- got 10 days course- Follow up with dentist as an outpatient DVT prophylaxis - defer to [facility] post op
[2018-09-12] MEDS ORDERED: Sodium Chlor 0.9% Inj 77.5 ML, Papaverine Inj 60 MG, Nitroglycerin Inj 100 MCG, dilTIAZ... IRRIGATION SCH ×3 (09:00)
[2018-09-12] MEDS ORDERED: Sodium Chloride 0.9% Irr Bot 500 ML, ceFAZolin Inj 500 MG IRRIGATION ONE ×2 (09:00)
[2018-09-12] MEDS ORDERED: Insulin Regular (For Infusion) 100 UNIT in Sodium Chlor 0.9% Inj 99 ML IV.CONT PRN ×2 (09:00→12:38)
[2018-09-12] MEDS ORDERED: ceFAZolin 1 GM Premix Inj 1 GM/50 ML PIGGYBACK IV.SIG ONE (12:11)
[2018-09-12] MEDS ORDERED: Magnesium Sulfate Inj 2 GM in Sodium Chlor 0.9% Inj 96 ML IV.SIG PRN ×4 (12:38)
[2018-09-12] MEDS ORDERED: Phenylephrine Inj 40 MG in Sodium Chlor 0.9% Inj 496 ML IV.CONT PRN (12:38)
[2018-09-12] MEDS ORDERED: Acetaminophen 650 MG Supp RECTAL PRN (12:38)
[2018-09-12] MEDS ORDERED: Dexmedetomidine Inj 200 MCG in Sodium Chlor 0.9% Inj 48 ML IV.CONT PRN (12:38)
[2018-09-12] MEDS ORDERED: Calcium Chloride Inj 1 GM in Sodium Chlor 0.9% Inj 100 ML IV.SIG PRN (12:38)
[2018-09-12] MEDS ORDERED: Morphine Sulfate Inj 2 MG/ML Vial IV.PUSH PRN (12:38)
[2018-09-12] MEDS ORDERED: RESP: Racemic Epinephrine 2.25% 0.5 ML Neb NEB PRN (12:38)
[2018-09-12] MEDS ORDERED: Calcium Chloride Inj 1 GM/10 ML Syringe IV.PUSH PRN (12:38)
[2018-09-12] MEDS ORDERED: Post-op Orders (for Pharmacy) OTHER STA (12:38)
[2018-09-12] MEDS ORDERED: Metoprolol Inj 5 MG/5 ML Vial IV.PUSH PRN (12:38)
[2018-09-12] MEDS ORDERED: Albumin Human 5% Inj 250 ML IV.SIG PRN (12:38)
[2018-09-12] MEDS ORDERED: Ketorolac Inj 30 MG/ML (IVP) Vial IV.PUSH PRN (12:38)
[2018-09-12] MEDS ORDERED: Potassium Chlor 20 mEq Premix 20 MEQ/100 ML PIGGYBACK IV.SIG PRN ×3 (12:38)
--- NOTE | 2018-09-12 12:47 | P.OP ---
Date of procedure: 09/12/18 Anesthesia: YASMINA Surgeon: Chelly Cabrales MD Operation and Findings: PREPROCEDURE DIAGNOSES 1. Severe Multi Vessel Coronary Artery Disease. 2. In-Stent Restenosis POSTPROCEDURE DIAGNOSES Same SURGICAL PROCEDURE 1. Urgent Off-pump Coronary Artery Bypass Grafting x 4 with Left Internal Mammary Artery (JOSE) to Left Anterior Descending (LAD), reverse saphenous vein graft to obtuse Marginal branch of the left Circumflex artery, reverse saphenous vein graft to the Diagonal 1 Branch of the LAD, reverse saphenous vein graft to the ramus marginalis 2. Left leg Endoscopic Vein [place] 3. Intraoperative Vein Mapping. SURGEON Chelly Cabrales MD YOGA COORDINATOR YOHANNES Josue ANESTHESIA General endotracheal CONTINUITY WRITER TITO Martin MD PREPARATION ChloraPrep. COUNTS Needle, sponge, and instrument counts were correct. DRAINS Two 32-Syriac mediastinal tubes. COMPLICATIONS None. INDICATIONS FOR PROCEDURE The patient is a 63-year-old presenting with chest pain. Patient was noted to have multiple vessel coronary artery disease. The patient is being brought to the operating room for surgical revascularization therapy. PROCEDURE Patient was brought to the operating room and placed supine on the OR table. Following the induction of adequate general endotracheal anesthesia and placement of appropriate monitoring devices, intraoperative vein mapping was performed which revealed thickened but usable-caliber conduit in bilateral lower extremities. The patient was then prepped and draped in standard sterile fashion. Next, 2500 units of intravenous heparin was given. The left greater saphenous vein was harvested endoscopically. This appeared to be a useable- caliber conduit. Simultaneously, a median sternotomy was performed and the left internal mammary artery dissected free off the posterior sternal table. The patient was systemically heparinized and anticoagulation monitored by serial ACT measurements. The internal mammary artery had fair pulsatile flow in it and was a good-caliber conduit. The pericardium was then divided in the midline , the cradle created and targets analyzed. At this point, all anastomoses were performed in a beating-heart fashion using the [employer] stabilizing system. The left internal mammary artery was anastomosed to the mid LAD (2 mm) in an end-to- side fashion using 7-0 Prolene. Segment of saphenous vein graft was then anastomosed to the OM1 (1.5 mm) in an end-to-side fashion using 7-0 Prolene. The next segment was anastomosed to the ramus marginalis (2 mm) in an end-to- side fashion using a running 7-0 Prolene. The final segment was anastomosed to the D1 (1.5 mm) branch of the LAD in an end-to-side fashion using 7-0 Prolene. The proximal anastomoses were then constructed to the ascending aorta in a running manner using 6-0 Prolene. All anastomotic sites were inspected and appeared to be hemostatic and patent. Protamine solution was given. Strict hemostasis was assured. The closure was undertaken. 2 chest tubes were placed. The pericardium was reapproximated in the midline. The sternum was approximated using sternal wires. The muscular and fascial layer were then closed in 3 layers. The endoscopic vein harvest site was closed in 2 layers. The patient tolerated the procedure well and was transferred to CVICU in stable condition.
[2018-09-12] MEDS ORDERED: ceFAZolin Inj 2,000 MG in Sodium Chlor 0.9% Inj 80 ML IV.SIG SCH (13:00)
[2018-09-12] MEDS: Clevidipine Inj 25 MG/50 ML VIAL IV.CONT PRN ×2 (13:20→19:58)
--- NOTE | 2018-09-12 13:36 | P.PNCA ---
Subjective Interval history: intubated, sedated Medications and Allergies Active Medications: Active Medications Acetaminophen (Tylenol) 650 mg PO Q4H PRN PRN Reason: Temp > 100.4 Acetaminophen (Tylenol Supp) 650 mg RECTAL Q4H PRN PRN Reason: FEVER > 101 F Hydrocodone Bitart/Acetaminophen ([place] 5/325) 1 tab PO Q3H PRN PRN Reason: PAIN SCALE 1 TO 5 Albuterol (Duoneb Neb (Prn)) 1 ampul NEB Q2HR NEB PRN PRN Reason: WHEEZING Albuterol (Duoneb Neb (Richard)) 1 ampul NEB Q6HR NEB [facility] Amiodarone HCl (Cordarone) 200 mg PO Q12HR [facility] Aspirin (Ecotrin) 162 mg PO DAILY [facility] Last Admin: 09/05/18 08:59 Dose: 162 mg Aspirin (Aspirin Chew) 81 mg PO DAILY [facility] Calcium Chloride (Calcium Chloride Inj) 0.5 gm IV.PUSH UNSCH PRN PRN Reason: SEE LABEL COMMENTS Carvedilol (Coreg) 6.25 mg PO BID [facility] Last Admin: 09/12/18 05:45 Dose: 6.25 mg Clonidine HCl (Catapres) 0.1 mg PO Q6H PRN PRN Reason: SYS BP GREATER THAN 160 [facility] Clopidogrel Bisulfate (Plavix) 75 mg PO DAILY [facility] Sodium Chloride 77.5 ml/Papaverine HCl 60 mg/Nitroglycerin 100 mcg/Diltiazem HCl 100 mg 0 ml IRRIGATION STAND IN [facility] Stop: 09/18/18 08:59 Last Admin: 09/12/18 10:27 Dose: 77.5 irrig.soln Dextrose (D50w Vial) 50 ml IV.PUSH UNSCH PRN PRN Reason: PER HYPOGLYCEMIA PROTOCOL Dextrose (D50w Vial) 50 ml IV.PUSH UNSCH PRN PRN Reason: PER HYPOGLYCEMIA PROTOCOL Epinephrine (Racepinephrine 2.25% Neb) 0.5 ml NEB DAILY NEB PRN PRN Reason: STRIDOR Fentanyl Citrate (Fentanyl Inj) 25 mcg IV.PUSH Q1H PRN PRN Reason: BREAKTHROUGH PAIN Glucagon (Glucagon Inj) 1 mg OTHER PRN PRN PRN Reason: for Hypoglycemia Protocol Heparin Sodium/Dextrose (Heparin/D5w 25,000 U/250 Ml) 25,000 unit in 250 mls @ 10 mls/hr IV.CONT TITRATE PRN; Protocol PRN Reason: Per Protocol Last Admin: 09/11/18 21:22 Dose: 1,000 units/hr, 10 mls/hr Lactated Ringer's (Lr 1000 Ml Inj) 1,000 mls @ 30 mls/hr IV.CONT .Q24H ONE Stop: 09/13/18 00:44 Sodium Chloride (Ns Inj) 500 mls @ 30 mls/hr IV.CONT .[id number] ONE Stop: 09/12/18 17:24 Last Admin: 09/12/18 02:59 Dose: Not Given Insulin Human Regular 100 unit (/ Sodium Chloride) 100 mls @ 3 mls/hr IV.CONT TITRATE PRN; Protocol PRN Reason: See Protocol Albumin Human (Buminate 5% Inj) 250 mls @ 250 mls/hr IV.SIG UNSCH PRN PRN Reason: SEE LABEL COMMENTS Calcium Chloride 1 gm/ Sodium (Chloride) 110 mls @ 100 mls/hr IV.SIG PRN PRN PRN Reason: SEE LABEL COMMENTS Cefazolin Sodium 2,000 mg/ (Sodium Chloride) 100 mls @ 200 mls/hr IV.SIG Q8H RICHARD Stop: 09/13/18 21:29 Dexmedetomidine HCl 200 mcg/ (Sodium Chloride) 50 mls @ 3.84 mls/hr IV.CONT TITRATE PRN; Protocol PRN Reason: Per Protocol Insulin Human Regular 100 unit (/ Sodium Chloride) 100 mls @ 3 mls/hr IV.CONT TITRATE PRN; Protocol PRN Reason: See Protocol Lactated Ringer's (Lr 1000 Ml Inj) 500 mls @ 500 mls/hr IV.SIG .Q1H PRN PRN Reason: SEE LABEL COMMENTS Magnesium Sulfate 2 gm/ Sodium (Chloride) 100 mls @ 50 mls/hr IV.SIG PRN PRN PRN Reason: SEE LABEL COMMENTS Magnesium Sulfate 2 gm/ Sodium (Chloride) 100 mls @ 50 mls/hr IV.SIG PRN PRN PRN Reason: SEE LABEL COMMENTS Potassium Chloride (Kcl 20 Meq Premix Inj) 20 meq in 100 mls @ 50 mls/hr IV.SIG PRN PRN PRN Reason: SEE LABEL COMMENTS Potassium Chloride (Kcl 20 Meq Premix Inj) 20 meq in 100 mls @ 50 mls/hr IV.SIG PRN PRN PRN Reason: SEE LABEL COMMENTS Potassium Chloride (Kcl 20 Meq Premix Inj) 20 meq in 100 mls @ 50 mls/hr IV.SIG PRN PRN PRN Reason: SEE LABEL COMMENTS Acetaminophen (Ofirmev Inj) 1,000 mg in 100 mls @ 400 mls/hr IV.SIG Q6H RICHARD Stop: 09/13/18 07:14 Clevidipine (Cleviprex Inj) 25 mg in 50 mls @ 2 mls/hr IV.CONT TITRATE PRN; Protocol PRN Reason: Per protocol Phenylephrine HCl 40 mg/ (Sodium Chloride) 500 mls @ 30 mls/hr IV.CONT TITRATE PRN; Protocol PRN Reason: See Protocol Insulin Aspart (Novolog Insulin [place] Sugar Inj) 0 unit SQ Q6HR RICHARD; Protocol Last Admin: 09/12/18 05:44 Dose: Not Given Insulin Detemir (Levemir Inj) 7 unit SQ HS [facility] Last Admin: 09/11/18 21:09 Dose: 7 unit Isosorbide Mononitrate (Imdur) 60 mg PO DAILY@0700 [facility] Last Admin: 09/11/18 06:42 Dose: 60 mg Ketorolac Tromethamine (Toradol Inj) 15 mg IV.PUSH Q6H PRN PRN Reason: SEE LABEL COMMENTS Stop: 09/14/18 12:37 Meperidine HCl (Demerol Inj) 12.5 mg IV.PUSH Q4H PRN PRN Reason: SHIVERING Metoprolol Tartrate (Lopressor Inj) 2.5 mg IV.PUSH Q1H PRN PRN Reason: SEE LABEL COMMENTS Morphine Sulfate (Morphine Inj) 4 mg IV.PUSH Q4H PRN PRN Reason: BREAKTHROUGH PAIN Last Admin: 08/30/18 19:19 Dose: 4 mg Morphine Sulfate (Morphine Inj) 1 mg IV.PUSH Q10M PRN PRN Reason: PAIN SCALE 1 TO 5 Nitroglycerin (Nitrostat Sl) 0.4 mg SL Q5M PRN PRN Reason: CHEST PAIN Last Admin: 09/04/18 05:20 Dose: 0.4 mg Ondansetron HCl (Zofran Inj) 4 mg IV.PUSH Q6H PRN PRN Reason: NAUSEA OR VOMITING Ondansetron HCl (Zofran Inj) 4 mg IV.PUSH Q6H PRN PRN Reason: NAUSEA OR VOMITING Oxycodone HCl (Roxicodone) 5 mg PO Q4H PRN PRN Reason: pain 3-10 Pantoprazole Sodium (Protonix) 40 mg PO DAILY@06 [facility] Phenylephrine HCl (Neosynephrine Inj) 0.1 mg IV.PUSH UNSCH PRN PRN Reason: SEE LABEL COMMENTS Potassium Chloride (K-Dur) 20 meq PO UNSCH PRN PRN Reason: SEE LABEL COMMENTS Potassium Chloride (K-Dur) 40 meq PO UNSCH PRN PRN Reason: SEE LABEL COMMENTS Pravastatin Sodium (Pravachol) 20 mg PO DAILY [facility] Last Admin: 09/11/18 08:28 Dose: 20 mg Senna/Docusate Sodium (Letty-Colace) 1 tab PO BID [facility] Last Admin: 09/11/18 21:12 Dose: 1 tab Sodium Bicarbonate (Sodium Bicarbonate 8.4% Inj) 50 meq IV.PUSH UNSCH PRN PRN Reason: SEE LABEL COMMENTS Sodium Bicarbonate (Sodium Bicarbonate 8.4% Inj) 100 meq IV.PUSH UNSCH PRN PRN Reason: SEE LABEL COMMENTS Sodium Chloride (Ns Flush) 2 ml IV.FLUSH BID [facility] Last Admin: 09/11/18 21:12 Dose: Not Given Sodium Chloride (Ns Flush) 2 ml IV.FLUSH PRN PRN PRN Reason: FLUSH AFTER USING IV ACCESS Terbutaline Sulfate (Brethine Inj) 1 mg SQ UNSCH PRN PRN Reason: For Extravasation Terbutaline Sulfate (Brethine Inj) 1 mg SQ UNSCH PRN PRN Reason: For Extravasation Terbutaline Sulfate (Brethine Inj) 1 mg SQ ONCE PRN PRN Reason: Extravasation Allergies Allergy/AdvReac Type Severity Reaction Status Date / Time No Allergy Information Allergy Verified 08/30/18 11:50 Available Home Medications Medication Instructions Recorded Confirmed Type amoxicillin 500 mg PO TID 08/30/18 08/30/18 History aspirin 325 mg PO DAILY 08/30/18 08/30/18 History carvedilol 3.125 mg PO BID 08/30/18 08/30/18 History glipizide 10 mg PO DAILY 08/30/18 08/30/18 History ibuprofen 800 mg PO TID PRN 08/30/18 08/30/18 History isosorbide mononitrate 60 mg PO QAM 08/30/18 08/30/18 History olmesartan 20 mg PO DAILY 08/30/18 08/30/18 History prasugrel 10 mg PO DAILY 08/30/18 08/30/18 History pravastatin 20 mg PO DAILY 08/30/18 08/30/18 History sitagliptin-metformin [Janumet XR] 1 tab PO QPM 08/30/18 08/30/18 History Physical Exam Vital signs: Vital Signs 09/11/18 14:00 09/11/18 15:00 09/11/18 15:59 Temperature 97.4 F L Pulse Rate 66 60 65 Respiratory Rate 18 Blood Pressure 136/74 Pulse Oximetry 100 09/11/18 16:00 09/11/18 17:00 09/11/18 18:09 Temperature Pulse Rate 64 60 75 Respiratory Rate Blood Pressure Pulse Oximetry 09/11/18 19:00 09/11/18 20:00 09/11/18 21:00 Temperature 98.1 F Pulse Rate 68 74 70 Respiratory Rate 18 Blood Pressure 120/71 Pulse Oximetry 100 09/11/18 22:00 09/11/18 23:00 09/12/18 00:00 Temperature 97.7 F Pulse Rate 64 67 60 Respiratory Rate 16 Blood Pressure 138/83 Pulse Oximetry 100 09/12/18 01:00 09/12/18 02:00 09/12/18 03:00 Temperature Pulse Rate 62 58 L 55 L Respiratory Rate Blood Pressure Pulse Oximetry 09/12/18 04:00 09/12/18 05:00 09/12/18 06:00 Temperature 97.6 F Pulse Rate 58 L 60 66 Respiratory Rate 16 Blood Pressure 131/85 Pulse Oximetry 100 09/12/18 07:00 09/12/18 07:32 09/12/18 13:21 Temperature 98 F Pulse Rate 61 61 Respiratory Rate 17 16 Blood Pressure 121/76 Pulse Oximetry 100 98 Intake & Output 09/11/18 09/12/18 09/12/18 18:59 06:59 18:59 Intake Total 960 / 960 490 / 490 2800 / 2800 Output Total 1250 / 1250 500 / 500 700 / 700 Balance -290 / -290 -10 / -10 2100 / 2100 Weight 76.9 kg Intake: IV 250 / 250 100 / 100 Heparin/D5W 25,000 U/250 mL 25, 250 / 250 000 unit In 250 ml @ 1,000 UNITS/HR 10 mls/hr IV.CONT TITRATE PRN Rx#:[id number] Ancef 1 GM Premix Inj 2 gm In 100 / 100 100 ml @ 0 mls/hr IV.SIG .STK- MED ONE Rx#:[id number] Oral 960 / 960 240 / 240 Anesthesia Amount 2500 / 2500 Cell Saver Amount 200 / 200 Output: Urine 1250 / 1250 500 / 500 Estimated Blood Loss 400 / 400 Urine Amount (Catheter) 300 / 300 Indwelling Temp Sensing 300 / 300 Catheter Other: Date of Last Bowel Movement 09/09/18 # Bowel Movements 0 - Constitutional no acute distress - Routine HEENT Exam Head: Present: normocephalic - Routine Neck Exam Present: supple - Routine Cardiovascular Exam Present: S1, S2 - Routine Abdominal Exam Present: soft - Routine Extremities Exam Comments: no rito - Urinary Catheter Management Indwelling Temp Sensing Catheter Cath placed during this visit: yes Reason for continuing: Hourly intake/output Insertion date: 09/12/18 Insertion time: 08:40 Results 09/10/18 05:09 09/10/18 05:09 Coagulation 09/11/18 09/12/18 Range/Units 05:44 07:28 APTT 49.0 H 29.0 D (23.4-31.7) sec Intake and Output 09/11/18 09/12/18 09/12/18 22:59 06:59 14:59 Intake Total 1210 / 1210 240 / 240 2800 / 2800 Output Total 1250 / 1250 500 / 500 700 / 700 Balance -40 / -40 -260 / -260 2100 / 2100 Intake: IV 250 / 250 100 / 100 Heparin/D5W 25,000 U/250 mL 25, 250 / 250 000 unit In 250 ml @ 1,000 UNITS/HR 10 mls/hr IV.CONT TITRATE PRN Rx#:[id number] Ancef 1 GM Premix Inj 2 gm In 100 / 100 100 ml @ 0 mls/hr IV.SIG .STK- MED ONE Rx#:[id number] Oral 960 / 960 240 / 240 Anesthesia Amount 2500 / 2500 Cell Saver Amount 200 / 200 Output: Urine 1250 / 1250 500 / 500 Estimated Blood Loss 400 / 400 Urine Amount (Catheter) 300 / 300 Indwelling Temp Sensing 300 / 300 Catheter Other: Date of Last Bowel Movement 09/09/18 # Bowel Movements 0 Weight 76.9 kg Assessment and Plan - Assessment (1) NSTEMI (non-ST elevated myocardial infarction) Code(s): I21.4 - Non-ST elevation (NSTEMI) myocardial infarction Status: Acute (2) ARF (acute renal failure) Code(s): N17.9 - Acute kidney failure, unspecified Status: Acute (3) Hypertension Code(s): I10 - Essential (primary) hypertension Status: Acute (4) Hyperlipidemia Code(s): E78.5 - Hyperlipidemia, unspecified Status: Acute (5) CAD (coronary artery disease) Code(s): I25.10 - Atherosclerotic heart disease of [place] coronary artery without angina pectoris Status: Acute (6) Diabetes type 2, controlled Code(s): E11.9 - Type 2 diabetes mellitus without complications Status: Acute - Plan 1.) CAD - nstemi, severe dom lcx and mid lad disease, continue aspirin, elmer held due to arf, pod # 0 cabg per elvi Cantor
[2018-09-12] MEDS ORDERED: RASS Change Order OTHER ONE (14:00)
--- NOTE | 2018-09-12 14:37 | XR ---
EXAM DATE: 09/12/2018 2:27 PM EST AGE/SEX: 63 years / Male INDICATIONS: Post op CABG. CLINICAL DATA: This is the patient's initial encounter. Patient reports that signs and symptoms have been present for 1 day and indicates a pain score of Nonresponsive. MEDICAL/SURGICAL HISTORY: . Chronic obstructive pulmonary disease. Hypertension. Coronary arter y disease. Prostatitis, chronic. . Coronary artery stent. COMPARISON: [facility], CHEST 1V SINGLE AP, 08/30/2018. . FINDINGS: Postsurgical features of CABG with ETT at the level of the clavicles, left subclavian central line in the proximal SVC, mediastinal drains and left apical chest tube in place. There is an NGT in the sto mach. No significant pneumothorax. Mild diffuse interstitial prominence with cardiomegaly. Remainder of exam is unchanged. CONCLUSION: 1. Expected postoperative features of CABG with tubes and lines, as above. 2. No significant pneumothorax with mild positive fluid balance. Electronically signed by: Brandt Adam MD Board Certified Radiologist 09/12/2018 2:35 PM UTE T
[2018-09-12] MEDS: fentaNYL Citrate Inj 100 MCG/2 ML Ampul IV.PUSH PRN ×4 (15:01→21:57)
[2018-09-12 15:49] LABS: Baso # (Auto) 0.1 th/mm3 (0.0-0.2); Baso % (Auto) 0.3 % (0.0-2.0); Eos # (Auto) 0.4 th/mm3 (0.0-0.4); Eos % (Auto) 1.9 % (0.0-4.0); Hematocrit 34.2 % (39.0-51.0); Hemoglobin 11.5 gm/dL (13.0-17.0); Lymph # (Auto) 1.8 th/mm3 (1.0-4.8); Lymph % (Auto) 9.6 % (9.0-44.0); Mean Corpuscular HGB Conc 33.8 % (32.0-36.0); Mean Corpuscular Hemoglobin 30.9 pg (27.0-34.0); Mean Corpuscular Volume 91.4 fL (80.0-100.0); Mean Platelet Volume 7.9 fL (7.0-11.0); Mono # (Auto) 1.2 th/mm3 (0.0-0.9); Mono % (Auto) 6.5 % (0.0-8.0); Neut # (Auto) 15.6 th/mm3 (1.8-7.7); Neut % (Auto) 81.7 % (16.0-70.0); Platelet Count 217 th/mm3 (150-450); Red Blood Count 3.74 mil/mm3 (4.50-5.90); Red Cell Distribution Width 13.9 % (11.6-17.2); White Blood Count 19.1 th/mm3 (4.0-11.0)
[2018-09-12 16:31] LABS: Calcium 8.1 mg/dL (8.5-10.1); Carbon Dioxide 24.4 meq/L (21.0-32.0); Phosphorus 2.8 mg/dL (2.5-4.9); Potassium 4.2 meq/L (3.5-5.1)
[2018-09-12] MEDS: ceFAZolin 2 GM Premix Inj 2 GM/50 ML PIGGYBACK IV.SIG SCH (17:08)
[2018-09-12] MEDS: Isosorbide Mononitrate 60 MG ER 24HR Tablet (Imdur) PO SCH (18:31)
[2018-09-12] MEDS: Senna/Docusate Sodium 8.6/50 MG Tablet PO SCH ×2 (18:32→20:05)
[2018-09-12] MEDS: Amiodarone 200 MG Tablet PO SCH (20:05)
[2018-09-13] MEDS: ceFAZolin 2 GM Premix Inj 2 GM/50 ML PIGGYBACK IV.SIG SCH ×3 (01:32→16:24)
[2018-09-13] MEDS: fentaNYL Citrate Inj 100 MCG/2 ML Ampul IV.PUSH PRN ×2 (01:32→04:07)
--- NOTE | 2018-09-13 03:52 | XR ---
EXAM DATE: 09/13/2018 3:35 AM EST AGE/SEX: 63 years / Male INDICATIONS: Status post CABG. CLINICAL DATA: This is the patient's subsequent encounter. Patient reports that signs and symptoms h ave been present for 2 days and indicates a pain score of 0/10. MEDICAL/SURGICAL HISTORY: . Chronic obstructive pulmonary disease. Hypertension. Coronary arter y disease. Prostatitis, chronic. . Coronary artery stent. [place] [facility] [place]. . FINDINGS: The patient is status post sternotomy. There is a mediastinal drain and left chest tube in place. A p neumothorax is not seen. This increased density at the bases bilaterally. There is a left subclavian line placed overlying the SVC. CONCLUSION: Bibasilar areas of consolidation or atelectasis. Electronically signed by: Narciso Mancuso MD Board Certified Radiologist 09/13/2018 3:51 AM EST
[2018-09-13 05:05] LABS: Hematocrit 33.5 % (39.0-51.0); Hemoglobin 11.1 gm/dL (13.0-17.0); Mean Corpuscular Hemoglobin 30.2 pg (27.0-34.0); Mean Corpuscular Volume 91.6 fL (80.0-100.0); Mean Platelet Volume 8.7 fL (7.0-11.0); Platelet Count 237 th/mm3 (150-450); Red Blood Count 3.66 mil/mm3 (4.50-5.90); Red Cell Distribution Width 14.1 % (11.6-17.2); White Blood Count 15.8 th/mm3 (4.0-11.0)
[2018-09-13 05:44] LABS: Calcium 8.9 mg/dL (8.5-10.1); Carbon Dioxide 22.8 meq/L (21.0-32.0); Magnesium 2.3 mg/dL (1.5-2.5); Potassium 5.4 meq/L (3.5-5.1)
[2018-09-13] MEDS: Isosorbide Mononitrate 60 MG ER 24HR Tablet (Imdur) PO SCH (06:11)
--- NOTE | 2018-09-13 07:15 | ECG ---
Date Performed: 09/13/2018 Time Performed: 02:55:10 PTAGE: 63 years EKG: Sinus rhythm Diffuse ST elevation, consider pericarditis, cannot rule out acute injury pattern Abnormal ECG PREVIOUS TRACING : 09/12/2018 14.03 Compared to previous tracing, diffuse ST elevation is now p resent. DOCTOR: Matthias Hdz Interpretating Date/Time 09/13/2018 07:13:34
--- NOTE | 2018-09-13 08:23 | P.PNCV ---
- Note Subjective/Hospital Course: A 63-year-old male transferred from [facility]. Apparently was admitted there with chest pain on 08/30/2018. Chest pain located on the left side of his chest, 07/10. Said he had a recent treadmill stress test a month ago, but was unable to complete the test. Apparently, per the patient, it was negative. The patient also had elevated creatinine at 2.02. He was transferred to our facility. He underwent cardiac catheterization by Dr. Mann which showed a left main disease of 60%, mid distal LAD 75%, the circ was 90%, the OM 90%, EF of 65%. We were consulted to evaluate for coronary artery bypass grafting. The patient has also had some dentalextraction and has sutures in place. He had a new bottom denture plate placed. We did, however, get in touch with the [facility] Dental physician, Dr. Pacheco, who stated to leave the sutures in place and we were okay to remove the bottom denture plate prior to any surgery and that he would follow up with the patient after he was released from the hospital for suture removal. PAST MEDICAL HISTORY: Includes coronary artery disease, diabetes mellitus, hyperlipidemia, hypertension, chronic prostatitis. 09/04 PRU 92 discussed with pt , will more than likely eval for surgery on sunday recheck PRU on SUN 09/05 tentatively scheduled for surgery on sunday repeat PRU in am 09/06 pru 148/ repeat on Sunday no chest pain creatinine continues to climb which is a concern 09/09 PRU 183 need to be > 200 prefer 250 recheck in am will need to reschedule this week 09/10 pt stable no chest pain PRU 246 stable for surgery / rescheduled for Thur 09/12 SURGICAL PROCEDURE 1. Urgent Off-pump Coronary Artery Bypass Grafting x 4 with Left Internal Mammary Artery (JOSE) to Left Anterior Descending (LAD), reverse saphenous vein graft to obtuse Marginal branch of the left Circumflex artery, reverse saphenous vein graft to the Diagonal 1 Branch of the LAD, reverse saphenous vein graft to the ramus marginalis 2. Left leg Endoscopic Vein [place] 3. Intraoperative Vein Mapping. 09/13 Clinically and hemodynamically stable Monitor creatinine level Maintain chest tubes Transfer [facility] Objective: Vital Signs - 24 hr 09/12/18 13:21 09/12/18 13:30 09/12/18 14:20 Temperature 97.8 F 97.8 F Pulse Rate 71 Respiratory Rate 16 13 Blood Pressure 165/84 H Pulse Oximetry 98 99 09/12/18 14:40 09/12/18 14:50 09/12/18 15:00 Temperature 98.2 F 98.2 F Pulse Rate 65 Respiratory Rate 14 Blood Pressure 113/68 Pulse Oximetry 98 99 09/12/18 15:34 09/12/18 15:41 09/12/18 15:43 Temperature Pulse Rate 76 Respiratory Rate 14 18 Blood Pressure Pulse Oximetry 98 09/12/18 16:00 09/12/18 16:06 09/12/18 18:32 Temperature Pulse Rate 68 66 Respiratory Rate 18 Blood Pressure Pulse Oximetry 09/12/18 19:00 09/12/18 21:10 09/12/18 21:13 Temperature 97.5 F L Pulse Rate 70 73 Respiratory Rate 18 22 Blood Pressure 131/84 Pulse Oximetry 96 94 L 09/12/18 22:27 09/12/18 23:00 09/13/18 02:02 Temperature 99.6 F Pulse Rate 79 Respiratory Rate 16 16 16 Blood Pressure 124/71 Pulse Oximetry 99 09/13/18 03:00 09/13/18 04:36 09/13/18 07:00 Temperature 99.7 F H 99.2 F Pulse Rate 80 82 83 Respiratory Rate 16 16 13 Blood Pressure 115/72 101/63 Pulse Oximetry 99 99 Labs: Laboratory Results - last 12 hr 09/12/18 09/12/18 09/12/18 21:01 21:03 21:56 WBC RBC Hgb Hct MCV MCH MCHC RDW Plt Count MPV Sodium Potassium Chloride Carbon Dioxide Anion Gap BUN Creatinine Estimated GFR POC Glucose 189 H 144 H 135 H Random Glucose Calcium Magnesium 09/12/18 09/13/18 09/13/18 23:23 00:08 01:47 WBC RBC Hgb Hct MCV MCH MCHC RDW Plt Count MPV Sodium Potassium Chloride Carbon Dioxide Anion Gap BUN Creatinine Estimated GFR POC Glucose 136 H 126 H 105 Random Glucose Calcium Magnesium 09/13/18 09/13/18 09/13/18 04:14 04:14 04:14 WBC 15.8 H RBC 3.66 L Hgb 11.1 L Hct 33.5 L MCV 91.6 MCH 30.2 MCHC 33.0 RDW 14.1 Plt Count 237 MPV 8.7 Sodium 134 L Potassium 5.4 H D Chloride 103 Carbon Dioxide 22.8 Anion Gap 8 BUN 29 H Creatinine 2.06 H Estimated GFR 39 L POC Glucose 155 H Random Glucose 159 H Calcium 8.9 D Magnesium 2.3 09/13/18 09/13/18 09/13/18 05:09 06:14 07:20 WBC RBC Hgb Hct MCV MCH MCHC RDW Plt Count MPV Sodium Potassium Chloride Carbon Dioxide Anion Gap BUN Creatinine Estimated GFR POC Glucose 140 H 139 H 117 H Random Glucose Calcium Magnesium Result Diagrams: 09/13/18 04:14 09/13/18 04:14 - Plan (1) ARF (acute renal failure) Plan: creatinine 1.66> 2.0> 2.04>1.90 worsening indices Nephro following (4) CAD (coronary artery disease) Plan: f/u PRU in am reschedule this for (6) NSTEMI (non-ST elevated myocardial infarction) Plan: ASA, BB statin eval for surgery on Sunday recheck labs on sunday
[2018-09-13] MEDS ORDERED: Bisacodyl 10 MG Supp RECTAL PRN (08:26)
[2018-09-13] MEDS: Multivitamin/Minerals Therapeutic Tablet PO SCH (09:16)
[2018-09-13] MEDS: Senna/Docusate Sodium 8.6/50 MG Tablet PO SCH ×2 (09:16→21:32)
[2018-09-13] MEDS: Amiodarone 200 MG Tablet PO SCH ×2 (09:17→21:32)
[2018-09-13] MEDS: Insulin NovoLOG Aspart Correctional Sugar Inj SQ SCH ×4 (09:38→23:16)
--- NOTE | 2018-09-13 10:24 | P.PNCA ---
Subjective Interval history: alert in nad Medications and Allergies Active Medications: Active Medications Acetaminophen (Tylenol) 650 mg PO Q4H PRN PRN Reason: Temp > 100.4 Hydrocodone Bitart/Acetaminophen ([place] 5/325) 1 tab PO Q3H PRN PRN Reason: PAIN SCALE 1 TO 5 Last Admin: 09/13/18 09:32 Dose: 1 tab Al Hydroxide/Mg Hydroxide (Milk Of Magnniels Liq) 30 ml PO DAILY [facility] Last Admin: 09/13/18 09:16 Dose: 30 ml Albuterol (Duoneb Neb (Richard)) 1 ampul NEB Q6HR NEB [facility] Last Admin: 09/13/18 04:36 Dose: 1 ampul Amiodarone HCl (Cordarone) 200 mg PO Q12HR [facility] Last Admin: 09/13/18 09:17 Dose: 200 mg Aspirin (Aspirin Chew) 81 mg PO DAILY [facility] Last Admin: 09/13/18 09:16 Dose: 81 mg Atorvastatin Calcium (Lipitor) 40 mg PO DAILY [facility] Last Admin: 09/13/18 09:20 Dose: Not Given Bisacodyl (Dulcolax Supp) 10 mg RECTAL PRN PRN PRN Reason: SEE LABEL COMMENTS Calcium Chloride (Calcium Chloride Inj) 0.5 gm IV.PUSH UNSCH PRN PRN Reason: SEE LABEL COMMENTS Carvedilol (Coreg) 6.25 mg PO BID [facility] Last Admin: 09/13/18 09:16 Dose: 6.25 mg Clopidogrel Bisulfate (Plavix) 75 mg PO DAILY [facility] Last Admin: 09/13/18 09:16 Dose: 75 mg Dextrose (D50w Vial) 50 ml IV.PUSH UNSCH PRN PRN Reason: PER HYPOGLYCEMIA PROTOCOL Diphenhydramine HCl (Benadryl) 50 mg PO HS PRN PRN Reason: SLEEP Docusate Sodium (Colace) 100 mg PO BID [facility] Epinephrine (Racepinephrine 2.25% Neb) 0.5 ml NEB DAILY NEB PRN PRN Reason: STRIDOR Glucagon (Glucagon Inj) 1 mg OTHER PRN PRN PRN Reason: for Hypoglycemia Protocol Albumin Human (Buminate 5% Inj) 250 mls @ 250 mls/hr IV.SIG UNSCH PRN PRN Reason: SEE LABEL COMMENTS Last Infusion: 09/13/18 06:48 Dose: Infused Calcium Chloride 1 gm/ Sodium (Chloride) 110 mls @ 100 mls/hr IV.SIG PRN PRN PRN Reason: SEE LABEL COMMENTS Last Infusion: 09/12/18 23:04 Dose: Infused Magnesium Sulfate 2 gm/ Sodium (Chloride) 100 mls @ 50 mls/hr IV.SIG PRN PRN PRN Reason: SEE LABEL COMMENTS Magnesium Sulfate 2 gm/ Sodium (Chloride) 100 mls @ 50 mls/hr IV.SIG PRN PRN PRN Reason: SEE LABEL COMMENTS Potassium Chloride (Kcl 20 Meq Premix Inj) 20 meq in 100 mls @ 50 mls/hr IV.SIG PRN PRN PRN Reason: SEE LABEL COMMENTS Last Infusion: 09/12/18 19:00 Dose: Infused Potassium Chloride (Kcl 20 Meq Premix Inj) 20 meq in 100 mls @ 50 mls/hr IV.SIG PRN PRN PRN Reason: SEE LABEL COMMENTS Potassium Chloride (Kcl 20 Meq Premix Inj) 20 meq in 100 mls @ 50 mls/hr IV.SIG PRN PRN PRN Reason: SEE LABEL COMMENTS Cefazolin Sodium/Dextrose (Ancef 2 Gm Premix Inj) 2 gm in 50 mls @ 100 mls/hr IV.SIG Q8H RICHARD Stop: 09/14/18 01:29 Last Infusion: 09/13/18 10:04 Dose: Infused Insulin Aspart (Novolog Insulin Correctional Sugar Inj) 0 unit SQ 02,06,10,14, 18,22 [facility]; Protocol Last Admin: 09/13/18 09:38 Dose: 4 unit Morphine Sulfate (Morphine Inj) 4 mg IV.PUSH Q4H PRN PRN Reason: BREAKTHROUGH PAIN Last Admin: 08/30/18 19:19 Dose: 4 mg Multivitamins/Minerals (Theragran-M) 1 tab PO DAILY [facility] Last Admin: 09/13/18 09:16 Dose: 1 tab Ondansetron HCl (Zofran Inj) 4 mg IV.PUSH Q6H PRN PRN Reason: NAUSEA OR VOMITING Pantoprazole Sodium (Protonix) 40 mg PO DAILY@06 [facility] Last Admin: 09/13/18 06:11 Dose: 40 mg Phenylephrine HCl (Neosynephrine Inj) 0.1 mg IV.PUSH UNSCH PRN PRN Reason: SEE LABEL COMMENTS Polyethylene Glycol (Miralax) 17 gm PO DAILY [facility] Potassium Chloride (K-Dur) 20 meq PO UNSCH PRN PRN Reason: SEE LABEL COMMENTS Potassium Chloride (K-Dur) 40 meq PO UNSCH PRN PRN Reason: SEE LABEL COMMENTS Pravastatin Sodium (Pravachol) 20 mg PO DAILY [facility] Last Admin: 09/13/18 09:17 Dose: 20 mg Senna/Docusate Sodium (Letty-Colace) 1 tab PO BID [facility] Last Admin: 09/13/18 09:16 Dose: 1 tab Sennosides (Senokot) 8.6 mg PO [facility] Sodium Bicarbonate (Sodium Bicarbonate 8.4% Inj) 50 meq IV.PUSH UNSCH PRN PRN Reason: SEE LABEL COMMENTS Sodium Bicarbonate (Sodium Bicarbonate 8.4% Inj) 100 meq IV.PUSH UNSCH PRN PRN Reason: SEE LABEL COMMENTS Sodium Biphosphate/Sodium Phosphate (Fleets Enema (Adult)) 118 ml RECTAL UNSCH PRN PRN Reason: SEE LABEL COMMENTS Sodium Chloride (Ns Flush) 2 ml IV.FLUSH BID [facility] Last Admin: 09/13/18 09:17 Dose: 2 ml Sodium Chloride (Ns Flush) 2 ml IV.FLUSH PRN PRN PRN Reason: FLUSH AFTER USING IV ACCESS Terbutaline Sulfate (Brethine Inj) 1 mg SQ UNSCH PRN PRN Reason: For Extravasation Allergies Allergy/AdvReac Type Severity Reaction Status Date / Time No Allergy Information Allergy Verified 08/30/18 11:50 Available Home Medications Medication Instructions Recorded Confirmed Type amoxicillin 500 mg PO TID 08/30/18 08/30/18 History aspirin 325 mg PO DAILY 08/30/18 08/30/18 History carvedilol 3.125 mg PO BID 08/30/18 08/30/18 History glipizide 10 mg PO DAILY 08/30/18 08/30/18 History ibuprofen 800 mg PO TID PRN 08/30/18 08/30/18 History isosorbide mononitrate 60 mg PO QAM 08/30/18 08/30/18 History olmesartan 20 mg PO DAILY 08/30/18 08/30/18 History prasugrel 10 mg PO DAILY 08/30/18 08/30/18 History pravastatin 20 mg PO DAILY 08/30/18 08/30/18 History sitagliptin-metformin [Janumet XR] 1 tab PO QPM 08/30/18 08/30/18 History Physical Exam Vital signs: Vital Signs 09/12/18 13:21 09/12/18 13:30 09/12/18 14:20 Temperature 97.8 F 97.8 F Pulse Rate 71 Respiratory Rate 16 13 Blood Pressure 165/84 H Pulse Oximetry 98 99 09/12/18 14:40 09/12/18 14:50 09/12/18 15:00 Temperature 98.2 F 98.2 F Pulse Rate 65 Respiratory Rate 14 Blood Pressure 113/68 Pulse Oximetry 98 99 09/12/18 15:34 09/12/18 15:41 09/12/18 15:43 Temperature Pulse Rate 76 Respiratory Rate 14 18 Blood Pressure Pulse Oximetry 98 09/12/18 16:00 09/12/18 16:06 09/12/18 18:32 Temperature Pulse Rate 68 66 Respiratory Rate 18 Blood Pressure Pulse Oximetry 09/12/18 19:00 09/12/18 21:10 09/12/18 21:13 Temperature 97.5 F L Pulse Rate 70 73 Respiratory Rate 18 22 Blood Pressure 131/84 Pulse Oximetry 96 94 L 09/12/18 22:27 09/12/18 23:00 09/13/18 02:02 Temperature 99.6 F Pulse Rate 79 Respiratory Rate 16 16 16 Blood Pressure 124/71 Pulse Oximetry 99 09/13/18 03:00 09/13/18 04:36 09/13/18 07:00 Temperature 99.7 F H 99.2 F Pulse Rate 80 82 83 Respiratory Rate 16 16 13 Blood Pressure 115/72 101/63 Pulse Oximetry 99 99 09/13/18 09:33 09/13/18 10:00 Temperature Pulse Rate Respiratory Rate 12 13 Blood Pressure Pulse Oximetry Intake & Output 09/12/18 09/13/18 09/13/18 18:59 06:59 18:59 Intake Total 2970 / 2970 1220 / 1220 150 / 150 Output Total 1590 / 1590 845 / 845 Balance 1380 / 1380 375 / 375 150 / 150 Weight 84.5 kg Intake: IV 150 / 150 740 / 740 150 / 150 Cleviprex Inj 25 mg In 50 ml @ 40 / 40 1 MG/HR 2 mls/hr IV.CONT TITRATE PRN Rx#:[id number] Ofirmev Inj 1,000 mg In 100 ml 200 / 200 100 / 100 @ 400 mls/hr IV.SIG Q6H RICHARD Rx# :[id number] Buminate 5% Inj 250 ML @ 250 250 / 250 mls/hr IV.SIG UNSCH PRN Rx#: [id number] Calcium Chloride Inj 1 GM In NS 100 / 100 Inj 100 ML @ 100 mls/hr IV.SIG PRN PRN Rx#:[id number] KCl 20 mEq Premix Inj 20 meq In 100 / 100 100 ml @ 50 mls/hr IV.SIG PRN PRN Rx#:[id number] Ancef 1 GM Premix Inj 2 gm In 100 / 100 100 ml @ 0 mls/hr IV.SIG .STK- MED ONE Rx#:[id number] Ancef 2 GM Premix Inj 2 gm In 50 / 50 50 / 50 50 / 50 50 ml @ 100 mls/hr IV.SIG Q8H RICHARD Rx#:[id number] Oral 120 / 120 480 / 480 Anesthesia Amount 2500 / 2500 Cell Saver Amount 200 / 200 Output: Estimated Blood Loss 400 / 400 Urine Amount (Catheter) 810 / 810 575 / 575 Indwelling Temp Sensing 810 / 810 575 / 575 Catheter Chest Tube Drainage 380 / 380 270 / 270 #2 Anterior 380 / 380 270 / 270 Other: Date of Last Bowel Movement 09/09/18 - Constitutional no acute distress - Routine HEENT Exam Head: Present: normocephalic - Routine Neck Exam Present: supple - Routine Respiratory Exam Present: CTA bilaterally - Routine Cardiovascular Exam Present: S1, S2 - Routine Abdominal Exam Present: soft - Routine Extremities Exam Comments: no rito - Urinary Catheter Management Indwelling Temp Sensing Catheter Cath placed during this visit: yes, but has since been removed by the nurse Reason for continuing: Decision to DC catheter Insertion date: 09/12/18 Insertion time: 08:40 Removal date: 09/13/18 Removal time: 06:15 Results 09/13/18 04:14 09/13/18 09:45 Coagulation 09/12/18 Range/Units 07:28 APTT 29.0 D (23.4-31.7) sec CBC 09/12/18 09/13/18 Range/Units 15:22 04:14 WBC 19.1 H 15.8 H (4.0-11.0) th/mm3 RBC 3.74 L 3.66 L (4.50-5.90) mil/mm3 Hgb 11.5 L 11.1 L (13.0-17.0) gm/dL Hct 34.2 L 33.5 L (39.0-51.0) % Plt Count 217 237 (150-450) th/mm3 Neut # (Auto) 15.6 H (1.8-7.7) th/mm3 Lymph # (Auto) 1.8 (1.0-4.8) th/mm3 [place] # (Auto) 1.2 H (0.0-0.9) th/mm3 Eos # (Auto) 0.4 (0.0-0.4) th/mm3 Baso # (Auto) 0.1 (0.0-0.2) th/mm3 Comprehensive Metabolic Panel 09/12/18 09/13/18 09/13/18 Range/Units 15:22 04:14 09:45 Sodium 138 134 L (136-145) meq/L Potassium 4.2 5.4 H D 4.9 (3.5-5.1) meq/L Chloride 107 103 (98-107) meq/L Carbon Dioxide 24.4 22.8 (21.0-32.0) meq/L BUN 28 H 29 H (7-18) mg/dL Creatinine 1.97 H 2.06 H (0.60-1.30) mg/dL Calcium 8.1 L 8.9 D (8.5-10.1) mg/dL Intake and Output 09/12/18 09/13/18 09/13/18 22:59 06:59 14:59 Intake Total 410 / 410 980 / 980 150 / 150 Output Total 890 / 890 845 / 845 Balance -480 / -480 135 / 135 150 / 150 Intake: IV 290 / 290 500 / 500 150 / 150 Cleviprex Inj 25 mg In 50 ml @ 40 / 40 1 MG/HR 2 mls/hr IV.CONT TITRATE PRN Rx#:[id number] Ofirmev Inj 1,000 mg In 100 ml 100 / 100 100 / 100 100 / 100 @ 400 mls/hr IV.SIG Q6H RICHARD Rx# :[id number] Buminate 5% Inj 250 ML @ 250 250 / 250 mls/hr IV.SIG UNSCH PRN Rx#: [id number] Calcium Chloride Inj 1 GM In NS 100 / 100 Inj 100 ML @ 100 mls/hr IV.SIG PRN PRN Rx#:[id number] KCl 20 mEq Premix Inj 20 meq In 100 / 100 100 ml @ 50 mls/hr IV.SIG PRN PRN Rx#:[id number] Ancef 2 GM Premix Inj 2 gm In 50 / 50 50 / 50 50 / 50 50 ml @ 100 mls/hr IV.SIG Q8H RICHARD Rx#:[id number] Oral 120 / 120 480 / 480 Output: Urine Amount (Catheter) 510 / 510 575 / 575 Indwelling Temp Sensing 510 / 510 575 / 575 Catheter Chest Tube Drainage 380 / 380 270 / 270 #2 Anterior 380 / 380 270 / 270 Other: Weight 84.5 kg - Imaging and Cardiology Imaging: Impressions Chest X-Ray 09/12/18 12:38 CONCLUSION: 1. Expected postoperative features of CABG with tubes and lines, as above. 2. No significant pneumothorax with mild positive fluid balance. Chest X-Ray 09/13/18 05:00 CONCLUSION: Bibasilar areas of consolidation or atelectasis. Assessment and Plan - Assessment (1) NSTEMI (non-ST elevated myocardial infarction) Code(s): I21.4 - Non-ST elevation (NSTEMI) myocardial infarction Status: Acute (2) ARF (acute renal failure) Code(s): N17.9 - Acute kidney failure, unspecified Status: Acute (3) Hypertension Code(s): I10 - Essential (primary) hypertension Status: Acute (4) Hyperlipidemia Code(s): E78.5 - Hyperlipidemia, unspecified Status: Acute (5) CAD (coronary artery disease) Code(s): I25.10 - Atherosclerotic heart disease of [place] coronary artery without angina pectoris Status: Acute (6) Diabetes type 2, controlled Code(s): E11.9 - Type 2 diabetes mellitus without complications Status: Acute - Plan 1.) CAD - nstemi, severe dom lcx and mid lad disease, continue aspirin, plavix, lipitor, coreg, elmer held due to arf, pod # [address] Sprague, stable
--- NOTE | 2018-09-13 10:28 | P.DIET ---
Nutritional Evaluation Screening comments: MDC for Diet Education s/p CABG x 4 received. Please note that the pt received Diabetic diet instruction on 09/04. Patient Navigator to provide further education. Consult RD if complexities with diet education arise.
--- NOTE | 2018-09-13 11:59 | P.PNIM ---
Subjective Interval history: Follow-up for multivessel coronary artery disease, non-STEMI. Patient is currently doing well. He reports some chest pain but overall doing well. Denies any fever or chills. Physical Exam Vital signs: Last Vital Signs Temp 97.5 F L 09/13/18 10:59 Pulse 74 09/13/18 11:00 Resp 18 09/13/18 11:00 BP 111/73 09/13/18 10:59 Pulse Ox 99 09/13/18 11:00 Intake & Output 09/11/18 09/12/18 09/13/18 09/14/18 06:59 06:59 06:59 06:59 Intake Total 1785 / 1785 1450 / 1450 4190 / 4190 150 / 150 Output Total 2550 / 2550 1750 / 1750 2435 / 2435 Balance -765 / -765 -300 / -300 1755 / 1755 150 / 150 Weight 77 kg 76.9 kg 84.5 kg Narrative: GENERAL: Alert, oriented x3, NAD. Chest tube in place. SKIN: Warm and dry. HEAD: Normocephalic. EYES: No scleral icterus. No injection or drainage. NECK: Supple, trachea midline. No JVD or lymphadenopathy. CARDIOVASCULAR: Regular rate and rhythm without murmurs, gallops, or rubs. Prevena dressing in place. RESPIRATORY: Breath sounds equal bilaterally. No accessory muscle use. GASTROINTESTINAL: Abdomen soft, non-tender, nondistended. MUSCULOSKELETAL: No cyanosis, or edema. BACK: Nontender without obvious deformity. No CVA tenderness. Urinary Catheter Management Indwelling Temp Sensing Catheter: Cath placed during this visit: yes, but has since been removed by the nurse Insertion date: 09/12/18 Insertion time: 08:40 Removal date: 09/13/18 Removal time: 06:15 Results Labs CBC & Chem 7: 09/13/18 04:14 09/13/18 09:45 Imaging Imaging: Impressions Chest X-Ray 09/12/18 12:38 CONCLUSION: 1. Expected postoperative features of CABG with tubes and lines, as above. 2. No significant pneumothorax with mild positive fluid balance. Chest X-Ray 09/13/18 05:00 CONCLUSION: Bibasilar areas of consolidation or atelectasis. Procedures Procedures: Echocardiogram 08/31/2018 The left ventricular systolic function is normal with an estimated ejection fraction in the range of 60-65%. There is trace tricuspid valve regurgitation. 09/12/2018 1. Urgent Off-pump Coronary Artery Bypass Grafting x 4 with Left Internal Mammary Artery (JOSE) to Left Anterior Descending (LAD), reverse saphenous vein graft to obtuse Marginal branch of the left Circumflex artery, reverse saphenous vein graft to the Diagonal 1 Branch of the LAD, reverse saphenous vein graft to the ramus marginalis 2. Left leg Endoscopic Vein [place] 3. Intraoperative Vein Mapping. Assessment and Plan (1) ARF (acute renal failure): Code(s): N17.9 - Acute kidney failure, unspecified Status: Acute (2) Hypertension: Code(s): I10 - Essential (primary) hypertension Status: Acute (3) Hyperlipidemia: Code(s): E78.5 - Hyperlipidemia, unspecified Status: Acute (4) CAD (coronary artery disease): Code(s): I25.10 - Atherosclerotic heart disease of [place] coronary artery without angina pectoris Status: Acute (5) Diabetes type 2, controlled: Code(s): E11.9 - Type 2 diabetes mellitus without complications Status: Acute (6) NSTEMI (non-ST elevated myocardial infarction): Code(s): I21.4 - Non-ST elevation (NSTEMI) myocardial infarction Status: Acute (7) Chronic kidney disease, stage 3 (moderate): Code(s): N18.3 - Chronic kidney disease, stage 3 (moderate) Status: Acute Plan This patient is a 63-year-old -[place] male with past medical history of CAD status post 3 stents who is presenting to the hospital with left-sided chest pain. He said he has always had chest pain ever since his second heart catheterization NSTEMI Severe multivessel CAD. CAD with previous stents placed. -The pt is s/p three cardiac stents. He continues to have left sided chest pain. He was transferred from [place] for further cardiac work-up. -Cardiac cath shows severe multivessel disease. -Patient underwent CABG on 09/12/2018. Continue aspirin 81 mg daily, Plavix 75 mg p.o. daily, carvedilol 6.25 mg p.o. twice daily Continue amiodarone 200 mg every 12 hours per CV surgery. We will discontinue pravastatin. Patient is already on Lipitor. Continue Protonix 40 mg p.o. daily. Chronic kidney disease stage III Mild hypokalemia with potassium 5.4 Repeat potassium was 4.9. Nephrology following. Creatinine was 2.03 on admission. Currently 2.06. Hypertension Blood pressure controlled -Continue home medications, Coreg and Imdur -Monitor blood pressure, adjust medication as necessary DM, type 2 -Insulin drip was discontinued today. Continue sliding scale insulin. Full code. No anticoagulation for DVT prophylaxis due to chest tube in place. Progress Note: Quality VTE Deep Vein Thrombosis/Pulmonary Embolism Present on Admission: No _ (1) ARF (acute renal failure) Qualifiers: Acute renal failure type: (2) Hypertension Qualifiers: Hypertension type: (3) Hyperlipidemia Qualifiers: Hyperlipidemia type: (4) CAD (coronary artery disease) Qualifiers: Coronary Disease-Associated Artery/Lesion type: [place] vs. transplanted heart: Associated angina: (5) Diabetes type 2, controlled Qualifiers: Diabetes mellitus correction insulin use: Diabetes mellitus complication status: Diabetes mellitus complication detail: Diabetic retinopathy severity : Proliferative retinopathy type: Diabetes mellitus macular edema: Laterality: Chronic kidney disease stage:
--- NOTE | 2018-09-13 12:23 | P.PNNP ---
Subjective Interval history: Patient was seen s/p CABG. Patient had complaints of mild chest discomfort and shortness of breath. Patient was on 2 L nasal cannula. Patient's renal function remains stable. Patient stated he is eating and drinking. <Pa Engel - Last Filed: 09/13/18 12:25> Physical Exam Vital signs: Vital Signs 09/12/18 13:21 09/12/18 13:30 09/12/18 14:20 Temperature 97.8 F 97.8 F Pulse Rate 71 Respiratory Rate 16 13 Blood Pressure 165/84 H Pulse Oximetry 98 99 09/12/18 14:40 09/12/18 14:50 09/12/18 15:00 Temperature 98.2 F 98.2 F Pulse Rate 65 Respiratory Rate 14 Blood Pressure 113/68 Pulse Oximetry 98 99 09/12/18 15:34 09/12/18 15:41 09/12/18 15:43 Temperature Pulse Rate 76 Respiratory Rate 14 18 Blood Pressure Pulse Oximetry 98 09/12/18 16:00 09/12/18 16:06 09/12/18 18:32 Temperature Pulse Rate 68 66 Respiratory Rate 18 Blood Pressure Pulse Oximetry 09/12/18 19:00 09/12/18 21:10 09/12/18 21:13 Temperature 97.5 F L Pulse Rate 70 73 Respiratory Rate 18 22 Blood Pressure 131/84 Pulse Oximetry 96 94 L 09/12/18 22:27 09/12/18 23:00 09/13/18 02:02 Temperature 99.6 F Pulse Rate 79 Respiratory Rate 16 16 16 Blood Pressure 124/71 Pulse Oximetry 99 09/13/18 03:00 09/13/18 04:36 09/13/18 07:00 Temperature 99.7 F H 99.2 F Pulse Rate 80 82 83 Respiratory Rate 16 16 13 Blood Pressure 115/72 101/63 Pulse Oximetry 99 99 09/13/18 09:33 09/13/18 10:00 09/13/18 10:59 Temperature 97.5 F L Pulse Rate 81 Respiratory Rate 12 13 14 Blood Pressure 111/73 Pulse Oximetry 96 09/13/18 11:00 Temperature Pulse Rate 74 Respiratory Rate 18 Blood Pressure Pulse Oximetry 99 Intake & Output 09/12/18 09/13/18 09/13/18 18:59 06:59 18:59 Intake Total 2970 / 2970 1220 / 1220 150 / 150 Output Total 1590 / 1590 845 / 845 Balance 1380 / 1380 375 / 375 150 / 150 Weight 84.5 kg Intake: IV 150 / 150 740 / 740 150 / 150 Cleviprex Inj 25 mg In 50 ml @ 40 / 40 1 MG/HR 2 mls/hr IV.CONT TITRATE PRN Rx#:[id number] Ofirmev Inj 1,000 mg In 100 ml 200 / 200 100 / 100 @ 400 mls/hr IV.SIG Q6H [facility] Rx# :[id number] Buminate 5% Inj 250 ML @ 250 250 / 250 mls/hr IV.SIG UNSCH PRN Rx#: [id number] Calcium Chloride Inj 1 GM In NS 100 / 100 Inj 100 ML @ 100 mls/hr IV.SIG PRN PRN Rx#:[id number] KCl 20 mEq Premix Inj 20 meq In 100 / 100 100 ml @ 50 mls/hr IV.SIG PRN PRN Rx#:[id number] Ancef 1 GM Premix Inj 2 gm In 100 / 100 100 ml @ 0 mls/hr IV.SIG .STK- MED ONE Rx#:[id number] Ancef 2 GM Premix Inj 2 gm In 50 / 50 50 / 50 50 / 50 50 ml @ 100 mls/hr IV.SIG Q8H [place] Rx#:[id number] Oral 120 / 120 480 / 480 Anesthesia Amount 2500 / 2500 Cell Saver Amount 200 / 200 Output: Estimated Blood Loss 400 / 400 Urine Amount (Catheter) 810 / 810 575 / 575 Indwelling Temp Sensing 810 / 810 575 / 575 Catheter Chest Tube Drainage 380 / 380 270 / 270 #2 Anterior 380 / 380 270 / 270 Other: Date of Last Bowel Movement 09/09/18 - Constitutional no acute distress - Routine HEENT Exam Head: Present: normocephalic Eye: Present: EOMI, PERRL ENT: Present: mucous membranes moist - Routine Neck Exam Present: trachea midline. Absent: JVD, tracheal deviation - Routine Respiratory Exam Absent: accessory muscle use, respiratory distress - Routine Abdominal Exam Absent: tenderness - Routine Extremities Exam Absent: cyanosis, edema - Routine Neurological Exam Present: alert, oriented X3 - Routine Psychiatric Exam Present: normal affect - Urinary Catheter Management Indwelling Temp Sensing Catheter Cath placed during this visit: yes, but has since been removed by the nurse Reason for continuing: Decision to DC catheter Insertion date: 09/12/18 Insertion time: 08:40 Removal date: 09/13/18 Removal time: 06:15 <Pa Engel - Last Filed: 09/13/18 12:25> Vital signs: Vital Signs 09/12/18 21:10 09/12/18 21:13 09/12/18 22:27 Temperature Pulse Rate 73 Respiratory Rate 22 16 Blood Pressure Pulse Oximetry 94 L 09/12/18 23:00 09/13/18 02:02 09/13/18 03:00 Temperature 99.6 F 99.7 F H Pulse Rate 79 80 Respiratory Rate 16 16 16 Blood Pressure 124/71 115/72 Pulse Oximetry 99 99 09/13/18 04:36 09/13/18 07:00 09/13/18 09:33 Temperature 99.2 F Pulse Rate 82 83 Respiratory Rate 16 13 12 Blood Pressure 101/63 Pulse Oximetry 99 09/13/18 10:00 09/13/18 10:59 09/13/18 11:00 Temperature 97.5 F L Pulse Rate 81 74 Respiratory Rate 13 14 18 Blood Pressure 111/73 Pulse Oximetry 96 99 09/13/18 13:10 09/13/18 15:00 09/13/18 16:00 Temperature 98.6 F Pulse Rate 78 75 77 Respiratory Rate 18 Blood Pressure 91/56 L Pulse Oximetry 96 96 09/13/18 16:23 09/13/18 17:00 09/13/18 17:55 Temperature Pulse Rate 78 83 Respiratory Rate 18 18 Blood Pressure Pulse Oximetry 93 L 09/13/18 18:00 09/13/18 20:01 Temperature Pulse Rate 86 88 Respiratory Rate 16 Blood Pressure Pulse Oximetry 96 Intake & Output 09/13/18 09/13/18 09/14/18 06:59 18:59 06:59 Intake Total 1220 / 1220 1020 / 1020 Output Total 845 / 845 310 / 310 Balance 375 / 375 710 / 710 Weight 84.5 kg Intake: IV 740 / 740 600 / 600 Cleviprex Inj 25 mg In 50 ml @ 40 / 40 50 / 50 1 MG/HR 2 mls/hr IV.CONT TITRATE PRN Rx#:[id number] NovoLIN R (IV Infusion) 100 100 / 100 UNIT In NS Inj 99 ML @ 3 UNITS/ HR 3 mls/hr IV.CONT TITRATE PRN Rx#:[id number] Ofirmev Inj 1,000 mg In 100 ml 200 / 200 100 / 100 @ 400 mls/hr IV.SIG Q6H [facility] Rx# :[id number] Buminate 5% Inj 250 ML @ 250 250 / 250 mls/hr IV.SIG UNSCH PRN Rx#: [id number] Calcium Chloride Inj 1 GM In NS 100 / 100 Inj 100 ML @ 100 mls/hr IV.SIG PRN PRN Rx#:[id number] KCl 20 mEq Premix Inj 20 meq In 100 / 100 100 ml @ 50 mls/hr IV.SIG PRN PRN Rx#:[id number] Ancef 2 GM Premix Inj 2 gm In 50 / 50 100 / 100 50 ml @ 100 mls/hr IV.SIG Q8H [facility] Rx#:[id number] Oral 480 / 480 420 / 420 Output: Urine 250 / 250 Urine Amount (Catheter) 575 / 575 Indwelling Temp Sensing 575 / 575 Catheter Chest Tube Drainage 270 / 270 60 / 60 #2 Anterior 270 / 270 60 / 60 - Urinary Catheter Management Indwelling Temp Sensing Catheter Cath placed during this visit: no <Fransisco Hernandez - Last Filed: 09/13/18 21:02> Assessment and Plan - Assessment (1) Chronic kidney disease, stage 3 (moderate) Code(s): N18.3 - Chronic kidney disease, stage 3 (moderate) Status: Acute Plan: Patient may have hypertensive nephrosclerosis, appears to have stable stage III CKD. GFR is at baseline. Renal function remains stable. (2) Hypertension Code(s): I10 - Essential (primary) hypertension Status: Acute Plan: Monitor BP. Continue medications. (3) Hyperlipidemia Code(s): E78.5 - Hyperlipidemia, unspecified Status: Acute Plan: Patient on Atorvastatin. (4) CAD (coronary artery disease) Code(s): I25.10 - Atherosclerotic heart disease of [place] coronary artery without angina pectoris Status: Acute Plan: s/p CABG . Patient on Plavix. (5) Diabetes type 2, controlled Code(s): E11.9 - Type 2 diabetes mellitus without complications Status: Acute Plan: Insulin coverage to maintain blood glucose levels between 140 and 180. <Pa Engel - Last Filed: 09/13/18 12:25> - Assessment (1) Chronic kidney disease, stage 3 (moderate) Code(s): N18.3 - Chronic kidney disease, stage 3 (moderate) Status: Acute (2) Hypertension Code(s): I10 - Essential (primary) hypertension Status: Acute (3) Hyperlipidemia Code(s): E78.5 - Hyperlipidemia, unspecified Status: Acute (4) CAD (coronary artery disease) Code(s): I25.10 - Atherosclerotic heart disease of [place] coronary artery without angina pectoris Status: Acute (5) Diabetes type 2, controlled Code(s): E11.9 - Type 2 diabetes mellitus without complications Status: Acute - Attending Attestation patient was seen and examined. He has been transferred out of CVICU. He is doing well. Renal function is at baseline. <Fransisco Hernandez - Last Filed: 09/13/18 21:02>
--- NOTE | 2018-09-13 16:15 | ECG ---
Date Performed: 09/12/2018 Time Performed: 14:03:04 PTAGE: 63 years EKG: Sinus rhythm Inferior/lateral ST-T changes may be due to myocardial ischemia Abnormal ECG PREVIOUS TRACING : 08/30/2018 19.18 Compared to previous tracing, inferior and lateral ST/T edgar nges have improved. DOCTOR: Matthias Hdz Interpretating Date/Time 09/13/2018 16:14:04
[2018-09-13] MEDS: Docusate Sodium 100 MG Capsule PO SCH (21:32)
[2018-09-14] MEDS: Insulin NovoLOG Aspart Correctional Sugar Inj SQ SCH ×5 (02:45→17:51)
[2018-09-14] MEDS: ceFAZolin 2 GM Premix Inj 2 GM/50 ML PIGGYBACK IV.SIG SCH (02:52)
[2018-09-14 06:08] LABS: Baso % (Auto) 0.2 % (0.0-2.0); Eos # (Auto) 0.2 th/mm3 (0.0-0.4); Eos % (Auto) 1.5 % (0.0-4.0); Hemoglobin 9.5 gm/dL (13.0-17.0); Lymph # (Auto) 1.3 th/mm3 (1.0-4.8); Lymph % (Auto) 10.1 % (9.0-44.0); Mean Corpuscular HGB Conc 34.1 % (32.0-36.0); Mean Corpuscular Volume 90.9 fL (80.0-100.0); Mean Platelet Volume 8.5 fL (7.0-11.0); Mono # (Auto) 1.1 th/mm3 (0.0-0.9); Mono % (Auto) 8.6 % (0.0-8.0); Neut # (Auto) 10.5 th/mm3 (1.8-7.7); Neut % (Auto) 79.6 % (16.0-70.0); Platelet Count 181 th/mm3 (150-450); Red Blood Count 3.08 mil/mm3 (4.50-5.90); Red Cell Distribution Width 13.8 % (11.6-17.2); White Blood Count 13.2 th/mm3 (4.0-11.0)
[2018-09-14 06:30] LABS: Calcium 8.8 mg/dL (8.5-10.1); Carbon Dioxide 22.7 meq/L (21.0-32.0); Magnesium 2.3 mg/dL (1.5-2.5); Potassium 4.6 meq/L (3.5-5.1)
--- NOTE | 2018-09-14 08:46 | P.PNCV ---
- Note Subjective/Hospital Course: A 63-year-old male transferred from [facility]. Apparently was admitted there with chest pain on 08/30/2018. Chest pain located on the left side of his chest, 07/10. Said he had a recent treadmill stress test a month ago, but was unable to complete the test. Apparently, per the patient, it was negative. The patient also had elevated creatinine at 2.02. He was transferred to our facility. He underwent cardiac catheterization by Dr. Mann which showed a left main disease of 60%, mid distal LAD 75%, the circ was 90%, the OM 90%, EF of 65%. We were consulted to evaluate for coronary artery bypass grafting. The patient has also had some dentalextraction and has sutures in place. He had a new bottom denture plate placed. We did, however, get in touch with the [facility] Dental physician, Dr. Pacheco, who stated to leave the sutures in place and we were okay to remove the bottom denture plate prior to any surgery and that he would follow up with the patient after he was released from the hospital for suture removal. PAST MEDICAL HISTORY: Includes coronary artery disease, diabetes mellitus, hyperlipidemia, hypertension, chronic prostatitis. 09/04 PRU 92 discussed with pt , will more than likely eval for surgery on sunday recheck PRU on SUN 09/05 tentatively scheduled for surgery on sunday repeat PRU in am 09/06 pru 148/ repeat on Sunday no chest pain creatinine continues to climb which is a concern 09/09 PRU 183 need to be > 200 prefer 250 recheck in am will need to reschedule this week 09/10 pt stable no chest pain PRU 246 stable for surgery / rescheduled for Thur 09/12 SURGICAL PROCEDURE 1. Urgent Off-pump Coronary Artery Bypass Grafting x 4 with Left Internal Mammary Artery (JOSE) to Left Anterior Descending (LAD), reverse saphenous vein graft to obtuse Marginal branch of the left Circumflex artery, reverse saphenous vein graft to the Diagonal 1 Branch of the LAD, reverse saphenous vein graft to the ramus marginalis 2. Left leg Endoscopic Vein [place] 3. Intraoperative Vein Mapping. 09/13 Clinically and hemodynamically stable Monitor creatinine level Maintain chest tubes Transfer [facility] 09/14 Doing well Remove chest tube today Creatinine 2.9 today. Will recheck in a.m. May need nephrology input Objective: Vital Signs - 24 hr 09/13/18 09:33 09/13/18 10:00 09/13/18 10:59 Temperature 97.5 F L Pulse Rate 81 Respiratory Rate 12 13 14 Blood Pressure 111/73 Pulse Oximetry 96 09/13/18 11:00 09/13/18 13:10 09/13/18 15:00 Temperature Pulse Rate 74 78 75 Respiratory Rate 18 Blood Pressure Pulse Oximetry 99 96 09/13/18 16:00 09/13/18 16:23 09/13/18 17:00 Temperature 98.6 F Pulse Rate 77 78 83 Respiratory Rate 18 18 Blood Pressure 91/56 L Pulse Oximetry 96 93 L 09/13/18 17:55 09/13/18 18:00 09/13/18 19:00 Temperature Pulse Rate 86 83 Respiratory Rate 18 Blood Pressure Pulse Oximetry 09/13/18 20:00 09/13/18 20:01 09/13/18 21:00 Temperature 98.4 F Pulse Rate 83 88 90 Respiratory Rate 22 16 Blood Pressure 96/59 L Pulse Oximetry 97 96 09/13/18 22:00 09/13/18 23:00 09/14/18 00:00 Temperature 98.6 F Pulse Rate 90 92 H 93 H Respiratory Rate 20 Blood Pressure 103/61 Pulse Oximetry 91 L 09/14/18 00:51 09/14/18 02:00 09/14/18 03:00 Temperature Pulse Rate 91 H 90 90 Respiratory Rate Blood Pressure Pulse Oximetry 09/14/18 03:25 09/14/18 04:00 09/14/18 05:00 Temperature 97.9 F Pulse Rate 93 H 90 91 H Respiratory Rate 14 22 Blood Pressure 108/62 Pulse Oximetry 92 L 90 L 09/14/18 06:00 Temperature Pulse Rate 90 Respiratory Rate Blood Pressure Pulse Oximetry Labs: Laboratory Results - last 12 hr 09/13/18 09/14/18 09/14/18 23:02 02:50 05:25 WBC 13.2 H RBC 3.08 L Hgb 9.5 L Hct 28.0 L MCV 90.9 MCH 31.0 MCHC 34.1 RDW 13.8 Plt Count 181 MPV 8.5 Neut % (Auto) 79.6 H Lymph % (Auto) 10.1 [place] % (Auto) 8.6 H Eos % (Auto) 1.5 Baso % (Auto) 0.2 Neut # (Auto) 10.5 H Lymph # (Auto) 1.3 [place] # (Auto) 1.1 H Eos # (Auto) 0.2 Baso # (Auto) 0.0 WBC Differential . Differential Comment Auto diff final Sodium Potassium Chloride Carbon Dioxide Anion Gap BUN Creatinine Estimated GFR POC Glucose 197 H 126 H Random Glucose Calcium Magnesium 09/14/18 05:25 WBC RBC Hgb Hct MCV MCH MCHC RDW Plt Count MPV Neut % (Auto) Lymph % (Auto) [place] % (Auto) Eos % (Auto) Baso % (Auto) Neut # (Auto) Lymph # (Auto) [place] # (Auto) Eos # (Auto) Baso # (Auto) WBC Differential Differential Comment Sodium 134 L Potassium 4.6 Chloride 101 Carbon Dioxide 22.7 Anion Gap 10 BUN 36 H Creatinine 2.90 H Estimated GFR 27 L POC Glucose Random Glucose 141 H Calcium 8.8 Magnesium 2.3 Result Diagrams: 09/14/18 05:25 09/14/18 05:25 - Plan (1) ARF (acute renal failure) Plan: creatinine 1.66> 2.0> 2.04>1.90 worsening indices Nephro following (4) CAD (coronary artery disease) Plan: f/u PRU in am reschedule this for (6) NSTEMI (non-ST elevated myocardial infarction) Plan: ASA, BB statin eval for surgery on Sunday recheck labs on sunday
[2018-09-14] MEDS: Polyethylene Glycol 3350 17 GM Packet PO SCH (09:08)
[2018-09-14] MEDS: Senna/Docusate Sodium 8.6/50 MG Tablet PO SCH ×2 (09:09→20:48)
[2018-09-14] MEDS: Amiodarone 200 MG Tablet PO SCH ×2 (09:09→20:48)
[2018-09-14] MEDS: Multivitamin/Minerals Therapeutic Tablet PO SCH (09:10)
[2018-09-14] MEDS: Docusate Sodium 100 MG Capsule PO SCH ×2 (09:11→20:48)
--- NOTE | 2018-09-14 09:27 | P.PNCA ---
Subjective Interval history: alert in nad Medications and Allergies Active Medications: Active Medications Acetaminophen (Tylenol) 650 mg PO Q4H PRN PRN Reason: Temp > 100.4 Hydrocodone Bitart/Acetaminophen ([place] 5/325) 1 tab PO Q3H PRN PRN Reason: PAIN SCALE 1 TO 5 Last Admin: 09/14/18 09:09 Dose: 1 tab Al Hydroxide/Mg Hydroxide (Milk Of Magnniels Liq) 30 ml PO DAILY [facility] Last Admin: 09/14/18 09:08 Dose: 30 ml Albuterol (Duoneb Neb (Richard)) 1 ampul NEB Q6HR NEB [facility] Last Admin: 09/14/18 03:24 Dose: 1 ampul Amiodarone HCl (Cordarone) 200 mg PO Q12HR [facility] Last Admin: 09/14/18 09:09 Dose: 200 mg Aspirin (Aspirin Chew) 81 mg PO DAILY [facility] Last Admin: 09/14/18 09:08 Dose: 81 mg Atorvastatin Calcium (Lipitor) 40 mg PO DAILY [facility] Last Admin: 09/14/18 09:08 Dose: 40 mg Bisacodyl (Dulcolax Supp) 10 mg RECTAL PRN PRN PRN Reason: SEE LABEL COMMENTS Calcium Chloride (Calcium Chloride Inj) 0.5 gm IV.PUSH UNSCH PRN PRN Reason: SEE LABEL COMMENTS Carvedilol (Coreg) 6.25 mg PO BID [facility] Last Admin: 09/14/18 09:12 Dose: 6.25 mg Clopidogrel Bisulfate (Plavix) 75 mg PO DAILY [facility] Last Admin: 09/14/18 09:10 Dose: 75 mg Dextrose (D50w Vial) 50 ml IV.PUSH UNSCH PRN PRN Reason: PER HYPOGLYCEMIA PROTOCOL Diphenhydramine HCl (Benadryl) 50 mg PO HS PRN PRN Reason: SLEEP Last Admin: 09/13/18 23:10 Dose: 50 mg Docusate Sodium (Colace) 100 mg PO BID [facility] Last Admin: 09/14/18 09:11 Dose: Not Given Epinephrine (Racepinephrine 2.25% Neb) 0.5 ml NEB DAILY NEB PRN PRN Reason: STRIDOR Glucagon (Glucagon Inj) 1 mg OTHER PRN PRN PRN Reason: for Hypoglycemia Protocol Albumin Human (Buminate 5% Inj) 250 mls @ 250 mls/hr IV.SIG UNSCH PRN PRN Reason: SEE LABEL COMMENTS Last Infusion: 09/13/18 06:48 Dose: Infused Calcium Chloride 1 gm/ Sodium (Chloride) 110 mls @ 100 mls/hr IV.SIG PRN PRN PRN Reason: SEE LABEL COMMENTS Last Infusion: 09/12/18 23:04 Dose: Infused Magnesium Sulfate 2 gm/ Sodium (Chloride) 100 mls @ 50 mls/hr IV.SIG PRN PRN PRN Reason: SEE LABEL COMMENTS Magnesium Sulfate 2 gm/ Sodium (Chloride) 100 mls @ 50 mls/hr IV.SIG PRN PRN PRN Reason: SEE LABEL COMMENTS Potassium Chloride (Kcl 20 Meq Premix Inj) 20 meq in 100 mls @ 50 mls/hr IV.SIG PRN PRN PRN Reason: SEE LABEL COMMENTS Last Infusion: 09/12/18 19:00 Dose: Infused Potassium Chloride (Kcl 20 Meq Premix Inj) 20 meq in 100 mls @ 50 mls/hr IV.SIG PRN PRN PRN Reason: SEE LABEL COMMENTS Potassium Chloride (Kcl 20 Meq Premix Inj) 20 meq in 100 mls @ 50 mls/hr IV.SIG PRN PRN PRN Reason: SEE LABEL COMMENTS Insulin Aspart (Novolog Insulin Correctional Sugar Inj) 0 unit SQ 02,06,10,14, 18,22 [facility]; Protocol Last Admin: 09/14/18 06:38 Dose: 4 unit Morphine Sulfate (Morphine Inj) 4 mg IV.PUSH Q4H PRN PRN Reason: BREAKTHROUGH PAIN Last Admin: 08/30/18 19:19 Dose: 4 mg Multivitamins/Minerals (Theragran-M) 1 tab PO DAILY [facility] Last Admin: 09/14/18 09:10 Dose: 1 tab Ondansetron HCl (Zofran Inj) 4 mg IV.PUSH Q6H PRN PRN Reason: NAUSEA OR VOMITING Pantoprazole Sodium (Protonix) 40 mg PO DAILY@06 [facility] Last Admin: 09/14/18 06:39 Dose: 40 mg Phenylephrine HCl (Neosynephrine Inj) 0.1 mg IV.PUSH UNSCH PRN PRN Reason: SEE LABEL COMMENTS Polyethylene Glycol (Miralax) 17 gm PO DAILY [facility] Last Admin: 09/14/18 09:08 Dose: 17 gm Potassium Chloride (K-Dur) 20 meq PO UNSCH PRN PRN Reason: SEE LABEL COMMENTS Potassium Chloride (K-Dur) 40 meq PO UNSCH PRN PRN Reason: SEE LABEL COMMENTS Senna/Docusate Sodium (Letty-Colace) 1 tab PO BID [facility] Last Admin: 09/14/18 09:09 Dose: 1 tab Sennosides (Senokot) 8.6 mg PO HS [facility] Last Admin: 09/13/18 21:32 Dose: 8.6 mg Sodium Bicarbonate (Sodium Bicarbonate 8.4% Inj) 50 meq IV.PUSH UNSCH PRN PRN Reason: SEE LABEL COMMENTS Sodium Bicarbonate (Sodium Bicarbonate 8.4% Inj) 100 meq IV.PUSH UNSCH PRN PRN Reason: SEE LABEL COMMENTS Sodium Biphosphate/Sodium Phosphate (Fleets Enema (Adult)) 118 ml RECTAL UNSCH PRN PRN Reason: SEE LABEL COMMENTS Sodium Chloride (Ns Flush) 2 ml IV.FLUSH BID [facility] Last Admin: 09/14/18 09:08 Dose: 2 ml Sodium Chloride (Ns Flush) 2 ml IV.FLUSH PRN PRN PRN Reason: FLUSH AFTER USING IV ACCESS Terbutaline Sulfate (Brethine Inj) 1 mg SQ UNSCH PRN PRN Reason: For Extravasation Allergies Allergy/AdvReac Type Severity Reaction Status Date / Time No Allergy Information Allergy Verified 08/30/18 11:50 Available Home Medications Medication Instructions Recorded Confirmed Type amoxicillin 500 mg PO TID 08/30/18 08/30/18 History aspirin 325 mg PO DAILY 08/30/18 08/30/18 History carvedilol 3.125 mg PO BID 08/30/18 08/30/18 History glipizide 10 mg PO DAILY 08/30/18 08/30/18 History ibuprofen 800 mg PO TID PRN 08/30/18 08/30/18 History isosorbide mononitrate 60 mg PO QAM 08/30/18 08/30/18 History olmesartan 20 mg PO DAILY 08/30/18 08/30/18 History prasugrel 10 mg PO DAILY 08/30/18 08/30/18 History pravastatin 20 mg PO DAILY 08/30/18 08/30/18 History sitagliptin-metformin [Janumet XR] 1 tab PO QPM 08/30/18 08/30/18 History Physical Exam Vital signs: Vital Signs 09/13/18 09:33 09/13/18 10:00 09/13/18 10:59 Temperature 97.5 F L Pulse Rate 81 Respiratory Rate 12 13 14 Blood Pressure 111/73 Pulse Oximetry 96 09/13/18 11:00 09/13/18 13:10 09/13/18 15:00 Temperature Pulse Rate 74 78 75 Respiratory Rate 18 Blood Pressure Pulse Oximetry 99 96 09/13/18 16:00 09/13/18 16:23 09/13/18 17:00 Temperature 98.6 F Pulse Rate 77 78 83 Respiratory Rate 18 18 Blood Pressure 91/56 L Pulse Oximetry 96 93 L 09/13/18 17:55 09/13/18 18:00 09/13/18 19:00 Temperature Pulse Rate 86 83 Respiratory Rate 18 Blood Pressure Pulse Oximetry 09/13/18 20:00 09/13/18 20:01 09/13/18 21:00 Temperature 98.4 F Pulse Rate 83 88 90 Respiratory Rate 22 16 Blood Pressure 96/59 L Pulse Oximetry 97 96 09/13/18 22:00 09/13/18 23:00 09/14/18 00:00 Temperature 98.6 F Pulse Rate 90 92 H 93 H Respiratory Rate 20 Blood Pressure 103/61 Pulse Oximetry 91 L 09/14/18 00:51 09/14/18 02:00 09/14/18 03:00 Temperature Pulse Rate 91 H 90 90 Respiratory Rate Blood Pressure Pulse Oximetry 09/14/18 03:25 09/14/18 04:00 09/14/18 05:00 Temperature 97.9 F Pulse Rate 93 H 90 91 H Respiratory Rate 14 22 Blood Pressure 108/62 Pulse Oximetry 92 L 90 L 09/14/18 06:00 Temperature Pulse Rate 90 Respiratory Rate Blood Pressure Pulse Oximetry Intake & Output 09/13/18 09/14/18 09/14/18 18:59 06:59 18:59 Intake Total 1020 / 1020 530 / 530 Output Total 310 / 310 470 / 470 Balance 710 / 710 60 / 60 Intake: IV 600 / 600 50 / 50 Cleviprex Inj 25 mg In 50 ml @ 50 / 50 1 MG/HR 2 mls/hr IV.CONT TITRATE PRN Rx#:[id number] NovoLIN R (IV Infusion) 100 100 / 100 UNIT In NS Inj 99 ML @ 3 UNITS/ HR 3 mls/hr IV.CONT TITRATE PRN Rx#:[id number] Ofirmev Inj 1,000 mg In 100 ml 100 / 100 @ 400 mls/hr IV.SIG Q6H [facility] Rx# :[id number] Ancef 2 GM Premix Inj 2 gm In 100 / 100 50 / 50 50 ml @ 100 mls/hr IV.SIG Q8H [facility]ARD Rx#:[id number] Oral 420 / 420 480 / 480 Output: Urine 250 / 250 400 / 400 Chest Tube Drainage 60 / 60 70 / 70 #2 Anterior 60 / 60 70 / 70 Other: # Voids 1 Date of Last Bowel Movement 09/09/18 # Bowel Movements 0 - Constitutional no acute distress - Routine HEENT Exam Head: Present: normocephalic - Routine Neck Exam Present: supple - Routine Respiratory Exam Present: CTA bilaterally - Routine Cardiovascular Exam Present: S1, S2 - Routine Abdominal Exam Present: soft - Routine Extremities Exam Comments: no rito - Urinary Catheter Management Indwelling Temp Sensing Catheter Cath placed during this visit: yes, but has since been removed by the nurse Reason for continuing: Decision to DC catheter Insertion date: 09/12/18 Insertion time: 08:40 Removal date: 09/13/18 Removal time: 06:15 Results 09/14/18 05:25 09/14/18 05:25 CBC 09/12/18 09/13/18 09/14/18 Range/Units 15:22 04:14 05:25 WBC 19.1 H 15.8 H 13.2 H (4.0-11.0) th/mm3 RBC 3.74 L 3.66 L 3.08 L (4.50-5.90) mil/mm3 Hgb 11.5 L 11.1 L 9.5 L (13.0-17.0) gm/dL Hct 34.2 L 33.5 L 28.0 L (39.0-51.0) % Plt Count 217 237 181 (150-450) th/mm3 Neut # (Auto) 15.6 H 10.5 H (1.8-7.7) th/mm3 Lymph # (Auto) 1.8 1.3 (1.0-4.8) th/mm3 Drew # (Auto) 1.2 H 1.1 H (0.0-0.9) th/mm3 Eos # (Auto) 0.4 0.2 (0.0-0.4) th/mm3 Baso # (Auto) 0.1 0.0 (0.0-0.2) th/mm3 Comprehensive Metabolic Panel 09/12/18 09/13/18 09/13/18 Range/Units 15:22 04:14 09:45 Sodium 138 134 L (136-145) meq/L Potassium 4.2 5.4 H D 4.9 (3.5-5.1) meq/L Chloride 107 103 (98-107) meq/L Carbon Dioxide 24.4 22.8 (21.0-32.0) meq/L BUN 28 H 29 H (7-18) mg/dL Creatinine 1.97 H 2.06 H (0.60-1.30) mg/dL Calcium 8.1 L 8.9 D (8.5-10.1) mg/dL 09/14/18 Range/Units 05:25 Sodium 134 L (136-145) meq/L Potassium 4.6 (3.5-5.1) meq/L Chloride 101 (98-107) meq/L Carbon Dioxide 22.7 (21.0-32.0) meq/L BUN 36 H (7-18) mg/dL Creatinine 2.90 H (0.60-1.30) mg/dL Calcium 8.8 (8.5-10.1) mg/dL Intake and Output 09/13/18 09/14/18 09/14/18 22:59 06:59 14:59 Intake Total 870 / 870 530 / 530 Output Total 310 / 310 470 / 470 Balance 560 / 560 60 / 60 Intake: IV 450 / 450 50 / 50 Cleviprex Inj 25 mg In 50 ml @ 50 / 50 1 MG/HR 2 mls/hr IV.CONT TITRATE PRN Rx#:[id number] NovoLIN R (IV Infusion) 100 100 / 100 UNIT In NS Inj 99 ML @ 3 UNITS/ HR 3 mls/hr IV.CONT TITRATE PRN Rx#:[id number] Ancef 2 GM Premix Inj 2 gm In 50 / 50 50 / 50 50 ml @ 100 mls/hr IV.SIG Q8H RICHARD Rx#:[id number] Oral 420 / 420 480 / 480 Output: Urine 250 / 250 400 / 400 Chest Tube Drainage 60 / 60 70 / 70 #2 Anterior 60 / 60 70 / 70 Other: # Voids 1 Date of Last Bowel Movement 09/09/18 09/09/18 # Bowel Movements 0 - Imaging and Cardiology Imaging: Impressions Chest X-Ray 09/12/18 12:38 CONCLUSION: 1. Expected postoperative features of CABG with tubes and lines, as above. 2. No significant pneumothorax with mild positive fluid balance. Chest X-Ray 09/13/18 05:00 CONCLUSION: Bibasilar areas of consolidation or atelectasis. Assessment and Plan - Assessment (1) NSTEMI (non-ST elevated myocardial infarction) Code(s): I21.4 - Non-ST elevation (NSTEMI) myocardial infarction Status: Acute (2) ARF (acute renal failure) Code(s): N17.9 - Acute kidney failure, unspecified Status: Acute (3) Hypertension Code(s): I10 - Essential (primary) hypertension Status: Acute (4) Hyperlipidemia Code(s): E78.5 - Hyperlipidemia, unspecified Status: Acute (5) CAD (coronary artery disease) Code(s): I25.10 - Atherosclerotic heart disease of [place] coronary artery without angina pectoris Status: Acute (6) Diabetes type 2, controlled Code(s): E11.9 - Type 2 diabetes mellitus without complications Status: Acute - Plan 1.) CAD - nstemi, severe dom lcx and mid lad disease, continue aspirin, plavix, lipitor, coreg, elmer held due to arf, pod # 2 cabg per elvi Cantor
[2018-09-14] MEDS ORDERED: Sod Phosphate/Sod Biphosphate (Adult) Enema 133 ML Bottle RECTAL PRN (10:38)
--- NOTE | 2018-09-14 10:41 | P.PNNP ---
Subjective Interval history: Patient is alert, no SOB,. mild pain at surgical site, not eating well. Physical Exam Vital signs: Vital Signs 09/13/18 10:59 09/13/18 11:00 09/13/18 13:10 Temperature 97.5 F L Pulse Rate 81 74 78 Respiratory Rate 14 18 Blood Pressure 111/73 Pulse Oximetry 96 99 96 09/13/18 15:00 09/13/18 16:00 09/13/18 16:23 Temperature 98.6 F Pulse Rate 75 77 78 Respiratory Rate 18 18 Blood Pressure 91/56 L Pulse Oximetry 96 93 L 09/13/18 17:00 09/13/18 17:55 09/13/18 18:00 Temperature Pulse Rate 83 86 Respiratory Rate 18 Blood Pressure Pulse Oximetry 09/13/18 19:00 09/13/18 20:00 09/13/18 20:01 Temperature 98.4 F Pulse Rate 83 83 88 Respiratory Rate 22 16 Blood Pressure 96/59 L Pulse Oximetry 97 96 09/13/18 21:00 09/13/18 22:00 09/13/18 23:00 Temperature Pulse Rate 90 90 92 H Respiratory Rate Blood Pressure Pulse Oximetry 09/14/18 00:00 09/14/18 00:51 09/14/18 02:00 Temperature 98.6 F Pulse Rate 93 H 91 H 90 Respiratory Rate 20 Blood Pressure 103/61 Pulse Oximetry 91 L 09/14/18 03:00 09/14/18 03:25 09/14/18 04:00 Temperature 97.9 F Pulse Rate 90 93 H 90 Respiratory Rate 14 22 Blood Pressure 108/62 Pulse Oximetry 92 L 90 L 09/14/18 05:00 09/14/18 06:00 09/14/18 07:00 Temperature Pulse Rate 91 H 90 97 H Respiratory Rate Blood Pressure Pulse Oximetry 09/14/18 08:00 09/14/18 09:00 09/14/18 10:00 Temperature 99.2 F Pulse Rate 96 H 92 H 91 H Respiratory Rate 20 12 Blood Pressure 104/64 Pulse Oximetry 94 L Intake & Output 09/13/18 09/14/18 09/14/18 18:59 06:59 18:59 Intake Total 1020 / 1020 530 / 530 Output Total 310 / 310 470 / 470 Balance 710 / 710 60 / 60 Intake: IV 600 / 600 50 / 50 Cleviprex Inj 25 mg In 50 ml @ 50 / 50 1 MG/HR 2 mls/hr IV.CONT TITRATE PRN Rx#:[id number] NovoLIN R (IV Infusion) 100 100 / 100 UNIT In NS Inj 99 ML @ 3 UNITS/ HR 3 mls/hr IV.CONT TITRATE PRN Rx#:[id number] Ofirmev Inj 1,000 mg In 100 ml 100 / 100 @ 400 mls/hr IV.SIG Q6H [place] Rx# :[id number] Ancef 2 GM Premix Inj 2 gm In 100 / 100 50 / 50 50 ml @ 100 mls/hr IV.SIG Q8H [place] Rx#:[id number] Oral 420 / 420 480 / 480 Output: Urine 250 / 250 400 / 400 Chest Tube Drainage 60 / 60 70 / 70 #2 Anterior 60 / 60 70 / 70 Other: # Voids 1 Date of Last Bowel Movement 09/09/18 # Bowel Movements 0 Narrative: GENERAL: Alert, oriented x3, NAD. Chest tube in place. SKIN: Warm and dry. HEAD: Normocephalic. EYES: No scleral icterus. No injection or drainage. NECK: Supple, trachea midline. No JVD or lymphadenopathy. CARDIOVASCULAR: Regular rate and rhythm without murmurs, gallops, or rubs. Prevena dressing in place. RESPIRATORY: Breath sounds equal bilaterally. No accessory muscle use. GASTROINTESTINAL: Abdomen soft, non-tender, nondistended. MUSCULOSKELETAL: No cyanosis, or edema. BACK: Nontender without obvious deformity. No CVA tenderness. - Urinary Catheter Management Indwelling Temp Sensing Catheter Cath placed during this visit: yes, but has since been removed by the nurse Reason for continuing: Decision to DC catheter Insertion date: 09/12/18 Insertion time: 08:40 Removal date: 09/13/18 Removal time: 06:15 Assessment and Plan - Assessment (1) Chronic kidney disease, stage 3 (moderate) Code(s): N18.3 - Chronic kidney disease, stage 3 (moderate) Status: Acute Plan: Patient may have hypertensive nephrosclerosis, appears to have stable stage III CKD. Creatinine now increase to 2.9, His baseline is close to 1.9-2.0. Non oliguric. Not eating well, possibly pre renal./ Start IVF. Follow the urine put put and BMP. (2) Hypertension Code(s): I10 - Essential (primary) hypertension Status: Acute Plan: Monitor BP. Continue medications. (3) Hyperlipidemia Code(s): E78.5 - Hyperlipidemia, unspecified Status: Acute Plan: Patient on Atorvastatin. (4) CAD (coronary artery disease) Code(s): I25.10 - Atherosclerotic heart disease of [place] coronary artery without angina pectoris Status: Acute Plan: s/p CABG . Patient on Plavix. (5) Diabetes type 2, controlled Code(s): E11.9 - Type 2 diabetes mellitus without complications Status: Acute Plan: Insulin coverage to maintain blood glucose levels between 140 and 180.
[2018-09-14] MEDS: Sod Chloride 0.9% Inj 1,000 ML IV.CONT SCH ×2 (11:16→23:46)
[2018-09-14] MEDS: Morphine Inj 4 MG/ML Vial IV.PUSH PRN ×2 (11:26→19:50)
--- NOTE | 2018-09-14 12:33 | P.PNIM ---
Subjective Interval history: Follow-up for multivessel coronary artery disease, non-STEMI, DENIZ. Patient is currently doing well. Denies any chest pain, shortness of breath, fever or chills. Chest tube was discontinued today. Physical Exam Vital signs: Last Vital Signs Temp 98.2 F 09/14/18 11:48 Pulse 91 H 09/14/18 11:48 Resp 20 09/14/18 11:48 BP 114/61 09/14/18 11:48 Pulse Ox 93 L 09/14/18 11:48 Intake & Output 09/12/18 09/13/18 09/14/18 09/15/18 06:59 06:59 06:59 06:59 Intake Total 1450 / 1450 4190 / 4190 1550 / 1550 Output Total 1750 / 1750 2435 / 2435 780 / 780 Balance -300 / -300 1755 / 1755 770 / 770 Weight 76.9 kg 84.5 kg Narrative: GENERAL: Alert, oriented x3, NAD. SKIN: Warm and dry. HEAD: Normocephalic. EYES: No scleral icterus. No injection or drainage. NECK: Supple, trachea midline. No JVD or lymphadenopathy. CARDIOVASCULAR: Regular rate and rhythm without murmurs, gallops, or rubs. Prevena dressing in place. RESPIRATORY: Breath sounds equal bilaterally. No accessory muscle use. GASTROINTESTINAL: Abdomen soft, non-tender, nondistended. MUSCULOSKELETAL: No cyanosis, or edema. BACK: Nontender without obvious deformity. No CVA tenderness. Urinary Catheter Management Indwelling Temp Sensing Catheter: Cath placed during this visit: yes, but has since been removed by the nurse Insertion date: 09/12/18 Insertion time: 08:40 Removal date: 09/13/18 Removal time: 06:15 Results Labs CBC & Chem 7: 09/14/18 05:25 09/14/18 05:25 Procedures Procedures: Echocardiogram 08/31/2018 The left ventricular systolic function is normal with an estimated ejection fraction in the range of 60-65%. There is trace tricuspid valve regurgitation. 09/12/2018 1. Urgent Off-pump Coronary Artery Bypass Grafting x 4 with Left Internal Mammary Artery (JOSE) to Left Anterior Descending (LAD), reverse saphenous vein graft to obtuse Marginal branch of the left Circumflex artery, reverse saphenous vein graft to the Diagonal 1 Branch of the LAD, reverse saphenous vein graft to the ramus marginalis 2. Left leg Endoscopic Vein [place] 3. Intraoperative Vein Mapping. Assessment and Plan (1) Chronic kidney disease, stage 3 (moderate): Code(s): N18.3 - Chronic kidney disease, stage 3 (moderate) Status: Acute (2) Hypertension: Code(s): I10 - Essential (primary) hypertension Status: Acute (3) Hyperlipidemia: Code(s): E78.5 - Hyperlipidemia, unspecified Status: Acute (4) CAD (coronary artery disease): Code(s): I25.10 - Atherosclerotic heart disease of [place] coronary artery without angina pectoris Status: Acute (5) Diabetes type 2, controlled: Code(s): E11.9 - Type 2 diabetes mellitus without complications Status: Acute Plan This patient is a 63-year-old -Turk[place] male with past medical history of CAD status post 3 stents who is presenting to the hospital with left-sided chest pain. He said he has always had chest pain ever since his second heart catheterization NSTEMI Severe multivessel CAD. CAD with previous stents placed. -The pt is s/p three cardiac stents. He continues to have left sided chest pain. He was transferred from [facility] for further cardiac work-up. -Cardiac cath shows severe multivessel disease. -Patient underwent CABG on 09/12/2018. Continue aspirin 81 mg daily, Plavix 75 mg p.o. daily, carvedilol 6.25 mg p.o. twice daily Continue amiodarone 200 mg every 12 hours per CV surgery. Continue Lipitor. Continue Protonix 40 mg p.o. daily. Chronic kidney disease stage III Mild hypokalemia with potassium 5.4 Repeat potassium was 4.9. Nephrology following. Creatinine was 2.03 on admission. Currently 2.90 -Per nephrology patient is currently on IV fluid Hypertension Blood pressure controlled -Continue home medications, Coreg and Imdur -Monitor blood pressure, adjust medication as necessary DM, type 2 -Continue sliding scale insulin. Goal glucose 140-180. Full code. Anticoagulation when okay with CV surgery. Discharge plan: Once creatinine improves, patient can likely be discharged home with home health. Progress Note: Quality VTE Deep Vein Thrombosis/Pulmonary Embolism Present on Admission: No _ (1) Hypertension Qualifiers: Hypertension type: (2) Hyperlipidemia Qualifiers: Hyperlipidemia type: (3) CAD (coronary artery disease) Qualifiers: Coronary Disease-Associated Artery/Lesion type: [place] vs. 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
[2018-09-15] MEDS: Insulin NovoLOG Aspart Correctional Sugar Inj SQ SCH ×7 (00:44→22:43)
[2018-09-15 04:45] LABS: Calcium 8.7 mg/dL (8.5-10.1); Carbon Dioxide 23.1 meq/L (21.0-32.0); Potassium 5.1 meq/L (3.5-5.1)
--- NOTE | 2018-09-15 08:37 | P.PNIM ---
Subjective Interval history: Follow-up for multivessel coronary artery disease, non-STEMI, DENIZ. Patient is currently doing well. Denies shortness of breath, fever or chills. His chest discomfort is minimal. Physical Exam Vital signs: Last Vital Signs Temp 99.5 F 09/15/18 07:37 Pulse 84 09/15/18 08:00 Resp 20 09/15/18 07:37 BP 117/55 L 09/15/18 07:37 Pulse Ox 93 L 09/15/18 07:37 Intake & Output 09/13/18 09/14/18 09/15/18 09/16/18 06:59 06:59 06:59 06:59 Intake Total 4190 / 4190 1550 / 1550 2660 / 2660 Output Total 2435 / 2435 780 / 780 1000 / 1000 Balance 1755 / 1755 770 / 770 1660 / 1660 Weight 84.5 kg 86 kg Narrative: GENERAL: Alert, oriented x3, NAD. On room air SKIN: Warm and dry. HEAD: Normocephalic. EYES: No scleral icterus. No injection or drainage. NECK: Supple, trachea midline. No JVD or lymphadenopathy. CARDIOVASCULAR: Regular rate and rhythm without murmurs, gallops, or rubs. Prevena dressing in place. RESPIRATORY: Breath sounds equal bilaterally. No accessory muscle use. GASTROINTESTINAL: Abdomen soft, non-tender, nondistended. MUSCULOSKELETAL: No cyanosis, or edema. BACK: Nontender without obvious deformity. No CVA tenderness. Urinary Catheter Management Indwelling Temp Sensing Catheter: Cath placed during this visit: yes, but has since been removed by the nurse Insertion date: 09/12/18 Insertion time: 08:40 Removal date: 09/13/18 Removal time: 06:15 Results Labs CBC & Chem 7: 09/14/18 05:25 09/15/18 04:00 Procedures Procedures: Echocardiogram 08/31/2018 The left ventricular systolic function is normal with an estimated ejection fraction in the range of 60-65%. There is trace tricuspid valve regurgitation. 09/12/2018 1. Urgent Off-pump Coronary Artery Bypass Grafting x 4 with Left Internal Mammary Artery (JOSE) to Left Anterior Descending (LAD), reverse saphenous vein graft to obtuse Marginal branch of the left Circumflex artery, reverse saphenous vein graft to the Diagonal 1 Branch of the LAD, reverse saphenous vein graft to the ramus marginalis 2. Left leg Endoscopic Vein [place] 3. Intraoperative Vein Mapping. Assessment and Plan (1) Chronic kidney disease, stage 3 (moderate): Code(s): N18.3 - Chronic kidney disease, stage 3 (moderate) Status: Acute (2) Hypertension: Code(s): I10 - Essential (primary) hypertension Status: Acute (3) Hyperlipidemia: Code(s): E78.5 - Hyperlipidemia, unspecified Status: Acute (4) CAD (coronary artery disease): Code(s): I25.10 - Atherosclerotic heart disease of [place] coronary artery without angina pectoris Status: Acute (5) Diabetes type 2, controlled: Code(s): E11.9 - Type 2 diabetes mellitus without complications Status: Acute Plan This patient is a 63-year-old -[place] male with past medical history of CAD status post 3 stents who is presenting to the hospital with left-sided chest pain. He said he has always had chest pain ever since his second heart catheterization NSTEMI Severe multivessel CAD. CAD with previous stents placed. -The pt is s/p three cardiac stents. He continues to have left sided chest pain. He was transferred from [facility] for further cardiac work-up. -Cardiac cath shows severe multivessel disease. -Patient underwent CABG on 09/12/2018. Continue aspirin 81 mg daily, Plavix 75 mg p.o. daily, carvedilol 6.25 mg p.o. twice daily Continue amiodarone 200 mg every 12 hours per CV surgery. Continue Lipitor 40 mg daily. Continue Protonix 40 mg p.o. daily. Chronic kidney disease stage III Mild hyperkalemia with potassium 5.1. Nephrology following. Creatinine was 2.03 on admission. Currently 2.90 --> 2.60. -Per nephrology patient is currently on IV fluid. We will repeat BMP in the morning. Hypertension Blood pressure controlled -Continue home medications, Coreg and Imdur -Monitor blood pressure, adjust medication as necessary DM, type 2 -Continue sliding scale insulin. Goal glucose 140-180. Full code. Anticoagulation when okay with CV surgery. If creatinine continues to decline, we can likely discharge patient home with home health on 09/16/2018. Progress Note: Quality VTE Deep Vein Thrombosis/Pulmonary Embolism Present on Admission: No _ (1) CAD (coronary artery disease) Qualifiers: Associated angina: Coronary Disease-Associated Artery/Lesion type: [place] vs. transplanted heart: (2) Hyperlipidemia Qualifiers: Hyperlipidemia type: (3) Diabetes type 2, controlled Qualifiers: Chronic kidney disease stage: Diabetes mellitus complication detail: Diabetes mellitus complication status: Diabetes mellitus alf insulin use : Diabetes mellitus macular edema: Diabetic retinopathy severity: Laterality: Proliferative retinopathy type: (4) Hypertension Qualifiers: Hypertension type:
[2018-09-15] MEDS: Docusate Sodium 100 MG Capsule PO SCH ×2 (08:41→21:38)
[2018-09-15] MEDS: Multivitamin/Minerals Therapeutic Tablet PO SCH (08:41)
[2018-09-15] MEDS: Senna/Docusate Sodium 8.6/50 MG Tablet PO SCH ×2 (08:41→21:38)
[2018-09-15] MEDS: Polyethylene Glycol 3350 17 GM Packet PO SCH (08:42)
[2018-09-15] MEDS: Amiodarone 200 MG Tablet PO SCH ×2 (08:42→21:38)
--- NOTE | 2018-09-15 09:22 | P.PNCV ---
- Note Subjective/Hospital Course: A 63-year-old male transferred [facility]. Apparently was admitted there with chest pain on 08/30/2018. Chest pain located on the left side of his chest, 07/10. Said he had a recent treadmill stress test a month ago, but was unable to complete the test. Apparently, per the patient, it was negative. The patient also had elevated creatinine at 2.02. He was transferred to our facility. He underwent cardiac catheterization by Dr. Mann which showed a left main disease of 60%, mid distal LAD 75%, the circ was 90%, the OM 90%, EF of 65%. We were consulted to evaluate for coronary artery bypass grafting. The patient has also had some dentalextraction and has sutures in place. He had a new bottom denture plate placed. We did, however, get in touch with the [facility] physician, Dr. Pacheco, who stated to leave the sutures in place and we were okay to remove the bottom denture plate prior to any surgery and that he would follow up with the patient after he was released from the hospital for suture removal. PAST MEDICAL HISTORY: Includes coronary artery disease, diabetes mellitus, hyperlipidemia, hypertension, chronic prostatitis. 09/04 PRU 92 discussed with pt , will more than likely eval for surgery on sunday recheck PRU on SUN 09/05 tentatively scheduled for surgery on sunday repeat PRU in am 09/06 pru 148/ repeat on Sunday no chest pain creatinine continues to climb which is a concern 09/09 PRU 183 need to be > 200 prefer 250 recheck in am will need to reschedule this week 09/10 pt stable no chest pain PRU 246 stable for surgery / rescheduled for Thur 09/12 SURGICAL PROCEDURE 1. Urgent Off-pump Coronary Artery Bypass Grafting x 4 with Left Internal Mammary Artery (JOSE) to Left Anterior Descending (LAD), reverse saphenous vein graft to obtuse Marginal branch of the left Circumflex artery, reverse saphenous vein graft to the Diagonal 1 Branch of the LAD, reverse saphenous vein graft to the ramus marginalis 2. Left leg Endoscopic Vein [place] 3. Intraoperative Vein Mapping. 09/13 Clinically and hemodynamically stable Monitor creatinine level Maintain chest tubes Transfer [facility] 09/14 Doing well Remove chest tube today Creatinine 2.9 today. Will recheck in a.m. May need nephrology input 09/15 Doing well In normal sinus rhythm Creatinine 2.6 today. Greatly appreciate nephrology input Plan discharge in a.m. if okay with nephrology Objective: Vital Signs - 24 hr 09/14/18 10:00 09/14/18 11:00 09/14/18 11:48 Temperature 98.2 F Pulse Rate 91 H 91 H 91 H Respiratory Rate 20 Blood Pressure 114/61 Pulse Oximetry 93 L 09/14/18 12:00 09/14/18 13:00 09/14/18 14:00 Temperature Pulse Rate 99 H 97 H 89 Respiratory Rate Blood Pressure Pulse Oximetry 09/14/18 15:00 09/14/18 16:00 09/14/18 17:00 Temperature 98.1 F Pulse Rate 61 85 85 Respiratory Rate 14 20 Blood Pressure 106/55 L Pulse Oximetry 98 09/14/18 18:00 09/14/18 19:00 09/14/18 20:00 Temperature 98.6 F Pulse Rate 80 85 88 Respiratory Rate 18 Blood Pressure 122/75 Pulse Oximetry 92 L 09/14/18 21:00 09/14/18 21:45 09/14/18 22:00 Temperature Pulse Rate 86 85 88 Respiratory Rate 18 Blood Pressure Pulse Oximetry 92 L 09/14/18 23:00 09/15/18 00:00 09/15/18 01:00 Temperature 97.6 F Pulse Rate 88 88 90 Respiratory Rate 20 Blood Pressure 121/64 Pulse Oximetry 09/15/18 02:00 09/15/18 03:00 09/15/18 03:11 Temperature Pulse Rate 88 88 90 Respiratory Rate 18 Blood Pressure Pulse Oximetry 09/15/18 04:00 09/15/18 05:00 09/15/18 06:00 Temperature 98.2 F Pulse Rate 90 88 90 Respiratory Rate 18 Blood Pressure 118/61 Pulse Oximetry 95 09/15/18 07:00 09/15/18 07:37 09/15/18 08:00 Temperature 99.5 F Pulse Rate 89 87 84 Respiratory Rate 20 Blood Pressure 117/55 L Pulse Oximetry 93 L 09/15/18 08:58 Temperature Pulse Rate 64 Respiratory Rate 18 Blood Pressure Pulse Oximetry 100 Labs: Laboratory Results - last 12 hr 09/12/18 09/15/18 09/15/18 07:08 00:35 04:00 Sodium 135 L Potassium 5.1 Chloride 104 Carbon Dioxide 23.1 Anion Gap 8 BUN 38 H Creatinine 2.60 H Estimated GFR 30 L POC Glucose 93 Random Glucose 127 H Calcium 8.7 MTS Gel Crossmatch See Detail Result Diagrams: 09/14/18 05:25 09/15/18 04:00 - Plan (1) ARF (acute renal failure) Plan: creatinine 1.66> 2.0> 2.04>1.90 worsening indices Nephro following (4) CAD (coronary artery disease) Plan: f/u PRU in am reschedule this for (6) NSTEMI (non-ST elevated myocardial infarction) Plan: ASA, BB statin eval for surgery on Sunday recheck labs on sunday
--- NOTE | 2018-09-15 11:25 | P.PNCA ---
Subjective Interval history: alert in nad Medications and Allergies Active Medications: Active Medications Acetaminophen (Tylenol) 650 mg PO Q4H PRN PRN Reason: Temp > 100.4 Hydrocodone Bitart/Acetaminophen ([place] 5/325) 1 tab PO Q3H PRN PRN Reason: PAIN SCALE 1 TO 5 Last Admin: 09/15/18 08:42 Dose: 1 tab Al Hydroxide/Mg Hydroxide (Milk Of Magnniels Liq) 30 ml PO DAILY [facility] Last Admin: 09/15/18 08:42 Dose: 30 ml Albuterol (Duoneb Neb (Richard)) 1 ampul NEB Q6HR NEB [facility] Last Admin: 09/15/18 08:56 Dose: 1 ampul Amiodarone HCl (Cordarone) 200 mg PO Q12HR [facility] Last Admin: 09/15/18 08:42 Dose: 200 mg Aspirin (Aspirin Chew) 81 mg PO DAILY [facility] Last Admin: 09/15/18 08:41 Dose: 81 mg Atorvastatin Calcium (Lipitor) 40 mg PO DAILY [facility] Last Admin: 09/15/18 08:41 Dose: 40 mg Bisacodyl (Dulcolax Supp) 10 mg RECTAL PRN PRN PRN Reason: SEE LABEL COMMENTS Calcium Chloride (Calcium Chloride Inj) 0.5 gm IV.PUSH UNSCH PRN PRN Reason: SEE LABEL COMMENTS Carvedilol (Coreg) 6.25 mg PO BID [facility] Last Admin: 09/15/18 08:42 Dose: 6.25 mg Clopidogrel Bisulfate (Plavix) 75 mg PO DAILY [facility] Last Admin: 09/15/18 08:41 Dose: 75 mg Dextrose (D50w Vial) 50 ml IV.PUSH UNSCH PRN PRN Reason: PER HYPOGLYCEMIA PROTOCOL Diphenhydramine HCl (Benadryl) 50 mg PO HS PRN PRN Reason: SLEEP Last Admin: 09/13/18 23:10 Dose: 50 mg Docusate Sodium (Colace) 100 mg PO BID [facility] Last Admin: 09/15/18 08:41 Dose: 100 mg Epinephrine (Racepinephrine 2.25% Neb) 0.5 ml NEB DAILY [facility] PRN PRN Reason: STRIDOR Glucagon (Glucagon Inj) 1 mg OTHER PRN PRN PRN Reason: for Hypoglycemia Protocol Albumin Human (Buminate 5% Inj) 250 mls @ 250 mls/hr IV.SIG UNSCH PRN PRN Reason: SEE LABEL COMMENTS Last Infusion: 09/13/18 06:48 Dose: Infused Calcium Chloride 1 gm/ Sodium (Chloride) 110 mls @ 100 mls/hr IV.SIG PRN PRN PRN Reason: SEE LABEL COMMENTS Last Infusion: 09/12/18 23:04 Dose: Infused Magnesium Sulfate 2 gm/ Sodium (Chloride) 100 mls @ 50 mls/hr IV.SIG PRN PRN PRN Reason: SEE LABEL COMMENTS Magnesium Sulfate 2 gm/ Sodium (Chloride) 100 mls @ 50 mls/hr IV.SIG PRN PRN PRN Reason: SEE LABEL COMMENTS Potassium Chloride (Kcl 20 Meq Premix Inj) 20 meq in 100 mls @ 50 mls/hr IV.SIG PRN PRN PRN Reason: SEE LABEL COMMENTS Last Infusion: 09/12/18 19:00 Dose: Infused Potassium Chloride (Kcl 20 Meq Premix Inj) 20 meq in 100 mls @ 50 mls/hr IV.SIG PRN PRN PRN Reason: SEE LABEL COMMENTS Potassium Chloride (Kcl 20 Meq Premix Inj) 20 meq in 100 mls @ 50 mls/hr IV.SIG PRN PRN PRN Reason: SEE LABEL COMMENTS Sodium Chloride (Ns Inj) 1,000 mls @ 84 mls/hr IV.CONT .[id number] [facility] Last Admin: 09/14/18 23:46 Dose: 84 mls/hr Insulin Aspart (Novolog Insulin Correctional Sugar Inj) 0 unit SQ 02,06,10,14, 18,22 [facility]; Protocol Last Admin: 09/15/18 06:37 Dose: Not Given Morphine Sulfate (Morphine Inj) 4 mg IV.PUSH Q4H PRN PRN Reason: BREAKTHROUGH PAIN Last Admin: 09/14/18 19:50 Dose: 4 mg Multivitamins/Minerals (Theragran-M) 1 tab PO DAILY [facility] Last Admin: 09/15/18 08:41 Dose: 1 tab Ondansetron HCl (Zofran Inj) 4 mg IV.PUSH Q6H PRN PRN Reason: NAUSEA OR VOMITING Pantoprazole Sodium (Protonix) 40 mg PO DAILY@06 [facility] Last Admin: 09/15/18 05:33 Dose: 40 mg Phenylephrine HCl (Neosynephrine Inj) 0.1 mg IV.PUSH UNSCH PRN PRN Reason: SEE LABEL COMMENTS Polyethylene Glycol (Miralax) 17 gm PO DAILY [facility] Last Admin: 09/15/18 08:42 Dose: 17 gm Potassium Chloride (K-Dur) 20 meq PO UNSCH PRN PRN Reason: SEE LABEL COMMENTS Potassium Chloride (K-Dur) 40 meq PO UNSCH PRN PRN Reason: SEE LABEL COMMENTS Senna/Docusate Sodium (Letty-Colace) 1 tab PO BID [facility] Last Admin: 09/15/18 08:41 Dose: 1 tab Sennosides (Senokot) 8.6 mg PO HS [facility] Last Admin: 09/14/18 20:49 Dose: 8.6 mg Sodium Bicarbonate (Sodium Bicarbonate 8.4% Inj) 50 meq IV.PUSH UNSCH PRN PRN Reason: SEE LABEL COMMENTS Sodium Bicarbonate (Sodium Bicarbonate 8.4% Inj) 100 meq IV.PUSH UNSCH PRN PRN Reason: SEE LABEL COMMENTS Sodium Biphosphate/Sodium Phosphate (Fleets Enema (Adult)) 118 ml RECTAL UNSCH PRN PRN Reason: SEE LABEL COMMENTS Sodium Chloride (Ns Flush) 2 ml IV.FLUSH BID [facility] Last Admin: 09/15/18 08:40 Dose: 2 ml Sodium Chloride (Ns Flush) 2 ml IV.FLUSH PRN PRN PRN Reason: FLUSH AFTER USING IV ACCESS Terbutaline Sulfate (Brethine Inj) 1 mg SQ UNSCH PRN PRN Reason: For Extravasation Allergies Allergy/AdvReac Type Severity Reaction Status Date / Time No Allergy Information Allergy Verified 08/30/18 11:50 Available Home Medications Medication Instructions Recorded Confirmed Type amoxicillin 500 mg PO TID 08/30/18 08/30/18 History aspirin 325 mg PO DAILY 08/30/18 08/30/18 History carvedilol 3.125 mg PO BID 08/30/18 08/30/18 History glipizide 10 mg PO DAILY 08/30/18 08/30/18 History ibuprofen 800 mg PO TID PRN 08/30/18 08/30/18 History isosorbide mononitrate 60 mg PO QAM 08/30/18 08/30/18 History olmesartan 20 mg PO DAILY 08/30/18 08/30/18 History prasugrel 10 mg PO DAILY 08/30/18 08/30/18 History pravastatin 20 mg PO DAILY 08/30/18 08/30/18 History sitagliptin-metformin [Janumet XR] 1 tab PO QPM 08/30/18 08/30/18 History Physical Exam Vital signs: Vital Signs 09/14/18 11:48 09/14/18 12:00 09/14/18 13:00 Temperature 98.2 F Pulse Rate 91 H 99 H 97 H Respiratory Rate 20 Blood Pressure 114/61 Pulse Oximetry 93 L 09/14/18 14:00 09/14/18 15:00 09/14/18 16:00 Temperature 98.1 F Pulse Rate 89 61 85 Respiratory Rate 14 20 Blood Pressure 106/55 L Pulse Oximetry 98 09/14/18 17:00 09/14/18 18:00 09/14/18 19:00 Temperature Pulse Rate 85 80 85 Respiratory Rate Blood Pressure Pulse Oximetry 09/14/18 20:00 09/14/18 21:00 09/14/18 21:45 Temperature 98.6 F Pulse Rate 88 86 85 Respiratory Rate 18 18 Blood Pressure 122/75 Pulse Oximetry 92 L 92 L 09/14/18 22:00 09/14/18 23:00 09/15/18 00:00 Temperature 97.6 F Pulse Rate 88 88 88 Respiratory Rate 20 Blood Pressure 121/64 Pulse Oximetry 09/15/18 01:00 09/15/18 02:00 09/15/18 03:00 Temperature Pulse Rate 90 88 88 Respiratory Rate Blood Pressure Pulse Oximetry 09/15/18 03:11 09/15/18 04:00 09/15/18 05:00 Temperature 98.2 F Pulse Rate 90 90 88 Respiratory Rate 18 18 Blood Pressure 118/61 Pulse Oximetry 95 09/15/18 06:00 09/15/18 07:00 09/15/18 07:37 Temperature 99.5 F Pulse Rate 90 89 87 Respiratory Rate 20 Blood Pressure 117/55 L Pulse Oximetry 93 L 09/15/18 08:00 09/15/18 08:58 09/15/18 09:00 Temperature Pulse Rate 84 64 80 Respiratory Rate 18 Blood Pressure Pulse Oximetry 100 09/15/18 10:00 09/15/18 11:00 Temperature Pulse Rate 82 78 Respiratory Rate Blood Pressure Pulse Oximetry Intake & Output 09/14/18 09/15/18 09/15/18 18:59 06:59 18:59 Intake Total 960 / 960 1700 / 1700 Output Total 400 / 400 600 / 600 Balance 560 / 560 1100 / 1100 Weight 86 kg Intake: IV 1000 / 1000 NS Inj 1,000 ML @ 84 mls/hr IV. 1000 / 1000 CONT .[id number] [facility] Rx#:[id number] Oral 960 / 960 700 / 700 Output: Urine 400 / 400 600 / 600 Other: # Voids 2 2 Date of Last Bowel Movement 09/09/18 09/09/18 09/09/18 # Bowel Movements 0 0 - Constitutional no acute distress - Routine HEENT Exam Head: Present: normocephalic - Routine Neck Exam Present: supple - Routine Respiratory Exam Present: CTA bilaterally - Routine Cardiovascular Exam Present: S1, S2 - Routine Abdominal Exam Present: soft - Routine Extremities Exam Comments: no rito - Urinary Catheter Management Indwelling Temp Sensing Catheter Cath placed during this visit: yes, but has since been removed by the nurse Reason for continuing: Decision to DC catheter Insertion date: 09/12/18 Insertion time: 08:40 Removal date: 09/13/18 Removal time: 06:15 Results 09/14/18 05:25 09/15/18 04:00 CBC 09/14/18 Range/Units 05:25 WBC 13.2 H (4.0-11.0) th/mm3 RBC 3.08 L (4.50-5.90) mil/mm3 Hgb 9.5 L (13.0-17.0) gm/dL Hct 28.0 L (39.0-51.0) % Plt Count 181 (150-450) th/mm3 Neut # (Auto) 10.5 H (1.8-7.7) th/mm3 Lymph # (Auto) 1.3 (1.0-4.8) th/mm3 Spink # (Auto) 1.1 H (0.0-0.9) th/mm3 Eos # (Auto) 0.2 (0.0-0.4) th/mm3 Baso # (Auto) 0.0 (0.0-0.2) th/mm3 Comprehensive Metabolic Panel 09/14/18 09/15/18 Range/Units 05:25 04:00 Sodium 134 L 135 L (136-145) meq/L Potassium 4.6 5.1 (3.5-5.1) meq/L Chloride 101 104 (98-107) meq/L Carbon Dioxide 22.7 23.1 (21.0-32.0) meq/L BUN 36 H 38 H (7-18) mg/dL Creatinine 2.90 H 2.60 H (0.60-1.30) mg/dL Calcium 8.8 8.7 (8.5-10.1) mg/dL Intake and Output 09/14/18 09/15/18 09/15/18 22:59 06:59 14:59 Intake Total 960 / 960 1700 / 1700 Output Total 400 / 400 600 / 600 Balance 560 / 560 1100 / 1100 Intake: IV 1000 / 1000 NS Inj 1,000 ML @ 84 mls/hr IV. 1000 / 1000 CONT .[id number] [facility] Rx#:[id number] Oral 960 / 960 700 / 700 Output: Urine 400 / 400 600 / 600 Other: # Voids 2 2 Date of Last Bowel Movement 09/09/18 09/09/18 09/09/18 # Bowel Movements 0 0 Weight 86 kg Assessment and Plan - Assessment (1) NSTEMI (non-ST elevated myocardial infarction) Code(s): I21.4 - Non-ST elevation (NSTEMI) myocardial infarction Status: Acute (2) ARF (acute renal failure) Code(s): N17.9 - Acute kidney failure, unspecified Status: Acute (3) Hypertension Code(s): I10 - Essential (primary) hypertension Status: Acute (4) Hyperlipidemia Code(s): E78.5 - Hyperlipidemia, unspecified Status: Acute (5) CAD (coronary artery disease) Code(s): I25.10 - Atherosclerotic heart disease of [place] coronary artery without angina pectoris Status: Acute (6) Diabetes type 2, controlled Code(s): E11.9 - Type 2 diabetes mellitus without complications Status: Acute - Plan 1.) CAD - nstemi, severe dom lcx and mid lad disease, continue aspirin, plavix, lipitor, coreg, elmer held due to arf, pod # [address] Sprague, chest tube out , arf improving, stable
--- NOTE | 2018-09-15 11:26 | P.PNNP ---
Subjective Interval history: Patient is alert, sitting on chair, no Chest pain or SOB, started eating better. Physical Exam Vital signs: Vital Signs 09/14/18 11:48 09/14/18 12:00 09/14/18 13:00 Temperature 98.2 F Pulse Rate 91 H 99 H 97 H Respiratory Rate 20 Blood Pressure 114/61 Pulse Oximetry 93 L 09/14/18 14:00 09/14/18 15:00 09/14/18 16:00 Temperature 98.1 F Pulse Rate 89 61 85 Respiratory Rate 14 20 Blood Pressure 106/55 L Pulse Oximetry 98 09/14/18 17:00 09/14/18 18:00 09/14/18 19:00 Temperature Pulse Rate 85 80 85 Respiratory Rate Blood Pressure Pulse Oximetry 09/14/18 20:00 09/14/18 21:00 09/14/18 21:45 Temperature 98.6 F Pulse Rate 88 86 85 Respiratory Rate 18 18 Blood Pressure 122/75 Pulse Oximetry 92 L 92 L 09/14/18 22:00 09/14/18 23:00 09/15/18 00:00 Temperature 97.6 F Pulse Rate 88 88 88 Respiratory Rate 20 Blood Pressure 121/64 Pulse Oximetry 09/15/18 01:00 09/15/18 02:00 09/15/18 03:00 Temperature Pulse Rate 90 88 88 Respiratory Rate Blood Pressure Pulse Oximetry 09/15/18 03:11 09/15/18 04:00 09/15/18 05:00 Temperature 98.2 F Pulse Rate 90 90 88 Respiratory Rate 18 18 Blood Pressure 118/61 Pulse Oximetry 95 09/15/18 06:00 09/15/18 07:00 09/15/18 07:37 Temperature 99.5 F Pulse Rate 90 89 87 Respiratory Rate 20 Blood Pressure 117/55 L Pulse Oximetry 93 L 09/15/18 08:00 09/15/18 08:58 09/15/18 09:00 Temperature Pulse Rate 84 64 80 Respiratory Rate 18 Blood Pressure Pulse Oximetry 100 09/15/18 10:00 09/15/18 11:00 Temperature Pulse Rate 82 78 Respiratory Rate Blood Pressure Pulse Oximetry Intake & Output 09/14/18 09/15/18 09/15/18 18:59 06:59 18:59 Intake Total 960 / 960 1700 / 1700 Output Total 400 / 400 600 / 600 Balance 560 / 560 1100 / 1100 Weight 86 kg Intake: IV 1000 / 1000 NS Inj 1,000 ML @ 84 mls/hr IV. 1000 / 1000 CONT .[id number] [facility] Rx#:[id number] Oral 960 / 960 700 / 700 Output: Urine 400 / 400 600 / 600 Other: # Voids 2 2 Date of Last Bowel Movement 09/09/18 09/09/18 09/09/18 # Bowel Movements 0 0 Narrative: GENERAL: Alert, oriented x3, NAD. On room air SKIN: Warm and dry. HEAD: Normocephalic. EYES: No scleral icterus. No injection or drainage. NECK: Supple, trachea midline. No JVD or lymphadenopathy. CARDIOVASCULAR: Regular rate and rhythm without murmurs, gallops, or rubs, dressing in place. RESPIRATORY: Breath sounds equal bilaterally. No accessory muscle use. GASTROINTESTINAL: Abdomen soft, non-tender, nondistended. MUSCULOSKELETAL: No cyanosis, or edema. BACK: Nontender without obvious deformity. No CVA tenderness. - Urinary Catheter Management Indwelling Temp Sensing Catheter Cath placed during this visit: yes, but has since been removed by the nurse Reason for continuing: Decision to DC catheter Insertion date: 09/12/18 Insertion time: 08:40 Removal date: 09/13/18 Removal time: 06:15 Assessment and Plan - Assessment (1) Chronic kidney disease, stage 3 (moderate) Code(s): N18.3 - Chronic kidney disease, stage 3 (moderate) Status: Acute Plan: Patient may have hypertensive nephrosclerosis, appears to have stable stage III CKD. Creatinine is improving, now 2.6, non oliguric, K is normal. His baseline is close to 1.9-2.0. Non oliguric. Started on IVF. Follow the urine put put and BMP. (2) Hypertension Code(s): I10 - Essential (primary) hypertension Status: Acute Plan: Monitor BP. Continue medications. (3) Hyperlipidemia Code(s): E78.5 - Hyperlipidemia, unspecified Status: Acute Plan: Patient on Atorvastatin. (4) CAD (coronary artery disease) Code(s): I25.10 - Atherosclerotic heart disease of [place] coronary artery without angina pectoris Status: Acute Plan: s/p CABG . Patient on Plavix. (5) Diabetes type 2, controlled Code(s): E11.9 - Type 2 diabetes mellitus without complications Status: Acute Plan: Insulin coverage to maintain blood glucose levels between 140 and 180.
[2018-09-15] MEDS: Sod Chloride 0.9% Inj 1,000 ML IV.CONT SCH (15:46)
[2018-09-15] MEDS ORDERED: Sod Phosphate/Sod Biphosphate (Adult) Enema 133 ML Bottle RECTAL ONE (18:30)
[2018-09-16] MEDS: Insulin NovoLOG Aspart Correctional Sugar Inj SQ SCH ×3 (03:33→09:39)
[2018-09-16 06:15] LABS: Calcium 8.7 mg/dL (8.5-10.1); Carbon Dioxide 21.1 meq/L (21.0-32.0); Potassium 5.3 meq/L (3.5-5.1)
[2018-09-16] MEDS: Sod Chloride 0.9% Inj 1,000 ML IV.CONT SCH ×2 (07:16→09:38)
[2018-09-16] MEDS: Multivitamin/Minerals Therapeutic Tablet PO SCH (08:09)
[2018-09-16] MEDS: Senna/Docusate Sodium 8.6/50 MG Tablet PO SCH (08:09)
[2018-09-16] MEDS: Amiodarone 200 MG Tablet PO SCH (08:09)
[2018-09-16] MEDS: Docusate Sodium 100 MG Capsule PO SCH (08:12)
[2018-09-16] MEDS: Polyethylene Glycol 3350 17 GM Packet PO SCH (08:12)
[2018-09-16 09:37] VITALS: RESP 18
--- NOTE | 2018-09-16 09:41 | P.PNNP ---
Subjective Interval history: Patient's renal function stable. Patient possibly being discharged today. <Pa Engel - Last Filed: 09/16/18 10:04> Physical Exam Vital signs: Vital Signs 09/15/18 10:00 09/15/18 11:00 09/15/18 12:00 Temperature 97.6 F Pulse Rate 82 78 80 Respiratory Rate 20 Blood Pressure 119/67 Pulse Oximetry 94 L 09/15/18 13:00 09/15/18 14:00 09/15/18 15:00 Temperature Pulse Rate 74 73 84 Respiratory Rate 14 Blood Pressure Pulse Oximetry 09/15/18 15:25 09/15/18 16:00 09/15/18 17:00 Temperature 97.8 F Pulse Rate 71 72 79 Respiratory Rate 20 Blood Pressure 123/59 L Pulse Oximetry 94 L 09/15/18 18:00 09/15/18 19:00 09/15/18 20:00 Temperature 98.3 F Pulse Rate 78 80 80 Respiratory Rate 17 Blood Pressure 145/74 H Pulse Oximetry 95 09/15/18 20:56 09/15/18 21:00 09/15/18 22:00 Temperature Pulse Rate 78 81 80 Respiratory Rate 18 Blood Pressure Pulse Oximetry 99 09/15/18 23:00 09/16/18 00:00 09/16/18 01:00 Temperature 98.0 F Pulse Rate 79 80 81 Respiratory Rate 18 Blood Pressure 135/65 Pulse Oximetry 09/16/18 02:00 09/16/18 03:00 09/16/18 03:05 Temperature Pulse Rate 89 89 78 Respiratory Rate 18 Blood Pressure Pulse Oximetry 09/16/18 04:00 09/16/18 05:00 09/16/18 05:45 Temperature 98.6 F Pulse Rate 79 79 78 Respiratory Rate 17 Blood Pressure 124/57 L Pulse Oximetry 95 09/16/18 07:00 09/16/18 08:00 09/16/18 09:00 Temperature 98.5 F Pulse Rate 77 78 76 Respiratory Rate 18 Blood Pressure 118/62 Pulse Oximetry 94 L 09/16/18 09:36 09/16/18 09:38 Temperature Pulse Rate 72 Respiratory Rate 18 18 Blood Pressure Pulse Oximetry 95 Intake & Output 09/15/18 09/16/18 09/16/18 18:59 06:59 18:59 Intake Total 1960 / 1960 1240 / 1240 Output Total 500 / 500 300 / 300 Balance 1460 / 1460 940 / 940 Weight 87 kg Intake: IV 1000 / 1000 1000 / 1000 NS Inj 1,000 ML @ 84 mls/hr IV. 1000 / 1000 1000 / 1000 CONT .[id number] [facility] Rx#:[id number] Oral 960 / 960 240 / 240 Output: Urine 500 / 500 300 / 300 Other: # Voids 4 Date of Last Bowel Movement 09/09/18 09/15/18 # Bowel Movements 0 Narrative: GENERAL: Alert, oriented x3, NAD. SKIN: Warm and dry. HEAD: Normocephalic. EYES: No scleral icterus. No injection or drainage. NECK: Supple, trachea midline. No JVD or lymphadenopathy. CARDIOVASCULAR: Regular rate and rhythm without murmurs, gallops, or rubs, dressing in place. RESPIRATORY: Breath sounds equal bilaterally. No accessory muscle use. GASTROINTESTINAL: Abdomen soft, non-tender, nondistended. MUSCULOSKELETAL: No cyanosis, or edema. BACK: Nontender without obvious deformity. No CVA tenderness. - Urinary Catheter Management Indwelling Temp Sensing Catheter Cath placed during this visit: yes, but has since been removed by the nurse Reason for continuing: Decision to DC catheter Insertion date: 09/12/18 Insertion time: 08:40 Removal date: 09/13/18 Removal time: 06:15 <Pa Engel - Last Filed: 09/16/18 10:04> Vital signs: Vital Signs 09/16/18 09:00 09/16/18 09:36 09/16/18 09:38 Temperature Pulse Rate 76 72 Respiratory Rate 18 18 Blood Pressure Pulse Oximetry 95 09/16/18 10:00 09/16/18 11:00 09/16/18 12:00 Temperature 97.9 F Pulse Rate 70 70 75 Respiratory Rate 18 Blood Pressure 118/58 L Pulse Oximetry 100 09/16/18 13:00 Temperature Pulse Rate 67 Respiratory Rate Blood Pressure Pulse Oximetry Intake & Output 09/16/18 09/17/18 09/17/18 18:59 06:59 18:59 Other: Date of Last Bowel Movement 09/15/18 - Urinary Catheter Management Indwelling Temp Sensing Catheter Cath placed during this visit: no <Fransisco Hernandez - Last Filed: 09/17/18 08:05> Assessment and Plan - Assessment (1) Chronic kidney disease, stage 3 (moderate) Code(s): N18.3 - Chronic kidney disease, stage 3 (moderate) Status: Acute Plan: Patient may have hypertensive nephrosclerosis, appears to have stable stage III CKD. Creatinine is improving, now 2.5. His baseline is close to 1.9-2.0. Possible discharge today. Advised to follow up with social worker palliative care in hometown once discharged. (2) Hypertension Code(s): I10 - Essential (primary) hypertension Status: Acute Plan: Monitor BP. Continue medications. (3) Hyperlipidemia Code(s): E78.5 - Hyperlipidemia, unspecified Status: Acute Plan: Patient on Atorvastatin. (4) CAD (coronary artery disease) Code(s): I25.10 - Atherosclerotic heart disease of [place] coronary artery without angina pectoris Status: Acute Plan: s/p CABG . Patient on Plavix. (5) Diabetes type 2, controlled Code(s): E11.9 - Type 2 diabetes mellitus without complications Status: Acute Plan: Insulin coverage to maintain blood glucose levels between 140 and 180. <Pa Engel - Last Filed: 09/16/18 10:04> - Assessment (1) Chronic kidney disease, stage 3 (moderate) Code(s): N18.3 - Chronic kidney disease, stage 3 (moderate) Status: Acute (2) Hypertension Code(s): I10 - Essential (primary) hypertension Status: Acute (3) Hyperlipidemia Code(s): E78.5 - Hyperlipidemia, unspecified Status: Acute (4) CAD (coronary artery disease) Code(s): I25.10 - Atherosclerotic heart disease of [place] coronary artery without angina pectoris Status: Acute (5) Diabetes type 2, controlled Code(s): E11.9 - Type 2 diabetes mellitus without complications Status: Acute - Attending Attestation patient was seen and examined. Agree with above assessment and plan. <Fransisco Hernandez - Last Filed: 09/17/18 08:05>
--- NOTE | 2018-09-16 11:16 | P.PNCV ---
- Note Subjective/Hospital Course: A 63-year-old male transferred from [facility]. Apparently was admitted there with chest pain on 08/30/2018. Chest pain located on the left side of his chest, 07/10. Said he had a recent treadmill stress test a month ago, but was unable to complete the test. Apparently, per the patient, it was negative. The patient also had elevated creatinine at 2.02. He was transferred to our facility. He underwent cardiac catheterization by Dr. Mann which showed a left main disease of 60%, mid distal LAD 75%, the circ was 90%, the OM 90%, EF of 65%. We were consulted to evaluate for coronary artery bypass grafting. The patient has also had some dentalextraction and has sutures in place. He had a new bottom denture plate placed. We did, however, get in touch with the [facility] Dental physician, Dr. Pacheco, who stated to leave the sutures in place and we were okay to remove the bottom denture plate prior to any surgery and that he would follow up with the patient after he was released from the hospital for suture removal. PAST MEDICAL HISTORY: Includes coronary artery disease, diabetes mellitus, hyperlipidemia, hypertension, chronic prostatitis. 09/04 PRU 92 discussed with pt , will more than likely eval for surgery on sunday recheck PRU on SUN 09/05 tentatively scheduled for surgery on sunday repeat PRU in am 09/06 pru 148/ repeat on Sunday no chest pain creatinine continues to climb which is a concern 09/09 PRU 183 need to be > 200 prefer 250 recheck in am will need to reschedule this week 09/10 pt stable no chest pain PRU 246 stable for surgery / rescheduled for Thur 09/12 SURGICAL PROCEDURE 1. Urgent Off-pump Coronary Artery Bypass Grafting x 4 with Left Internal Mammary Artery (JOSE) to Left Anterior Descending (LAD), reverse saphenous vein graft to obtuse Marginal branch of the left Circumflex artery, reverse saphenous vein graft to the Diagonal 1 Branch of the LAD, reverse saphenous vein graft to the ramus marginalis 2. Left leg Endoscopic Vein [place] 3. Intraoperative Vein Mapping. 09/13 Clinically and hemodynamically stable Monitor creatinine level Maintain chest tubes Transfer [facility] 09/14 Doing well Remove chest tube today Creatinine 2.9 today. Will recheck in a.m. May need nephrology input 09/15 Doing well In normal sinus rhythm Creatinine 2.6 today. Greatly appreciate nephrology input Plan discharge in a.m. if okay with nephrology 09/16 Doing well Okay to discharge from my standpoint Objective: Vital Signs - 24 hr 09/15/18 12:00 09/15/18 13:00 09/15/18 14:00 Temperature 97.6 F Pulse Rate 80 74 73 Respiratory Rate 20 Blood Pressure 119/67 Pulse Oximetry 94 L 09/15/18 15:00 09/15/18 15:25 09/15/18 16:00 Temperature 97.8 F Pulse Rate 84 71 72 Respiratory Rate 14 20 Blood Pressure 123/59 L Pulse Oximetry 94 L 09/15/18 17:00 09/15/18 18:00 09/15/18 19:00 Temperature Pulse Rate 79 78 80 Respiratory Rate Blood Pressure Pulse Oximetry 09/15/18 20:00 09/15/18 20:56 09/15/18 21:00 Temperature 98.3 F Pulse Rate 80 78 81 Respiratory Rate 17 18 Blood Pressure 145/74 H Pulse Oximetry 95 99 09/15/18 22:00 09/15/18 23:00 09/16/18 00:00 Temperature 98.0 F Pulse Rate 80 79 80 Respiratory Rate 18 Blood Pressure 135/65 Pulse Oximetry 09/16/18 01:00 09/16/18 02:00 09/16/18 03:00 Temperature Pulse Rate 81 89 89 Respiratory Rate Blood Pressure Pulse Oximetry 09/16/18 03:05 09/16/18 04:00 09/16/18 05:00 Temperature 98.6 F Pulse Rate 78 79 79 Respiratory Rate 18 17 Blood Pressure 124/57 L Pulse Oximetry 95 09/16/18 05:45 09/16/18 07:00 09/16/18 08:00 Temperature 98.5 F Pulse Rate 78 77 78 Respiratory Rate 18 Blood Pressure 118/62 Pulse Oximetry 94 L 09/16/18 09:00 09/16/18 09:36 09/16/18 09:38 Temperature Pulse Rate 76 72 Respiratory Rate 18 18 Blood Pressure Pulse Oximetry 95 09/16/18 10:00 Temperature Pulse Rate 70 Respiratory Rate Blood Pressure Pulse Oximetry Labs: Laboratory Results - last 12 hr 09/16/18 09/16/18 09/16/18 04:47 04:47 08:04 Sodium 132 L Potassium 5.3 H Chloride 104 Carbon Dioxide 21.1 Anion Gap 7 BUN 37 H Creatinine 2.50 H Estimated GFR 32 L POC Glucose 165 H 145 H Random Glucose 146 H Calcium 8.7 Result Diagrams: 09/14/18 05:25 09/16/18 04:47 - Plan (1) ARF (acute renal failure) Plan: creatinine 1.66> 2.0> 2.04>1.90 worsening indices Nephro following (4) CAD (coronary artery disease) Plan: f/u PRU in am reschedule this for (6) NSTEMI (non-ST elevated myocardial infarction) Plan: ASA, BB statin eval for surgery on Sunday recheck labs on sunday
--- NOTE | 2018-09-16 11:41 | P.DCO ---
- Diagnosis (1) CAD (coronary artery disease) Status: Acute - Physical Therapy Order: Evaluate and treat - Home Health Nursing Order: Signs/symptoms of disease process, Nursing assessment with vital signs - Case Management Consult Case Management Consult-Home Health: Yes - Certification I have seen patient Omar Paniagua on 09/16/18. My clinical findings support the need for the requested home health care services because: Limited ability to care for self I certify that my clinical findings support that this patient is homebound because: Poor cardiac reserve
[2018-09-16 12:04] VITALS: BP 118/58; TEMP 97.9; O2SAT 100
[2018-09-16] MEDS ORDERED: Sodium Polystyrene Sulfonate Powder 15 GM Bottle PO ONE (13:00)
--- NOTE | 2018-09-16 13:11 | P.DS ---
Date of admission: 08/30/18 09:20 Primary care physician: UNKNOWN Brief History from admission: The patient is a 63-year-old male with past medical history of CAD status post 3 stents who is presenting to the hospital with left-sided chest pain. He said he has always had chest pain ever since his second heart catheterization. He says his chest pain is located on the left side of his chest and it radiates down his left arm. He says it comes and goes. He says at its worst the pain is a 10 out of 10 in severity. It has become more frequent in nature recently. The pain gets worse with exertion but also occurs at rest frequently. 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 The patient said that he did a treadmill stress test about a month ago but he was unable to complete exercise. He then had a chemical stress test which was supposedly negative. The patient denies any history of kidney problems. He says he recently had dental extraction and is currently on antibiotics for that. He says that he has chronic clear sputum production. He denies a smoking history. Discussed with nursing. DS: Diagnosis - Discharge Diagnosis (1) CAD (coronary artery disease) Status: Acute DS: Medications - Discharge Medications Prescriptions: aspirin 81 mg PO DAILY #90 tab atorvastatin 40 mg PO DAILY 90 Days #90 tab carvedilol [Coreg] 6.25 mg PO BID 30 Days #120 tab clopidogrel [Plavix] 75 mg PO DAILY 30 Days #30 tab docusate sodium [DOK] 100 mg PO BID 14 Days #28 cap hydrocodone-acetaminophen 1 tab PO Q6H PRN #20 tab PRN Reason: Pain Scale 5-10 DS: Summary - Time Spent with Patient Total time spent providing and/or coordinating discharge services: - Quality: VTE Deep Vein Thrombosis/Pulmonary Embolism Present on Admission: No Exam Vital signs: Vital Signs 09/15/18 14:00 09/15/18 15:00 09/15/18 15:25 Temperature 97.8 F Pulse Rate 73 84 71 Respiratory Rate 14 20 Blood Pressure 123/59 L Pulse Oximetry 94 L 09/15/18 16:00 09/15/18 17:00 09/15/18 18:00 Temperature Pulse Rate 72 79 78 Respiratory Rate Blood Pressure Pulse Oximetry 09/15/18 19:00 09/15/18 20:00 09/15/18 20:56 Temperature 98.3 F Pulse Rate 80 80 78 Respiratory Rate 17 18 Blood Pressure 145/74 H Pulse Oximetry 95 99 09/15/18 21:00 09/15/18 22:00 09/15/18 23:00 Temperature Pulse Rate 81 80 79 Respiratory Rate Blood Pressure Pulse Oximetry 09/16/18 00:00 09/16/18 01:00 09/16/18 02:00 Temperature 98.0 F Pulse Rate 80 81 89 Respiratory Rate 18 Blood Pressure 135/65 Pulse Oximetry 09/16/18 03:00 09/16/18 03:05 09/16/18 04:00 Temperature 98.6 F Pulse Rate 89 78 79 Respiratory Rate 18 17 Blood Pressure 124/57 L Pulse Oximetry 95 09/16/18 05:00 09/16/18 05:45 09/16/18 07:00 Temperature Pulse Rate 79 78 77 Respiratory Rate Blood Pressure Pulse Oximetry 09/16/18 08:00 09/16/18 09:00 09/16/18 09:36 Temperature 98.5 F Pulse Rate 78 76 72 Respiratory Rate 18 18 Blood Pressure 118/62 Pulse Oximetry 94 L 95 09/16/18 09:38 09/16/18 10:00 09/16/18 11:00 Temperature Pulse Rate 70 70 Respiratory Rate 18 Blood Pressure Pulse Oximetry 09/16/18 12:00 Temperature 97.9 F Pulse Rate 75 Respiratory Rate 18 Blood Pressure 118/58 L Pulse Oximetry 100 Intake & Output 09/15/18 09/16/18 09/16/18 18:59 06:59 18:59 Intake Total 1960 / 1960 1240 / 1240 Output Total 500 / 500 300 / 300 Balance 1460 / 1460 940 / 940 Weight 87 kg Intake: IV 1000 / 1000 1000 / 1000 NS Inj 1,000 ML @ 84 mls/hr IV. 1000 / 1000 1000 / 1000 CONT .[id number] [facility] Rx#:[id number] Oral 960 / 960 240 / 240 Output: Urine 500 / 500 300 / 300 Other: # Voids 4 Date of Last Bowel Movement 09/09/18 09/15/18 # Bowel Movements 0 Results Procedures completed during hospitalization: Echocardiogram 08/31/2018 The left ventricular systolic function is normal with an estimated ejection fraction in the range of 60-65%. There is trace tricuspid valve regurgitation. 09/12/2018 1. Urgent Off-pump Coronary Artery Bypass Grafting x 4 with Left Internal Mammary Artery (JOSE) to Left Anterior Descending (LAD), reverse saphenous vein graft to obtuse Marginal branch of the left Circumflex artery, reverse saphenous vein graft to the Diagonal 1 Branch of the LAD, reverse saphenous vein graft to the ramus marginalis 2. Left leg Endoscopic Vein [place] 3. Intraoperative Vein Mapping. Labs on day of discharge: Labs from last 24 hours 09/16/18 09/16/18 09/16/18 08:04 04:47 04:47 Sodium 132 L Potassium 5.3 H Chloride 104 Carbon Dioxide 21.1 Anion Gap 7 BUN 37 H Creatinine 2.50 H Estimated GFR 32 L POC Glucose 145 H 165 H Random Glucose 146 H Calcium 8.7 09/15/18 09/15/18 09/15/18 21:43 17:09 13:34 Sodium Potassium Chloride Carbon Dioxide Anion Gap BUN Creatinine Estimated GFR POC Glucose 88 126 H 232 H Random Glucose Calcium - Impressions ITS Impressions Abdomen/Bladder Ultrasound 08/30/18 00:00 CONCLUSION: Negative renal ultrasound examination. Incidental note is made of a left renal cyst. Carotid Doppler Study 09/04/18 11:10 CONCLUSION: Negative examination for a hemodynamically significant carotid stenosis. Les Ty MD FACR Lower Extremity Ultrasound 09/04/18 11:10 CONCLUSION: 1. Venous mapping as above Venous Doppler Study 09/04/18 11:10 CONCLUSION: 1. Negative for deep venous thrombosis, limited about the right groin from previous catheterization bandage. Chest X-Ray 09/13/18 05:00 CONCLUSION: Bibasilar areas of consolidation or atelectasis. Discharge Plan - Discharge Disposition Patient Disposition: Disch /Home Health Service - Discharge Condition Condition: Good - Discharge Order Discharge Orders: Discharge Order (Routine); Ordered 09/16/18 Ordered By: Boaz Khalil - Discharge Details Anticipated Discharge Date: 09/16/18 Discharge Comment: Follow up with Nephrology within one week. - Physicians Team Primary Care Provider: UNKNOWN, Attending Provider: Boaz Khalil Other Providers: Fransisco Hernandez MD ; Vladimir Mann MD - Rxs /Orders / Referrals /Forms Prescriptions: New amiodarone 200 mg Tablet 200 mg PO Q12HR Qty: 42 RF: 0 aspirin 81 mg Tablet,Chewable 81 mg PO DAILY Qty: 90 RF: 0 atorvastatin 40 mg Tablet 40 mg PO DAILY 90 Days Qty: 90 RF: 3 carvedilol [Coreg] 3.125 mg Tablet 6.25 mg PO BID 30 Days Qty: 120 RF: 3 clopidogrel [Plavix] 75 mg Tablet 75 mg PO DAILY 30 Days Qty: 30 RF: 3 docusate sodium [DOK] 100 mg Capsule 100 mg PO BID 14 Days Qty: 28 RF: 0 hydrocodone-acetaminophen 5-325 mg Tablet 1 tab PO Q6H PRN (Reason: Pain Scale 5-10) Qty: 20 RF: 0 Continue glipizide 10 mg Tablet 10 mg PO DAILY sitagliptin-metformin [Janumet XR] 50-1,000 mg Tablet, Er Multiphase 24 Hr 1 tab PO QPM Discontinued amoxicillin 500 mg Capsule 500 mg PO TID aspirin 325 mg Tablet 325 mg PO DAILY carvedilol 3.125 mg Tablet 3.125 mg PO BID ibuprofen 800 mg Tablet 800 mg PO TID PRN (Reason: Toothache) isosorbide mononitrate 60 mg Tablet Extended Release 24 Hr 60 mg PO QAM olmesartan 20 mg Tablet 20 mg PO DAILY prasugrel 10 mg Tablet 10 mg PO DAILY pravastatin 20 mg Tablet 20 mg PO DAILY Referrals: Vladimir Mann MD [Physician] - See Instructions (Dr Mann has walk-in office hours of 7:30 am-11:00 am, please be sure to follow up with him within [4 weeks of discharge].) Ronan Mclain M.D. [INTERNAL MEDICINE] - See Instructions ( Your appointment has been scheduled for [09/19/18] at [1:00 PM] If you cannot make this appointment, please call the office to reschedule ) Barbara Hoover [ADVANCE RN PRACTITIONER] - See Instructions ( Your appointment has been scheduled for [10/08/18] at [10:45 am] If you cannot make this appointment, please call the office to reschedule ) - Discharge Instructions Patient Printed Instructions: Heart Catheterization (DC)
[2018-09-16 13:17] VITALS: PULSE 67
[2018-09-16] MEDS ORDERED: Sodium Polystyrene Sulfonate/Sorbitol Liq 15 GM/60 ML UDC PO ONE (14:00)
--- NOTE | 2018-09-16 14:12 | P.PNCA ---
Subjective Interval history: alert in nad Medications and Allergies Active Medications: Active Medications Acetaminophen (Tylenol) 650 mg PO Q4H PRN PRN Reason: Temp > 100.4 Hydrocodone Bitart/Acetaminophen ([place] 5/325) 1 tab PO Q3H PRN PRN Reason: PAIN SCALE 1 TO 5 Last Admin: 09/16/18 08:10 Dose: 1 tab Al Hydroxide/Mg Hydroxide (Milk Of Magnniels Liq) 30 ml PO DAILY [facility] Last Admin: 09/16/18 08:12 Dose: Not Given Albuterol (Duoneb Neb ([facility])) 1 ampul NEB Q6HR NEB [facility] Last Admin: 09/16/18 09:33 Dose: 1 ampul Amiodarone HCl (Cordarone) 200 mg PO Q12HR [facility] Last Admin: 09/16/18 08:09 Dose: 200 mg Aspirin (Aspirin Chew) 81 mg PO DAILY [facility] Last Admin: 09/16/18 08:09 Dose: 81 mg Atorvastatin Calcium (Lipitor) 40 mg PO DAILY [facility] Last Admin: 09/16/18 08:09 Dose: 40 mg Calcium Chloride (Calcium Chloride Inj) 0.5 gm IV.PUSH UNSCH PRN PRN Reason: SEE LABEL COMMENTS Carvedilol (Coreg) 6.25 mg PO BID [facility] Last Admin: 09/16/18 08:09 Dose: 6.25 mg Clopidogrel Bisulfate (Plavix) 75 mg PO DAILY [facility] Last Admin: 09/16/18 08:09 Dose: 75 mg Dextrose (D50w Vial) 50 ml IV.PUSH UNSCH PRN PRN Reason: PER HYPOGLYCEMIA PROTOCOL Diphenhydramine HCl (Benadryl) 50 mg PO HS PRN PRN Reason: SLEEP Last Admin: 09/13/18 23:10 Dose: 50 mg Docusate Sodium (Colace) 100 mg PO BID [facility] Last Admin: 09/16/18 08:12 Dose: Not Given Epinephrine (Racepinephrine 2.25% Neb) 0.5 ml NEB DAILY NEB PRN PRN Reason: STRIDOR Glucagon (Glucagon Inj) 1 mg OTHER PRN PRN PRN Reason: for Hypoglycemia Protocol Albumin Human (Buminate 5% Inj) 250 mls @ 250 mls/hr IV.SIG UNSCH PRN PRN Reason: SEE LABEL COMMENTS Last Infusion: 09/13/18 06:48 Dose: Infused Calcium Chloride 1 gm/ Sodium (Chloride) 110 mls @ 100 mls/hr IV.SIG PRN PRN PRN Reason: SEE LABEL COMMENTS Last Infusion: 09/12/18 23:04 Dose: Infused Magnesium Sulfate 2 gm/ Sodium (Chloride) 100 mls @ 50 mls/hr IV.SIG PRN PRN PRN Reason: SEE LABEL COMMENTS Magnesium Sulfate 2 gm/ Sodium (Chloride) 100 mls @ 50 mls/hr IV.SIG PRN PRN PRN Reason: SEE LABEL COMMENTS Potassium Chloride (Kcl 20 Meq Premix Inj) 20 meq in 100 mls @ 50 mls/hr IV.SIG PRN PRN PRN Reason: SEE LABEL COMMENTS Last Infusion: 09/12/18 19:00 Dose: Infused Potassium Chloride (Kcl 20 Meq Premix Inj) 20 meq in 100 mls @ 50 mls/hr IV.SIG PRN PRN PRN Reason: SEE LABEL COMMENTS Potassium Chloride (Kcl 20 Meq Premix Inj) 20 meq in 100 mls @ 50 mls/hr IV.SIG PRN PRN PRN Reason: SEE LABEL COMMENTS Sodium Chloride (Ns Inj) 1,000 mls @ 84 mls/hr IV.CONT .[id number] [facility] Last Admin: 09/16/18 09:38 Dose: Not Given Insulin Aspart (Novolog Insulin Correctional Sugar Inj) 0 unit SQ 02,06,10,14, 18,22 [facility]; Protocol Last Admin: 09/16/18 09:39 Dose: 4 unit Morphine Sulfate (Morphine Inj) 4 mg IV.PUSH Q4H PRN PRN Reason: BREAKTHROUGH PAIN Last Admin: 09/14/18 19:50 Dose: 4 mg Multivitamins/Minerals (Theragran-M) 1 tab PO DAILY [facility] Last Admin: 09/16/18 08:09 Dose: 1 tab Ondansetron HCl (Zofran Inj) 4 mg IV.PUSH Q6H PRN PRN Reason: NAUSEA OR VOMITING Pantoprazole Sodium (Protonix) 40 mg PO DAILY@06 [facility] Last Admin: 09/16/18 07:34 Dose: 40 mg Phenylephrine HCl (Neosynephrine Inj) 0.1 mg IV.PUSH UNSCH PRN PRN Reason: SEE LABEL COMMENTS Polyethylene Glycol (Miralax) 17 gm PO DAILY [facility] Last Admin: 09/16/18 08:12 Dose: Not Given Potassium Chloride (K-Dur) 20 meq PO UNSCH PRN PRN Reason: SEE LABEL COMMENTS Potassium Chloride (K-Dur) 40 meq PO UNSCH PRN PRN Reason: SEE LABEL COMMENTS Senna/Docusate Sodium (Letty-Colace) 1 tab PO BID [facility] Last Admin: 09/16/18 08:09 Dose: 1 tab Sennosides (Senokot) 8.6 mg PO HS [facility] Last Admin: 09/15/18 21:38 Dose: Not Given Sodium Bicarbonate (Sodium Bicarbonate 8.4% Inj) 50 meq IV.PUSH UNSCH PRN PRN Reason: SEE LABEL COMMENTS Sodium Bicarbonate (Sodium Bicarbonate 8.4% Inj) 100 meq IV.PUSH UNSCH PRN PRN Reason: SEE LABEL COMMENTS Sodium Chloride (Ns Flush) 2 ml IV.FLUSH BID [facility] Last Admin: 09/16/18 08:12 Dose: 2 ml Sodium Chloride (Ns Flush) 2 ml IV.FLUSH PRN PRN PRN Reason: FLUSH AFTER USING IV ACCESS Terbutaline Sulfate (Brethine Inj) 1 mg SQ UNSCH PRN PRN Reason: For Extravasation Allergies Allergy/AdvReac Type Severity Reaction Status Date / Time No Allergy Information Allergy Verified 08/30/18 11:50 Available Home Medications Medication Instructions Recorded Confirmed Type glipizide 10 mg PO DAILY 08/30/18 08/30/18 History sitagliptin-metformin [Janumet XR] 1 tab PO QPM 08/30/18 08/30/18 History Physical Exam Vital signs: Vital Signs 09/15/18 15:00 09/15/18 15:25 09/15/18 16:00 Temperature 97.8 F Pulse Rate 84 71 72 Respiratory Rate 14 20 Blood Pressure 123/59 L Pulse Oximetry 94 L 09/15/18 17:00 09/15/18 18:00 09/15/18 19:00 Temperature Pulse Rate 79 78 80 Respiratory Rate Blood Pressure Pulse Oximetry 09/15/18 20:00 09/15/18 20:56 09/15/18 21:00 Temperature 98.3 F Pulse Rate 80 78 81 Respiratory Rate 17 18 Blood Pressure 145/74 H Pulse Oximetry 95 99 09/15/18 22:00 09/15/18 23:00 09/16/18 00:00 Temperature 98.0 F Pulse Rate 80 79 80 Respiratory Rate 18 Blood Pressure 135/65 Pulse Oximetry 09/16/18 01:00 09/16/18 02:00 09/16/18 03:00 Temperature Pulse Rate 81 89 89 Respiratory Rate Blood Pressure Pulse Oximetry 09/16/18 03:05 09/16/18 04:00 09/16/18 05:00 Temperature 98.6 F Pulse Rate 78 79 79 Respiratory Rate 18 17 Blood Pressure 124/57 L Pulse Oximetry 95 09/16/18 05:45 09/16/18 07:00 09/16/18 08:00 Temperature 98.5 F Pulse Rate 78 77 78 Respiratory Rate 18 Blood Pressure 118/62 Pulse Oximetry 94 L 09/16/18 09:00 09/16/18 09:36 09/16/18 09:38 Temperature Pulse Rate 76 72 Respiratory Rate 18 18 Blood Pressure Pulse Oximetry 95 09/16/18 10:00 09/16/18 11:00 09/16/18 12:00 Temperature 97.9 F Pulse Rate 70 70 75 Respiratory Rate 18 Blood Pressure 118/58 L Pulse Oximetry 100 09/16/18 13:00 Temperature Pulse Rate 67 Respiratory Rate Blood Pressure Pulse Oximetry Intake & Output 09/15/18 09/16/18 09/16/18 18:59 06:59 18:59 Intake Total 1960 / 1960 1240 / 1240 Output Total 500 / 500 300 / 300 Balance 1460 / 1460 940 / 940 Weight 87 kg Intake: IV 1000 / 1000 1000 / 1000 NS Inj 1,000 ML @ 84 mls/hr IV. 1000 / 1000 1000 / 1000 CONT .[id number] [facility] Rx#:[id number] Oral 960 / 960 240 / 240 Output: Urine 500 / 500 300 / 300 Other: # Voids 4 Date of Last Bowel Movement 09/09/18 09/15/18 # Bowel Movements 0 - Constitutional no acute distress - Routine HEENT Exam Head: Present: normocephalic - Routine Neck Exam Present: supple - Routine Respiratory Exam Present: CTA bilaterally - Routine Cardiovascular Exam Present: S1, S2 - Routine Abdominal Exam Present: soft - Routine Extremities Exam Comments: no rito - Urinary Catheter Management Indwelling Temp Sensing Catheter Cath placed during this visit: yes, but has since been removed by the nurse Reason for continuing: Decision to DC catheter Insertion date: 09/12/18 Insertion time: 08:40 Removal date: 09/13/18 Removal time: 06:15 Results 09/14/18 05:25 09/16/18 04:47 Comprehensive Metabolic Panel 09/15/18 09/16/18 Range/Units 04:00 04:47 Sodium 135 L 132 L (136-145) meq/L Potassium 5.1 5.3 H (3.5-5.1) meq/L Chloride 104 104 (98-107) meq/L Carbon Dioxide 23.1 21.1 (21.0-32.0) meq/L BUN 38 H 37 H (7-18) mg/dL Creatinine 2.60 H 2.50 H (0.60-1.30) mg/dL Calcium 8.7 8.7 (8.5-10.1) mg/dL Intake and Output 09/15/18 09/16/18 09/16/18 22:59 06:59 14:59 Intake Total 1310 / 1310 1240 / 1240 Output Total 500 / 500 300 / 300 Balance 810 / 810 940 / 940 Intake: IV 350 / 350 1000 / 1000 NS Inj 1,000 ML @ 84 mls/hr IV. 350 / 350 1000 / 1000 CONT .[id number] [facility] Rx#:[id number] Oral 960 / 960 240 / 240 Output: Urine 500 / 500 300 / 300 Other: # Voids 4 Date of Last Bowel Movement 09/09/18 09/15/18 # Bowel Movements 0 Weight 87 kg Assessment and Plan - Assessment (1) NSTEMI (non-ST elevated myocardial infarction) Code(s): I21.4 - Non-ST elevation (NSTEMI) myocardial infarction Status: Acute (2) ARF (acute renal failure) Code(s): N17.9 - Acute kidney failure, unspecified Status: Acute (3) Hypertension Code(s): I10 - Essential (primary) hypertension Status: Acute (4) Hyperlipidemia Code(s): E78.5 - Hyperlipidemia, unspecified Status: Acute (5) CAD (coronary artery disease) Code(s): I25.10 - Atherosclerotic heart disease of [place] coronary artery without angina pectoris Status: Acute (6) Diabetes type 2, controlled Code(s): E11.9 - Type 2 diabetes mellitus without complications Status: Acute - Plan 1.) CAD - nstemi, severe dom lcx and mid lad disease, continue aspirin, plavix, lipitor, coreg, elmer held due to arf, pod # [address] Sprague, chest tube out , arf improving, stable
== END 2018-09-16 14:47 | disposition home health service (06) ==
LOC: N04 09:25 → HCIS 09-03 14:38 → HCVI 09-12 13:18 → HCPC 09-13 12:45
PROVIDERS: ADMIT Hospitalist; ATTEND Hospitalist
DX: T82.858A Stenosis of other vascular prosthetic devices, implants and grafts, initial encounter; N28.1 Cyst of kidney, acquired; Z90.49 Acquired absence of other specified parts of digestive tract; R00.1 Bradycardia, unspecified; Z83.3 Family history of diabetes mellitus; E11.21 Type 2 diabetes mellitus with diabetic nephropathy; Z79.84 Long term (current) use of oral hypoglycemic drugs; I12.9 Hypertensive chronic kidney disease with stage 1 through stage 4 chronic kidney disease, or unspecified chronic kidney disease; D72.829 Elevated white blood cell count, unspecified; Z79.82 Long term (current) use of aspirin; Z95.5 Presence of coronary angioplasty implant and graft; N17.9 Acute kidney failure, unspecified; I25.119 Atherosclerotic heart disease of native coronary artery with unspecified angina pectoris; N18.3 Chronic kidney disease, stage 3 (moderate); N41.1 Chronic prostatitis; E87.5 Hyperkalemia; Y71.2 Prosthetic and other implants, materials and accessory cardiovascular devices associated with adverse incidents; E11.3519 Type 2 diabetes mellitus with proliferative diabetic retinopathy with macular edema, unspecified eye; E78.5 Hyperlipidemia, unspecified; Z82.49 Family history of ischemic heart disease and other diseases of the circulatory system; E11.22 Type 2 diabetes mellitus with diabetic chronic kidney disease; Z79.899 Other long term (current) drug therapy; Z87.891 Personal history of nicotine dependence; I21.4 Non-ST elevation (NSTEMI) myocardial infarction